=== PATIENT | male | born 1960 | race Caucasian/White ===

== ENCOUNTER → 2016-06-15 | Outpatient (CLI) | payer OTHER ==
[~2016-06-15] MED LIST: ASPI81TA28 PO; BROM1SOL8; GLC5 PO; LISI-461 PO; METF-384 PO; MULT-506 PO; OFLO0.3S4; OMEG10007 PO; PRDFOPS; SIMV-151 PO; TAMS0.4C38 PO; TPRSR/50 PO
[2016-06-15 09:50] LABS: ESTIMATED AVERAGE GLUCOSE 137 mg/dl; HA1C FLAG Normal (Normal)
[2016-06-15 09:59] LABS: ALT/SGPT 62 U/L (12-78); BLOOD UREA NITROGEN 21 mg/dl (7-18); BUN/CREATININE RATIO 30.6 (10-20); CALCIUM 8.9 mg/dl (8.5-10.1); CARBON DIOXIDE 27 mmol/L (21-32); CHLORIDE 105 mmol/L (98-107); CHOLESTEROL 142 mg/dl (0-200); CREATININE 0.69 mg/dl (0.60-1.40); GLUCOSE 205 mg/dl (70-99); POTASSIUM 4.3 mmol/L (3.5-5.1); SODIUM 139 mmol/L (136-145)
[2016-06-15 10:05] LABS: CHOLESTEROL/HDL RATIO 3.1; HDL CHOLESTEROL 46 mg/dl; LDL CHOLESTEROL CALCULATED 46 mg/dl; TRIGLYCERIDES 249 mg/dl (0-150); VERY LOW DENSITY LIPOPROT CALC 50 mg/dl
== END | disposition home or self-care (01) ==
LOC: C.LAB 08:00
PROVIDERS: ATTEND Family Medicine
DX: E11.65 Type 2 diabetes mellitus with hyperglycemia (principal)

== ENCOUNTER → 2016-09-26 | Outpatient (CLI) | payer OTHER ==
[2016-09-26 09:09] LABS: ALT/SGPT 59 U/L (12-78); BLOOD UREA NITROGEN 18 mg/dl (7-18); BUN/CREATININE RATIO 24.9 (10-20); CALCIUM 9.1 mg/dl (8.5-10.1); CARBON DIOXIDE 27 mmol/L (21-32); CHLORIDE 108 mmol/L (98-107); CREATININE 0.72 mg/dl (0.60-1.40); GLUCOSE 139 mg/dl (70-99); POTASSIUM 4.3 mmol/L (3.5-5.1); SODIUM 140 mmol/L (136-145)
[2016-09-26 09:12] LABS: CHOLESTEROL 147 mg/dl (0-200); CHOLESTEROL/HDL RATIO 2.6; HDL CHOLESTEROL 57 mg/dl; LDL CHOLESTEROL CALCULATED 73 mg/dl; TRIGLYCERIDES 85 mg/dl (0-150); VERY LOW DENSITY LIPOPROT CALC 17 mg/dl
[2016-09-26 09:17] LABS: ESTIMATED AVERAGE GLUCOSE 137 mg/dl; HA1C FLAG Normal (Normal)
== END | disposition home or self-care (01) ==
LOC: C.LAB 08:15
PROVIDERS: ATTEND Family Medicine
DX: E78.00 Pure hypercholesterolemia, unspecified (principal); I10 Essential (primary) hypertension; E11.65 Type 2 diabetes mellitus with hyperglycemia

== ENCOUNTER → 2016-10-05 | Day surgery (SDC) | payer OTHER ==
[2016-09-18 12:38] VITALS: Ht 165.1 cm; Wt 113.6 kg
[~2016-10-05] VITALS: Ht 165.1 cm; Wt 113.6 kg
[~2016-10-05] MED LIST changes: +LIDOCAINE HCL 2% 2 ML VIAL (20MG/ML) ONE; +PROPOFOL IV EMULSION 10 MG/ML 20 ML VIAL IV ONE; +SODIUM CHLORIDE 0.9% 500ML 500 ML IV ONE
--- NOTE | 2016-10-05 10:07 | Endo History and Physical ---
History & Physical Date of Service: Oct 05, 2016. Chief Complaint: tubulovillous adenoma Referring Physician: ALYCE Cain III History of Present Illness 56 yo CM who presents for Colonoscopy secondary to history of colon polyp. Past Medical History Diabetes, Male Genitourinary Prob., Gastrointestinal Disorder, High Cholesterol , Hypertension Past Surgical History Hx Cardiac Surgery: No Hx Internal Defibrillator: No Hx Pacemaker: No Hx Abdominal Surgery: Yes (PARTIAL COLECTOMY WITH COLOSTOMY AND REVERSAL, HERNIA REPAIR, APPY) Hx of Implantable Prosthesis: No Hx Post-Op Nausea and Vomiting: No Hx Cancer Surgery: No Hx Thoracic Surgery: No Hx Orthopedic: No Hx Urinary Tract Surgery: No Family History None Social History Smoking Status: Current Some Day Smoker Hx Substance Use: No Hx Alcohol Use: Yes (1 WHISKEY DRINK/DAY) Allergies Coded Allergies: Cat Dander (Verified Allergy, Unknown, UNKNOWN, 09/18/16) NO KNOWN DRUG ALLERGIES (Verified Allergy, Unknown, ., 09/18/16) Current Medications Reported Home Medications Medications Dose Route/Sig Max Daily Dose Days Date Category Zestril (Lisinopril) 10 Mg Tab 10 Mg PO QPM 09/18/16 Reported Glipizide 5 Mg Tab 0.5 Tab PO QPM 09/18/16 Reported Glipizide 5 Mg Tab 1 Tab PO QAM 09/18/16 Reported [place]-3 (Fish Oil) 1 Ea Cap 1 Cap PO BID 04/01/15 Reported Flomax (Tamsulosin Hcl) 0.4 Mg Cap 0.4 Mg PO QPM 04/01/15 Reported Glucophage (Metformin Hcl) 1,000 Mg Tab 1,000 Mg PO BID 01/01/14 Reported Multivitamin (Multivitamins) Tab 1 Tab PO QAM 01/01/14 Reported Aspirin Ec (Aspirin) 81 Mg Tab 81 Mg PO QAM 01/01/14 Reported Metoprolol Succinate ER (Metoprolol Succinate) 50 Mg Tabcr 50 Mg PO QAM 01/01/14 Reported Simvastatin 20 Mg Tab 20 Mg PO QPM 01/01/14 Reported Vital Signs Weight (Kilograms): 113.64 Height (Feet): 5 Height (Inches): 5 Date Time Temp Pulse Resp B/P (MAP) Pulse Ox O2 Delivery O2 Flow Rate FiO2 10/05/16 09:41 36.6 78 20 157/89 (111) 97 Room Air Physical Exam General Appearance: WD/WN, no apparent distress Respiratory/Chest: Auscultation: breath sounds normal Cardiovascular: Heart Auscultation: RRR Abdomen: Bowel Sounds: normal Inspection & Palpation: soft, non-distended, no tenderness, guarding & rebound Assessment and Plan Assessment: 56 yo CM who presents for Colonoscopy secondary to history of colon polyp. Plan: Proceed with colonoscopy.
--- NOTE | 2016-10-05 10:56 | GI REPORT ---
Procedure Date: 10/05/2016 10:11 AM Procedure: Colonoscopy Indications: High risk colon cancer surveillance: Personal history of colonic polyps, Last colonoscopy: April 2015 Medicines: Monitored Anesthesia Care Complications: No immediate complications. Estimated Blood Loss: Estimated blood loss: none. Procedure: Pre-Anesthesia Assessment: - Prior to the procedure, a History and Physical was performed, and patient medications and allergies were reviewed. The patient's tolerance of previous anesthesia was also reviewed. The risks and benefits of the procedure and the sedation options and risks were discussed with the patient. All questions were answered, and informed consent was obtained. Prior Anticoagulants: The patient has taken aspirin, last dose was 1 day prior to procedure. ASA Grade Assessment: III - A patient with severe systemic disease. After reviewing the risks and benefits, the patient was deemed in satisfactory condition to undergo the procedure. After I obtained informed consent, the scope was passed under direct vision. Throughout the procedure, the patient's blood pressure, pulse, and oxygen saturations were monitored continuously. The scope was introduced through the anus and advanced to the terminal ileum. The colonoscopy was performed without difficulty. The patient tolerated the procedure well. The quality of the bowel preparation was good. The terminal ileum, ileocecal valve, appendiceal orifice, and rectum were photographed. Findings: There was evidence of a prior end-to-side colo-colonic anastomosis in the sigmoid colon. This was patent and was characterized by healthy appearing mucosa. The anastomosis was traversed. Non-bleeding internal hemorrhoids were found during retroflexion. The hemorrhoids were small. Impression: - Patent end-to-side colo-colonic anastomosis, characterized by healthy appearing mucosa. - Non-bleeding internal hemorrhoids. - No specimens collected. Recommendation: - Resume previous diet. - Continue present medications. - Repeat colonoscopy in 3 years for screening purposes. - Return to primary care physician as previously scheduled. Nicko Gardner DO 10/05/2016 10:55:36 AM This report has been signed electronically. Note Initiated On: 10/05/2016 10:11 AM I attest to the content of the Intraoperative Record and orders documented therein, exceptions below
--- NOTE | 2016-10-05 10:57 | Discharge Instructions ---
Endoscopy Patient Instructions Date / Procedure(s) Performed Oct 05, 2016. Colonoscopy Allergy Information Coded Allergies: Cat Dander (Verified Allergy, Unknown, UNKNOWN, 09/18/16) NO KNOWN DRUG ALLERGIES (Verified Allergy, Unknown, ., 09/18/16) Discharge Date / Findings Oct 05, 2016. Sigmoid colon anastomosis Internal hemorrhoids Medication Instructions Stopped Medication(s): stopped Metformin on Wednesday,took ASA yesterday OK to resume all medications today as prescribed Reported Home Medications Medications Dose Route/Sig Max Daily Dose Days Date Category Zestril (Lisinopril) 10 Mg Tab 10 Mg PO QPM 09/18/16 Reported Glipizide 5 Mg Tab 0.5 Tab PO QPM 09/18/16 Reported Glipizide 5 Mg Tab 1 Tab PO QAM 09/18/16 Reported [place]-3 (Fish Oil) 1 Ea Cap 1 Cap PO BID 04/01/15 Reported Flomax (Tamsulosin Hcl) 0.4 Mg Cap 0.4 Mg PO QPM 04/01/15 Reported Glucophage (Metformin Hcl) 1,000 Mg Tab 1,000 Mg PO BID 01/01/14 Reported Multivitamin (Multivitamins) Tab 1 Tab PO QAM 01/01/14 Reported Aspirin Ec (Aspirin) 81 Mg Tab 81 Mg PO QAM 01/01/14 Reported Metoprolol Succinate ER (Metoprolol Succinate) 50 Mg Tabcr 50 Mg PO QAM 01/01/14 Reported Simvastatin 20 Mg Tab 20 Mg PO QPM 01/01/14 Reported Provider Instructions Activity Restrictions - No exercising or heavy lifting for 24 hours. - Do not drink alcohol the day of the procedure. - Do not drive a car or operate machinery until the day after the procedure. - Do not make any important decisions or sign important papers in 24 hours after the procedure. Following Day: - Return to full activity which may include returning to work/school. Diet Start your diet with liquids and light foods (jello, soup, juice, toast). Then eat your usual diet if not nauseated. Treatment For Common After Affects For mild abdominal pain, bloating, or excessive gas: - Rest - Eat lightly - Lie on right side Follow-Up Information Follow-up with ALYCE Cain III as scheduled Anesthesia Information What You Should Know You have had a procedure that required some medicine to reduce anxiety and discomfort. This treatment is called moderate sedation. After receiving the treatment, you may be sleepy, but you will be able to breathe on your own. The effects of the treatment may last for several hours. Follow these instructions along with Activity/Diet recommendations noted above: * Do NOT do anything where dizziness or clumsiness would be dangerous. * Rest quietly at home today, then you can be up and about tomorrow. * Have a responsible person stay with you the rest of today. * You may have had an I.V. today. If so, you may take the dressing off later today. Recommendations Call your doctor if: * Trouble breathing * Continuous vomiting for more than 24 hours * Temperature above 101 degrees * Severe abdominal pain or bloating * Pain not relieved by pain medicine ordered * There is increased drainage or redness from any incision * A large amount of rectal bleeding greater than 2-3 tablespoons. (If you had a polyp/s removed or have hemorrhoids, a small amount of blood - from the rectum is to be expected.) * You have any unanswered questions or concerns. IN THE EVENT OF A SERIOUS EMERGENCY, GO TO THE NEAREST EMERGENCY ROOM Your discharge instructions were prepared by provider Nicko Gardner. Patient Instructions Signature Page [place] Patient (or Guardian) Signature/Date: I have read and understand the instructions given to me by my caregivers. Caregiver/RN/Doctor Signature/Date: The above-named patient and/or guardian has received patient instructions on this date. + Original Patient Signature Page (only) stays with chart. Please make copy for patient.
[2016-10-05 11:18] VITALS: BP 122/79; PULSE 70; O2SAT 98
--- NOTE | 2016-10-05 11:40 | Anesthesiology Progress Note ---
Anesthesia Post Op Note Date & Time Oct 05, 2016 at 11:40 Vital Signs Pain Intensity: 1 Vital Signs Past 12 Hours Date Time Temp Pulse Resp B/P (MAP) Pulse Ox O2 Delivery O2 Flow Rate FiO2 10/05/16 11:18 70 20 122/79 (93) 98 Room Air 10/05/16 11:02 68 20 123/76 (92) 97 Room Air 10/05/16 10:45 71 20 111/71 (84) 98 Room Air 10/05/16 09:41 36.6 78 20 157/89 (111) 97 Room Air Notes Mental Status: alert / awake / arousable Pt Amnestic to Procedure: Yes Nausea / Vomiting: adequately controlled Pain: adequately controlled Airway Patency, RR, SpO2: stable & adequate BP & HR: stable & adequate Hydration State: stable & adequate Anesthetic Complications: no major complications apparent
== END | disposition home or self-care (01) ==
LOC: C.GI 09:11
PROVIDERS: ATTEND Internal Medicine
DX: Z86.010 Personal history of colon polyps (principal); K64.8 Other hemorrhoids; E11.9 Type 2 diabetes mellitus without complications; K21.9 Gastro-esophageal reflux disease without esophagitis; E78.00 Pure hypercholesterolemia, unspecified; I10 Essential (primary) hypertension; F17.200 Nicotine dependence, unspecified, uncomplicated; Z90.49 Acquired absence of other specified parts of digestive tract; Z90.89 Acquired absence of other organs; E78.5 Hyperlipidemia, unspecified; Z79.82 Long term (current) use of aspirin

== ENCOUNTER → 2016-11-04 | Day surgery (SDC) | payer OTHER ==
[2016-10-21 08:23] VITALS: Ht 165.1 cm; Wt 113.6 kg
[~2016-11-04] VITALS: Ht 165.1 cm; Wt 113.6 kg
[~2016-11-04] MED LIST changes: +500ML BSS 0.3ML EPI 1:1000PF IRRIG ONE; +ACETAMINOPHEN 325 MG TAB PO PRN; +AMVISC PLUS 0.8ML SYRINGE INT OCU ONE; +ATROPINE SULFATE 0.1 MG/ML 5ML SYR IV PRN; +BSS FLUSH ONE; +ENDOCOAT 0.85ML SYRINGE INT OCU ONE; +EpHEDrine SULFATE INJ 50 MG/ML AMP IV PRN; +EpINEphrine INJ 1MG/ML AMP 1 MG/ML AMP ONE; +FENTANYL CITRATE INJ 50 MCG/1 ML 2 ML VIAL ONE; +LACTATED RINGER'S 1000ML 500 ML IV SCH; +LIDOCAINE 4% OP SOLN DROP CHARGE ONE; +LIDOCAINE 4% OP SOLN DROP CHARGE OPL SCH; +LIDOCAINE HCL 1% MPF 2 ML VIAL ONE; -LIDOCAINE HCL 2% 2 ML VIAL (20MG/ML) ONE; +MIDAZOLAM HCL 1 MG/ML 2ML VIAL ONE; +MIX: 4ML BSS 1ML EPI 1:1000 PF TOP ONE; +MOXIFLOXACIN OPH SOLN PER DROP CHARGE ONE; +POVIDONE-IODINE OP SOLN 30 ML BTL ONE; +PROPARACAINE 0.5% OP SOLN PER DROP CHARGE OPL SCH; -PROPOFOL IV EMULSION 10 MG/ML 20 ML VIAL IV ONE; -SODIUM CHLORIDE 0.9% 500ML 500 ML IV ONE; +TOBRAMYCIN/DEXAMETHASONE OPH OINT PER APPLN CHARGE ONE
[2016-11-04] MEDS: PHENYLEPHRINE HCL 2.5% OP SOLN PER DROP CHARGE OPL SCH ×3 (07:26→07:39)
[2016-11-04] MEDS: TROPICAMIDE 1% OP SOLN PER DROP CHARGE OPL SCH ×3 (07:28→07:40)
[2016-11-04] MEDS: CYCLOPENTOLATE HCL 1% OP SOLN PER DROP CHARGE OPL SCH ×3 (07:29→07:42)
[2016-11-04] MEDS: MOXIFLOXACIN OPH SOLN PER DROP CHARGE OPL SCH ×3 (07:30→07:43)
--- NOTE | 2016-11-04 07:30 | History & Physical Bridge - [place] ---
H&P Re-Evaluation Bridge Note: I have examined the patient, reviewed the History & Physical and in the interval since the performance of the History & Physical I have noted the following changes of clinical significance: No changes noted
--- NOTE | 2016-11-04 08:38 | [facility] Post Operative Brief Note ---
Immediate Operative Summary Operative Date Nov 04, 2016. Pre-Operative Diagnosis Left Eye Cataract Post-Operative Diagnosis Same Procedure(s) Performed Left Eye Cataract Phacoemulsification With Intraocular Lens Implant Surgeon Dr. Hebert Field Support Engineer Surgeon(s) None Estimated Blood Loss 0 Findings left cataract Specimens None Complication(s) None Disposition
[2016-11-04 08:39] VITALS: TEMP 36.3
--- NOTE | 2016-11-04 08:39 | [facility] Operative Report ---
Operative Report Date of Service Nov 04, 2016. Operative Report DATE OF OPERATION: 11/04/16 PREOPERATIVE DIAGNOSIS: Senile nuclear cataract and astigmatism, left eye POSTOPERATIVE DIAGNOSIS: Senile nuclear cataract and astigmatism, left eye PROCEDURE PERFORMED: Phacoemulsification with toric intraocular lens implantation, left eye SURGEON: Dr. Lino Hebert ANESTHESIA: Topical with 1% intracameral lidocaine and monitored anesthesia care COMPLICATIONS: None DESCRIPTION OF PROCEDURE: After positively identifying the patient both verbally and by wristband in the preoperative area, the left eye was marked as the operative eye. Using a Robomarker, the 75 degree axis was marked after placing a drop of proparacaine. The patient was then brought back to the operating room by the anesthesia and nursing staff where they were given a drop of tetracaine and betadine into the operative eye. They were then sterilely prepped and draped in the standard fashion typical for ophthalmic surgery. Steri-strips were placed along the upper eyelids to keep the lashes back, and a lid speculum was placed into the operative eye. At this point, a documented time out was performed with members of the ophthalmology, nursing, and anesthesia staffs all agreeing upon the correct patient, correct location for surgery, correct procedure, and correct type and power of intraocular lens to be implanted. The microscope was then swung into position. Then, a paracentesis wound was made using a sideport blade. Then, in sequence, 1% preservative-free lidocaine followed by Endocoat viscoelastic was injected into the anterior chamber. Next , the main incision was made with a keratome blade in triplanar fashion. A sharp cystotome was introduced into the eye and used to create a tear in the anterior capsule, which was directed into a continuous curvilinear capsulorrhexis using Utrata forceps. Hydrodissection was then performed with BSS on a flat-tip cannula. Next, the phacoemulsification handpiece was introduced into the eye and used to remove the nucleus in a [id number] fashion. This was done without complication and then the irrigation-aspiration handpiece was introduced into the eye and used to remove all remaining cortical and epinuclear material. Amvisc was then injected into the anterior chamber as well as into the capsular bag and using the lens injector system, a [id number] 19.5 D lens, serial number [id number], and expiration date 07/2020 was injected into the capsular bag and rotated into the correct position to correctly line up with the toric marking. Next, the irrigation-aspiration handpiece was used to remove all remaining Amvisc. BSS was used to hydrate the main wound, and then BSS was injected into the paracentesis site to reach physiologic pressure and then the main wound was checked and found to be watertight. The patient was given drops of Vigamox and tobradex ointment into the operative eye, and then the surrounding area was cleaned and dried. A clear plastic shield was placed over the eye and the patient was then sat up and taken from the operating room by the anesthesia staff having tolerated the procedure well and suffering no complications. DISPOSITION: The patient was returned to the recovery room in stable condition. I attest to the content of the Intraoperative Record and any orders documented therein. Any exceptions are noted below.
--- NOTE | 2016-11-04 08:40 | Discharge Instructions-SurgCtr ---
Discharge Instructions Date of Service Nov 04, 2016. Visit Reason for Visit: Cataract Left Eye Discharge Discharge Diagnosis / Problem: left cataract Discharge Goals Goal(s): Decrease discomfort, Improve function Medications Stopped Medications Name(s): Metformin stopped 2 days ago Activity Recommendations Activity Limitations: as noted below Anesthesia . Post Anesthesia Instructions: If you have had General Anesthesia or IV Sedation: * Do not drive today. * Resume driving when surgeon permits. * Do not make important decisions or sign legal documents today. * Call surgeon for: 1. Temperature elevations greater than 101 degrees F. 2. Uncontrollable pain. 3. Excessive bleeding. 4. Persistent nausea and vomiting. 5. Medication intolerance (nausea, vomiting or rash). * For nausea and vomiting use only clear liquids such as: tea, soda, bouillon until nausea subsides, then gradually increase diet as tolerated. * If you have any concerns or questions, call your surgeon's office. If physician is unavailable and it is an emergency, call 911 or go to the nearest emergency room. . Instructions / Follow-Up Instructions / Follow-Up ACTIVITY RECOMMENDATIONS: * Light activities. * You may walk outside, read, watch television. * You may notice redness on the white part of the eye and some blurry vision - this is normal. MEDICATIONS: Resume previous medications unless instructed otherwise by your surgeon. Start all eye drops at 10:30 am today: * Eye drops (today): Prednisone - one drop in operative eye every 2 hours while awake Ofloxacin - one drop in operative eye every 2 hours while awake Bromfenac - one drop in operative eye daily SPECIAL CARE INSTRUCTIONS: * Tape plastic shield over eye to sleep at night. Call your doctor at with any concerns or problems. FOLLOW UP VISIT: Follow-up with Dr Hebert at [place] office as scheduled. Diet Recommendations Home Diet: no limitations Procedures Procedures Performed: Left Eye Cataract Phacoemulsification With Intraocular Lens Implant Pending Studies Studies pending at discharge: no Medical Emergencies . Who to Call and When: Medical Emergencies: If at any time you feel your situation is an emergency, please call 911 immediately. . Non-Emergent Contact Non-Emergency issues call your: Surgeon . . "Provider Documentation" section prepared by Lino Hebert. .
--- NOTE | 2016-11-04 08:48 | Anesthesia Progress Nt - [facility] ---
Anesthesia Post Op Note Date & Time Nov 04, 2016 at 08:47 Vital Signs Pain Intensity: 0 Vital Signs Past 12 Hours Date Time Temp Pulse Resp B/P (MAP) Pulse Ox O2 Delivery O2 Flow Rate FiO2 11/04/16 08:39 36.3 67 16 153/73 (99) 98 Room Air 11/04/16 07:13 36.4 70 16 122/82 (95) 97 Room Air Notes Mental Status: alert / awake / arousable, participated in evaluation Pt Amnestic to Procedure: Yes Nausea / Vomiting: adequately controlled Pain: adequately controlled Airway Patency, RR, SpO2: stable & adequate BP & HR: stable & adequate Hydration State: stable & adequate Anesthetic Complications: no major complications apparent
[2016-11-04 09:05] VITALS: BP 128/82; PULSE 60; O2SAT 96
== END | disposition home or self-care (01) ==
LOC: X.SURG 06:54
PROVIDERS: ATTEND Ophthalmology
DX: H25.12 Age-related nuclear cataract, left eye (principal); E11.9 Type 2 diabetes mellitus without complications; F17.200 Nicotine dependence, unspecified, uncomplicated

== ENCOUNTER → 2016-11-18 | Day surgery (SDC) | payer OTHER ==
[2016-11-13 12:49] VITALS: Ht 165.1 cm; Wt 113.6 kg
[~2016-11-18] VITALS: Ht 165.1 cm; Wt 113.6 kg
[~2016-11-18] MED LIST changes: -BROM1SOL8; -LIDOCAINE 4% OP SOLN DROP CHARGE OPL SCH; -OFLO0.3S4; +ONDANSETRON INJ 2 MG/ML 2 ML VIAL IV PRN; -PRDFOPS; -PROPARACAINE 0.5% OP SOLN PER DROP CHARGE OPL SCH; +PROPARACAINE 0.5% OP SOLN PER DROP CHARGE OPR SCH
[2016-11-18] MEDS: PHENYLEPHRINE HCL 2.5% OP SOLN PER DROP CHARGE OPR SCH ×3 (08:07→08:18)
[2016-11-18] MEDS: TROPICAMIDE 1% OP SOLN PER DROP CHARGE OPR SCH ×3 (08:08→08:19)
[2016-11-18] MEDS: CYCLOPENTOLATE HCL 1% OP SOLN PER DROP CHARGE OPR SCH ×3 (08:09→08:20)
[2016-11-18] MEDS: MOXIFLOXACIN OPH SOLN PER DROP CHARGE OPR SCH ×3 (08:10→08:21)
[2016-11-18] MEDS: LIDOCAINE 4% OP SOLN DROP CHARGE OPR SCH (08:22)
--- NOTE | 2016-11-18 09:11 | [facility] Post Operative Brief Note ---
Immediate Operative Summary Operative Date Nov 18, 2016. Pre-Operative Diagnosis Right eye cataract Post-Operative Diagnosis Same as preop Procedure(s) Performed Right Cataract Phacoemulsification With Intraocular Lens Implant; Toric Lens Surgeon Dr. Hebert Machine Accountant Surgeon(s) None Estimated Blood Loss 0 mL Findings right cataract Specimens None Complication(s) None Disposition
[2016-11-18 09:13] VITALS: TEMP 36.5
--- NOTE | 2016-11-18 09:13 | [facility] Operative Report ---
Operative Report Date of Service Nov 18, 2016. Operative Report DATE OF OPERATION: 11/18/16 PREOPERATIVE DIAGNOSIS: Senile nuclear cataract and astigmatism, right eye POSTOPERATIVE DIAGNOSIS: Senile nuclear cataract and astigmatism, right eye PROCEDURE PERFORMED: Phacoemulsification with toric intraocular lens implantation, right eye SURGEON: Dr. Lino Hebert ANESTHESIA: Topical with 1% intracameral lidocaine and monitored anesthesia care COMPLICATIONS: None DESCRIPTION OF PROCEDURE: After positively identifying the patient both verbally and by wristband in the preoperative area, the right eye was marked as the operative eye. Using a Robomarker, the 86 degree axis was marked after placing a drop of proparacaine. The patient was then brought back to the operating room by the anesthesia and nursing staff where they were given a drop of tetracaine and betadine into the operative eye. They were then sterilely prepped and draped in the standard fashion typical for ophthalmic surgery. Steri-strips were placed along the upper eyelids to keep the lashes back, and a lid speculum was placed into the operative eye. At this point, a documented time out was performed with members of the ophthalmology, nursing, and anesthesia staffs all agreeing upon the correct patient, correct location for surgery, correct procedure, and correct type and power of intraocular lens to be implanted. The microscope was then swung into position. Then, a paracentesis wound was made using a sideport blade. Then, in sequence, 1% preservative-free lidocaine followed by Endocoat viscoelastic was injected into the anterior chamber. Next , the main incision was made with a keratome blade in triplanar fashion. A sharp cystotome was introduced into the eye and used to create a tear in the anterior capsule, which was directed into a continuous curvilinear capsulorrhexis using Utrata forceps. Hydrodissection was then performed with BSS on a flat-tip cannula. Next, the phacoemulsification handpiece was introduced into the eye and used to remove the nucleus in a [id number]-payddyd fashion. This was done without complication and then the irrigation-aspiration handpiece was introduced into the eye and used to remove all remaining cortical and epinuclear material. Amvisc was then injected into the anterior chamber as well as into the capsular bag and using the lens injector system, a [id number] 18.5 D lens, serial number [id number], and expiration date 07/2019 was injected into the capsular bag and rotated into the correct position to correctly line up with the toric marking. Next, the irrigation-aspiration handpiece was used to remove all remaining Amvisc. BSS was used to hydrate the main wound, and then BSS was injected into the paracentesis site to reach physiologic pressure and then the main wound was checked and found to be watertight. The patient was given drops of Vigamox and tobradex ointment into the operative eye, and then the surrounding area was cleaned and dried. A clear plastic shield was placed over the eye and the patient was then sat up and taken from the operating room by the anesthesia staff having tolerated the procedure well and suffering no complications. DISPOSITION: The patient was returned to the recovery room in stable condition. I attest to the content of the Intraoperative Record and any orders documented therein. Any exceptions are noted below.
--- NOTE | 2016-11-18 09:14 | Discharge Instructions-SurgCtr ---
Discharge Instructions Date of Service Nov 18, 2016. Visit Reason for Visit: Right Cataract Discharge Discharge Diagnosis / Problem: right cataract Discharge Goals Goal(s): Decrease discomfort, Improve function Medications Stopped Medications Name(s): METFORMIN LAST DOSE WEDNESDAY Activity Recommendations Activity Limitations: as noted below Anesthesia . Post Anesthesia Instructions: If you have had General Anesthesia or IV Sedation: * Do not drive today. * Resume driving when surgeon permits. * Do not make important decisions or sign legal documents today. * Call surgeon for: 1. Temperature elevations greater than 101 degrees F. 2. Uncontrollable pain. 3. Excessive bleeding. 4. Persistent nausea and vomiting. 5. Medication intolerance (nausea, vomiting or rash). * For nausea and vomiting use only clear liquids such as: tea, soda, bouillon until nausea subsides, then gradually increase diet as tolerated. * If you have any concerns or questions, call your surgeon's office. If physician is unavailable and it is an emergency, call 911 or go to the nearest emergency room. . Instructions / Follow-Up Instructions / Follow-Up ACTIVITY RECOMMENDATIONS: * Light activities. * You may walk outside, read, watch television. * You may notice redness on the white part of the eye and some blurry vision - this is normal. MEDICATIONS: Resume previous medications unless instructed otherwise by your surgeon. Start all eye drops at 11:30 am today: * Eye drops (today): Prednisone - one drop in operative eye every 2 hours while awake Ofloxacin - one drop in operative eye every 2 hours while awake Bromfenac - one drop in operative eye daily SPECIAL CARE INSTRUCTIONS: * Tape plastic shield over eye to sleep at night. Call your doctor at with any concerns or problems. FOLLOW UP VISIT: Follow-up with Dr Hebert at [place] office as scheduled. Diet Recommendations Home Diet: no limitations Procedures Procedures Performed: Right Cataract Phacoemulsification With Intraocular Lens Implant; Toric Lens Pending Studies Studies pending at discharge: no Medical Emergencies . Who to Call and When: Medical Emergencies: If at any time you feel your situation is an emergency, please call 911 immediately. . Non-Emergent Contact Non-Emergency issues call your: Surgeon . . "Provider Documentation" section prepared by Lino Hebert. .
[2016-11-18 09:36] VITALS: BP 128/77; PULSE 65; O2SAT 97
--- NOTE | 2016-11-18 09:42 | Anesthesia Progress Nt - [facility] ---
Anesthesia Post Op Note Date & Time Nov 18, 2016 at 09:42 Vital Signs Pain Intensity: 0 Vital Signs Past 12 Hours Date Time Temp Pulse Resp B/P (MAP) Pulse Ox O2 Delivery O2 Flow Rate FiO2 11/18/16 09:36 65 16 128/77 (94) 97 Room Air 11/18/16 09:13 36.5 64 16 145/74 (97) 96 Room Air 11/18/16 07:59 36.5 70 22 127/79 (95) 98 Room Air Notes Mental Status: alert / awake / arousable, participated in evaluation Pt Amnestic to Procedure: Yes Nausea / Vomiting: adequately controlled Pain: adequately controlled Airway Patency, RR, SpO2: stable & adequate BP & HR: stable & adequate Hydration State: stable & adequate Anesthetic Complications: no major complications apparent
== END | disposition home or self-care (01) ==
LOC: X.SURG 07:17
PROVIDERS: ATTEND Ophthalmology
DX: H25.11 Age-related nuclear cataract, right eye (principal); H52.201 Unspecified astigmatism, right eye; E11.9 Type 2 diabetes mellitus without complications; F17.210 Nicotine dependence, cigarettes, uncomplicated; Z86.010 Personal history of colon polyps

== ENCOUNTER → 2017-01-21 | Outpatient (CLI) | payer OTHER ==
[~2017-01-21] MED LIST changes: -500ML BSS 0.3ML EPI 1:1000PF IRRIG ONE; -ACETAMINOPHEN 325 MG TAB PO PRN; -AMVISC PLUS 0.8ML SYRINGE INT OCU ONE; -ATROPINE SULFATE 0.1 MG/ML 5ML SYR IV PRN; -BSS FLUSH ONE; -ENDOCOAT 0.85ML SYRINGE INT OCU ONE; -EpHEDrine SULFATE INJ 50 MG/ML AMP IV PRN; -EpINEphrine INJ 1MG/ML AMP 1 MG/ML AMP ONE; -FENTANYL CITRATE INJ 50 MCG/1 ML 2 ML VIAL ONE; -LACTATED RINGER'S 1000ML 500 ML IV SCH; -LIDOCAINE 4% OP SOLN DROP CHARGE ONE; -LIDOCAINE HCL 1% MPF 2 ML VIAL ONE; -MIDAZOLAM HCL 1 MG/ML 2ML VIAL ONE; -MIX: 4ML BSS 1ML EPI 1:1000 PF TOP ONE; -MOXIFLOXACIN OPH SOLN PER DROP CHARGE ONE; -ONDANSETRON INJ 2 MG/ML 2 ML VIAL IV PRN; -POVIDONE-IODINE OP SOLN 30 ML BTL ONE; -PROPARACAINE 0.5% OP SOLN PER DROP CHARGE OPR SCH; -TOBRAMYCIN/DEXAMETHASONE OPH OINT PER APPLN CHARGE ONE
--- NOTE | 2017-01-21 09:08 | DIAGNOSTIC IMAGING REPORT ---
ULTRASOUND OF THE BLADDER CLINICAL HISTORY: Weak urine stream. COMPARISON STUDY: Pelvic CT dated 01/01/2014. FINDINGS: Real-time, grayscale, and color flow sonography of the bladder is performed. The bladder wall appears mildly thickened and trabeculated. No mucosal lesion is suggested. Both ureteral jets were identified. The prevoid volume measures 310 cc. The post void residual measured 70 cc. IMPRESSION: 1. The bladder wall appears mildly thickened and trabeculated suggesting chronic outlet obstruction. 2. The post void residual volume measures 70 cc. Electronically signed by: Wilfrid Sierra M.D. 01/21/2017 9:06 AM Dictated Date/Time: 01/21/2017 9:04 AM
--- NOTE | 2017-01-21 09:10 | DIAGNOSTIC IMAGING REPORT ---
ULTRASOUND TESTES AND SCROTUM CLINICAL HISTORY: Weak urine stream. COMPARISON STUDY: No priors. TECHNIQUE: Real-time, grayscale, and color Doppler sonography of the testes and scrotum is performed. Images are reviewed in the transverse and longitudinal planes. FINDINGS: The testes appear mildly atrophic and are heterogeneous in echotexture. The right testis measures 3.2 x 1.4 x 2.2 cm and the left testis measures 2.7 x 1.4 x 1.7 cm. No intratesticular mass is seen. Testicular blood flow is normal and symmetric. Normal Doppler waveforms are identified in both testes. The epididymal heads are normal in appearance. The right epididymal head measures 1.1 cm in length and the left epididymal head measures 0.7 cm in length. A 4 mm epididymal head cyst is noted on the right. A 6 mm epididymal cyst is noted on the left. No varicocele or hydrocele is seen. IMPRESSION: 1. The testes appear atrophic and are heterogeneous in echotexture. 2. No mass lesion or acute abnormality is identified. Electronically signed by: Wilfrid Sierra M.D. 01/21/2017 9:08 AM Dictated Date/Time: 01/21/2017 9:06 AM
== END | disposition home or self-care (01) ==
LOC: C.ULTR 08:29
PROVIDERS: ATTEND Family Medicine
DX: R39.12 Poor urinary stream (principal); N50.9 Disorder of male genital organs, unspecified

== ENCOUNTER 2017-10-28 23:26 | Emergency (ER) | payer OTHER ==
[~2017-10-28] VITALS: Ht 165.1 cm; Wt 103.0 kg
[2017-10-28 23:29] VITALS: BP 150/90; PULSE 110; TEMP 36.6; O2SAT 97; Ht 165.1 cm; Wt 103.0 kg
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
== END 2017-10-29 00:12 | disposition home or self-care (01) ==
LOC: C.EDB 23:28
DX: Z77.21 Contact with and (suspected) exposure to potentially hazardous body fluids (principal); Z79.82 Long term (current) use of aspirin; Z79.84 Long term (current) use of oral hypoglycemic drugs; Z79.899 Other long term (current) drug therapy

== ENCOUNTER 2020-02-14 19:26 | Inpatient (IN) ==
[2020-02-14] MEDS ORDERED: cefTRIAXone SODIUM 1,000 MG/50 ML BAG IV STA (19:40)
[2020-02-14] MEDS ORDERED: DEXAMETHASONE SOD INJ 10 MG/ML VIAL IV ONE (19:40)
[2020-02-14] MEDS ORDERED: AZITHROMYCIN 250 MG TAB PO ONE (19:40)
--- NOTE | 2020-02-14 19:43 | Emergency Department Note ---
Impression & Plan Pneumonia due to 2019-nCoV, Hypoxia ED Provider Note NAME: TONY THORPE AGE: 60 SEX: M : 1960 ARRIVES VIA: Ambulance INFORMANT: Patient ED PROVIDER(S): Karthikeyan Don DO CHIEF COMPLAINT: Shortness of breath HPI: Patient is a 54-year-old male who presents the ER for shortness of breath. His symptoms started 2 Wednesdays ago. This initially started with a cough. He has now lost the sense of taste. His fever started this past Wednesday. Shortness of breath has been gradually getting worse. Denies any belly pain. He did have some chest pain but none today. Denies any vomiting dysuria urgency or frequency. No other exacerbating or remitting factors. ROS: See above HPI for pertinent positives & negatives. A total of 10 systems reviewed and were otherwise negative. PAST MEDICAL HISTORY:See Below PAST SURGICAL HISTORY:See Below FAMILY HISTORY:See Below SOCIAL HISTORY:See Below HOME MEDICATIONS:See Below ALLERGIES:See Below VITALS:See Below PHYSICAL EXAMINATION: GENERAL: Sitting up in bed, alert, ill-appearing on nonrebreather EYE EXAM: normal conjunctiva. LUNGS: Bilaterally. Normal chest wall mechanics HEART: no murmurs, S1 normal and S2 normal ABDOMEN: abdomen soft, non-tender, normo-active bowel sounds, no masses, no rebound or guarding. BACK: Back is symmetrical on inspection and there is no deformity, no midline tenderness, no CVA tenderness. SKIN: no rashes and no bruising UPPER EXTREMITIES: upper extremities are grossly normal. LOWER EXTREMITIES: No pitting edema. Calves are equal bilateral NEURO EXAM: Normal sensorium, cranial nerves II-XII grossly intact, normal speech, no gross weakness of arms, no gross weakness of legs. MEDICAL DECISION MAKING: Patient is a 60-year-old male obese who is Covid positive the presents the ER via EMS for shortness of breath. He was placed on nonrebreather. He was 70% on room air per EMS. IV was established blood work was obtained. Labs show a leukocytosis of 12,000. No significant anemia. D-dimer was elevated at 1200. BMP along with LFTs bilirubin were slightly elevated as T bili was 1.5 and AST and ALT were 70 and 90. Troponin was negative. Lipase unremarkable. Chest x- ray showed a multifocal pneumonia. Patient was given IV Rocephin and IV azithromycin. Remained on nonrebreather while in the ER. Updated bedside. Discussed with hospitalist for further evaluation. Triage Nursing notes reviewed. Prior medical records reviewed Vital Signs: reviewed and remarkable for toxic, tachycardic Differential diagnosis: Differential diagnoses includes but is not limited to pneumonia, bronchitis, COPD/Asthma exacerbation, pneumothorax, pulmonary embolism, congestive heart nadege lure, acute coronary syndrome ER treatment provided: See below Diagnostics interpreted by me: ECG: Sinus rhythm rate 93 Left axis No PVCs T wave inversion in lead III Normal QTC at 445 Cardiac Monitoring: An order was placed for continuous cardiac monitoring. The monitor shows a rate of 98 with sinus rhythm. Laboratory studies: As stated above and show below. Imaging studies: Portable AP upright 1 view of the chest shows multifocal pneumonia Consultation(s): none ED COURSE: Procedures: none Critical Care: I have personally spent 35 minutes of critical care time in the direct management of this patient. This includes bedside care, interpretation of diagnostic studies, and testing, discussion with consultants, patient, and family members, and other required patient management activities. This 35 minutes is in excess of all separately billable procedures. Past Med/Surg History Medical History (Updated 02/15/20 @ 00:21 by Karthikeyan Don DO) Allergic rhinitis Diverticular disease DM2 (diabetes mellitus, type 2) Hypercholesterolemia Hypertension Myotonic dystrophy, type 2 Surgical History History of appendectomy History of bilateral cataract extraction History of colonoscopy with polypectomy History of colostomy d/t diverticulitis History of colostomy reversal History of esophagogastroduodenoscopy (EGD) History of incisional hernia repair History of partial colectomy 1990s--had colostomy--d/t diverticulitis Family History Mother Cancer Family history of diabetes mellitus Brother Prostate cancer Colorectal cancer Other No family history of adverse response to anesthesia Denies family history of Ovarian cancer Myocardial infarction Breast cancer Social History Smoking Status: Current some day smoker Tobacco Type: Cigars Age Started Using Tobacco: 37; Age Quit Using Tobacco: 57; Second Hand Exposure: Yes (mom smoked); Hx Alcohol Use: Yes Alcohol type: hard liquor Hx Substance Use: No Preferred Language: Hebrew Communication Ability: Effective Fisher Mussel Required: No Beliefs That Will Affect Care: None marital status: Current Living Situation: Spouse and Family Current Living Situation Comment: Lives with and son current occupational status: employed Feels Safe at Home: Yes Dental Care, Regularly: No Physical Activity Frequency: Does not Exercise Seatbelt Use: sometimes Do you think of yourself as: straight/heterosexual Assistive Devices: None Allergies Allergies Allergy/AdvReac Type Severity Reaction Status Date / Time cat dander Allergy Mild COUGH Verified 02/14/20 20:23 Home Meds Home Medications Medication Instructions Recorded Confirmed 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 meter #1 ea 09/12/18 02/12/20 multivitamin 1 tab PO QAM 09/12/18 02/14/20 blood sugar diagnostic #10 ea 11/07/18 02/12/20 diclofenac sodium 75 mg 75 mg PO BIDM PRN #180 tab 11/07/18 02/14/20 tablet,delayed release lancets 33 gauge #100 ea 11/07/18 02/12/20 methocarbamol 500 mg tablet 500 mg PO QID PRN #28 tab 11/07/18 02/14/20 fluticasone propionate [Flonase 2 sprays INTNAS DAILY PRN 12/20/19 02/14/20 Allergy Relief] glipizide 2.5 mg PO QPM 12/20/19 02/14/20 glipizide 5 mg PO QAM 12/20/19 02/14/20 losartan 50 mg PO QAM 12/20/19 02/14/20 metoprolol succinate 50 mg PO QAM 12/20/19 02/14/20 albuterol sulfate [ProAir HFA] 2 puff INHALATION .Q4-6H PRN 02/14/20 02/14/20 aspirin 81 mg PO QAM 02/14/20 02/14/20 benzonatate [Tessalon Perles] 100 - 200 mg PO TID PRN 02/14/20 02/14/20 ezetimibe 10 mg PO DAILY 02/14/20 02/14/20 omega 0-yxh-mey-fish oil [Fish Oil] 1 cap PO BID 02/14/20 02/14/20 tkjxsrnva-SK-qshfzgqc-guaifen 2 tab PO Q6H PRN 02/14/20 02/14/20 [Tylenol Cold and Flu Severe] Previous Rx's Medication Instructions Recorded tamsulosin 0.4 mg capsule 0.4 mg PO HS #90 cap 08/16/19 montelukast 10 mg tablet 10 mg PO QPM #30 tab 09/26/19 metformin 1,000 mg tablet 1,000 mg PO BID #180 tab 12/06/19 prednisone 10 mg tablet See Rx Instructions PO DAILY #30 02/14/20 tab Results & Data (ED) Vital Signs Vital Signs - 24 hr 02/14/20 19:52 02/14/20 21:16 02/14/20 21:30 Temperature 37.3 C Temperature Source Oral Pulse Rate 93 H 87 85 Pulse Rate from SpO2 Sensor 87 85 Respiratory Rate 18 35 H 42 H Blood Pressure 125/75 125/71 133/74 Blood Pressure Mean 91 80 86 Pulse Oximetry 95 97 96 Oxygen Delivery Method Non-rebreather Non-rebreather Oxygen Flow Rate 15 15 15 Sepsis Recent Fever Within 48 Hours Yes Sepsis New/Unexplained Change in Mental Status N/A Sepsis Action Taken by Nursing No Action Required Pulse Oximetry Post Tiitration 95 02/14/20 22:00 Temperature Temperature Source Pulse Rate 84 Pulse Rate from SpO2 Sensor 85 Respiratory Rate 45 H Blood Pressure 144/78 H Blood Pressure Mean 86 Pulse Oximetry 96 Oxygen Delivery Method Oxygen Flow Rate 15 Sepsis Recent Fever Within 48 Hours Sepsis New/Unexplained Change in Mental Status Sepsis Action Taken by Nursing Pulse Oximetry Post Tiitration Laboratory Data Result diagrams: 02/14/20 20:35 02/14/20 20:35 Lab Results 02/14/20 02/14/20 02/14/20 Range/Units 20:35 20:35 20:35 WBC 12.44 H (4.8-10.8) K/uL RBC 3.97 L (4.7-6.1) M/uL Hgb 12.5 L (14.0-18.0) g/dL Hct 35.9 L (42-52) % MCV 90.4 (80-100) fL MCH 31.5 (25-34) pg MCHC 34.8 (32-36) g/dL Plt Count 357 (130-400) K/uL Immature Gran % (Auto) 0.6 % Neut % (Auto) 90.2 % Lymph % (Auto) 3.9 % [place] % (Auto) 5.1 % Eos % (Auto) 0.0 % Baso % (Auto) 0.2 % Neut # (Auto) 11.23 H (1.4-6.5) K/uL Lymph # (Auto) 0.48 L (1.2-3.4) K/uL [place] # (Auto) 0.63 H (0.11-0.59) K/uL Eos # (Auto) 0.00 (0-0.5) K/uL Baso # (Auto) 0.02 (0-0.2) K/uL Immature Gran # (Auto) 0.08 H (0.00-0.02) K/uL PT 12.0 (9.0-12.0) Seconds INR 1.1 (0.9-1.1) APTT 26.0 (21.0-31.0) Seconds PTT Ratio 0.9 D-Dimer 1280 H* (0-500) ug/L FEU Sodium (136-145) mmol/L Potassium (3.5-5.1) mmol/L Chloride (98-107) mmol/L Carbon Dioxide (21-32) mmol/L Anion Gap (3-11) BUN (7-18) mg/dl Creatinine (0.6-1.4) mg/dl Est Cr Clr Drug Dosing ml/min Est GFR ( Amer) Est GFR (Non-Af Amer) BUN/Creatinine Ratio (10-20) Glucose (70-99) mg/dl Calcium (8.5-10.1) mg/dl Total Bilirubin (0.2-1) mg/dl AST (15-37) U/L ALT (12-78) U/L Alkaline Phosphatase (45-117) U/L Troponin I (0-0.045) ng/ml Total Protein (6.4-8.2) gm/dl Albumin (3.4-5.0) gm/dl Globulin (2.5-4.0) gm/dl Albumin/Globulin Ratio (0.9-2) Lipase (73-393) U/L Blood Type AB Positive Antibody Screen NEGATIVE 02/14/20 Range/Units 20:35 WBC (4.8-10.8) K/uL RBC (4.7-6.1) M/uL Hgb (14.0-18.0) g/dL Hct (42-52) % MCV (80-100) fL MCH (25-34) pg MCHC (32-36) g/dL Plt Count (130-400) K/uL Immature Gran % (Auto) % Neut % (Auto) % Lymph % (Auto) % [place] % (Auto) % Eos % (Auto) % Baso % (Auto) % Neut # (Auto) (1.4-6.5) K/uL Lymph # (Auto) (1.2-3.4) K/uL [place] # (Auto) (0.11-0.59) K/uL Eos # (Auto) (0-0.5) K/uL Baso # (Auto) (0-0.2) K/uL Immature Gran # (Auto) (0.00-0.02) K/uL PT (9.0-12.0) Seconds INR (0.9-1.1) APTT (21.0-31.0) Seconds PTT Ratio D-Dimer (0-500) ug/L FEU Sodium 134 L (136-145) mmol/L Potassium 3.9 (3.5-5.1) mmol/L Chloride 102 (98-107) mmol/L Carbon Dioxide 24 (21-32) mmol/L Anion Gap 9.0 (3-11) BUN 16 (7-18) mg/dl Creatinine 0.73 (0.6-1.4) mg/dl Est Cr Clr Drug Dosing 124.8 ml/min Est GFR ( Amer) 118.5 Est GFR (Non-Af Amer) 102.2 BUN/Creatinine Ratio 22.3 H (10-20) Glucose 215 H (70-99) mg/dl Calcium 9.8 (8.5-10.1) mg/dl Total Bilirubin 1.5 H (0.2-1) mg/dl AST 73 H (15-37) U/L ALT 91 H (12-78) U/L Alkaline Phosphatase 161 H (45-117) U/L Troponin I < 0.015 (0-0.045) ng/ml Total Protein 7.0 (6.4-8.2) gm/dl Albumin 2.2 L (3.4-5.0) gm/dl Globulin 4.8 H (2.5-4.0) gm/dl Albumin/Globulin Ratio 0.5 L (0.9-2) Lipase 95 (73-393) U/L Blood Type Antibody Screen Administered Medications Discontinued Medications Azithromycin (Azithromycin 250 Mg Tab) 500 mg PO NOW ONE Stop: 02/14/20 19:41 Last Admin: 02/14/20 20:48 Dose: 500 mg Documented by: [id number] Dexamethasone (Dexamethasone Sod Inj 10 Mg/Ml Vial) 6 mg IV NOW ONE Stop: 02/14/20 19:41 Last Admin: 02/14/20 20:48 Dose: 6 mg Documented by: [id number] Ceftriaxone Sodium (Rocephin) 1,000 mg in 50 mls @ 100 mls/hr IV NOW STA Stop: 02/14/20 20:09 Last Infusion: 02/14/20 22:19 Dose: 0 mls/hr Documented by: [id number] Admin: 02/14/20 20:48 Dose: 100 mls/hr Documented by: [id number] Discharge Plan Visit Data Chief Complaint: Illness Stated Complaint: FEVER, SOB, COVID + ED Provider: Karthikeyan Don Discharge Problem: Pneumonia due to 2019-nCoV, Hypoxia
--- NOTE | 2020-02-14 20:20 | XRay Report ---
XR chest 1V portable CLINICAL HISTORY: Atypical chest pain. COMPARISON STUDY: Chest radiograph July 11, 2010. FINDINGS: There is no pneumothorax or pleural effusion. Moderate multifocal focal airspace opacities are noted within the lungs. There is no evidence for pulmonary edema. Cardiac size is at the upper li mits of normal. IMPRESSION: Moderate multifocal bilateral airspace opacities consistent with an infectious process. R adiographic follow-up is recommended. ACT 112: Negative or not required by law. Electronically signed by: Tashi Pedroza M.D. 02/14/2020 8:18 PM
[2020-02-14 20:57] LABS: INR 1.1 (0.9-1.1); Partial Thromboplastin Ratio 0.9
[2020-02-14 21:03] LABS: Basophils # (auto) 0.02 K/uL (0-0.2); Basophils % (auto) 0.2 %; Hematocrit (blood only) 35.9 % (42-52); Hemoglobin 12.5 g/dL (14.0-18.0); Immature Granulocytes # (auto) 0.08 K/uL (0.00-0.02); Immature Granulocytes % (auto) 0.6 %; Lymphocytes # (auto) 0.48 K/uL (1.2-3.4); Lymphocytes % (auto) 3.9 %; Mean Corpuscular Hemoglobin 31.5 pg (25-34); Mean Corpuscular Hgb Conc 34.8 g/dL (32-36); Mean Corpuscular Volume 90.4 fL (80-100); Monocytes # (auto) 0.63 K/uL (0.11-0.59); Monocytes % (auto) 5.1 %; Neutrophils # (auto) 11.23 K/uL (1.4-6.5); Neutrophils % (auto) 90.2 %; Platelet Count 357 K/uL (130-400); Red Blood Count 3.97 M/uL (4.7-6.1); White Blood Count 12.44 K/uL (4.8-10.8)
[2020-02-14 21:04] LABS: Alanine Aminotransferase 91 U/L (12-78); Albumin Level 2.2 gm/dl (3.4-5.0); Aspartate Aminotransferase 73 U/L (15-37); BUN Creatinine Ratio 22.3 (10-20); Blood Urea Nitrogen 16 mg/dl (7-18); Calcium 9.8 mg/dl (8.5-10.1); Carbon Dioxide 24 mmol/L (21-32); Chloride 102 mmol/L (98-107); Creatinine Clr Calc Pharmacy 124.8 ml/min; Est GFR (African American) 118.5; Est GFR (Non-African American) 102.2; Glucose 215 mg/dl (70-99); Lipase 95 U/L (73-393); Potassium 3.9 mmol/L (3.5-5.1); Sodium 134 mmol/L (136-145)
[2020-02-14 21:08] LABS: Albumin Globulin Ratio 0.5 (0.9-2); Alkaline Phosphatase 161 U/L (45-117); Bilirubin,Total 1.5 mg/dl (0.2-1); Globulin 4.8 gm/dl (2.5-4.0); Troponin I < 0.015 ng/ml (0-0.045)
[2020-02-14 21:24] LABS: D Dimer 1280 ug/L FEU (0-500)
--- NOTE | 2020-02-14 23:20 | History & Physical Report ---
Date of Service February 14, 2020 Assessment & Plan (1) Pneumonia due to 2019-nCoV: Pneumonia due to COVID-19 virus with hypoxia- Decadron 6 mg IV every morning Convalescent plasma, consent obtained Remdesivir IV per protocol Ceftriaxone 2 g IV daily azithromycin 500 mg IV daily Ventolin HFA 2 puffs 4 times daily, and every 2 hours as needed Presently on nonrebreather mask 15 L, gradually reduce as symptoms improve Present on Admission?: Yes (2) Hypoxia: See above Present on Admission?: Yes (3) DM2 (diabetes mellitus, type 2): Hold glipizide and Metformin. Placed on Accu-Cheks before meals and at bedtime with NovoLog coverage per scale. Monitor for bump in sugars while on Decadron Present on Admission?: Yes (4) Hypercholesterolemia: Continue Zetia and fish oil Present on Admission?: Yes (5) HTN, goal below 140/90: Continue aspirin and metoprolol succinate. Hold losartan Present on Admission?: Yes (6) BPH w urinary obs/LUTS: Continue tamsulosin Present on Admission?: Yes Admission and Anticipated Discharge Date Admission Date: February 14, 2020 History of Present Illness Chief Complaint: The patient presents to the emergency department with progressively worsening shortness of breath, with recent development of a cough and loss of sense of taste. Primary Care Provider: Calli Dior MD The patient is a 60-year-old male with a past medical history including peripheral neuropathy, obesity, internal hemorrhoids, hypertension, disc metabolic syndrome X, current tobacco user, myotonic dystrophy type II, allergic rhinitis, diabetes mellitus and hypercholesterolemia. The patient has chronic shortness of breath and dyspnea on exertion due to deconditioning, however, he notes over the past 6 to 7 days symptoms of significantly worsening shortness of breath and cough, and now over the past 2 days breathing is become much worse, and he has now lost sense of taste as well. Work-up in the emergency department includes the following abnormal laboratories: WBC 12.44, hemoglobin 12.5, glucose 215, D-dimer 1280, sodium 134, albumin 2.2, total bilirubin 1.5, AST 73, ALT 91. The patient did have drive-through testing on 02/11 for COVID-19 that was positive. Chest x-ray shows bilateral multifocal pneumonia. CT angiography PE protocol: No pulmonary embolism. Extensive bilateral groundglass and consolidative airspace opacities consistent with COVID-19. Left thyroid nodule measuring 2 cm. Mildly prominent mediastinal lymph nodes, nonspecific and favored as reactive Allergies Allergy/AdvReac Type Severity Reaction Status Date / Time cat dander Allergy Mild COUGH Verified 02/14/20 20:23 Home Medications Medication Instructions Recorded Confirmed Type 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 meter #1 ea 09/12/18 02/12/20 History multivitamin 1 tab PO QAM 09/12/18 02/14/20 History blood sugar diagnostic #10 ea 11/07/18 02/12/20 History diclofenac sodium 75 mg 75 mg PO BIDM PRN #180 tab 11/07/18 02/14/20 History tablet,delayed release lancets 33 gauge #100 ea 11/07/18 02/12/20 History methocarbamol 500 mg tablet 500 mg PO QID PRN #28 tab 11/07/18 02/14/20 History tamsulosin 0.4 mg capsule 0.4 mg PO HS #90 cap 08/16/19 02/14/20 Rx montelukast 10 mg tablet 10 mg PO QPM #30 tab 09/26/19 02/14/20 Rx metformin 1,000 mg tablet 1,000 mg PO BID #180 tab 12/06/19 02/14/20 Rx fluticasone propionate [Flonase 2 sprays INTNAS DAILY PRN 12/20/19 02/14/20 History Allergy Relief] glipizide 2.5 mg PO QPM 12/20/19 02/14/20 History glipizide 5 mg PO QAM 12/20/19 02/14/20 History losartan 50 mg PO QAM 12/20/19 02/14/20 History metoprolol succinate 50 mg PO QAM 12/20/19 02/14/20 History albuterol sulfate [ProAir HFA] 2 puff INHALATION .Q4-6H PRN 02/14/20 02/14/20 History aspirin 81 mg PO QAM 02/14/20 02/14/20 History benzonatate [Tessalon Perles] 100 - 200 mg PO TID PRN 02/14/20 02/14/20 History ezetimibe 10 mg PO DAILY 02/14/20 02/14/20 History omega 4-pcr-iqv-fish oil [Fish Oil] 1 cap PO BID 02/14/20 02/14/20 History ndtizpwss-YD-awcqhjmu-guaifen 2 tab PO Q6H PRN 02/14/20 02/14/20 History [Tylenol Cold and Flu Severe] prednisone 10 mg tablet See Rx Instructions PO DAILY #30 02/14/20 02/14/20 Rx tab Past Med/Surg History Medical History (Updated 02/15/20 @ 02:25 by Gianni Almaraz MD) Allergic rhinitis BPH w urinary obs/LUTS Diverticular disease DM2 (diabetes mellitus, type 2) Hypercholesterolemia Hypertension Myotonic dystrophy, type 2 Surgical History History of appendectomy History of bilateral cataract extraction History of colonoscopy with polypectomy History of colostomy d/t diverticulitis History of colostomy reversal History of esophagogastroduodenoscopy (EGD) History of incisional hernia repair History of partial colectomy 1990s--had colostomy--d/t diverticulitis Family History Mother Cancer Family history of diabetes mellitus Brother Prostate cancer Colorectal cancer Other No family history of adverse response to anesthesia Denies family history of Ovarian cancer Myocardial infarction Breast cancer Social History Smoking Status: Current some day smoker Tobacco Type: Cigars Age Started Using Tobacco: 37; Age Quit Using Tobacco: 57; Second Hand Exposure: Yes (mom smoked); Hx Alcohol Use: Yes Alcohol type: hard liquor Hx Substance Use: No Preferred Language: Burkinan 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 Beliefs That Will Affect Care: None marital status: Current Living Situation: Spouse Current Living Situation Comment: Lives with and son current occupational status: employed Feels Safe at Home: Yes Dental Care, Regularly: No Physical Activity Frequency: Does not Exercise Seatbelt Use: sometimes Do you think of yourself as: straight/heterosexual Assistive Devices: None Review of Systems Review of Systems: The patient denies chest pain, palpitations, lower extremity swelling, sore throat, fevers, chills, sweats, nausea, vomiting, diarrhea , constipation, abdominal pain, pelvic pain, blood in urine or stool, dysuria, urinary frequency or urgency, lightheadedness, dizziness, headache, memory loss, loss of consciousness, rash, abnormal bruising or bleeding, imbalance, focal weakness, numbness or tingling in arms or legs, back or neck pain, or night sweats. The review of systems is otherwise negative other than for that already noted above, and at least 10 systems have been reviewed. Physical Exam Physical Exam: The patient is awake, alert and oriented 3, well developed and well nourished, normocephalic and atraumatic, sitting upright in bed with nonrebreather mask in place. HEENT--PERRL, EOMI, mucous membranes and oropharynx dry. Neck--supple. No JVD. No bruits. Thyroid normal, trachea midline, no adenopathy. Heart--normal S1 and S2. No murmurs, rubs or gallops. Lungs--coarse breath sounds bilaterally. Mild to moderate respiratory distress improved on NRB. No accessory muscle use. Abdomen--normal bowel sounds and soft. Nontender. Nondistended. Obese. Extremities--no cyanosis or clubbing. No edema. Dermatologic--normal skin turgor, normal color, no abnormal lymph nodes, no rash. Neurologic--cranial nerves II through XII grossly intact. Rheumatologic--normal range of motion. Psychiatric--normal affect. Results & Data Results & Data ([facility]) Vital Signs (Past 12 Hours) Vital Signs Temp Pulse Resp BP Pulse Ox 02/14/20 22:00 84 45 H 144/78 H 96 02/14/20 21:30 85 42 H 133/74 96 02/14/20 21:16 87 35 H 125/71 97 02/14/20 19:52 99.1 F 93 H 18 125/75 95 Laboratory Results Laboratory Results WBC 12.44 K/uL (4.8-10.8) H 02/14/20 20:35 RBC 3.97 M/uL (4.7-6.1) L 02/14/20 20:35 Hgb 12.5 g/dL (14.0-18.0) L 02/14/20 20:35 Hct 35.9 % (42-52) L 02/14/20 20:35 MCV 90.4 fL (80-100) 02/14/20 20:35 MCH 31.5 pg (25-34) 02/14/20 20:35 MCHC 34.8 g/dL (32-36) 02/14/20 20:35 Plt Count 357 K/uL (130-400) 02/14/20 20:35 Immature Gran % (Auto) 0.6 % 02/14/20 20:35 Neut % (Auto) 90.2 % 02/14/20 20:35 Lymph % (Auto) 3.9 % 02/14/20 20:35 [place] % (Auto) 5.1 % 02/14/20 20:35 Eos % (Auto) 0.0 % 02/14/20 20:35 Baso % (Auto) 0.2 % 02/14/20 20:35 Neut # (Auto) 11.23 K/uL (1.4-6.5) H 02/14/20 20:35 Lymph # (Auto) 0.48 K/uL (1.2-3.4) L 02/14/20 20:35 [place] # (Auto) 0.63 K/uL (0.11-0.59) H 02/14/20 20:35 Eos # (Auto) 0.00 K/uL (0-0.5) 02/14/20 20:35 Baso # (Auto) 0.02 K/uL (0-0.2) 02/14/20 20:35 Immature Gran # (Auto) 0.08 K/uL (0.00-0.02) H 02/14/20 20:35 PT 12.0 Seconds (9.0-12.0) 02/14/20 20:35 INR 1.1 (0.9-1.1) 02/14/20 20:35 APTT 26.0 Seconds (21.0-31.0) 02/14/20 20:35 PTT Ratio 0.9 02/14/20 20:35 D-Dimer 1280 ug/L FEU (0-500) H* 02/14/20 20:35 Sodium 134 mmol/L (136-145) L 02/14/20 20:35 Potassium 3.9 mmol/L (3.5-5.1) 02/14/20 20:35 Chloride 102 mmol/L (98-107) 02/14/20 20:35 Carbon Dioxide 24 mmol/L (21-32) 02/14/20 20:35 Anion Gap 9.0 (3-11) 02/14/20 20:35 BUN 16 mg/dl (7-18) 02/14/20 20:35 Creatinine 0.73 mg/dl (0.6-1.4) 02/14/20 20:35 Est Cr Clr Drug Dosing 124.8 ml/min 02/14/20 20:35 Est GFR ( Amer) 118.5 02/14/20 20:35 Est GFR (Non-Af Amer) 102.2 02/14/20 20:35 BUN/Creatinine Ratio 22.3 (10-20) H 02/14/20 20:35 Glucose 215 mg/dl (70-99) H 02/14/20 20:35 Calcium 9.8 mg/dl (8.5-10.1) 02/14/20 20:35 Total Bilirubin 1.5 mg/dl (0.2-1) H 02/14/20 20:35 AST 73 U/L (15-37) H 02/14/20 20:35 ALT 91 U/L (12-78) H 02/14/20 20:35 Alkaline Phosphatase 161 U/L (45-117) H 02/14/20 20:35 Troponin I < 0.015 ng/ml (0-0.045) 02/14/20 20:35 Total Protein 7.0 gm/dl (6.4-8.2) 02/14/20 20:35 Albumin 2.2 gm/dl (3.4-5.0) L 02/14/20 20:35 Globulin 4.8 gm/dl (2.5-4.0) H 02/14/20 20:35 Albumin/Globulin Ratio 0.5 (0.9-2) L 02/14/20 20:35 Lipase 95 U/L (73-393) 02/14/20 20:35 Blood Type AB Positive 02/14/20 20:35 Antibody Screen NEGATIVE 02/14/20 20:35 Diagnostic Findings [facility], [id number] XRay Report Patient: TONY THORPE Date: 02/14/20#: [id number]: [address] [facility][id number][facility] Zip[facility] [place] [id number]: 60Location: EDSex: MRoom/Bed:Att Phy:Diagnosis: FEVER, SOB, COVID +Mary Phy: Calli Dior MDService Date: 02/14/20Fa Phy:Interpreting Phy: Tashi Pedroza MDAdmit Phy: Ordering Phy: Karthikeyan Don DO cc: ~ XR chest 1V portable CLINICAL HISTORY: Atypical chest pain. COMPARISON STUDY: Chest radiograph July 11, 2010. FINDINGS: There is no pneumothorax or pleural effusion. Moderate multifocal focal airspace opacities are noted within the lungs. There is no evidence for pulmonary edema. Cardiac size is at the upper limits of normal. IMPRESSION: Moderate multifocal bilateral airspace opacities consistent with an infectious process. Radiographic follow-up is recommended. ACT 112: Negative or not required by law. Electronically signed by: Tashi Pedrzoa M.D. 02/14/2020 8:18 PM Dictated: 02/14/202016Transcribed: 02/14/202016 [facility] Patient: TONY THORPE (Male) : 64 Status: ER Date: 02/15/20 00:38 Room #: History: +COVID, SOB, HARD TO BREATH Slices: [phone] Priors: Tech: Farzad Sethi @ [phone] Exams: CTA CHEST Contrast: IV Amt: 116 ML OPTIRAY 320 Accession Numbers: [id number] Preliminary Findings Only See Final Report For Complete Findings CTA CHEST: No pulmonary embolism. Extensive bilateral groundglass and consolidative airspace opacities consistent with Covid. Left thyroid nodule measuring 2 cm. Mildly prominent mediastinal lymph nodes, nonspecific. Favored reactive. Radiologist: Fredis King MD Study ready at 00:45 and initial results transmitted at 00:53 *This report constitutes a preliminary interpretation only. Non-acute findings felt to be unrelated to the clinical presentation may not be discussed in this report. The study will be interpreted and a final report will be generated by the local Radiologist the following shift. To reach the hospital radiology department call [phone]. If a discrepancy is found between the preliminary and final interpretations of this study, please notify us via our Client Portal at [email or web address] under QA Exams.You can also fax this report with a description of the discrepancy, or include the final report, to our daytime fax number [phone].If faxing, please indicate the severity of discrepancy using one of the following categories: [ ] 1 - Agree/Informational [ ] 2 - Unlikely to Affect Management [ ] 3 - Possible Eventual Change of Management [ ] 4 - Probable Immediate Change of Management For all other patient related information, please fax us at [phone]. [id number] Code Status & VTE Plan Code Status Full code VTE Prophylaxis Plan VTE Prophylaxis will be ordered: Yes PG Care Time/CCT Total # of Minutes Spent Total Time Spent with Patient: Total time spent is greater than 50% in coordination of care (as documented) at patient's floor/unit and/or counseling patient: Coding Level of Care Code 34358 Initial Inpt Care Lvl 3 Diagnoses Pneumonia due to 2019-nCoV U07.1; J12.89 Hypoxia R09.02 DM2 (diabetes mellitus, type 2) E11.9 Hypercholesterolemia E78.00 HTN, goal below 140/90 I10 BPH w urinary obs/LUTS N40.1; N13.8
[2020-02-15] MEDS ORDERED: ONDANSETRON INJ 2 MG/ML 2 ML VIAL IV PRN (00:24)
[2020-02-15] MEDS ORDERED: ALUMINUM/MAGNESIUM SUSP 30 ML UDC PO PRN (00:24)
[2020-02-15] MEDS ORDERED: CARBOHYDRATES FOR HYPOGLYCEMIA PO PRN (00:24)
[2020-02-15] MEDS ORDERED: DICLOFENAC SODIUM 75 MG TABCR PO PRN (00:24)
[2020-02-15] MEDS ORDERED: GLUCAGON FOR INJ 1 MG VIAL SQ PRN (00:24)
[2020-02-15] MEDS ORDERED: FLUTICASONE PROPIONATE NA SPR 16 GM BTL NAE PRN (00:24)
[2020-02-15] MEDS ORDERED: DEXTROSE 50% 50 ML SYRINGE IV PRN (00:24)
[2020-02-15] MEDS ORDERED: GLUCOSE 40% GEL 15 GM TUBE PO PRN (00:24)
[2020-02-15] MEDS ORDERED: GLUCOSE 10 TABS/TUBE PO PRN (00:24)
[2020-02-15] MEDS ORDERED: ACETAMINOPHEN 325 MG TAB PO PRN (01:00)
[2020-02-15] MEDS ORDERED: REMDESIVIR 200 MG in SODIUM CHLORIDE 0.9% 210 ML IV ONE (01:00)
[2020-02-15] MEDS: ALBUTEROL HFA 8 GM INHALER INH SCH ×5 (01:11→19:36)
[2020-02-15] MEDS ORDERED: OPTIRAY 320 125ml IV ONE (01:13)
[2020-02-15] MEDS ORDERED: PNEUMOCOCCAL POLYSACCHARIDES 25 MCG/0.5 ML VIAL/SYR IM ONE (01:59)
[2020-02-15] MEDS ORDERED: PNEUMOCOCCAL ADMINISTRATION CHARGE ONE (01:59)
[2020-02-15] MEDS: SODIUM CHLORIDE 0.9% 10ML FLUSH IV SCH (05:00)
[2020-02-15 07:18] LABS: Estimated Average Glucose 240 mg/dl
--- NOTE | 2020-02-15 07:18 | CT Scan Report ---
CT ANGIOGRAM OF THE CHEST CLINICAL HISTORY: Shortness of breath. Covid positive patient. Hypoxia. COMPARISON STUDY: Chest x-ray dated 02/14/2020 TECHNIQUE: Following the IV administration of 116 mL of Optiray-320, CT angiogram of the thorax was p erformed from the thoracic inlet to the lung bases utilizing the pulmonary embolus protocol. Images a re reviewed in the axial, sagittal, and coronal planes. IV contrast was administered without complica tion. MIP imaging was performed. A dose lowering technique was utilized adhering to the principles o f ALARA. CT DOSE: 522.00 mGycm FINDINGS: There are mildly enlarged mediastinal and hilar lymph nodes, likely reactive. There was no evidence of thoracic aortic dilatation. There were no pulmonary artery filling defects to indicate acute pulmonary embolism. There are trace bilateral pleural effusions There are extensive multifocal airspace opacities consistent with a multifocal pneumonia. The finding s are consistent with although not diagnostic of, Covid 19 pneumonia There is a 2 cm left lobe thyroid nodule IMPRESSION: 1. No evidence of acute pulmonary embolism 2. Extensive bilateral multifocal pneumonia 3. Trace pleural effusions 4. Mild adenopathy likely reactive 5. 2 cm left lobe thyroid nodule ACT 112: Negative or not required by law. Electronically signed by: Robert Vance M.D. 02/15/2020 7:17 AM
[2020-02-15] MEDS: AZITHROMYCIN 500 MG in DEXTROSE 5% 250 ML IV SCH (08:03)
[2020-02-15] MEDS: ASPIRIN 81 MG ECTAB PO SCH (08:04)
[2020-02-15] MEDS: EZETIMIBE 10 MG TABLET PO SCH (08:04)
[2020-02-15] MEDS: MULTIVITAMIN TAB PO SCH (08:04)
[2020-02-15] MEDS: METOPROLOL SUCC 50MG EXT REL TAB PO SCH (08:04)
[2020-02-15] MEDS: dexAMETHasone 6 MG in SYRINGE 0 ML IV SCH (08:04)
[2020-02-15] MEDS: INSULIN HUMAN NPH SC SCH (08:30)
[2020-02-15] MEDS: INSULIN ASPART 100 UNITS/ML 3 ML PEN SC SCH ×4 (08:30→23:40)
[2020-02-15] MEDS: INSULIN GLARGINE SOLOSTAR 100 UNITS/ML 3 ML PEN SC SCH (09:30)
--- NOTE | 2020-02-15 10:32 | Hospitalist Progress Note ---
Date of Service February 15, 2020 Assessment & Plan (1) Pneumonia due to 2019-nCoV: Pneumonia due to COVID-19 virus with hypoxia tested positive earlier this week, symptoms for < 7 days Decadron 6 mg IV every morning x 10 days Convalescent plasma, consent obtained, awaiting transfusion Remdesivir IV per protocol, complete 5 days Ceftriaxone 2 g IV daily x 5 days azithromycin 500 mg IV daily x 5 days Ventolin HFA 2 puffs 4 times daily, and every 2 hours as needed requiring 85% and 30L, try to wean as tolerated encouraged him to eat, stay strong discussed that he will be here a week to recover (2) Hypoxia: acute hypoxic respiratory failure with hypoxia due to COVID 19 currently requiring HFNC 85% and 30L discussed laying prone, he says he cannot do this (3) DM2 (diabetes mellitus, type 2): Hold glipizide and Metformin. hyperglycemia this morning will give 40 units of NPH with dexamethasone qAM tighten correction factor to 15 and carb ratio to 5 add Lantus 15 units BID monitor closely (4) Hypercholesterolemia: Continue Zetia and fish oil (5) HTN, goal below 140/90: Continue aspirin and metoprolol succinate. 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 brother at age 57, had a nephew who young his sister has it, she is in her 60's certainly could make work of breathing more difficult for him Admission and Anticipated Discharge Date Admission Date: February 14, 2020 Subjective patient says he feels better this morning being on the HFNC, breathing better/easier still working to breathe more than normal discussed trying to lay prone, he says he cannot do that, had abdominal surgery years ago with big incision and he cannot lay on his stomach reviewed chart and labs sugars really high this morning at 381 adjusted Novolog, added Lantus nd will give NPH with dexamethasone patient is eating well, no nausea/diarrhea, no fever/chills Review of Systems Review of Systems: All systems reviewed & are unremarkable except as noted in Subjective Physical Exam Constitutional: well developed, well nourished, + ill appearing and + obese; no acute distress Neck: trachea midline, no thyromegaly Respiratory: + labored breathing and + tachypneic; no respiratory distress and no cough Auscultation: lungs clear to auscultation bilaterally Cardiovascular: RRR, no murmur, no edema Gastrointestinal (Abdomen): normal bowel sounds, soft, nontender, no hepatosplenomegaly Musculoskeletal: no cyanosis or clubbing, extremities motor strength 5/5 Skin: no rashes, warm and dry Neurologic: patellar DTR's 2+ bilat, sensation intact and PERRL, EOMI, accommodation nl, no face palsy, no dysarthria Psychiatric: A+Ox3, euthymic affect Lymphatic: no cervical or axillary lymphadenopathy Results & Data Results & Data ([facility]) Vital Signs (Past 12 Hours) Vital Signs Temp Pulse Pulse Pulse Resp BP BP 02/15/20 09:24 67 02/15/20 08:28 36.5 C 80 18 02/15/20 07:20 83 30 H 02/15/20 05:11 67 36 H 02/15/20 03:12 36.7 C 75 20 126/66 02/15/20 02:56 78 29 H 02/15/20 01:11 78 20 02/15/20 00:49 36 C L 80 44 H 122/74 02/14/20 23:30 77 38 H 126/69 02/14/20 23:00 82 38 H 135/72 02/14/20 22:30 84 40 H 125/65 Pulse Ox 02/15/20 09:24 02/15/20 08:28 92 02/15/20 07:20 93 02/15/20 05:11 65 L 02/15/20 03:12 96 02/15/20 02:56 95 02/15/20 01:11 95 02/15/20 00:49 93 02/14/20 23:30 93 02/14/20 23:00 95 02/14/20 22:30 94 Laboratory Results Laboratory Results - last 24 hr 02/14/20 02/14/20 02/14/20 20:35 20:35 20:35 WBC 12.44 H RBC 3.97 L Hgb 12.5 L Hct 35.9 L MCV 90.4 MCH 31.5 MCHC 34.8 Plt Count 357 Immature Gran % (Auto) 0.6 Neut % (Auto) 90.2 Lymph % (Auto) 3.9 [place] % (Auto) 5.1 Eos % (Auto) 0.0 Baso % (Auto) 0.2 Neut # (Auto) 11.23 H Lymph # (Auto) 0.48 L [place] # (Auto) 0.63 H Eos # (Auto) 0.00 Baso # (Auto) 0.02 Immature Gran # (Auto) 0.08 H PT 12.0 INR 1.1 APTT 26.0 PTT Ratio 0.9 D-Dimer 1280 H* Sodium Potassium Chloride Carbon Dioxide Anion Gap BUN Creatinine Est Cr Clr Drug Dosing Est GFR ( Amer) Est GFR (Non-Af Amer) BUN/Creatinine Ratio Glucose POC Glucose Estimat Average Glucose Hemoglobin A1c Calcium Total Bilirubin AST ALT Alkaline Phosphatase Troponin I Total Protein Albumin Globulin Albumin/Globulin Ratio Lipase Hepatitis C Ab Screen Blood Type AB Positive Antibody Screen NEGATIVE 02/14/20 02/15/20 02/15/20 20:35 06:00 06:00 WBC RBC Hgb Hct MCV MCH MCHC Plt Count Immature Gran % (Auto) Neut % (Auto) Lymph % (Auto) [place] % (Auto) Eos % (Auto) Baso % (Auto) Neut # (Auto) Lymph # (Auto) [place] # (Auto) Eos # (Auto) Baso # (Auto) Immature Gran # (Auto) PT INR APTT PTT Ratio D-Dimer Sodium 134 L Potassium 3.9 Chloride 102 Carbon Dioxide 24 Anion Gap 9.0 BUN 16 Creatinine 0.73 Est Cr Clr Drug Dosing 124.8 Est GFR ( Amer) 118.5 Est GFR (Non-Af Amer) 102.2 BUN/Creatinine Ratio 22.3 H Glucose 215 H POC Glucose Estimat Average Glucose 240 Hemoglobin A1c 10.0 H Calcium 9.8 Total Bilirubin 1.5 H AST 73 H ALT 91 H Alkaline Phosphatase 161 H Troponin I < 0.015 Total Protein 7.0 Albumin 2.2 L Globulin 4.8 H Albumin/Globulin Ratio 0.5 L Lipase 95 Hepatitis C Ab Screen Neg Blood Type Antibody Screen 02/15/20 02/15/20 07:29 07:31 WBC RBC Hgb Hct MCV MCH MCHC Plt Count Immature Gran % (Auto) Neut % (Auto) Lymph % (Auto) [place] % (Auto) Eos % (Auto) Baso % (Auto) Neut # (Auto) Lymph # (Auto) [place] # (Auto) Eos # (Auto) Baso # (Auto) Immature Gran # (Auto) PT INR APTT PTT Ratio D-Dimer Sodium Potassium Chloride Carbon Dioxide Anion Gap BUN Creatinine Est Cr Clr Drug Dosing Est GFR ( Amer) Est GFR (Non-Af Amer) BUN/Creatinine Ratio Glucose POC Glucose 349 H* 383 H* Estimat Average Glucose Hemoglobin A1c Calcium Total Bilirubin AST ALT Alkaline Phosphatase Troponin I Total Protein Albumin Globulin Albumin/Globulin Ratio Lipase Hepatitis C Ab Screen Blood Type Antibody Screen Medications Administered Current Inpatient Medications Acetaminophen (Acetaminophen 325 Mg Tab) 650 mg PO Q4H PRN PRN Reason: Pain or Fever Stop: 03/16/20 00:59 Al Hydrox/Mg Hydrox/Simethicone (Aluminum/Magnesium Susp 30 Ml Udc) 15 ml PO Q4H PRN PRN Reason: Dyspepsia Stop: 03/16/20 00:23 Albuterol (Albuterol Hfa 8 Gm Inhaler) 2 puffs INH QIDR [facility] Stop: 03/16/20 00:29 Last Admin: 02/15/20 07:12 Dose: 2 puffs Documented by: Aspirin (Aspirin 81 Mg Ectab) 81 mg PO QAM [facility] Stop: 03/16/20 08:59 Last Admin: 02/15/20 08:04 Dose: 81 mg Documented by: Benzonatate (Benzonatate 100 Mg Capsule) 200 mg PO TID PRN PRN Reason: cough Stop: 03/16/20 00:23 Dextrose (Dextrose 50% 50 Ml Syringe) 25 - 50 ml IV UD PRN; Protocol PRN Reason: Hypoglycemia Protocol Stop: 03/16/20 00:23 Diclofenac Sodium (Diclofenac Sodium 75 Mg Tabcr) 75 mg PO BIDM PRN PRN Reason: Pain Stop: 03/16/20 00:23 Ezetimibe (Ezetimibe 10 Mg Tablet) 10 mg PO DAILY [facility] Stop: 03/16/20 08:59 Last Admin: 02/15/20 08:04 Dose: 10 mg Documented by: Fluticasone Propionate (Fluticasone Propionate Na Spr 16 Gm Btl) 2 sprays CECE DAILY PRN PRN Reason: Nasal Congestion Stop: 03/16/20 00:23 Glucagon (Glucagon For Inj 1 Mg Vial) 1 mg SQ UD PRN; Protocol PRN Reason: Hypoglycemia Protocol Stop: 03/16/20 00:23 Glucose (Glucose 10 Tabs/Tube) 4 - 8 tabs PO UD PRN; Protocol PRN Reason: Hypoglycemia Protocol Stop: 03/16/20 00:23 Glucose (Glucose 40% Gel 15 Gm Tube) 15 - 30 gm PO UD PRN; Protocol PRN Reason: Hypoglycemia Protocol Stop: 03/16/20 00:23 Dexamethasone 6 mg/ Syringe 1.5 mls @ 1 mls/min IV QAM [facility] Stop: 03/16/20 08:59 Last Admin: 02/15/20 08:04 Dose: 1 mls/min Documented by: Remdesivir 100 mg/ Sodium (Chloride) 250 mls @ 250 mls/hr IV Q24H [facility]; Protocol Stop: 02/18/20 20:59 Ceftriaxone Sodium 2,000 mg/ (Dextrose) 70 mls @ 100 mls/hr IV Q24H [facility]; Protocol Stop: 02/20/20 20:41 Azithromycin 500 mg/ Dextrose 255 mls @ 125 mls/hr IV DAILY [facility] Stop: 02/20/20 11:03 Last Admin: 02/15/20 08:03 Dose: 125 mls/hr Documented by: Insulin Aspart (Insulin Aspart 100 Units/Ml 3 Ml Pen) 0 units SC ACHS [facility] Stop: 03/16/20 07:29 Last Admin: 02/15/20 08:30 Dose: 20 units Documented by: Insulin Glargine (Insulin Glargine Solostar 100 Units/Ml 3 Ml Pen) 15 units SC BID [facility] Stop: 03/16/20 08:59 Last Admin: 02/15/20 09:30 Dose: 15 units Documented by: Insulin Human NPH (Insulin Human Nph) 40 units SC [facility] Stop: 03/16/20 08:59 Last Admin: 02/15/20 08:30 Dose: 40 units Documented by: Methocarbamol (Methocarbamol 500 Mg Tablet) 500 mg PO QID PRN PRN Reason: muscle spasm Stop: 03/16/20 00:23 Metoprolol Succinate (Metoprolol Succ 50mg Ext Rel Tab) 50 mg PO [facility] Stop: 03/16/20 08:59 Last Admin: 02/15/20 08:04 Dose: 50 mg Documented by: Miscellaneous (Carbohydrates For Hypoglycemia ) 15 - 30 gm PO UD PRN PRN Reason: Hypoglycemia Protocol Stop: 03/16/20 00:23 Montelukast Sodium (Montelukast Sodium 10 Mg Tablet) 10 mg PO QPM [facility] Stop: 03/16/20 20:59 Multivitamins (Multivitamin Tab) 1 tab PO QAM [facility] Stop: 03/16/20 08:59 Last Admin: 02/15/20 08:04 Dose: 1 tab Documented by: Ondansetron HCl (Ondansetron Inj 2 Mg/Ml 2 Ml Vial) 4 mg IV Q6H PRN PRN Reason: Nausea Stop: 03/16/20 00:23 Sodium Chloride (Sodium Chloride 0.9% 10ml Flush) 30 ml IV Q24H [facility] Stop: 02/19/20 01:01 Last Admin: 02/15/20 05:00 Dose: 30 ml Documented by: Tamsulosin HCl (Tamsulosin Hcl 0.4 Mg Cap) 0.4 mg PO HS [facility] Stop: 03/16/20 20:59 PG Care Time/CCT Total # of Minutes Spent Total Time Spent with Patient: Total time spent is greater than 50% in coordination of care (as documented) at patient's floor/unit and/or counseling patient: Coding Level of Care Code 90238 Subseq Hosp Care Lvl 3 Diagnoses Pneumonia due to 2019-nCoV U07.1; J12.89 Hypoxia R09.02 DM2 (diabetes mellitus, type 2) E11.9 Hypercholesterolemia E78.00 HTN, goal below 140/90 I10 BPH w urinary obs/LUTS N40.1; N13.8 Myotonic dystrophy, type 2 G71.11
[2020-02-15] MEDS: REMDESIVIR 100 MG in SODIUM CHLORIDE 0.9% 230 ML IV SCH (23:16)
[2020-02-15] MEDS: TAMSULOSIN HCL 0.4 MG CAP PO SCH (23:17)
[2020-02-15] MEDS: MONTELUKAST SODIUM 10 MG TABLET PO SCH (23:17)
[2020-02-16] MEDS: INSULIN GLARGINE SOLOSTAR 100 UNITS/ML 3 ML PEN SC SCH ×3 (00:42→20:58)
[2020-02-16] MEDS: SODIUM CHLORIDE 0.9% 10ML FLUSH IV SCH (01:00)
[2020-02-16] MEDS: cefTRIAXone SODIUM 2,000 MG in DEXTROSE 5% 50 ML IV SCH ×2 (01:05→21:03)
--- NOTE | 2020-02-16 06:27 | Electrocardiogram Report ---
Test Reason : Blood Pressure : / mmHG Vent. Rate : 093 BPM Atrial Rate : 093 BPM P-R Int : 160 ms QRS Dur : 098 ms QT Int : 358 ms P-R-T Axes : 036 -14 007 degrees QTc Int : 445 ms Normal sinus rhythm Moderate voltage criteria for LVH, may be normal variant Borderline ECG No previous ECGs available Confirmed by Yovany Ryan ([id number]) on 02/16/2020 6:26:58 AM Referred By: REFERRED SELF Confirmed By:Yovany Ryan
[2020-02-16] MEDS: ALBUTEROL HFA 8 GM INHALER INH SCH (07:22)
[2020-02-16] MEDS: ASPIRIN 81 MG ECTAB PO SCH (08:22)
[2020-02-16] MEDS: MULTIVITAMIN TAB PO SCH (08:23)
[2020-02-16] MEDS: METOPROLOL SUCC 50MG EXT REL TAB PO SCH (08:23)
[2020-02-16] MEDS: EZETIMIBE 10 MG TABLET PO SCH (08:23)
[2020-02-16] MEDS: INSULIN ASPART 100 UNITS/ML 3 ML PEN SC SCH ×4 (08:24→20:59)
[2020-02-16] MEDS: AZITHROMYCIN 500 MG in DEXTROSE 5% 250 ML IV SCH (08:24)
[2020-02-16] MEDS: INSULIN HUMAN NPH SC SCH (08:25)
[2020-02-16] MEDS ORDERED: ALBUTEROL HFA 8 GM INHALER INH PRN (08:43)
[2020-02-16 08:44] LABS: Hematocrit (blood only) 37.8 % (42-52); Hemoglobin 12.8 g/dL (14.0-18.0); Mean Corpuscular Hemoglobin 30.6 pg (25-34); Mean Corpuscular Hgb Conc 33.9 g/dL (32-36); Mean Corpuscular Volume 90.4 fL (80-100); Mean Platelet Volume 9.4 fL (7.4-10.4); Platelet Count 482 K/uL (130-400); RDW Coefficient of Variation 14.2 % (11.5-14.5); RDW Standard Deviation 47.1 fL (36.4-46.3); Red Blood Count 4.18 M/uL (4.7-6.1); White Blood Count 12.25 K/uL (4.8-10.8)
[2020-02-16] MEDS: dexAMETHasone 6 MG in SYRINGE 0 ML IV SCH (08:45)
[2020-02-16 09:09] LABS: Albumin Globulin Ratio 0.4 (0.9-2); Albumin Level 2.1 gm/dl (3.4-5.0); BUN Creatinine Ratio 40.3 (10-20); Bilirubin,Total 0.6 mg/dl (0.2-1); Calcium 9.5 mg/dl (8.5-10.1); Creatinine Clr Calc Pharmacy 105.1 ml/min; Est GFR (African American) 111.3; Globulin 4.9 gm/dl (2.5-4.0); Potassium 4.1 mmol/L (3.5-5.1)
[2020-02-16 09:11] LABS: Basophils # (auto) 0.01 K/uL (0-0.2); Basophils % (auto) 0.1 %; Echinocytes 1+; Eosinophils # (auto) 0.01 K/uL (0-0.5); Eosinophils % (auto) 0.1 %; Immature Granulocytes # (auto) 0.14 K/uL (0.00-0.02); Immature Granulocytes % (auto) 1.1 %; Lymphocytes # (auto) 0.82 K/uL (1.2-3.4); Lymphocytes % (auto) 6.7 %; Monocytes # (auto) 0.79 K/uL (0.11-0.59); Monocytes % (auto) 6.4 %; Neutrophils # (auto) 10.48 K/uL (1.4-6.5); Neutrophils % (auto) 85.6 %; Toxic Granulation 1+
--- NOTE | 2020-02-16 16:15 | Hospitalist Progress Note ---
Date of Service February 16, 2020 Assessment & Plan (1) Pneumonia due to 2019-nCoV: Pneumonia due to COVID-19 virus with hypoxia tested positive earlier this week, symptoms for < 7 days Decadron 6 mg IV every morning x 10 days, day 3 Convalescent plasma, consent obtained, awaiting transfusion he is AB type, unlikely to find any within reasonable time frame, explained this to him Remdesivir IV per protocol, complete 5 days, day 3 Ceftriaxone 2 g IV daily x 5 days azithromycin 500 mg IV daily x 5 days Ventolin HFA 2 puffs 4 times daily, and every 2 hours as needed requiring 100% and 50L, getting worse in terms of oxygen requirements but no distress encouraged him to eat, stay strong, he is eating well discussed that he will be here a week to recover asked him about laying prone, he said he will try (2) Hypoxia: acute hypoxic respiratory failure with hypoxia due to COVID 19 currently requiring HFNC 100% and 50L discussed laying prone, he says he will try (3) DM2 (diabetes mellitus, type 2): Hold glipizide and Metformin. hyperglycemia this morning will give 40 units of NPH with dexamethasone qAM tighten correction factor to 15 and carb ratio to 5 add Lantus 15 units BID monitor closely, sugars a lot better today (4) Hypercholesterolemia: Continue Zetia and fish oil (5) HTN, goal below 140/90: Continue aspirin and metoprolol succinate. 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 brother at age 57, had a nephew who young his sister has it, she is in her 60's certainly could make work of breathing more difficult for him at high risk of deteriorating and requiring intubation Admission and Anticipated Discharge Date Admission Date: February 14, 2020 Subjective patient requiring slightly higher flow on HFNC, up to 50L and 100% eating well, moving around in the room well revisited in the evening, saturations 97%, no distress at all denies fever, chest pain, nausea, constipation I updated his daughter on the phone today Review of Systems Review of Systems: All systems reviewed & are unremarkable except as noted in Subjective Physical Exam Constitutional: well developed, well nourished, + ill appearing and + obese; no acute distress Neck: trachea midline, no thyromegaly Respiratory: + labored breathing and + tachypneic; no respiratory distress and no cough Auscultation: lungs clear to auscultation bilaterally Cardiovascular: RRR, no murmur, no edema Gastrointestinal (Abdomen): normal bowel sounds, soft, nontender, no hepatosplenomegaly Musculoskeletal: no cyanosis or clubbing, extremities motor strength 5/5 Skin: no rashes, warm and dry Neurologic: patellar DTR's 2+ bilat, sensation intact and PERRL, EOMI, accommodation nl, no face palsy, no dysarthria Psychiatric: A+Ox3, euthymic affect Lymphatic: no cervical or axillary lymphadenopathy Results & Data Results & Data ([facility]) Vital Signs (Past 12 Hours) Vital Signs Temp Pulse Pulse Resp BP Pulse Ox 02/16/20 15:27 36.6 C 79 24 143/86 H 93 02/16/20 14:26 74 27 H 93 02/16/20 11:00 36.7 C 72 24 133/81 91 02/16/20 10:55 74 24 90 02/16/20 07:40 37 C 73 18 109/66 96 02/16/20 07:30 83 02/16/20 07:24 78 22 91 Laboratory Results Laboratory Results - last 24 hr 02/15/20 02/15/20 02/15/20 16:59 20:23 23:39 WBC RBC Hgb Hct MCV MCH MCHC RDW Std Deviation RDW Coeff of Ginny Plt Count MPV Immature Gran % (Auto) Neut % (Auto) Lymph % (Auto) [place] % (Auto) Eos % (Auto) Baso % (Auto) Neut # (Auto) Lymph # (Auto) [place] # (Auto) Eos # (Auto) Baso # (Auto) Immature Gran # (Auto) Toxic Granulation Echinocytes Sodium Potassium Chloride Carbon Dioxide Anion Gap BUN Creatinine Est Cr Clr Drug Dosing Est GFR ( Amer) Est GFR (Non-Af Amer) BUN/Creatinine Ratio Glucose POC Glucose 261 H 270 H 237 H Calcium Total Bilirubin AST ALT Alkaline Phosphatase Total Protein Albumin Globulin Albumin/Globulin Ratio 02/16/20 02/16/20 02/16/20 07:38 08:26 08:26 WBC 12.25 H RBC 4.18 L Hgb 12.8 L Hct 37.8 L MCV 90.4 MCH 30.6 MCHC 33.9 RDW Std Deviation 47.1 H RDW Coeff of Ginny 14.2 Plt Count 482 H MPV 9.4 Immature Gran % (Auto) 1.1 Neut % (Auto) 85.6 Lymph % (Auto) 6.7 [place] % (Auto) 6.4 Eos % (Auto) 0.1 Baso % (Auto) 0.1 Neut # (Auto) 10.48 H Lymph # (Auto) 0.82 L [place] # (Auto) 0.79 H Eos # (Auto) 0.01 Baso # (Auto) 0.01 Immature Gran # (Auto) 0.14 H Toxic Granulation 1+ Echinocytes 1+ Sodium 136 Potassium 4.1 Chloride 102 Carbon Dioxide 27 Anion Gap 6.0 BUN 34 H D Creatinine 0.85 Est Cr Clr Drug Dosing 105.1 Est GFR ( Amer) 111.3 Est GFR (Non-Af Amer) 96.0 BUN/Creatinine Ratio 40.3 H Glucose 193 H POC Glucose 212 H Calcium 9.5 Total Bilirubin 0.6 D AST 124 H ALT 148 H Alkaline Phosphatase 172 H Total Protein 7.0 Albumin 2.1 L Globulin 4.9 H Albumin/Globulin Ratio 0.4 L 02/16/20 11:57 WBC RBC Hgb Hct MCV MCH MCHC RDW Std Deviation RDW Coeff of Ginny Plt Count MPV Immature Gran % (Auto) Neut % (Auto) Lymph % (Auto) [place] % (Auto) Eos % (Auto) Baso % (Auto) Neut # (Auto) Lymph # (Auto) [place] # (Auto) Eos # (Auto) Baso # (Auto) Immature Gran # (Auto) Toxic Granulation Echinocytes Sodium Potassium Chloride Carbon Dioxide Anion Gap BUN Creatinine Est Cr Clr Drug Dosing Est GFR ( Amer) Est GFR (Non-Af Amer) BUN/Creatinine Ratio Glucose POC Glucose 251 H Calcium Total Bilirubin AST ALT Alkaline Phosphatase Total Protein Albumin Globulin Albumin/Globulin Ratio Medications Administered Current Inpatient Medications Acetaminophen (Acetaminophen 325 Mg Tab) 650 mg PO Q4H PRN PRN Reason: Pain or Fever Stop: 03/16/20 00:59 Al Hydrox/Mg Hydrox/Simethicone (Aluminum/Magnesium Susp 30 Ml Udc) 15 ml PO Q4H PRN PRN Reason: Dyspepsia Stop: 03/16/20 00:23 Albuterol (Albuterol Hfa 8 Gm Inhaler) 2 puffs INH Q4 PRN PRN Reason: Shortness Of Breath Or Wheezing Stop: 03/17/20 08:41 Aspirin (Aspirin 81 Mg Ectab) 81 mg PO QAM [facility] Stop: 03/16/20 08:59 Last Admin: 02/16/20 08:22 Dose: 81 mg Documented by: Benzonatate (Benzonatate 100 Mg Capsule) 200 mg PO TID PRN PRN Reason: cough Stop: 03/16/20 00:23 Dextrose (Dextrose 50% 50 Ml Syringe) 25 - 50 ml IV UD PRN; Protocol PRN Reason: Hypoglycemia Protocol Stop: 03/16/20 00:23 Diclofenac Sodium (Diclofenac Sodium 75 Mg Tabcr) 75 mg PO BIDM PRN PRN Reason: Pain Stop: 03/16/20 00:23 Ezetimibe (Ezetimibe 10 Mg Tablet) 10 mg PO DAILY [facility] Stop: 03/16/20 08:59 Last Admin: 02/16/20 08:23 Dose: 10 mg Documented by: Fluticasone Propionate (Fluticasone Propionate Na Spr 16 Gm Btl) 2 sprays CECE DAILY PRN PRN Reason: Nasal Congestion Stop: 03/16/20 00:23 Glucagon (Glucagon For Inj 1 Mg Vial) 1 mg SQ UD PRN; Protocol PRN Reason: Hypoglycemia Protocol Stop: 03/16/20 00:23 Glucose (Glucose 10 Tabs/Tube) 4 - 8 tabs PO UD PRN; Protocol PRN Reason: Hypoglycemia Protocol Stop: 03/16/20 00:23 Glucose (Glucose 40% Gel 15 Gm Tube) 15 - 30 gm PO UD PRN; Protocol PRN Reason: Hypoglycemia Protocol Stop: 03/16/20 00:23 Dexamethasone 6 mg/ Syringe 1.5 mls @ 1 mls/min IV QAM [facility] Stop: 03/16/20 08:59 Last Admin: 02/16/20 08:45 Dose: 1 mls/min Documented by: Remdesivir 100 mg/ Sodium (Chloride) 250 mls @ 250 mls/hr IV Q24H [facility]; Protocol Stop: 02/18/20 20:59 Last Infusion: 02/16/20 00:16 Dose: Infused Documented by: Ceftriaxone Sodium 2,000 mg/ (Dextrose) 70 mls @ 100 mls/hr IV Q24H [facility]; Protocol Stop: 02/20/20 20:41 Last Infusion: 02/16/20 02:02 Dose: Infused Documented by: Azithromycin 500 mg/ Dextrose 255 mls @ 125 mls/hr IV DAILY [facility] Stop: 02/20/20 11:03 Last Infusion: 02/16/20 10:45 Dose: Infused Documented by: Insulin Aspart (Insulin Aspart 100 Units/Ml 3 Ml Pen) 0 units SC ACHS [facility] Stop: 03/16/20 07:29 Last Admin: 02/16/20 12:36 Dose: 15 units Documented by: Insulin Glargine (Insulin Glargine Solostar 100 Units/Ml 3 Ml Pen) 15 units SC BID [facility] Stop: 03/16/20 08:59 Last Admin: 02/16/20 08:25 Dose: 15 units Documented by: Insulin Human NPH (Insulin Human Nph) [facility] Stop: 03/16/20 08:59 Last Admin: 02/16/20 08:25 Dose: 40 units Documented by: Methocarbamol (Methocarbamol 500 Mg Tablet) 500 mg PO QID PRN PRN Reason: muscle spasm Stop: 03/16/20 00:23 Metoprolol Succinate (Metoprolol Succ 50mg Ext Rel Tab) 50 mg PO [facility] Stop: 03/16/20 08:59 Last Admin: 02/16/20 08:23 Dose: 50 mg Documented by: Miscellaneous (Carbohydrates For Hypoglycemia ) 15 - 30 gm PO UD PRN PRN Reason: Hypoglycemia Protocol Stop: 03/16/20 00:23 Montelukast Sodium (Montelukast Sodium 10 Mg Tablet) 10 mg PO QPM [facility] Stop: 03/16/20 20:59 Last Admin: 02/15/20 23:17 Dose: 10 mg Documented by: Multivitamins (Multivitamin Tab) 1 tab PO [facility] Stop: 03/16/20 08:59 Last Admin: 02/16/20 08:23 Dose: 1 tab Documented by: Ondansetron HCl (Ondansetron Inj 2 Mg/Ml 2 Ml Vial) 4 mg IV Q6H PRN PRN Reason: Nausea Stop: 03/16/20 00:23 Sodium Chloride (Sodium Chloride 0.9% 10ml Flush) 30 ml IV Q24H [facility] Stop: 02/19/20 01:01 Last Admin: 02/16/20 01:00 Dose: 30 ml Documented by: Tamsulosin HCl (Tamsulosin Hcl 0.4 Mg Cap) 0.4 mg PO HS [facility] Stop: 03/16/20 20:59 Last Admin: 02/15/20 23:17 Dose: 0.4 mg Documented by: PG Care Time/CCT Total # of Minutes Spent Total Time Spent with Patient: Total time spent is greater than 50% in coordination of care (as documented) at patient's floor/unit and/or counseling patient: Coding Level of Care Code 03455 Subseq Hosp Care Lvl 3 Diagnoses Pneumonia due to 2019-nCoV U07.1; J12.89 Hypoxia R09.02 DM2 (diabetes mellitus, type 2) E11.9 Hypercholesterolemia E78.00 HTN, goal below 140/90 I10 BPH w urinary obs/LUTS N40.1; N13.8 Myotonic dystrophy, type 2 G71.11
[2020-02-16] MEDS: REMDESIVIR 100 MG in SODIUM CHLORIDE 0.9% 230 ML IV SCH (19:32)
[2020-02-16] MEDS: MONTELUKAST SODIUM 10 MG TABLET PO SCH (21:03)
[2020-02-16] MEDS: TAMSULOSIN HCL 0.4 MG CAP PO SCH (21:03)
[2020-02-17] MEDS: SODIUM CHLORIDE 0.9% 10ML FLUSH IV SCH (00:28)
[2020-02-17] MEDS: INSULIN GLARGINE SOLOSTAR 100 UNITS/ML 3 ML PEN SC SCH (08:00)
[2020-02-17] MEDS: INSULIN HUMAN NPH SC SCH (08:00)
[2020-02-17] MEDS: INSULIN ASPART 100 UNITS/ML 3 ML PEN SC SCH ×4 (08:00→21:50)
[2020-02-17] MEDS: dexAMETHasone 6 MG in SYRINGE 0 ML IV SCH (08:03)
[2020-02-17] MEDS: AZITHROMYCIN 500 MG in DEXTROSE 5% 250 ML IV SCH (08:05)
[2020-02-17] MEDS: METOPROLOL SUCC 50MG EXT REL TAB PO SCH (08:06)
[2020-02-17] MEDS: MULTIVITAMIN TAB PO SCH (08:07)
[2020-02-17] MEDS: ASPIRIN 81 MG ECTAB PO SCH (08:07)
[2020-02-17] MEDS: EZETIMIBE 10 MG TABLET PO SCH (08:07)
--- NOTE | 2020-02-17 17:03 | Hospitalist Progress Note ---
Date of Service February 17, 2020 Assessment & Plan (1) Pneumonia due to 2019-nCoV: Pneumonia due to COVID-19 virus with hypoxia tested positive earlier this week, symptoms for < 7 days Decadron 6 mg IV every morning x 10 days, day 4 Convalescent plasma transfused last night after AB type was located Remdesivir IV per protocol, complete 5 days, day 4 Ceftriaxone 2 g IV daily x 5 days, day 4 azithromycin 500 mg IV daily x 5 days, day 4 Ventolin HFA 2 puffs 4 times daily, and every 2 hours as needed requiring a little less oxygen today at 90% and 40L, no distress encouraged him to eat, stay strong, he is eating well discussed that he will be here at least a week to recover asked him about laying prone, he said he will try prognosis is guarded, at elevated risk of needing intubation with his myotonic dystrophy (2) Hypoxia: acute hypoxic respiratory failure with hypoxia due to COVID 19 currently requiring HFNC 90% and 40L discussed laying prone, he says he will try but not very easy for him (3) DM2 (diabetes mellitus, type 2): Hold glipizide and Metformin. will give 40 units of NPH with dexamethasone qAM correction factor 15, tighten carb ratio to 4 some hypoglycemia in the AM, will adjust Lantus to 20 units qAM and none in evening monitor closely, sugars stable in afternoon (4) Hypercholesterolemia: Continue Zetia and fish oil (5) HTN, goal below 140/90: Continue aspirin and metoprolol succinate. 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 brother at age 57, had a nephew who young his sister has it, she is in her 60's certainly could make work of breathing more difficult for him at high risk of deteriorating and requiring intubation Admission and Anticipated Discharge Date Admission Date: February 14, 2020 Subjective patient says he feels about the same as yesterday still requiring HFNC eating really well, had some hypoglycemia this morning adjusted Lantus to 20 units AM and none in PM, tighten carb ratio to 4 no fever, no chills, minimal cough, no chest pain, no GI symptoms Review of Systems Review of Systems: All systems reviewed & are unremarkable except as noted in Subjective Physical Exam Constitutional: well developed, well nourished and + obese; no acute distress Neck: trachea midline, no thyromegaly Respiratory: + labored breathing and + tachypneic; no respiratory distress and no cough Auscultation: lungs clear to auscultation bilaterally Cardiovascular: RRR, no murmur, no edema Gastrointestinal (Abdomen): normal bowel sounds, soft, nontender, no hepatosplenomegaly Musculoskeletal: no cyanosis or clubbing, extremities motor strength 5/5 Skin: no rashes, warm and dry Neurologic: patellar DTR's 2+ bilat, sensation intact and PERRL, EOMI, accommodation nl, no face palsy, no dysarthria Psychiatric: A+Ox3, euthymic affect Lymphatic: no cervical or axillary lymphadenopathy Results & Data Results & Data ([facility]) Vital Signs (Past 12 Hours) Vital Signs Temp Pulse Pulse Resp BP BP Pulse Ox 02/17/20 15:20 36.9 C 73 27 H 155/86 H 92 02/17/20 15:14 68 38 H 89 L 02/17/20 11:53 26 H 95 02/17/20 11:30 36.8 C 74 18 155/90 H 94 02/17/20 07:43 85 28 H 90 02/17/20 07:28 85 02/17/20 07:15 36.8 C 80 22 125/72 90 02/17/20 07:00 36.9 C 85 16 132/73 90 02/17/20 06:30 36.8 C 83 18 136/75 90 02/17/20 06:15 37.8 C H 85 18 131/72 91 02/17/20 05:56 37.7 C H 88 22 121/71 91 Laboratory Results Laboratory Results - last 24 hr 02/14/20 02/16/20 02/17/20 20:35 20:38 07:16 POC Glucose 200 H 69 L* Blood Type AB Positive Antibody Screen NEGATIVE 02/17/20 02/17/20 02/17/20 07:16 07:53 11:14 POC Glucose 68 L* 156 H 181 H Blood Type Antibody Screen Medications Administered Current Inpatient Medications Acetaminophen (Acetaminophen 325 Mg Tab) 650 mg PO Q4H PRN PRN Reason: Pain or Fever Stop: 03/16/20 00:59 Al Hydrox/Mg Hydrox/Simethicone (Aluminum/Magnesium Susp 30 Ml Udc) 15 ml PO Q4H PRN PRN Reason: Dyspepsia Stop: 03/16/20 00:23 Albuterol (Albuterol Hfa 8 Gm Inhaler) 2 puffs INH Q4 PRN PRN Reason: Shortness Of Breath Or Wheezing Stop: 03/17/20 08:41 Aspirin (Aspirin 81 Mg Ectab) 81 mg PO QAM [facility] Stop: 03/16/20 08:59 Last Admin: 02/17/20 08:07 Dose: 81 mg Documented by: Benzonatate (Benzonatate 100 Mg Capsule) 200 mg PO TID PRN PRN Reason: cough Stop: 03/16/20 00:23 Dextrose (Dextrose 50% 50 Ml Syringe) 25 - 50 ml IV UD PRN; Protocol PRN Reason: Hypoglycemia Protocol Stop: 03/16/20 00:23 Diclofenac Sodium (Diclofenac Sodium 75 Mg Tabcr) 75 mg PO BIDM PRN PRN Reason: Pain Stop: 03/16/20 00:23 Ezetimibe (Ezetimibe 10 Mg Tablet) 10 mg PO DAILY [facility] Stop: 03/16/20 08:59 Last Admin: 02/17/20 08:07 Dose: 10 mg Documented by: Fluticasone Propionate (Fluticasone Propionate Na Spr 16 Gm Btl) 2 sprays CECE DAILY PRN PRN Reason: Nasal Congestion Stop: 03/16/20 00:23 Glucagon (Glucagon For Inj 1 Mg Vial) 1 mg SQ UD PRN; Protocol PRN Reason: Hypoglycemia Protocol Stop: 03/16/20 00:23 Glucose (Glucose 10 Tabs/Tube) 4 - 8 tabs PO UD PRN; Protocol PRN Reason: Hypoglycemia Protocol Stop: 03/16/20 00:23 Glucose (Glucose 40% Gel 15 Gm Tube) 15 - 30 gm PO UD PRN; Protocol PRN Reason: Hypoglycemia Protocol Stop: 03/16/20 00:23 Dexamethasone 6 mg/ Syringe 1.5 mls @ [facility] Stop: 03/16/20 08:59 Last Admin: 02/17/20 08:03 Dose: 1 mls/min Documented by: Remdesivir 100 mg/ Sodium (Chloride) 250 mls @ 250 mls/hr IV Q24H [facility]; Protocol Stop: 02/18/20 20:59 Last Infusion: 02/16/20 20:55 Dose: Infused Documented by: Ceftriaxone Sodium 2,000 mg/ (Dextrose) 70 mls @ 100 mls/hr IV Q24H [facility]; [facility] Stop: 02/20/20 20:41 Last Infusion: 02/17/20 00:28 Dose: Infused Documented by: Azithromycin 500 mg/ Dextrose 255 mls @ 125 mls/hr IV DAILY [facility] Stop: 02/20/20 11:03 Last Infusion: 02/17/20 10:30 Dose: Infused Documented by: Insulin Aspart (Insulin Aspart 100 Units/Ml 3 Ml Pen) 0 units SC [facility] Stop: 03/16/20 07:29 Last Admin: 02/17/20 13:03 Dose: 13 units Documented by: Insulin Glargine (Insulin Glargine Solostar 100 Units/Ml 3 Ml Pen) 20 units SC [facility] Stop: 03/18/20 08:59 Last Admin: 02/17/20 08:00 Dose: 20 units Documented by: Insulin Human NPH (Insulin Human Nph) 40 units SC [facility] Stop: 03/16/20 08:59 Last Admin: 02/17/20 08:00 Dose: 40 units Documented by: Methocarbamol (Methocarbamol 500 Mg Tablet) 500 mg PO QID PRN PRN Reason: muscle spasm Stop: 03/16/20 00:23 Metoprolol Succinate (Metoprolol Succ 50mg Ext Rel Tab) 50 mg PO [facility] Stop: 03/16/20 08:59 Last Admin: 02/17/20 08:06 Dose: 50 mg Documented by: Miscellaneous (Carbohydrates For Hypoglycemia ) 15 - 30 gm PO UD PRN PRN Reason: Hypoglycemia Protocol Stop: 03/16/20 00:23 Last Admin: 02/17/20 07:21 Dose: 15 gm Documented by: Montelukast Sodium (Montelukast Sodium 10 Mg Tablet) 10 mg PO QPM [facility] Stop: 03/16/20 20:59 Last Admin: 02/16/20 21:03 Dose: 10 mg Documented by: Multivitamins (Multivitamin Tab) 1 tab PO [facility] Stop: 03/16/20 08:59 Last Admin: 02/17/20 08:07 Dose: 1 tab Documented by: Ondansetron HCl (Ondansetron Inj 2 Mg/Ml 2 Ml Vial) 4 mg IV Q6H PRN PRN Reason: Nausea Stop: 03/16/20 00:23 Sodium Chloride (Sodium Chloride 0.9% 10ml Flush) 30 ml IV Q24H [facility] Stop: 02/19/20 01:01 Last Admin: 02/17/20 00:28 Dose: 30 ml Documented by: Tamsulosin HCl (Tamsulosin Hcl 0.4 Mg Cap) 0.4 mg PO HS [facility] Stop: 03/16/20 20:59 Last Admin: 02/16/20 21:03 Dose: 0.4 mg Documented by: PG Care Time/CCT Total # of Minutes Spent Total Time Spent with Patient: Total time spent is greater than 50% in coordination of care (as documented) at patient's floor/unit and/or counseling patient: Coding Level of Care Code 60818 Subseq Hosp Care Lvl 3 Diagnoses Pneumonia due to 2019-nCoV U07.1; J12.89 Hypoxia R09.02 DM2 (diabetes mellitus, type 2) E11.9 Hypercholesterolemia E78.00 HTN, goal below 140/90 I10 BPH w urinary obs/LUTS N40.1; N13.8 Myotonic dystrophy, type 2 G71.11
[2020-02-17] MEDS: REMDESIVIR 100 MG in SODIUM CHLORIDE 0.9% 230 ML IV SCH (21:03)
[2020-02-17] MEDS: MONTELUKAST SODIUM 10 MG TABLET PO SCH (21:07)
[2020-02-17] MEDS: TAMSULOSIN HCL 0.4 MG CAP PO SCH (21:07)
[2020-02-18] MEDS: cefTRIAXone SODIUM 2,000 MG in DEXTROSE 5% 50 ML IV SCH ×2 (00:04→20:03)
[2020-02-18] MEDS: SODIUM CHLORIDE 0.9% 10ML FLUSH IV SCH ×2 (00:04→21:40)
[2020-02-18] MEDS ORDERED: OXYMETAZOLINE 0.05% 30 ML BTL STA (03:01)
[2020-02-18] MEDS: BENZONATATE 100 MG CAPSULE PO PRN (07:58)
[2020-02-18] MEDS: AZITHROMYCIN 500 MG in DEXTROSE 5% 250 ML IV SCH (08:44)
[2020-02-18] MEDS: dexAMETHasone 6 MG in SYRINGE 0 ML IV SCH (08:44)
[2020-02-18] MEDS: LOSARTAN POTASSIUM 50 MG TAB PO SCH (08:45)
[2020-02-18] MEDS: METOPROLOL SUCC 50MG EXT REL TAB PO SCH (08:45)
[2020-02-18] MEDS: MULTIVITAMIN TAB PO SCH (08:45)
[2020-02-18] MEDS: EZETIMIBE 10 MG TABLET PO SCH (08:45)
[2020-02-18] MEDS: METHOCARBAMOL 500 MG TABLET PO PRN (08:45)
[2020-02-18] MEDS: ASPIRIN 81 MG ECTAB PO SCH (08:45)
[2020-02-18] MEDS: INSULIN ASPART 100 UNITS/ML 3 ML PEN SC SCH ×4 (08:48→20:11)
[2020-02-18] MEDS: INSULIN HUMAN NPH SC SCH (08:48)
[2020-02-18] MEDS: INSULIN GLARGINE SOLOSTAR 100 UNITS/ML 3 ML PEN SC SCH (08:49)
--- NOTE | 2020-02-18 14:47 | Hospitalist Progress Note ---
Date of Service February 18, 2020 Assessment & Plan (1) Pneumonia due to 2019-nCoV: Pneumonia due to COVID-19 virus with hypoxia tested positive earlier this week, symptoms for < 7 days Decadron 6 mg IV every morning x 10 days, day 5 Convalescent plasma transfused 02/15 after AB type was located Remdesivir IV per protocol, complete 5 days, day 5 Ceftriaxone 2 g IV daily x 7 days, day 5 azithromycin 500 mg IV daily x 7 days, day 5 Ventolin HFA 2 puffs 4 times daily, and every 2 hours as needed requiring more oxygen today at 100% and 50L more work of breathing today encouraged him to eat, stay strong, he is eating well asked him about laying prone, he said he will try prognosis is guarded, at elevated risk of needing intubation with his myotonic dystrophy he understands this, agrees to intubation if needed (2) Hypoxia: acute respiratory failure with hypoxia due to COVID 19 currently requiring HFNC 100% and 50L, working hard to breath discussed laying prone, he says he will try but not very easy for him concerned that he will get worse and will need intubated, he understands this (3) DM2 (diabetes mellitus, type 2): Hold glipizide and Metformin. will give 40 units of NPH with dexamethasone qAM correction factor 15, tighten carb ratio to 4 some hypoglycemia in the AM on 02/16, will adjust Lantus to 20 units qAM and none in evening now with hyperglycemia, sugars 300's today, eating a lot consult pharmacy for management as he is labile (4) Hypercholesterolemia: Continue Zetia and fish oil (5) HTN, goal below 140/90: Continue aspirin and metoprolol succinate. 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 brother at age 57, had a nephew who young his sister has it, she is in her 60's certainly could make work of breathing more difficult for him at high risk of deteriorating and requiring intubation Admission and Anticipated Discharge Date Admission Date: February 14, 2020 Subjective patient continues to work hard to breathe, tachypneic, belly breathing even when he is sleeping he remains on HFNC, 50L and 100%, no improvement from yesterday had a long talk with him at the bedside and then his daughter over the phone discussed real possibility that he will need intubated, he is working really hard, requiring a lot of oxygen unsure how long he can maintain this with his myotonic dystrophy he agrees to intubation if needed, his daughter agrees he is eating really well, all his food Review of Systems Review of Systems: All systems reviewed & are unremarkable except as noted in Subjective Physical Exam Constitutional: well developed, well nourished and + obese; no acute distress Neck: trachea midline, no thyromegaly Respiratory: + labored breathing and + tachypneic; no respiratory distress and no cough Auscultation: lungs clear to auscultation bilaterally Cardiovascular: RRR, no murmur, no edema Gastrointestinal (Abdomen): normal bowel sounds, soft, nontender, no hepatosplenomegaly Musculoskeletal: no cyanosis or clubbing, extremities motor strength 5/5 Skin: no rashes, warm and dry Neurologic: patellar DTR's 2+ bilat, sensation intact and PERRL, EOMI, accommodation nl, no face palsy, no dysarthria Psychiatric: A+Ox3, euthymic affect Lymphatic: no cervical or axillary lymphadenopathy Results & Data Results & Data ([facility]) Vital Signs (Past 12 Hours) Vital Signs Temp Pulse Resp BP Pulse Ox 02/18/20 12:08 89 22 90 02/18/20 11:37 36.9 C 73 24 137/82 92 02/18/20 09:26 36.5 C 02/18/20 08:40 85 22 91 02/18/20 07:00 37.6 C H 89 22 130/77 90 02/18/20 04:53 37.3 C 95 H 22 154/86 H 80 L 02/18/20 03:44 78 22 89 L Laboratory Results Laboratory Results - last 24 hr 02/17/20 02/17/20 02/18/20 16:57 20:50 07:25 POC Glucose 157 H 249 H 107 H 02/18/20 11:31 POC Glucose 277 H Medications Administered Current Inpatient Medications Acetaminophen (Acetaminophen 325 Mg Tab) 650 mg PO Q4H PRN PRN Reason: Pain or Fever Stop: 03/16/20 00:59 Last Admin: 02/18/20 07:58 Dose: 650 mg Documented by: Al Hydrox/Mg Hydrox/Simethicone (Aluminum/Magnesium Susp 30 Ml Udc) 15 ml PO Q4H PRN PRN Reason: Dyspepsia Stop: 03/16/20 00:23 Albuterol (Albuterol Hfa 8 Gm Inhaler) 2 puffs INH Q4 PRN PRN Reason: Shortness Of Breath Or Wheezing Stop: 03/17/20 08:41 Aspirin (Aspirin 81 Mg Ectab) 81 mg PO QAM [facility] Stop: 03/16/20 08:59 Last Admin: 02/18/20 08:45 Dose: 81 mg Documented by: Benzonatate (Benzonatate 100 Mg Capsule) 200 mg PO TID PRN PRN Reason: cough Stop: 03/16/20 00:23 Last Admin: 02/18/20 07:58 Dose: 200 mg Documented by: Dextrose (Dextrose 50% 50 Ml Syringe) 25 - 50 ml IV UD PRN; Protocol PRN Reason: Hypoglycemia Protocol Stop: 03/16/20 00:23 Diclofenac Sodium (Diclofenac Sodium 75 Mg Tabcr) 75 mg PO BIDM PRN PRN Reason: Pain Stop: 03/16/20 00:23 Ezetimibe (Ezetimibe 10 Mg Tablet) 10 mg PO DAILY [facility] Stop: 03/16/20 08:59 Last Admin: 02/18/20 08:45 Dose: 10 mg Documented by: Fluticasone Propionate (Fluticasone Propionate Na Spr 16 Gm Btl) 2 sprays CECE DAILY PRN PRN Reason: Nasal Congestion Stop: 03/16/20 00:23 Glucagon (Glucagon For Inj 1 Mg Vial) 1 mg SQ UD PRN; Protocol PRN Reason: Hypoglycemia Protocol Stop: 03/16/20 00:23 Glucose (Glucose 10 Tabs/Tube) 4 - 8 tabs PO UD PRN; Protocol PRN Reason: Hypoglycemia Protocol Stop: 03/16/20 00:23 Glucose (Glucose 40% Gel 15 Gm Tube) 15 - 30 gm PO UD PRN; Protocol PRN Reason: Hypoglycemia Protocol Stop: 03/16/20 00:23 Dexamethasone 6 mg/ Syringe 1.5 mls @ 1 mls/min IV QAM [facility] Stop: 03/16/20 08:59 Last Admin: 02/18/20 08:44 Dose: 1 mls/min Documented by: Remdesivir 100 mg/ Sodium (Chloride) 250 mls @ 250 mls/hr IV Q24H [facility]; Protocol Stop: 02/18/20 20:59 Last Infusion: 02/18/20 00:04 Dose: Infused Documented by: Ceftriaxone Sodium 2,000 mg/ (Dextrose) 70 mls @ 100 mls/hr IV Q24H [facility]; Protocol Stop: 02/20/20 20:41 Last Infusion: 02/18/20 02:59 Dose: Infused Documented by: Azithromycin 500 mg/ Dextrose 255 mls @ 125 mls/hr IV DAILY [facility] Stop: 02/20/20 11:03 Last Infusion: 02/18/20 12:08 Dose: Infused Documented by: Insulin Aspart (Insulin Aspart 100 Units/Ml 3 Ml Pen) 0 units SC [facility] Stop: 03/16/20 07:29 Last Admin: 02/18/20 12:00 Dose: 23 units Documented by: Insulin Glargine (Insulin Glargine Solostar 100 Units/Ml 3 Ml Pen) 20 units SC [facility] Stop: 03/18/20 08:59 Last Admin: 02/18/20 08:49 Dose: 20 units Documented by: Insulin Human NPH (Insulin Human Nph) 40 units SC [facility] Stop: 03/16/20 08:59 Last Admin: 02/18/20 08:48 Dose: 40 units Documented by: Losartan Potassium (Losartan Potassium 50 Mg Tab) 50 mg PO [facility] Stop: 03/19/20 08:59 Last Admin: 02/18/20 08:45 Dose: 50 mg Documented by: Methocarbamol (Methocarbamol 500 Mg Tablet) 500 mg PO QID PRN PRN Reason: muscle spasm Stop: 03/16/20 00:23 Last Admin: 02/18/20 08:45 Dose: 500 mg Documented by: Metoprolol Succinate (Metoprolol Succ 50mg Ext Rel Tab) 50 mg PO [facility] Stop: 03/16/20 08:59 Last Admin: 02/18/20 08:45 Dose: 50 mg Documented by: Miscellaneous (Carbohydrates For Hypoglycemia ) 15 - 30 gm PO UD PRN PRN Reason: Hypoglycemia Protocol Stop: 03/16/20 00:23 Last Admin: 02/17/20 07:21 Dose: 15 gm Documented by: Montelukast Sodium (Montelukast Sodium 10 Mg Tablet) 10 mg PO QPM [facility] Stop: 03/16/20 20:59 Last Admin: 02/17/20 21:07 Dose: 10 mg Documented by: Multivitamins (Multivitamin Tab) 1 tab PO QAM [facility] Stop: 03/16/20 08:59 Last Admin: 02/18/20 08:45 Dose: 1 tab Documented by: Ondansetron HCl (Ondansetron Inj 2 Mg/Ml 2 Ml Vial) 4 mg IV Q6H PRN PRN Reason: Nausea Stop: 03/16/20 00:23 Sodium Chloride (Sodium Chloride 0.9% 10ml Flush) 30 ml IV Q24H [facility] Stop: 02/19/20 01:01 Last Admin: 02/18/20 00:04 Dose: 30 ml Documented by: Tamsulosin HCl (Tamsulosin Hcl 0.4 Mg Cap) 0.4 mg PO HS [facility] Stop: 03/16/20 20:59 Last Admin: 02/17/20 21:07 Dose: 0.4 mg Documented by: PG Care Time/CCT Total # of Minutes Spent Total Time Spent: 36 Total Time Spent with Patient: Total time spent is greater than 50% in coordination of care (as documented) at patient's floor/unit and/or counseling patient: 20 minutes total at the bedside with patient 5 minutes on phone with his daughter 11 minutes reviewing chart, documentation Coding Level of Care Code 02785 Subseq Hosp Care Lvl 3 Diagnoses Pneumonia due to 2019-nCoV U07.1; J12.89 Hypoxia R09.02 DM2 (diabetes mellitus, type 2) E11.9 Hypercholesterolemia E78.00 HTN, goal below 140/90 I10 BPH w urinary obs/LUTS N40.1; N13.8 Myotonic dystrophy, type 2 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
[2020-02-18] MEDS: MONTELUKAST SODIUM 10 MG TABLET PO SCH (20:04)
[2020-02-18] MEDS: TAMSULOSIN HCL 0.4 MG CAP PO SCH (20:04)
[2020-02-18] MEDS: REMDESIVIR 100 MG in SODIUM CHLORIDE 0.9% 230 ML IV SCH (20:16)
[2020-02-18] MEDS ORDERED: PHARMACY GLYCEMIC MGMT CONSULT PRN (21:51)
[2020-02-18] MEDS ORDERED: INSULIN HUMAN REGULAR PER UNIT 8 UNITS in SYRINGE 7.92 ML IV ONE (22:00)
[2020-02-19] MEDS: INSULIN ASPART 100 UNITS/ML 3 ML PEN SC SCH ×7 (00:47→21:04)
[2020-02-19] MEDS: SODIUM CHLORIDE 0.9% 10ML FLUSH IV SCH (01:48)
[2020-02-19 08:40] LABS: Hematocrit (blood only) 38.8 % (42-52); Mean Corpuscular Hemoglobin 30.6 pg (25-34); Mean Corpuscular Hgb Conc 33.5 g/dL (32-36); Mean Corpuscular Volume 91.3 fL (80-100); Mean Platelet Volume 9.1 fL (7.4-10.4); Platelet Count 433 K/uL (130-400); RDW Coefficient of Variation 14.2 % (11.5-14.5); RDW Standard Deviation 47.7 fL (36.4-46.3); Red Blood Count 4.25 M/uL (4.7-6.1); White Blood Count 14.28 K/uL (4.8-10.8)
[2020-02-19] MEDS ORDERED: INSULIN HUMAN NPH SC SCH (09:00)
[2020-02-19 09:14] LABS: BUN Creatinine Ratio 32.4 (10-20); Calcium 9.1 mg/dl (8.5-10.1); Creatinine Clr Calc Pharmacy 138.3 ml/min; Est GFR (African American) 125.9; Est GFR (Non-African American) 108.6
[2020-02-19] MEDS: EZETIMIBE 10 MG TABLET PO SCH (09:40)
[2020-02-19] MEDS: ASPIRIN 81 MG ECTAB PO SCH (09:40)
[2020-02-19] MEDS: dexAMETHasone 6 MG in SYRINGE 0 ML IV SCH (09:40)
[2020-02-19] MEDS: LOSARTAN POTASSIUM 50 MG TAB PO SCH (09:40)
[2020-02-19] MEDS: METOPROLOL SUCC 50MG EXT REL TAB PO SCH (09:41)
[2020-02-19] MEDS: MULTIVITAMIN TAB PO SCH (09:41)
[2020-02-19] MEDS: AZITHROMYCIN 500 MG in DEXTROSE 5% 250 ML IV SCH (09:48)
[2020-02-19] MEDS: INSULIN GLARGINE SOLOSTAR 100 UNITS/ML 3 ML PEN SC SCH (10:44)
--- NOTE | 2020-02-19 11:54 | Pharmacy Report ---
Pharmacy Glycemic Short Note 2 - Date of Service February 19, 2020 - Glycemic Short BSG Results (Last 24 hours): 02/18/20 02/18/20 02/18/20 16:28 16:29 20:08 Glucose POC Glucose 373 H* 389 H* 342 H* 02/19/20 02/19/20 02/19/20 00:43 04:09 07:22 Glucose POC Glucose 93 70 84 02/19/20 02/19/20 08:22 11:22 Glucose 74 POC Glucose 359 H* OUTPATIENT ANTIDIABETIC REGIMEN: * glipizide 5mg Q AM * glipizide 2.5mg Q PM * metformin 1gm PO BID * A1c = 10% 02/15/20 ASSESSMENT: * Type 2 diabetic admitted for COVID19 viral pneumonia * Pharmacy consulted to assist w/ glycemic management due to IV dexamethasone administration * Fasting BSG 70-84 this AM w/ 20 units Lantus on board as well as after 40 units NPH yesterday. I believe the BSG dropped quickly overnight due to large dose of Novolog administered at bedtime however, not so much the basal doses used. Will continue the same Lantus dose, but decrease the Novolog doses administered at HS. * Post-prandial BSGs dom precipitously thoughout the day yesterday peaking in upper 300s. Will increase NPH dose to address the post-prandial rise associated w/ dexamethasone. Novolog mealtime doses will be increased as well. PLAN FOR INPATIENT GLYCEMIC CONTROL: * Hold outpatient oral diabetes medications * Basal insulin * Lantus 20 units SQ Q AM * NPH 50 units SQ Q AM w/ dexamethasone 6mg IV * Bolus insulin * NovoLog per scale ACHS and at 0000 + 0400 tonight (to screen for hypoglycemia) * Goal Range: Low 110 mg/dL - High 140 mg/dL * Correction Factor: 15 mg/dL/unit AC, 25mg/dL/unit HS and overnight * Nutritional / Prandial insulin per carb ratio of 1 unit per 3.5 grams CHO consumed AC, 1 unit per 8gm CHO consumed HS and overnight PLAN FOR DISCHARGE: * to be determined
--- NOTE | 2020-02-19 19:53 | Hospitalist Progress Note ---
Date of Service February 19, 2020 Assessment & Plan (1) Pneumonia due to 2019-nCoV: Pneumonia due to COVID-19 virus with hypoxia tested positive earlier this week, symptoms for < 7 days Decadron 6 mg IV every morning x 10 days, day 5 Convalescent plasma transfused 02/15 after AB type was located Remdesivir IV per protocol, complete 5 days Ceftriaxone 2 g IV daily x 7 days, day 5 azithromycin 500 mg IV daily x 7 days, day 5 Ventolin HFA 2 puffs 4 times daily, and every 2 hours as needed asked him about laying prone, he said he will try prognosis is guarded, at elevated risk of needing intubation with his myotonic dystrophy he understands this, agrees to intubation if needed (2) Hypoxia: acute respiratory failure with hypoxia due to COVID 19 currently requiring HFNC 100% and 50L, working hard to breath discussed laying prone, he says he will try but not very easy for him concerned that he will get worse and will need intubated, he understands this (3) DM2 (diabetes mellitus, type 2): Hold glipizide and Metformin. will give 40 units of NPH with dexamethasone qAM correction factor 15, tighten carb ratio to 4 some hypoglycemia in the AM on 02/16, will adjust Lantus to 20 units qAM and no ne in evening now with hyperglycemia, sugars 300's today, eating a lot consult pharmacy for management as he is labile (4) Hypercholesterolemia: Continue Zetia and fish oil (5) HTN, goal below 140/90: Continue aspirin and metoprolol succinate. 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 brother at age 57, had a nephew who young his sister has it, she is in her 60's certainly could make work of breathing more difficult for him at high risk of deteriorating and requiring intubation Admission and Anticipated Discharge Date Admission Date: February 14, 2020 Subjective pt remains short of breath and has a cough Review of Systems Review of Systems: Moderate distress and fatigue no headache, blurry or double vision no speech or swallowing issues no chest pain, pressure or palpitations shortness of breath, non productive cough no abdominal pain, nausea or vomiting, mild diarrhea no dysuria, hematuria or frequency no focal joint pain or swelling no back pain, CVA tenderness or radicular pain no bruising, bleeding or rashes no focal signs of weakness or numbness or altered sensation no complaints of anxiety or depression.. Physical Exam Physical Exam: The patient appeared well nourished and normally developed. Vital signs as documented. Head exam is normocephalic atraumatic no scleral icterus Neck is without JVD, thyromegaly, or carotid bruits. Lungs are rales at the bases, apex is clear Cardiac exam, Rhythm is regular.. No murmurs, rubs or gallops. Abdominal exam reveals normal bowel sounds, soft non tender, no masses Extremities are nonedematous and both pedal pulses are present Neurologic exam is alert and oriented, no focal loss of strength or sensation Skin is without bruises or rashes Psychologically is without concerns for anxiety or depression. Results & Data Results & Data ([facility]) Vital Signs (Past 12 Hours) Vital Signs Temp Pulse Pulse Pulse Resp BP BP 02/19/20 19:28 78 20 02/19/20 16:57 98.4 F 75 25 H 105/69 02/19/20 16:50 75 02/19/20 16:01 77 22 02/19/20 11:20 97.9 F 92 H 22 119/73 02/19/20 10:39 92 H 20 02/19/20 08:19 80 20 02/19/20 08:00 79 02/19/20 07:52 86 22 Pulse Ox 02/19/20 19:28 92 02/19/20 16:57 92 02/19/20 16:50 02/19/20 16:01 91 02/19/20 11:20 87 L 02/19/20 10:39 92 02/19/20 08:19 89 L 02/19/20 08:00 02/19/20 07:52 89 L PG Care Time/CCT Total # of Minutes Spent Total Time Spent with Patient: Total time spent is greater than 50% in coordination of care (as documented) at patient's floor/unit and/or counseling patient: Coding Level of Care Code 16526 Subseq Hosp Care Lvl 3 Diagnoses Pneumonia due to 2019-nCoV U07.1; J12.89 Hypoxia R09.02 DM2 (diabetes mellitus, type 2) E11.9 Hypercholesterolemia E78.00 HTN, goal below 140/90 I10 BPH w urinary obs/LUTS N40.1; N13.8 Myotonic dystrophy, type 2 G71.11
[2020-02-19] MEDS: cefTRIAXone SODIUM 2,000 MG in DEXTROSE 5% 50 ML IV SCH (20:39)
[2020-02-19] MEDS: TAMSULOSIN HCL 0.4 MG CAP PO SCH (21:37)
[2020-02-19] MEDS: MONTELUKAST SODIUM 10 MG TABLET PO SCH (21:37)
[2020-02-20] MEDS: INSULIN ASPART 100 UNITS/ML 3 ML PEN SC SCH ×6 (00:06→21:21)
[2020-02-20] MEDS: AZITHROMYCIN 500 MG in DEXTROSE 5% 250 ML IV SCH (08:50)
[2020-02-20] MEDS: dexAMETHasone 6 MG in SYRINGE 0 ML IV SCH (08:50)
[2020-02-20] MEDS: INSULIN GLARGINE SOLOSTAR 100 UNITS/ML 3 ML PEN SC SCH (08:53)
[2020-02-20] MEDS ORDERED: INSULIN HUMAN NPH SC SCH (09:00)
[2020-02-20] MEDS: EZETIMIBE 10 MG TABLET PO SCH (09:03)
[2020-02-20] MEDS: LOSARTAN POTASSIUM 50 MG TAB PO SCH (09:03)
[2020-02-20] MEDS: ASPIRIN 81 MG ECTAB PO SCH (09:03)
[2020-02-20] MEDS: METOPROLOL SUCC 50MG EXT REL TAB PO SCH (09:03)
[2020-02-20] MEDS: MULTIVITAMIN TAB PO SCH (09:04)
--- NOTE | 2020-02-20 13:30 | Pharmacy Report ---
Pharmacy Glycemic Short Note 2 - Date of Service February 20, 2020 - Glycemic Short BSG Results (Last 24 hours): 02/19/20 02/19/20 02/20/20 16:41 20:48 00:02 POC Glucose 237 H 246 H 136 H 02/20/20 02/20/20 02/20/20 04:01 07:23 12:34 POC Glucose 86 84 192 H OUTPATIENT ANTIDIABETIC REGIMEN: * glipizide 5mg Q AM * glipizide 2.5mg Q PM * metformin 1gm PO BID * A1c = 10% 02/15/20 ASSESSMENT: 02/20/20: * Mr Meadows received 128 units of insulin yesterday, BSGs ranging from 70- 359mg/dL. * 20 units of basal insulin * 50 units of NPH for steroid coverage * 58 units of prandial/correctional insulin * BSGs have been better-controlled thus far today. * Fasting BSG was slightly below goal range this morning, so Lantus/NPH doses reduced slightly. 02/19/20 * Type 2 diabetic admitted for COVID19 viral pneumonia * Pharmacy consulted to assist w/ glycemic management due to IV dexamethasone administration * Fasting BSG 70-84 this AM w/ 20 units Lantus on board as well as after 40 units NPH yesterday. I believe the BSG dropped quickly overnight due to large dose of Novolog administered at bedtime however, not so much the basal doses used. Will continue the same Lantus dose, but decrease the Novolog doses administered at HS. * Post-prandial BSGs dom precipitously thoughout the day yesterday peaking in upper 300s. Will increase NPH dose to address the post-prandial rise associated w/ dexamethasone. Novolog mealtime doses will be increased as well. PLAN FOR INPATIENT GLYCEMIC CONTROL: * Hold outpatient oral diabetes medications * Basal insulin * Lantus 18 units SQ Q AM * NPH 45 units SQ Q AM w/ dexamethasone 6mg IV * Bolus insulin * NovoLog per scale ACHS and at 0000 + 0400 tonight (to screen for hypoglycemia) * Goal Range: Low 110 mg/dL - High 140 mg/dL * Correction Factor: 15 mg/dL/unit AC, 25mg/dL/unit HS and overnight * Nutritional / Prandial insulin per carb ratio of 1 unit per 4 grams CHO consumed AC, 1 unit per 8gm CHO consumed HS and overnight PLAN FOR DISCHARGE: * to be determined
--- NOTE | 2020-02-20 18:47 | Hospitalist Progress Note ---
Date of Service February 20, 2020 Assessment & Plan (1) Pneumonia due to 2019-nCoV: Pneumonia due to COVID-19 virus with hypoxia tested positive earlier this week, symptoms for < 7 days Decadron 6 mg IV every morning x 10 days, day 5 Convalescent plasma transfused 02/15 after AB type was located Remdesivir IV per protocol, complete 5 days last dose 02/17 Ceftriaxone 2 g IV daily x 7 days, azithromycin 500 mg IV daily x 7 days, Ventolin HFA 2 puffs 4 times daily, and every 2 hours as needed encouraged laying prone, he said he will try prognosis is guarded, at elevated risk of needing intubation with his myotonic dystrophy he understands this, agrees to intubation if needed (2) Hypoxia: acute respiratory failure with hypoxia due to COVID 19 currently requiring HFNC 100% and 50L, working hard to breath discussed laying prone, he says he will try but not very easy for him concerned that he will get worse and will need intubated, he understands this (3) DM2 (diabetes mellitus, type 2): Hold glipizide and Metformin. will give 40 units of NPH with dexamethasone qAM correction factor 15, tighten carb ratio to 4 some hypoglycemia in the AM on 02/16, will adjust Lantus to 20 units qAM and n one in evening now with hyperglycemia, sugars 300's today, eating a lot consult pharmacy for management as he is labile (4) Hypercholesterolemia: Continue Zetia and fish oil (5) HTN, goal below 140/90: Continue aspirin and metoprolol succinate. 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 brother at age 57, had a nephew who young his sister has it, she is in her 60's certainly could make work of breathing more difficult for him at high risk of deteriorating and requiring intubation Admission and Anticipated Discharge Date Admission Date: February 14, 2020 Subjective pt remains short of breath and has a cough a little change in his plan of care or treatment at this point time remains on high flow oxygen Review of Systems Review of Systems: Moderate distress and fatigue no headache, blurry or double vision no speech or swallowing issues no chest pain, pressure or palpitations shortness of breath, non productive cough no abdominal pain, nausea or vomiting, mild diarrhea no dysuria, hematuria or frequency no focal joint pain or swelling no back pain, CVA tenderness or radicular pain no bruising, bleeding or rashes no focal signs of weakness or numbness or altered sensation no complaints of anxiety or depression.. Physical Exam Physical Exam: The patient appeared well nourished and normally developed. Vital signs as documented. Head exam is normocephalic atraumatic no scleral icterus Neck is without JVD, thyromegaly, or carotid bruits. Lungs are rales at the bases, apex is clear Cardiac exam, Rhythm is regular.. No murmurs, rubs or gallops. Abdominal exam reveals normal bowel sounds, soft non tender, no masses Extremities are nonedematous and both pedal pulses are present Neurologic exam is alert and oriented, no focal loss of strength or sensation Skin is without bruises or rashes Psychologically is without concerns for anxiety or depression. Results & Data Results & Data ([facility]) Vital Signs (Past 12 Hours) Vital Signs Temp Pulse Pulse Pulse Resp BP Pulse Ox 02/20/20 18:31 96 02/20/20 15:12 97.9 F 64 113/72 96 02/20/20 14:07 72 80 20 90 02/20/20 12:09 98.2 F 73 20 120/69 02/20/20 11:07 74 18 88 L 02/20/20 08:00 68 02/20/20 07:36 74 18 90 02/20/20 07:24 98.4 F 68 16 128/70 94 PG Care Time/CCT Total # of Minutes Spent Total Time Spent with Patient: Total time spent is greater than 50% in coordination of care (as documented) at patient's floor/unit and/or counseling patient: Coding Level of Care Code 10336 Subseq Hosp Care Lvl 3 Diagnoses Pneumonia due to 2019-nCoV U07.1; J12.89 Hypoxia R09.02 DM2 (diabetes mellitus, type 2) E11.9 Hypercholesterolemia E78.00 HTN, goal below 140/90 I10 BPH w urinary obs/LUTS N40.1; N13.8 Myotonic dystrophy, type 2 G71.11
[2020-02-20] MEDS: cefTRIAXone SODIUM 2,000 MG in DEXTROSE 5% 50 ML IV SCH (21:54)
[2020-02-20] MEDS: TAMSULOSIN HCL 0.4 MG CAP PO SCH (21:56)
[2020-02-20] MEDS: MONTELUKAST SODIUM 10 MG TABLET PO SCH (21:56)
[2020-02-21] MEDS: LOSARTAN POTASSIUM 50 MG TAB PO SCH (07:54)
[2020-02-21] MEDS: dexAMETHasone 6 MG in SYRINGE 0 ML IV SCH (07:54)
[2020-02-21] MEDS: ASPIRIN 81 MG ECTAB PO SCH (07:55)
[2020-02-21] MEDS: EZETIMIBE 10 MG TABLET PO SCH (07:56)
[2020-02-21] MEDS: MULTIVITAMIN TAB PO SCH (07:57)
[2020-02-21] MEDS: METOPROLOL SUCC 50MG EXT REL TAB PO SCH (07:57)
[2020-02-21] MEDS: INSULIN GLARGINE SOLOSTAR 100 UNITS/ML 3 ML PEN SC SCH (08:26)
[2020-02-21] MEDS: INSULIN ASPART 100 UNITS/ML 3 ML PEN SC SCH ×4 (08:27→21:05)
[2020-02-21] MEDS ORDERED: INSULIN HUMAN NPH SC SCH (09:00)
--- NOTE | 2020-02-21 12:44 | Hospitalist Progress Note ---
Date of Service February 21, 2020 Assessment & Plan (1) Pneumonia due to : Patient admitted 02/14/2020 Signs and symptoms started 02/12/2020 with loss of taste and smell Positive COVID-19 testing 02/12/2020 Patient completed 7-day course of azithromycin and ceftriaxone Patient also completed a 5-day course of remdesivir with his last dose 02/18/2020. Continue dexamethasone for total of 10 days (first dose 02/15/2020) Patient also received convalescent plasma on 02/16/2020 Continue supplemental oxygen support. Patient currently is on high flow nasal cannula and is saturating in the low 90% area of 4 SaO2 Continue supportive care and continue to attempt to titrate supplemental oxygen (2) Hypoxia: Secondary to COVID-19 pneumonia, deconditioning, obesity Continue supportive care as well as aggressive treatment for Patient still requiring substantial supplemental oxygen -continue to wean as tolerated (3) DM2 (diabetes mellitus, type 2): Morbidly obese with a BMI of 38.3 Hold oral glipizide to Metformin Insulin started with Lantus and sliding scale insulin Also continue to give 40 units of NPH with dexamethasone dosing Hemoglobin A1c was 10.0 on 02/15/2020 Glycemic consult placed with pharmacy -appreciate their help (4) Hypercholesterolemia: Continue Zetia and fish oil (5) BPH w urinary obs/LUTS: Patient denies any issues with urination Continue tamsulosin Outpatient management (6) HTN, goal below 140/90: Well-controlled at this time with a blood pressure of 120/69 today Continue aspirin and metoprolol succinate as well as losartan (7) Dysmetabolic syndrome X: No evidence of paradoxical chest wall movement No use of accessory muscles Continue to monitor closely If this worsens, patient may require endotracheal intubation and mechanical ventilation (8) Current smoker: Need for complete abstinence and weight loss (9) DVT prophylaxis: Patient now here for 8 days We will start subcutaneous heparin Encourage ambulation and movement about room Admission and Anticipated Discharge Date Admission Date: February 14, 2020 Subjective Attending: Dr. Cha Patient seen and examined at bedside in room 214. He continues supplemental oxygen but is saturating in the low 90s. He has no obvious distress. He reports he did have some sweats this morning. He is unaware of any fever. He denies any nausea or vomiting or diarrhea. He is tolerating his food well. He has no other acute complaints. Review of Systems Review of Systems: All systems reviewed & are unremarkable except as noted in Subjective Physical Exam Physical Exam: GENERAL : No acute distress EYES: No icterus, gaze conjugate NOSE: No evidence of epistaxis. High flow nasal cannula is in place MOUTH: No lesions or candidiasis. Mucosa is moist NECK: Supple LUNGS: Good inspiratory effort but deep inspiration induces cough. Patient does have coarse rales at the bases. No bronchospasm and no rhonchi. There is no paradoxical chest wall movement HEART: Regular, rate controlled ABDOMEN: Soft, NT, ND, BS Present EXTREMITIES: No LE edema, pedal pulses intact NEURO: A&OX3 Results & Data Results & Data ([facility]) Vital Signs (Past 12 Hours) Vital Signs Temp Pulse Pulse Resp BP Pulse Ox 02/21/20 11:04 36.4 C L 79 16 102/57 L 87 L 02/21/20 08:00 63 02/21/20 07:22 36.5 C 73 20 114/69 87 L 02/21/20 04:35 36.7 C 64 19 123/72 93 Laboratory Results 02/19/20 08:22 02/19/20 08:22 Diagnostic Findings No new diagnostic imaging since 02/14/2020 PG Care Time/CCT Total # of Minutes Spent Total Time Spent with Patient: Total time spent is greater than 50% in coordination of care (as documented) at patient's floor/unit and/or counseling patient: 20 minutes Coding Level of Care Code 99586 Subseq Hosp Care Lvl 2 Diagnoses Pneumonia due to 2019-nCoV U07.1; J12.89 Hypoxia R09.02 DM2 (diabetes mellitus, type 2) E11.9 Hypercholesterolemia E78.00 BPH w urinary obs/LUTS N40.1; N13.8 HTN, goal below 140/90 I10 Dysmetabolic syndrome X E88.81 Current smoker F17.200 DVT prophylaxis Z29.9 Time Spent (min) 20
[2020-02-21] MEDS: MONTELUKAST SODIUM 10 MG TABLET PO SCH (21:18)
[2020-02-21] MEDS: TAMSULOSIN HCL 0.4 MG CAP PO SCH (21:18)
[2020-02-21] MEDS: HEPARIN SOD 5,000 UNIT/0.5 ML VIAL SQ SCH (21:19)
[2020-02-21] MEDS ORDERED: HEPARIN SOD 5,000 UNIT/0.5 ML VIAL SQ SCH (22:00)
[2020-02-22] MEDS: dexAMETHasone 6 MG in SYRINGE 0 ML IV SCH (08:20)
[2020-02-22] MEDS: MULTIVITAMIN TAB PO SCH (08:21)
[2020-02-22] MEDS: LOSARTAN POTASSIUM 50 MG TAB PO SCH (08:21)
[2020-02-22] MEDS: METOPROLOL SUCC 50MG EXT REL TAB PO SCH (08:21)
[2020-02-22] MEDS: EZETIMIBE 10 MG TABLET PO SCH (08:21)
[2020-02-22] MEDS: ASPIRIN 81 MG ECTAB PO SCH (08:21)
[2020-02-22] MEDS: HEPARIN SOD 5,000 UNIT/0.5 ML VIAL SQ SCH ×2 (08:23→20:36)
[2020-02-22] MEDS: INSULIN GLARGINE SOLOSTAR 100 UNITS/ML 3 ML PEN SC SCH (08:41)
[2020-02-22] MEDS: INSULIN ASPART 100 UNITS/ML 3 ML PEN SC SCH ×4 (08:41→23:27)
[2020-02-22] MEDS: INSULIN HUMAN NPH SC SCH (08:42)
--- NOTE | 2020-02-22 13:23 | Pharmacy Report ---
Glycemic Control Progress Note - Date of Service February 22, 2020 - Scope Glycemic Pharmacist consulted for glycemic control to write orders per [facility] inpatient glycemic control protocol. - Objective Accuchecks BSG(last 24 hours):: 02/21/20 02/21/20 02/21/20 16:33 20:01 20:01 POC Glucose 240 H 322 H* 333 H* 02/22/20 02/22/20 07:23 11:54 POC Glucose 70 225 H HbA1c:: Hemoglobin A1c 10.0 % (4.5-5.6) H 02/15/20 06:00 - Recent Pertinent Medications The patient is currently receiving: * Basal insulin: Lantus 18 units every 24 hours plus NPH 50 units qAM * Correctional Insulin: Novolog Correction per scale ACHS Goal Range: Low 110 mg/dL - High 140 mg/dL Correction Factor: 15 mg/dL/unit * Prandial insulin: Per carb ratio of 1 unit per 4 grams CHO consumed - Outpatient Anti-Diabetic Meds Glipizide 5 mg in the morning and 2.5 mg in the PM metformin 1 gm PO BID - Assessment & Plan ASSESSMENT: * See progress note from 02/19/20 for more background info, in short: * Pt receiving SQ basal bolus insulin regimen for hyperglycemia secondary to baseline DM (outpatient regimen on hold). Patient also receiving dexamethasone 6 mg IV daily. * Patient is currently receiving an average of 122 units of insulin per day * 68 units of basal insulin * 61 units of prandial/correctional insulin * BSGs ranging 109 - 322 mg/dl over the past 24hrs * Changes needed to insulin regimen: * AM Fasting BSG = 70 mg/dl. This is slightly below goal range for patient based on inpatient targets and co-morbidities. Therefore Lantus will be reduced by 20% to Lantus 15 units daily. Increase NPH by 20% since patient's evening BSG was > 300 mg/dL. * Post-prandial BSGs trended upwards yesterday. Increased NPH. Tighten CR. * Total daily dose = ~130-140 units. PLAN FOR INPATIENT GLYCEMIC CONTROL: * DECREASING Lantus to 15 units SQ daily and INCREASING NPH to 60 units daily * Continuing correction factor of 15 mg/dl/unit * TIGHTENING carb ratio to 1 unit per 3 grams CHO consumed * Continuing goal range of Low 110 mg/dL - High 140 mg/dL * Please note that the plan above was derived based on current level of insulin resistance and hospital stress. These recommendations are appropriate for inpatient admission only. Plan of care upon discharge will need to be reassessed to avoid potential outpatient hypo/hyperglycemia. Thank you.
--- NOTE | 2020-02-22 14:03 | Hospitalist Progress Note ---
Date of Service February 22, 2020 Assessment & Plan (1) Pneumonia due to : Patient admitted 02/14/2020 Signs and symptoms started 02/12/2020 with loss of taste and smell Positive COVID-19 testing 02/12/2020 Patient completed 7-day course of azithromycin and ceftriaxone Patient also completed a 5-day course of remdesivir with his last dose 02/18/2020. Continue dexamethasone for total of 10 days (first dose 02/15/2020) Patient also received convalescent plasma on 02/16/2020 Continue supplemental oxygen support. Patient currently is on high flow nasal cannula and is saturating in the low 90%s Continue supportive care and continue to attempt to titrate supplemental oxygen Continue to encourage ambulation in the room (2) Hypoxia: Secondary to COVID-19 pneumonia, deconditioning, obesity Continue supportive care as well as aggressive treatment for Patient still requiring substantial supplemental oxygen -continue to wean as tolerated (3) DM2 (diabetes mellitus, type 2): Morbidly obese with a BMI of 38.3 Hold oral glipizide to Metformin Insulin started with Lantus and sliding scale insulin Also continue to give 40 units of NPH with dexamethasone dosing Hemoglobin A1c was 10.0 on 02/15/2020 Glycemic consult placed with pharmacy -appreciate their help (4) Hypercholesterolemia: Continue Zetia and fish oil (5) BPH w urinary obs/LUTS: Patient denies any issues with urination Continue tamsulosin Outpatient management (6) HTN, goal below 140/90: Well-controlled at this time with a blood pressure of 120/69 today Continue aspirin and metoprolol succinate as well as losartan (7) Dysmetabolic syndrome X: No evidence of paradoxical chest wall movement No use of accessory muscles Continue to monitor closely If this worsens, patient may require endotracheal intubation and mechanical ventilation (8) Current smoker: Discussed again with patient today. He states that he smokes an occasional cigar. He denies any other tobacco abuse (9) DVT prophylaxis: Continue subcutaneous heparin 5000 units SQ every 12 hours Encourage ambulation and movement about room Admission and Anticipated Discharge Date Admission Date: February 14, 2020 Subjective Attending: Dr. Cha Patient seen and examined at bedside. He is in a bedside chair. He continues to require supplemental oxygen at 10 L/min. He gets breathless easily. He is ambulating in the room and is not as fatigued. He has now been greater than 24 hours without fever in 24 hours without sweats. He has no significant sputum production. He feels like he is slowly improving. He has no acute complaints. Review of Systems Review of Systems: All systems reviewed & are unremarkable except as noted in Subjective Physical Exam Physical Exam: GENERAL : No acute distress. Pleasant. Talkative. EYES: No icterus, gaze conjugate NOSE: No evidence of epistaxis MOUTH: No lesions or candidiasis NECK: Supple LUNGS: Fine crackles at the bases. Induced cough with deep inspiration. No bronchospasm. No rhonchi. HEART: Regular, rate controlled in the 80s. With deep breathing and with minimal movement, patient was tachycardic in the low 100s. ABDOMEN: Soft, NT, ND, BS Present EXTREMITIES: No LE edema, pedal pulses intact NEURO: A&OX3 Results & Data Results & Data ([facility]) Vital Signs (Past 12 Hours) Vital Signs Temp Pulse Resp BP BP Pulse Ox 02/22/20 10:54 36.5 C 78 23 107/62 92 02/22/20 07:56 36.7 C 154 H 24 90/61 L 92 02/22/20 03:04 36.5 C 59 L 20 115/63 94 Laboratory Results No new laboratory values since 02/19/20 Diagnostic Findings No new diagnostic imaging PG Care Time/CCT Total # of Minutes Spent Total Time Spent with Patient: Total time spent is greater than 50% in coordination of care (as documented) at patient's floor/unit and/or counseling patient: 20 minutes Coding Level of Care Code 82291 Subseq Hosp Care Lvl 2 Diagnoses Pneumonia due to 2019-nCoV U07.1; J12.89 Hypoxia R09.02 DM2 (diabetes mellitus, type 2) E11.9 Hypercholesterolemia E78.00 BPH w urinary obs/LUTS N40.1; N13.8 HTN, goal below 140/90 I10 Dysmetabolic syndrome X E88.81 Current smoker F17.200 DVT prophylaxis Z29.9 Time Spent (min) 20
[2020-02-22] MEDS ORDERED: COUGH DROP (SUGAR FREE) LOZ 24 LOZ/1 BOX BUCCAL ONE (19:41)
[2020-02-22] MEDS: TAMSULOSIN HCL 0.4 MG CAP PO SCH (20:36)
[2020-02-22] MEDS: MONTELUKAST SODIUM 10 MG TABLET PO SCH (20:36)
[2020-02-23] MEDS: LOSARTAN POTASSIUM 50 MG TAB PO SCH (07:45)
[2020-02-23] MEDS: MULTIVITAMIN TAB PO SCH (07:46)
[2020-02-23] MEDS: MONTELUKAST SODIUM 10 MG TABLET PO SCH (07:46)
[2020-02-23] MEDS: METHOCARBAMOL 500 MG TABLET PO PRN (07:46)
[2020-02-23] MEDS: METOPROLOL SUCC 50MG EXT REL TAB PO SCH (07:46)
[2020-02-23] MEDS: EZETIMIBE 10 MG TABLET PO SCH (07:46)
[2020-02-23] MEDS: ASPIRIN 81 MG ECTAB PO SCH (07:47)
[2020-02-23] MEDS: HEPARIN SOD 5,000 UNIT/0.5 ML VIAL SQ SCH ×2 (08:57→21:11)
[2020-02-23] MEDS: dexAMETHasone 6 MG in SYRINGE 0 ML IV SCH (08:58)
[2020-02-23] MEDS: INSULIN GLARGINE SOLOSTAR 100 UNITS/ML 3 ML PEN SC SCH (08:59)
[2020-02-23] MEDS: INSULIN HUMAN NPH SC SCH (09:01)
[2020-02-23] MEDS: INSULIN ASPART 100 UNITS/ML 3 ML PEN SC SCH ×4 (09:03→21:27)
--- NOTE | 2020-02-23 17:52 | Hospitalist Progress Note ---
Date of Service February 23, 2020 Assessment & Plan (1) Pneumonia due to 2019-nCoV: Pneumonia due to COVID-19 virus with hypoxia Covid test positive on 02/12/2020 Decadron 6 mg IV every morning x 10 days, day 5 Convalescent plasma transfused 02/15 after AB type was located Remdesivir completed 5 days last dose 02/17 Ceftriaxone 2 g IV daily x 7 days, azithromycin 500 mg IV daily x 7 days, Ventolin HFA 2 puffs 4 times daily, and every 2 hours as needed Very slow improvement risk of needing intubation with his myotonic dystrophy he understands this, agrees to intubation if needed (2) Hypoxia: acute respiratory failure with hypoxia due to COVID 19 currently requiring patient's work of breathing is less he is now on 10 L high flow nasal cannula from the wall unit discussed laying prone, he says he will try but not very easy for him (3) DM2 (diabetes mellitus, type 2): Hold glipizide and Metformin. will give 40 units of NPH with dexamethasone qAM when she managing hyperglycemia of steroid treatments correction factor 15, tighten carb ratio to 4 some hypoglycemia in the AM on 02/16, will adjust Lantus to 20 units qAM and none in evening consult pharmacy for management as he is labile (4) Hypercholesterolemia: Continue Zetia and fish oil (5) HTN, goal below 140/90: Continue aspirin and metoprolol succinate. 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 Review of Systems Review of Systems: Moderate distress and fatigue no headache, blurry or double vision no speech or swallowing issues no chest pain, pressure or palpitations shortness of breath, non productive cough no abdominal pain, nausea or vomiting, mild diarrhea no dysuria, hematuria or frequency no focal joint pain or swelling no back pain, CVA tenderness or radicular pain no bruising, bleeding or rashes no focal signs of weakness or numbness or altered sensation no complaints of anxiety or depression.. Physical Exam Physical Exam: The patient appeared well nourished and normally developed. Vital signs as documented. Head exam is normocephalic atraumatic no scleral icterus Neck is without JVD, thyromegaly, or carotid bruits. Lungs are rales at the bases, apex is clear Cardiac exam, Rhythm is regular.. No murmurs, rubs or gallops. Abdominal exam reveals normal bowel sounds, soft non tender, no masses Extremities are nonedematous and both pedal pulses are present Neurologic exam is alert and oriented, no focal loss of strength or sensation Skin is without bruises or rashes Psychologically is without concerns for anxiety or depression. Results & Data Results & Data ([facility]) Vital Signs (Past 12 Hours) Vital Signs Temp Pulse Pulse Resp BP BP Pulse Ox 02/23/20 16:12 96 02/23/20 15:17 98.2 F 60 21 129/68 95 02/23/20 11:51 98.2 F 76 22 101/56 L 94 02/23/20 08:04 97.9 F 79 23 104/55 L 91 02/23/20 07:40 70 18 94 02/23/20 06:40 66 PG Care Time/CCT Total # of Minutes Spent Total Time Spent with Patient: Total time spent is greater than 50% in coordination of care (as documented) at patient's floor/unit and/or counseling patient: Coding Level of Care Code 49217 Subseq Hosp Care Lvl 3 Diagnoses Pneumonia due to 2019-nCoV U07.1; J12.89 Hypoxia R09.02 DM2 (diabetes mellitus, type 2) E11.9 Hypercholesterolemia E78.00 HTN, goal below 140/90 I10 BPH w urinary obs/LUTS N40.1; N13.8 Myotonic dystrophy, type 2 G71.11 DVT prophylaxis Z29.9
[2020-02-23] MEDS: TAMSULOSIN HCL 0.4 MG CAP PO SCH (21:10)
[2020-02-23] MEDS: CHLORHEXIDINE GLUCONATE 0.12% 480 ML MT PRN (22:14)
[2020-02-24] MEDS: BENZONATATE 100 MG CAPSULE PO PRN (00:42)
[2020-02-24] MEDS ORDERED: hydrOXYzine HCl 25 MG TAB PO STA (01:13)
[2020-02-24] MEDS ORDERED: COUGH DROP (SUGAR FREE) LOZ 24 LOZ/1 BOX BUCCAL ONE (07:51)
[2020-02-24] MEDS: CHLORHEXIDINE GLUCONATE 0.12% 480 ML MT PRN (07:56)
[2020-02-24] MEDS: dexAMETHasone 6 MG in SYRINGE 0 ML IV SCH (07:56)
[2020-02-24] MEDS: MULTIVITAMIN TAB PO SCH (07:57)
[2020-02-24] MEDS: METOPROLOL SUCC 50MG EXT REL TAB PO SCH (07:57)
[2020-02-24] MEDS: LOSARTAN POTASSIUM 50 MG TAB PO SCH (07:57)
[2020-02-24] MEDS: ASPIRIN 81 MG ECTAB PO SCH (07:58)
[2020-02-24] MEDS: HEPARIN SOD 5,000 UNIT/0.5 ML VIAL SQ SCH ×2 (07:58→22:08)
[2020-02-24] MEDS: EZETIMIBE 10 MG TABLET PO SCH (07:58)
[2020-02-24] MEDS: INSULIN ASPART 100 UNITS/ML 3 ML PEN SC SCH ×4 (09:08→23:11)
[2020-02-24] MEDS: INSULIN GLARGINE SOLOSTAR 100 UNITS/ML 3 ML PEN SC SCH (09:13)
[2020-02-24] MEDS: INSULIN HUMAN NPH SC SCH (09:14)
--- NOTE | 2020-02-24 11:46 | Hospitalist Progress Note ---
Date of Service February 24, 2020 Assessment & Plan (1) Pneumonia due to 2019-nCoV: Pneumonia due to COVID-19 virus with hypoxia Covid test positive on 02/12/2020 Decadron 6 mg IV every morning x 10 days, day 10, keep on decadron a few more days then stop Convalescent plasma transfused 02/15 after AB type was located Remdesivir completed 5 days last dose 02/17 Ceftriaxone 2 g IV daily x 7 days completed azithromycin 500 mg IV daily x 7 days completed Ventolin HFA 2 puffs 4 times daily, and every 2 hours as needed doing a lot better compared to one week ago down to 5L NC today, no distress, downgrade to medical floor (2) Hypoxia: acute respiratory failure with hypoxia due to COVID 19 marked improvement past few days, went from 10L to 5L today, will downgrade off tele (3) DM2 (diabetes mellitus, type 2): Hold glipizide and Metformin. will give 40 units of NPH with dexamethasone qAM when she managing hyperglycemia of steroid treatments correction factor 15, tighten carb ratio to 4 consulted pharmacy for management as he is labile monitor closely for hyperglycemia and hypoglycemia (4) Hypercholesterolemia: Continue Zetia and fish oil (5) HTN, goal below 140/90: Continue aspirin and metoprolol succinate. 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 at age 57, had a nephew who young his sister has it, she is in her 60's (8) DVT prophylaxis: Heparin 5000 subcu every 12 Admission and Anticipated Discharge Date Admission Date: February 14, 2020 Subjective patient doing great, down to 5L, no distress, no cough eating great, says he would eat more if we would let him reviewed chart from past 5 days, able to titrated down off high flow glucose is 119 this morning Review of Systems Review of Systems: All systems reviewed & are unremarkable except as noted in Subjective Physical Exam Constitutional: well developed, well nourished and + obese; no acute distress Neck: trachea midline, no thyromegaly Respiratory: normal respiratory effort and + tachypneic; no cough Auscultation: lungs clear to auscultation bilaterally Cardiovascular: RRR, no murmur, no edema Gastrointestinal (Abdomen): normal bowel sounds, soft, nontender, no hepatosplenomegaly Musculoskeletal: no cyanosis or clubbing, extremities motor strength 5/5 Skin: no rashes, warm and dry Neurologic: patellar DTR's 2+ bilat, sensation intact and PERRL, EOMI, accommodation nl, no face palsy, no dysarthria Psychiatric: A+Ox3, euthymic affect Lymphatic: no cervical or axillary lymphadenopathy Results & Data Results & Data ([facility]) Vital Signs (Past 12 Hours) Vital Signs Temp Pulse Pulse Resp BP BP Pulse Ox 02/24/20 08:00 72 02/24/20 07:22 36.9 C 69 19 117/72 96 02/24/20 04:03 36.6 C 54 L 24 120/66 96 02/24/20 00:00 55 L Pulse Ox 02/24/20 08:00 02/24/20 07:22 02/24/20 04:03 02/24/20 00:00 92 Laboratory Results Laboratory Results - last 24 hr 02/23/20 02/23/20 02/23/20 11:50 16:19 20:01 POC Glucose 166 H 219 H 231 H 02/24/20 02/24/20 07:35 10:35 POC Glucose 94 119 H Medications Administered Current Inpatient Medications Acetaminophen (Acetaminophen 325 Mg Tab) 650 mg PO Q4H PRN PRN Reason: Pain or Fever Stop: 03/16/20 00:59 Last Admin: 02/18/20 07:58 Dose: 650 mg Documented by: Al Hydrox/Mg Hydrox/Simethicone (Aluminum/Magnesium Susp 30 Ml Udc) 15 ml PO Q4H PRN PRN Reason: Dyspepsia Stop: 03/16/20 00:23 Albuterol (Albuterol Hfa 8 Gm Inhaler) 2 puffs INH Q4 PRN PRN Reason: Shortness Of Breath Or Wheezing Stop: 03/17/20 08:41 Aspirin (Aspirin 81 Mg Ectab) 81 mg PO QAM [facility] Stop: 03/16/20 08:59 Last Admin: 02/24/20 07:58 Dose: 81 mg Documented by: Benzonatate (Benzonatate 100 Mg Capsule) 200 mg PO TID PRN PRN Reason: cough Stop: 03/16/20 00:23 Last Admin: 02/24/20 00:42 Dose: 200 mg Documented by: Chlorhexidine Gluconate (Chlorhexidine Gluconate 0.12% 480 Ml) 15 ml MT Q6H PRN PRN Reason: mouth fissures/halitosis Stop: 03/24/20 21:27 Last Admin: 02/24/20 07:56 Dose: 15 ml Documented by: Dextrose (Dextrose 50% 50 Ml Syringe) 25 - 50 ml IV UD PRN; Protocol PRN Reason: Hypoglycemia Protocol Stop: 03/16/20 00:23 Diclofenac Sodium (Diclofenac Sodium 75 Mg Tabcr) 75 mg PO BIDM PRN PRN Reason: Pain Stop: 03/16/20 00:23 Ezetimibe (Ezetimibe 10 Mg Tablet) 10 mg PO DAILY [facility] Stop: 03/16/20 08:59 Last Admin: 02/24/20 07:58 Dose: 10 mg Documented by: Fluticasone Propionate (Fluticasone Propionate Na Spr 16 Gm Btl) 2 sprays CECE DAILY PRN PRN Reason: Nasal Congestion Stop: 03/16/20 00:23 Glucagon (Glucagon For Inj 1 Mg Vial) 1 mg SQ UD PRN; Protocol PRN Reason: Hypoglycemia Protocol Stop: 03/16/20 00:23 Glucose (Glucose 10 Tabs/Tube) 4 - 8 tabs PO UD PRN; Protocol PRN Reason: Hypoglycemia Protocol Stop: 03/16/20 00:23 Glucose (Glucose 40% Gel 15 Gm Tube) 15 - 30 gm PO UD PRN; Protocol PRN Reason: Hypoglycemia Protocol Stop: 03/16/20 00:23 Heparin Sodium (Porcine) (Heparin Sod 5,000 Unit/0.5 Ml Vial) 5,000 units SQ Q12 [facility] Stop: 03/22/20 20:59 Last Admin: 02/24/20 07:58 Dose: 5,000 units Documented by: Dexamethasone 6 mg/ Syringe 1.5 mls @ 1 mls/min IV QAM [facility] Stop: 03/16/20 08:59 Last Admin: 02/24/20 07:56 Dose: 1 mls/min Documented by: Insulin Aspart (Insulin Aspart 100 Units/Ml 3 Ml Pen) 0 units SC AC [facility] Stop: 03/20/20 07:29 Last Admin: 02/24/20 09:08 Dose: 6 units Documented by: Insulin Aspart (Insulin Aspart 100 Units/Ml 3 Ml Pen) 0 units SC [facility] Stop: 03/20/20 20:59 Last Admin: 02/23/20 21:27 Dose: 4 units Documented by: Insulin Glargine (Insulin Glargine Solostar 100 Units/Ml 3 Ml Pen) 15 units SC [facility] Stop: 03/23/20 08:59 Last Admin: 02/24/20 09:13 Dose: 15 units Documented by: Insulin Human NPH (Insulin Human Nph) 60 units SC [facility] Stop: 03/23/20 08:59 Last Admin: 02/24/20 09:14 Dose: 60 units Documented by: Losartan Potassium (Losartan Potassium 50 Mg Tab) 50 mg PO [facility] Stop: 03/19/20 08:59 Last Admin: 02/24/20 07:57 Dose: 50 mg Documented by: Methocarbamol (Methocarbamol 500 Mg Tablet) 500 mg PO QID PRN PRN Reason: muscle spasm Stop: 03/16/20 00:23 Last Admin: 02/23/20 07:46 Dose: 500 mg Documented by: Metoprolol Succinate (Metoprolol Succ 50mg Ext Rel Tab) 50 mg PO [facility] Stop: 03/16/20 08:59 Last Admin: 02/24/20 07:57 Dose: 50 mg Documented by: Miscellaneous (Carbohydrates For Hypoglycemia ) 15 - 30 gm PO UD PRN PRN Reason: Hypoglycemia Protocol Stop: 03/16/20 00:23 Last Admin: 02/17/20 07:21 Dose: 15 gm Documented by: Miscellaneous Information (Pharmacy Glycemic Mgmt Consult) 1 ea N/A UD PRN PRN Reason: Consult Stop: 03/19/20 21:50 Montelukast Sodium (Montelukast Sodium 10 Mg Tablet) 10 mg PO QPM [facility] Stop: 03/16/20 20:59 Last Admin: 02/23/20 07:46 Dose: 10 mg Documented by: Multivitamins (Multivitamin Tab) 1 tab PO [facility] Stop: 03/16/20 08:59 Last Admin: 02/24/20 07:57 Dose: 1 tab Documented by: Ondansetron HCl (Ondansetron Inj 2 Mg/Ml 2 Ml Vial) 4 mg IV Q6H PRN PRN Reason: Nausea Stop: 03/16/20 00:23 Tamsulosin HCl (Tamsulosin Hcl 0.4 Mg Cap) 0.4 mg PO HS [facility] Stop: 03/16/20 20:59 Last Admin: 02/23/20 21:10 Dose: 0.4 mg Documented by: PG Care Time/CCT Total # of Minutes Spent Total Time Spent with Patient: Total time spent is greater than 50% in coordination of care (as documented) at patient's floor/unit and/or counseling patient: Coding Level of Care Code 24518 Subseq Hosp Care Lvl 2 Diagnoses Pneumonia due to 2019-nCoV U07.1; J12.89 Hypoxia R09.02 DM2 (diabetes mellitus, type 2) E11.9 Hypercholesterolemia E78.00 HTN, goal below 140/90 I10 BPH w urinary obs/LUTS N40.1; N13.8 Myotonic dystrophy, type 2 G71.11 DVT prophylaxis Z29.9
[2020-02-24] MEDS: MONTELUKAST SODIUM 10 MG TABLET PO SCH (22:08)
[2020-02-24] MEDS: TAMSULOSIN HCL 0.4 MG CAP PO SCH (22:08)
[2020-02-25] MEDS: ASPIRIN 81 MG ECTAB PO SCH (08:36)
[2020-02-25] MEDS: EZETIMIBE 10 MG TABLET PO SCH (08:36)
[2020-02-25] MEDS: METOPROLOL SUCC 50MG EXT REL TAB PO SCH (08:37)
[2020-02-25] MEDS: HEPARIN SOD 5,000 UNIT/0.5 ML VIAL SQ SCH ×2 (08:37→20:27)
[2020-02-25] MEDS: LOSARTAN POTASSIUM 50 MG TAB PO SCH (08:37)
[2020-02-25] MEDS: dexAMETHasone 6 MG in SYRINGE 0 ML IV SCH (08:37)
[2020-02-25] MEDS: MULTIVITAMIN TAB PO SCH (08:37)
[2020-02-25] MEDS: INSULIN GLARGINE SOLOSTAR 100 UNITS/ML 3 ML PEN SC SCH ×2 (08:38→09:08)
[2020-02-25] MEDS: INSULIN HUMAN NPH SC SCH (08:38)
[2020-02-25] MEDS: INSULIN ASPART 100 UNITS/ML 3 ML PEN SC SCH ×4 (08:43→20:46)
[2020-02-25] MEDS ORDERED: INSULIN HUMAN NPH SC SCH (09:00)
[2020-02-25] MEDS: CHLORHEXIDINE GLUCONATE 0.12% 480 ML MT PRN ×2 (09:12→18:08)
--- NOTE | 2020-02-25 10:31 | Pharmacy Report ---
Pharmacy Glycemic Short Note 2 - Date of Service February 25, 2020 - Glycemic Short BSG Results (Last 24 hours): 02/24/20 02/24/20 02/24/20 10:35 16:37 20:51 POC Glucose 119 H 146 H 96 02/25/20 08:38 POC Glucose 73 OUTPATIENT ANTIDIABETIC REGIMEN: * glipizide 5mg Q AM * glipizide 2.5mg Q PM * metformin 1gm PO BID * A1c = 10% 02/15/20 ASSESSMENT: 02/24 * Patient received total of 118 units of insulin yesterday of which 75 were basal * Fasting BSG on lower end of range at 73 mg/dL - plan to scale back NPH and Lantus * Continue same CF/CR for now PLAN FOR INPATIENT GLYCEMIC CONTROL: * Hold outpatient oral diabetes medications * Basal insulin * Lantus 10 * NPH 50 units SQ Q AM w/ dexamethasone 6mg IV * Bolus insulin * NovoLog per scale ACHS * Goal Range: Low 110 mg/dL - High 140 mg/dL * Correction Factor: 15 mg/dL/unit AC, 35 mg/dL/unit HS and overnight * Nutritional / Prandial insulin per carb ratio of 1 unit per 3 grams CHO consumed AC, 1 unit per 8gm CHO consumed HS and overnight
--- NOTE | 2020-02-25 13:55 | Hospitalist Progress Note ---
Date of Service February 25, 2020 Assessment & Plan (1) Pneumonia due to 2019-nCoV: Pneumonia due to COVID-19 virus with hypoxia Covid test positive on 02/12/2020 Decadron 6 mg IV every morning, completed 10 days, will give until 02/26 then stop Convalescent plasma transfused 02/15 after AB type was located Remdesivir completed 5 days last dose 02/17 Ceftriaxone 2 g IV daily x 7 days completed azithromycin 500 mg IV daily x 7 days completed Ventolin HFA 2 puffs 4 times daily, and every 2 hours as needed doing a lot better compared to one week ago down to 3-4L NC today, no distress, downgrade to medical floor he is walking in the hallway (2) Hypoxia: acute respiratory failure with hypoxia due to COVID 19 marked improvement past few days, down to 3-4L today, he is walking the halls without distress (3) DM2 (diabetes mellitus, type 2): Hold glipizide and Metformin. will give 40 units of NPH with dexamethasone qAM when she managing hyperglycemia of steroid treatments correction factor 15, tighten carb ratio to 4 consulted pharmacy for management as he is labile monitor closely for hyperglycemia and hypoglycemia, no episodes (4) Hypercholesterolemia: Continue Zetia and fish oil (5) HTN, goal below 140/90: Continue aspirin and metoprolol succinate. 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 at age 57, had a nephew who young his sister has it, she is in her 60's (8) DVT prophylaxis: Heparin 5000 subcu every 12 Admission and Anticipated Discharge Date Admission Date: February 14, 2020 Subjective patient doing great, he took several laps in the hallway he is stable on 3-4L NC, no distress at all he is drinking and eating well again discussed that he could likely go home in a few days Review of Systems Review of Systems: All systems reviewed & are unremarkable except as noted in Subjective Physical Exam Constitutional: well developed, well nourished and + obese; no acute distress Neck: trachea midline, no thyromegaly Respiratory: normal respiratory effort; no respiratory distress, no labored breathing and no cough Auscultation: lungs clear to auscultation bilaterally Cardiovascular: RRR, no murmur, no edema Gastrointestinal (Abdomen): normal bowel sounds, soft, nontender, no hepatosplenomegaly Musculoskeletal: no cyanosis or clubbing, extremities motor strength 5/5 Skin: no rashes, warm and dry Neurologic: patellar DTR's 2+ bilat, sensation intact and PERRL, EOMI, accommodation nl, no face palsy, no dysarthria Psychiatric: A+Ox3, euthymic affect Lymphatic: no cervical or axillary lymphadenopathy Results & Data Results & Data ([facility]) Vital Signs (Past 12 Hours) Vital Signs Temp Pulse Resp BP Pulse Ox 02/25/20 07:51 36.4 C L 61 18 104/64 96 Laboratory Results Laboratory Results - last 24 hr 02/24/20 02/24/20 02/25/20 16:37 20:51 08:38 POC Glucose 146 H 96 73 02/25/20 11:52 POC Glucose 108 H Medications Administered Current Inpatient Medications Acetaminophen (Acetaminophen 325 Mg Tab) 650 mg PO Q4H PRN PRN Reason: Pain or Fever Stop: 03/16/20 00:59 Last Admin: 02/18/20 07:58 Dose: 650 mg Documented by: Al Hydrox/Mg Hydrox/Simethicone (Aluminum/Magnesium Susp 30 Ml Udc) 15 ml PO Q4H PRN PRN Reason: Dyspepsia Stop: 03/16/20 00:23 Albuterol (Albuterol Hfa 8 Gm Inhaler) 2 puffs INH Q4 PRN PRN Reason: Shortness Of Breath Or Wheezing Stop: 03/17/20 08:41 Aspirin (Aspirin 81 Mg Ectab) 81 mg PO QAM [facility] Stop: 03/16/20 08:59 Last Admin: 02/25/20 08:36 Dose: 81 mg Documented by: Benzonatate (Benzonatate 100 Mg Capsule) 200 mg PO TID PRN PRN Reason: cough Stop: 03/16/20 00:23 Last Admin: 02/24/20 00:42 Dose: 200 mg Documented by: Chlorhexidine Gluconate (Chlorhexidine Gluconate 0.12% 480 Ml) 15 ml MT Q6H PRN PRN Reason: mouth fissures/halitosis Stop: 03/24/20 21:27 Last Admin: 02/25/20 09:12 Dose: 15 ml Documented by: Dextrose (Dextrose 50% 50 Ml Syringe) 25 - 50 ml IV UD PRN; Protocol PRN Reason: Hypoglycemia Protocol Stop: 03/16/20 00:23 Diclofenac Sodium (Diclofenac Sodium 75 Mg Tabcr) 75 mg PO BIDM PRN PRN Reason: Pain Stop: 03/16/20 00:23 Ezetimibe (Ezetimibe 10 Mg Tablet) 10 mg PO DAILY [facility] Stop: 03/16/20 08:59 Last Admin: 02/25/20 08:36 Dose: 10 mg Documented by: Fluticasone Propionate (Fluticasone Propionate Na Spr 16 Gm Btl) 2 sprays CECE DAILY PRN PRN Reason: Nasal Congestion Stop: 03/16/20 00:23 Glucagon (Glucagon For Inj 1 Mg Vial) 1 mg SQ UD PRN; Protocol PRN Reason: Hypoglycemia Protocol Stop: 03/16/20 00:23 Glucose (Glucose 10 Tabs/Tube) 4 - 8 tabs PO UD PRN; Protocol PRN Reason: Hypoglycemia Protocol Stop: 03/16/20 00:23 Glucose (Glucose 40% Gel 15 Gm Tube) 15 - 30 gm PO UD PRN; Protocol PRN Reason: Hypoglycemia Protocol Stop: 03/16/20 00:23 Heparin Sodium (Porcine) (Heparin Sod 5,000 Unit/0.5 Ml Vial) 5,000 units SQ Q12 [facility] Stop: 03/22/20 20:59 Last Admin: 02/25/20 08:37 Dose: 5,000 units Documented by: Dexamethasone 6 mg/ Syringe 1.5 mls @ 1 mls/min IV QAM [facility] Stop: 03/16/20 08:59 Last Admin: 02/25/20 08:37 Dose: 1 mls/min Documented by: Insulin Aspart (Insulin Aspart 100 Units/Ml 3 Ml Pen) 0 units SC AC [facility] Stop: 03/20/20 07:29 Last Admin: 02/25/20 12:50 Dose: 17 units Documented by: Insulin Aspart (Insulin Aspart 100 Units/Ml 3 Ml Pen) 0 units SC HS [facility] Stop: 03/20/20 20:59 Last Admin: 02/24/20 23:11 Dose: Not Given Documented by: Insulin Glargine (Insulin Glargine Solostar 100 Units/Ml 3 Ml Pen) 10 units SC QAM [facility] Stop: 03/26/20 08:59 Last Admin: 02/25/20 09:08 Dose: 10 units Documented by: Insulin Human NPH (Insulin Human Nph) 50 units SC [facility] Stop: 03/26/20 08:59 Last Admin: 02/25/20 09:08 Dose: 50 units Documented by: Losartan Potassium (Losartan Potassium 50 Mg Tab) 50 mg PO [facility] Stop: 03/19/20 08:59 Last Admin: 02/25/20 08:37 Dose: 50 mg Documented by: Methocarbamol (Methocarbamol 500 Mg Tablet) 500 mg PO QID PRN PRN Reason: muscle spasm Stop: 03/16/20 00:23 Last Admin: 02/23/20 07:46 Dose: 500 mg Documented by: Metoprolol Succinate (Metoprolol Succ 50mg Ext Rel Tab) 50 mg PO [facility] Stop: 03/16/20 08:59 Last Admin: 02/25/20 08:37 Dose: 50 mg Documented by: Miscellaneous (Carbohydrates For Hypoglycemia ) 15 - 30 gm PO UD PRN PRN Reason: Hypoglycemia Protocol Stop: 03/16/20 00:23 Last Admin: 02/17/20 07:21 Dose: 15 gm Documented by: Miscellaneous Information (Pharmacy Glycemic Mgmt Consult) 1 ea N/A UD PRN PRN Reason: Consult Stop: 03/19/20 21:50 Montelukast Sodium (Montelukast Sodium 10 Mg Tablet) 10 mg PO QPM [facility] Stop: 03/16/20 20:59 Last Admin: 02/24/20 22:08 Dose: 10 mg Documented by: Multivitamins (Multivitamin Tab) 1 tab PO [facility] Stop: 03/16/20 08:59 Last Admin: 02/25/20 08:37 Dose: 1 tab Documented by: Ondansetron HCl (Ondansetron Inj 2 Mg/Ml 2 Ml Vial) 4 mg IV Q6H PRN PRN Reason: Nausea Stop: 03/16/20 00:23 Tamsulosin HCl (Tamsulosin Hcl 0.4 Mg Cap) 0.4 mg PO [facility] Stop: 03/16/20 20:59 Last Admin: 02/24/20 22:08 Dose: 0.4 mg Documented by: PG Care Time/CCT Total # of Minutes Spent Total Time Spent with Patient: Total time spent is greater than 50% in coordination of care (as documented) at patient's floor/unit and/or counseling patient: Coding Level of Care Code 86548 Subseq Hosp Care Lvl 2 Diagnoses Pneumonia due to 2019-nCoV U07.1; J12.89 Hypoxia R09.02 DM2 (diabetes mellitus, type 2) E11.9 Hypercholesterolemia E78.00 HTN, goal below 140/90 I10 BPH w urinary obs/LUTS N40.1; N13.8 Myotonic dystrophy, type 2 G71.11 DVT prophylaxis Z29.9
[2020-02-25] MEDS ORDERED: NURSING DECISION MEDICATION ONE (20:05)
[2020-02-25] MEDS ORDERED: COUGH DROP (SUGAR FREE) LOZ 24 LOZ/1 BOX BUCCAL PRN (20:10)
[2020-02-25] MEDS: TAMSULOSIN HCL 0.4 MG CAP PO SCH (20:27)
[2020-02-25] MEDS: MONTELUKAST SODIUM 10 MG TABLET PO SCH (20:27)
[2020-02-26 07:52] VITALS: TEMP 97.5
[2020-02-26] MEDS: HEPARIN SOD 5,000 UNIT/0.5 ML VIAL SQ SCH (08:38)
[2020-02-26] MEDS: MULTIVITAMIN TAB PO SCH (08:38)
[2020-02-26] MEDS: ASPIRIN 81 MG ECTAB PO SCH (08:38)
[2020-02-26] MEDS: METOPROLOL SUCC 50MG EXT REL TAB PO SCH (08:38)
[2020-02-26] MEDS: LOSARTAN POTASSIUM 50 MG TAB PO SCH (08:38)
[2020-02-26] MEDS: EZETIMIBE 10 MG TABLET PO SCH (08:38)
[2020-02-26] MEDS: dexAMETHasone 6 MG in SYRINGE 0 ML IV SCH (08:39)
[2020-02-26] MEDS: INSULIN GLARGINE SOLOSTAR 100 UNITS/ML 3 ML PEN SC SCH (08:44)
[2020-02-26] MEDS: INSULIN ASPART 100 UNITS/ML 3 ML PEN SC SCH ×2 (08:44→12:35)
[2020-02-26] MEDS: CHLORHEXIDINE GLUCONATE 0.12% 480 ML MT PRN (09:00)
[2020-02-26] MEDS ORDERED: INSULIN HUMAN NPH SC SCH (09:00)
--- NOTE | 2020-02-26 10:37 | Pharmacy Report ---
Pharmacy Glycemic Short Note 2 - Date of Service February 26, 2020 - Glycemic Short BSG Results (Last 24 hours): 02/25/20 02/25/20 02/25/20 11:52 17:04 20:33 POC Glucose 108 H 112 H 141 H 02/26/20 02/26/20 05:55 07:54 POC Glucose 71 122 H OUTPATIENT ANTIDIABETIC REGIMEN: * glipizide 5mg Q AM * glipizide 2.5mg Q PM * metformin 1gm PO BID * A1c = 10% 02/15/20 ASSESSMENT: 02/25 * Over the last 24 hrs 100 units SQ insulin administered while tolerating a diet * BSGs have been at goal over the last 24 hrs. BSGs are trending lower and insulin needs appear to be decreasing despite ongoing dexamethasone administration and continued diet tolerance. * Fasting BSG 71 this AM with 10 units Lantus and after receiving 50 units NPH in the AM yesterday. Will crease NPH dose further today. * Post-prandial BSGs have been well controlled, however given current trends will titrate back both the NPH dose and prandial Novolog doses today * Of note, tomorrow may be the final day of dexamethasone IV. If so, NPH will likely need to be reduced or discontinued 02/24 * Patient received total of 118 units of insulin yesterday of which 75 were basal * Fasting BSG on lower end of range at 73 mg/dL - plan to scale back NPH and Lantus * Continue same CF/CR for now PLAN FOR INPATIENT GLYCEMIC CONTROL: * Hold outpatient oral diabetes medications * Basal insulin * Lantus 10 units Q AM * NPH 40 units SQ Q AM w/ dexamethasone 6mg IV * Bolus insulin * NovoLog per scale ACHS * Goal Range: Low 110 mg/dL - High 140 mg/dL * Correction Factor: 15 mg/dL/unit AC, 35 mg/dL/unit HS and overnight * Nutritional / Prandial insulin per carb ratio of 1 unit per 5 grams CHO consumed AC only, no carb coverage at HS
[2020-02-26 14:05] VITALS: BP 116/74; PULSE 80; O2SAT 98
--- NOTE | 2020-02-27 07:11 | Discharge Summary ---
Date of Service February 26, 2020 Admission HPI Per Admitting Provider The patient is a 60-year-old male with a past medical history including peripheral neuropathy, obesity, internal hemorrhoids, hypertension, disc metabolic syndrome X, current tobacco user, myotonic dystrophy type II, allergic rhinitis, diabetes mellitus and hypercholesterolemia. The patient has chronic shortness of breath and dyspnea on exertion due to deconditioning, however, he notes over the past 6 to 7 days symptoms of significantly worsening shortness of breath and cough, and now over the past 2 days breathing is become much worse, and he has now lost sense of taste as well. Work-up in the emergency department includes the following abnormal laboratories: WBC 12.44, hemoglobin 12.5, glucose 215, D-dimer 1280, sodium 134, albumin 2.2, total bilirubin 1.5, AST 73, ALT 91. The patient did have drive-through testing on 02/11 for COVID-19 that was positive. Chest x-ray shows bilateral multifocal pneumonia. CT angiography PE protocol: No pulmonary embolism. Extensive bilateral groundglass and consolidative airspace opacities consistent with COVID-19. Left thyroid nodule measuring 2 cm. Mildly prominent mediastinal lymph nodes, nonspecific and favored as reactive Principal Diagnosis COVID 19 pneumonia with acute hypoxic respiratory failure Discharge Exam Constitutional well developed, well nourished and + obese; no acute distress Neck trachea midline, no thyromegaly Respiratory normal respiratory effort; no respiratory distress, no labored breathing and no cough Auscultation: lungs clear to auscultation bilaterally Cardiovascular RRR, no murmur, no edema Gastrointestinal (Abdomen) normal bowel sounds, soft, nontender, no hepatosplenomegaly Musculoskeletal no cyanosis or clubbing, extremities motor strength 5/5 Skin no rashes, warm and dry Neurologic patellar DTR's 2+ bilat, sensation intact and PERRL, EOMI, accommodation nl, no face palsy, no dysarthria Psychiatric A+Ox3, euthymic affect Lymphatic no cervical or axillary lymphadenopathy Discharge Data Allergies Allergy/AdvReac Type Severity Reaction Status Date / Time cat dander Allergy Mild COUGH Verified 02/28/20 11:42 Consultations 02/14/20 21:15 ED Decision to Admit Stat Ordered Studies 02/14/20 21:35 CT angio chest PE protocol Urgent Diabetes Follow up Diabetes Follow-up Needed for HgbA1c >9% Hospital Course (1) Pneumonia due to 2019-nCoV: Pneumonia due to COVID-19 virus with hypoxia Covid test positive on 02/12/2020 Decadron 6 mg IV every morning, completed 10 days, plan to taper quickly, 4mg x 2 days then 2mg x 2 days then stop Convalescent plasma transfused 02/15 after AB type was located Remdesivir completed 5 days last dose 02/17 Ceftriaxone 2 g IV daily x 7 days completed azithromycin 500 mg IV daily x 7 days completed Ventolin HFA 2 puffs 4 times daily, and every 2 hours as needed doing a lot better compared to one week ago he is walking in the hallway with oxygen completed two step on the day of discharge, no oxygen needed at rest, 2L needed on exertion arranged for home oxygen and discharged to home (2) Hypoxia: acute respiratory failure with hypoxia due to COVID 19 marked improvement past few days, down room air at rest and 2L on exertion, home oxygen arranged (3) DM2 (diabetes mellitus, type 2): Hold glipizide and Metformin while inpatient will give 40 units of NPH with dexamethasone qAM when she managing hyperglycemia of steroid treatments correction factor 15, tighten carb ratio to 4 consulted pharmacy for management as he is labile monitor closely for hyperglycemia and hypoglycemia, no episodes resume glipizide and metformin on discharge, no need for insulin as he will quickly taper off the dexamethasone (4) Hypercholesterolemia: Continue Zetia and fish oil (5) HTN, goal below 140/90: Continue aspirin and metoprolol succinate. 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 at age 57, had a nephew who young his sister has it, she is in her 60's fortunately it did not give him serious issues while here (8) DVT prophylaxis: Heparin 5000 subcu every 12 Total Time Total Time Spent Total Time Spent (In Minutes): 34 minutes Total Time Includes: Examination of the Patient, Discharge Planning and Medication Reconciliation Discharge Plan Discharge Items Patient Disposition: Home - Self-Care Reason For Visit: COVID-19 PNEUMONIA WITH HYPOXIA Discharge Diagnosis: COVID 19 pneumonia Acute hypoxic respiratory failure Condition on Discharge: Good Goals: maintain strength and nutrition wean off oxygen titrate down steroids Activity: Resume your previous activity Non-emergency contact: Primary Care Provider Call non-emergency contact if: you have any medication questions, your symptoms worsen and you have a fever Follow-up/Referrals: Calli Dior MD [Primary Care Provider] - (one week) Diet: Carb Consistent or DM2 Addtl Attending Provider Instructions: Medications: - DEXAMETHASONE: will taper over next four days, starting tomorrow, take 4mg daily for two days then 2mg daily for 2 days then stop COVID 19 pneumonia, acute hypoxic respiratory failure responded well to treatment with dexamethasone, Remdesivir, convalescent plasma titrated down to room air today, you need 2L on exertion but that will likely resolve in another week will tape the dexamethasone over four days continue to eat and drink well Diabetes: no need for insulin at home as you will be back on Metformin and Glipizide follow a low carbohydrate diet you are no longer contagious from COVID as you are more than 14 days out from infection Pending Studies at Discharge: No Stand-Alone Forms: [facility], Smoking Cessation Medications and DC Order Prescriptions: Continued metformin 1,000 mg tablet 1,000 mg PO BID Qty: 180 RF: 3 montelukast [Singulair] 10 mg tablet 10 mg PO QPM Qty: 30 RF: 2 multivitamin [Daily Multi-Vitamin] tablet 1 tab PO QAM RF: 0 (DME) 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 meter [Trueresult Blood Glucose Systm] kit See Dose Instructions .ROUTE .MEDSUPPLY Qty: 1 RF: 0 diclofenac sodium 75 mg tablet,delayed release (DR/EC) 75 mg PO BIDM PRN (Reason: Pain) Qty: 180 RF: 0 methocarbamol 500 mg tablet 500 mg PO QID PRN (Reason: muscle spasm) Qty: 28 RF: 0 (DME) lancets [OneTouch Delica Lancets] 33 gauge misc See Dose Instructions .ROUTE .MEDSUPPLY Qty: 100 RF: 0 (DME) Truetest Test Strips strip See Dose Instructions .ROUTE .MEDSUPPLY Qty: 10 RF: 0 glipizide 5 mg Tablet 2.5 mg PO QPM RF: 0 losartan 50 mg tablet 50 mg PO QAM RF: 0 fluticasone propionate [Flonase Allergy Relief] 50 mcg/actuation spray,suspension 2 sprays INTNAS DAILY PRN (Reason: Nasal Congestion) RF: 0 aspirin 81 mg Tablet,Delayed Release (Dr/Ec) 81 mg PO QAM RF: 0 benzonatate [Tessalon Perles] 100 mg capsule 100 - 200 mg PO TID PRN (Reason: cough) RF: 0 ezetimibe 10 mg tablet 10 mg PO DAILY RF: 0 omega [id number]-fish oil [Fish Oil] 1,000 mg (120 mg-180 mg) Capsule 1 cap PO BID RF: 0 Discontinued prednisone 10 mg tablet See Rx Instructions PO DAILY Qty: 30 RF: 0 No Action glipizide 5 mg tablet 5 mg PO QAM Qty: 45 RF: 2 tamsulosin 0.4 mg capsule 0.4 mg PO HS Qty: 90 RF: 1 metoprolol succinate 50 mg tablet extended release 24 hr 50 mg PO QAM Qty: 90 RF: 1 (DME) compress.stocking,knee,reg,med Misc See Rx Instructions .ROUTE .MEDSUPPLY Qty: 2 RF: 0 albuterol sulfate [ProAir HFA] 90 mcg/actuation HFA aerosol inhaler 2 puff inhalation Q4H PRN (Reason: shortness of breath or wheezing) RF: 0 Discharge Orders: Discharge Order (Routine); Ordered 02/26/20 Ordered By: Reza Jade/Other Patient Handouts: 5 Steps for Eating Healthier, Diabetes: Meal Planning Admission Data Admit Date/Time: 02/14/20 22:10 Attending Provider: Reza Myers Admit Provider: Gianni Almaraz Primary Care Provider: Calli Dior Other Providers: Gianni Almaraz Other Interventions: Discharge Summary Assessment (RN) Last Done: 02/26/20 14:04 Coding Level of Care Code D/C Day Management >30 mins Diagnoses Pneumonia due to 2019-nCoV U07.1; J12.89 Hypoxia R09.02 DM2 (diabetes mellitus, type 2) E11.9 Hypercholesterolemia E78.00 HTN, goal below 140/90 I10 BPH w urinary obs/LUTS N40.1; N13.8 Myotonic dystrophy, type 2 G71.11 DVT prophylaxis Z29.9
== END 2020-02-26 15:43 | disposition home or self-care (01) | DRG 177 ==
LOC: ED 19:26 → SUATTDRO 22:10 → EDINP 22:10 → 2S 02-15 00:27 → 3E 02-24 11:40
DX: U07.1 COVID-19; N40.1 Benign prostatic hyperplasia with lower urinary tract symptoms; E78.00 Pure hypercholesterolemia, unspecified; I10 Essential (primary) hypertension; Z83.3 Family history of diabetes mellitus; Z68.36 Body mass index [BMI] 36.0-36.9, adult; E11.40 Type 2 diabetes mellitus with diabetic neuropathy, unspecified; F17.290 Nicotine dependence, other tobacco product, uncomplicated; G71.11 Myotonic muscular dystrophy; E66.9 Obesity, unspecified; J12.89 Other viral pneumonia; Z79.4 Long term (current) use of insulin; J96.01 Acute respiratory failure with hypoxia

== ENCOUNTER 2020-08-09 04:45 | Inpatient (IN) ==
[2020-08-09] MEDS ORDERED: ONDANSETRON INJ 2 MG/ML 2 ML VIAL IV STA (05:04)
[2020-08-09] MEDS ORDERED: KETOROLAC 30 MG/ML VIAL IV STA (05:04)
[2020-08-09] MEDS ORDERED: SODIUM CHLORIDE 0.9% 1000ML 1,000 ML IV SCH (05:15)
--- NOTE | 2020-08-09 05:15 | Emergency Department Note ---
History of Present Illness General Chief complaint: Kidney Stone Stated complaint: RIGHT SIDED KIDNEY PAIN, STONES Time Seen by Provider: 08/09/20 04:53 History of Present Illness Maximum Pain Intensity: 5 This is a 60-year-old male presenting to the emergency department for evaluation of right flank pain worsening over the past 3 days. The patient does have a previous episode of left-sided kidney stones, and a known right-sided intrarenal stone. The patient states that he did require stenting of the left side stones, and the stent was removed about 10 days ago. The patient started with some mild right flank pain 3 days ago, however this has escalated tonight and is much more severe. He took 2 Tylenol about 1 hour prior to arrival without any improvement of his pain which she rates a 9/10. This does feel similar to his past kidney stones. He did vomit while in the car on the way to the emergency department. He has not had fevers or chills. He has had mild hematuria ever since stent placement and removal. Home Medications Medication Instructions Recorded Confirmed Type multivitamin 1 tab PO QAM 09/12/18 07/29/20 History lancets 33 gauge #100 ea 11/07/18 07/29/20 History montelukast 10 mg tablet 10 mg PO QPM #30 tab 09/26/19 07/29/20 Rx metformin 1,000 mg tablet 1,000 mg PO BID #180 tab 12/06/19 07/29/20 Rx fluticasone propionate [Flonase 2 sprays INTNAS DAILY PRN 12/20/19 07/29/20 History Allergy Relief] aspirin 81 mg PO QAM 02/14/20 07/29/20 History omega 2-nnw-jgm-fish oil [Fish Oil] 1 cap PO BID 02/14/20 07/29/20 History albuterol sulfate 90 mcg/actuation 2 puff INHALATION Q4H PRN g 02/28/20 07/29/20 History aerosol inhaler compress.stocking,knee,reg,med #2 ea 02/28/20 07/29/20 Rx metoprolol succinate 50 mg 50 mg PO QAM #90 tab 02/28/20 07/29/20 Rx tablet,extended release 24 hr tamsulosin 0.4 mg capsule 0.4 mg PO HS #90 cap 02/28/20 07/29/20 Rx glipizide 5 mg tablet 5 mg PO BID #60 tab 03/26/20 07/29/20 Rx blood sugar diagnostic #50 ea 04/06/20 07/29/20 Rx furosemide 20 mg tablet 20 mg PO QAM PRN #20 tab 05/15/20 07/29/20 Rx atorvastatin 40 mg tablet 40 mg PO .COMPLEX 90 Days #36 tab 05/31/20 07/29/20 Rx CPAP Machine See Rx Instructions .ROUTE 06/04/20 07/29/20 Rx .COMPLEX #1 ea miscellaneous medical supply #1 ea 06/04/20 07/29/20 Rx losartan 50 mg tablet 50 mg PO QAM #90 tab 06/26/20 07/29/20 Rx hydrocodone-acetaminophen 1 tab PO Q6H PRN #20 tab 07/16/20 07/29/20 Rx Allergies Allergy/AdvReac Type Severity Reaction Status Date / Time cat dander Allergy Mild COUGH Verified 08/09/20 07:57 Past Med/Surg History Medical History Allergic rhinitis Arthritis Coronary artery calcification Noted on [address] Faxed to qualitative executive researcher for continuity of care. DM2 (diabetes mellitus, type 2) a1c 10% 02/15/20, down to 6% 05/2020 Hiatal hernia History of COVID-19 POSITIVE 02/12/20. HOSPITALIZED, [place] WITH ABX AND REMDESIVIR. MILD RESIDUAL REYNOLDS/SOB. SCARRING NOTED ON CHEST CT 05/2020 History of diverticulitis Hypercholesterolemia Hypertension Kidney stones Lower extremity edema LASIX PRN Myotonic dystrophy, type 2 FOLLOWS WITH [facility]. KARMEN (obstructive sleep apnea) wears 2L O2 WITH CPAP Scarring of lung R/T COVID VIRUS (FOLLOWING WITH PULMONOLOGY) Surgical History History of appendectomy History of bilateral cataract extraction History of colonoscopy with polypectomy History of colostomy d/t diverticulitis History of colostomy reversal History of esophagogastroduodenoscopy (EGD) History of incisional hernia repair History of partial colectomy 1990s--had colostomy--d/t diverticulitis [place] teeth removed Family History Mother Cancer Family history of diabetes mellitus Brother Prostate cancer Colorectal cancer Other No family history of adverse response to anesthesia Denies family history of Ovarian cancer Myocardial infarction Breast cancer Social History Smoking Status: Former smoker Tobacco Type: Cigars Age Started Using Tobacco: 37; Age Quit Using Tobacco: 57; Cigarettes Per Day: "ONCE IN A BLUE MCGRATH"; Second Hand Exposure: Yes (mom smoked); Hx Alcohol Use: Yes Alcohol type: hard liquor Hx Substance Use: No Preferred Language: Montenegrin Communication Ability: Effective Spa Attendant Required: No Beliefs That Will Affect Care: None marital status: Current Living Situation: Spouse Current Living Situation Comment: Lives with and son current occupational status: employed Feels Safe at Home: Yes Dental Care, Regularly: No Physical Activity Frequency: Does not Exercise Seatbelt Use: sometimes Do you think of yourself as: straight/heterosexual Assistive Devices: Glasses Review of Systems A total of 10 systems reviewed and were otherwise negative Physical Exam Vital Signs Vital Signs - 24 hr 08/09/20 04:49 08/09/20 05:08 08/09/20 05:31 Temperature 36.0 C L Temperature Source Temporal Artery Scan Pulse Rate 83 79 78 Pulse Rate from SpO2 Sensor Respiratory Rate 18 18 14 Blood Pressure 157/95 H Blood Pressure Mean 115 Blood Pressure Position Sitting Pulse Oximetry 98 Sepsis Recent Fever Within 48 Hours No Sepsis New/Unexplained Change in Mental Status N/A Sepsis Action Taken by Nursing No Action Required 08/09/20 06:00 08/09/20 06:18 08/09/20 06:30 Temperature Temperature Source Pulse Rate 72 70 71 Pulse Rate from SpO2 Sensor 70 69 Respiratory Rate 19 19 18 Blood Pressure 138/80 130/78 Blood Pressure Mean 99 95 Blood Pressure Position Pulse Oximetry 94 96 Sepsis Recent Fever Within 48 Hours Sepsis New/Unexplained Change in Mental Status Sepsis Action Taken by Nursing 08/09/20 06:52 08/09/20 07:00 Temperature Temperature Source Pulse Rate 70 66 Pulse Rate from SpO2 Sensor 68 66 Respiratory Rate 15 15 Blood Pressure 149/87 H 137/81 Blood Pressure Mean 107 99 Blood Pressure Position Pulse Oximetry 96 97 Sepsis Recent Fever Within 48 Hours Sepsis New/Unexplained Change in Mental Status Sepsis Action Taken by Nursing VITALS: Vitals are noted on the nurse's note and reviewed by myself. Vital signs stable. GENERAL: Well-developed, well-nourished, white male, who is in no acute distress and resting comfortably. Patient is cooperative with the examination. HEAD: Normocephalic atraumatic. NECK: Supple without nuchal rigidity. No lymphadenopathy. No thyromegaly. Cervical spine is nontender. HEART: Regular rate and rhythm without murmurs gallops or rubs. LUNGS: Clear to auscultation bilaterally without wheezes, rales or rhonchi. No retractions or accessory muscle use. ABDOMEN: Positive normal bowel sounds x 4. Soft, nontender, without masses or organomegaly. No guarding or rebound tenderness. No CVA tenderness. MUSCULOSKELETAL: No muscle atrophy, erythema, or edema noted. Full range of motion in all extremities. NEURO: Patient was alert and oriented to person place and time. CN II through XII grossly intact. Course Administered Medications Discontinued Medications Sodium Chloride (Nss 1000ml) 1,000 mls @ 999 mls/hr IV .Q1H1M TROY Stop: 08/09/20 06:15 Last Infusion: 08/09/20 06:58 Dose: 0 mls/hr Documented by: [id number] Admin: 08/09/20 05:19 Dose: 999 mls/hr Documented by: [id number] Ketorolac Tromethamine (Ketorolac 30 Mg/Ml Vial) 30 mg IV NOW STA Stop: 08/09/20 05:05 Last Admin: 08/09/20 05:18 Dose: 30 mg Documented by: [id number] Ondansetron HCl (Ondansetron Inj 2 Mg/Ml 2 Ml Vial) 4 mg IV NOW STA Stop: 08/09/20 05:05 Last Admin: 08/09/20 05:18 Dose: 4 mg Documented by: [id number] Medical Decision Making Differential Diagnosis Differential diagnosis: Etiologies such as shingles, pyelonephritis/UTI, renal colic, appendicitis, diverticulitis, mesenteric ischemia, torsion, aortic pathology, infections, inflammatory bowel disease, bowel obstruction, PUD, biliary pathology, as well as others were entertained. Laboratory Data Result diagrams: 08/09/20 05:06 08/09/20 05:06 Lab Results 06/04/21 06/04/21 06/04/21 Range/Units 05:06 05:06 06:50 WBC 6.45 (4.8-10.8) K/uL RBC 4.47 L (4.7-6.1) M/uL Hgb 14.3 (14.0-18.0) g/dL Hct 41.6 L (42-52) % MCV 93.1 (80-100) fL MCH 32.0 (25-34) pg MCHC 34.4 (32-36) g/dL RDW Std Deviation 47.6 H (36.4-46.3) fL RDW Coeff of Ginny 14.0 (11.5-14.5) % Plt Count 255 (130-400) K/uL MPV 9.8 (7.4-10.4) fL Immature Gran % (Auto) 0.5 % Neut % (Auto) 60.6 % Lymph % (Auto) 19.5 % Donley % (Auto) 9.8 % Eos % (Auto) 9.1 % Baso % (Auto) 0.5 % Neut # (Auto) 3.91 (1.4-6.5) K/uL Lymph # (Auto) 1.26 (1.2-3.4) K/uL Donley # (Auto) 0.63 H (0.11-0.59) K/uL Eos # (Auto) 0.59 H (0-0.5) K/uL Baso # (Auto) 0.03 (0-0.2) K/uL Immature Gran # (Auto) 0.03 H (0.00-0.02) K/uL Sodium 143 (136-145) mmol/L Potassium 4.5 (3.5-5.1) mmol/L Chloride 113 H (98-107) mmol/L Carbon Dioxide 24 (21-32) mmol/L Anion Gap 6.0 (3-11) BUN 22 H (7-18) mg/dl Creatinine 0.71 (0.6-1.4) mg/dl Est Cr Clr Drug Dosing 122.7 ml/min Est GFR ( Amer) 119.9 ml/min Est GFR (Non-Af Amer) 103.4 ml/min BUN/Creatinine Ratio 30.6 H (10-20) Glucose 187 H (70-99) mg/dl Calcium 8.9 (8.5-10.1) mg/dl Total Bilirubin 0.5 (0.2-1) mg/dl AST 42 H (15-37) U/L ALT 56 (12-78) U/L Alkaline Phosphatase 68 (45-117) U/L Total Protein 6.9 (6.4-8.2) gm/dl Albumin 3.3 L (3.4-5.0) gm/dl Globulin 3.6 (2.5-4.0) gm/dl Albumin/Globulin Ratio 0.9 (0.9-2) Lipase 619 H (73-393) U/L Specimen Hemolysis Urine Color Yellow Urine Appearance Cloudy A (Clear) Urine pH 5.0 (4.5-7.5) Ur Specific Hernandez 1.023 (1.000-1.030) Urine Protein Trace H (Negative) Urine Glucose (UA) Negative (Negative) Urine Ketones Trace H (Negative) Urine Blood 3+ H (Negative) Urine Nitrite Negative (Negative) Urine Bilirubin Negative (Negative) Urine Urobilinogen Negative (Negative) Ur Leukocyte Esterase Trace H (Negative) Urine WBC (Auto) 1-5 (0-5) /hpf Urine RBC (Auto) >30 H (0-4) /hpf U Hyaline Cast (Auto) 0 (0-5) /lpf U Epithel Cells (Auto) 0-5 (0-5) /lpf Urine Bacteria (Auto) Negative (Negative) Urine Crystals Not Reportable Calcium Oxalate Crystal Present A (None Prsent) Imaging Data Radiologist's Impression: Abdomen/Pelvis CT 08/09/20 05:04 CT OF THE ABDOMEN AND PELVIS WITHOUT CONTRAST CLINICAL HISTORY: Right flank pain. History of stones. COMPARISON STUDY: CT of the abdomen and pelvis June 11, 2020. TECHNIQUE: Axial images of the abdomen and pelvis were obtained without IV contrast. Images were reviewed in the axial, sagittal, and coronal planes. Automated exposure control was utilized for the study. A dose lowering technique was utilized adhering to the principles of ALARA. FINDINGS: Lung bases are unremarkable. A 6 mm proximal right ureteral calculus results in mild right hydronephrosis. There is an adjacent 3 mm right ureteral calculus. Multiple bilateral renal calculi are noted. These measure up to 5 mm. Mild to moderate left hydronephrosis has slightly decreased since prior CT. A few punctate nonobstructing calculi within the dependent aspect of the left ureteropelvic junction are noted. Evaluation of the remainder of the abdomen and pelvis is suboptimal on this unenhanced examination. The liver, spleen, adrenal glands and pancreas are unremarkable. A moderate amount stool is noted within the colon. Anastomosis at the junction of the descending colon and sigmoid colon is noted. Colon distal to the anastomosis is relatively decompressed. There is no ascites. There is no lymphadenopathy. No suspicious osseous lesions are present. IMPRESSION: 1. 6 mm proximal right ureteral calculus which results in mild right hydronephrosis. Adjacent 3 mm proximal right ureteral calculus. 2. Bilateral nephrolithiasis. 3. Mild to moderate left hydronephrosis, decreased since CT of June 11, 2020. A few nonobstructing punctate calculi within the dependent aspect of the left ureteropelvic junction, significantly decreased since prior CT. 4. Moderate amount stool within the colon. Apparent relative caliber change at the level of the colonic anastomosis. A colonic obstruction is considered unlikely however correlation with clinical evidence for a bowel obstruction is recommended. ACT 112: Negative or not required by law. Electronically signed by: Tashi Pedroza M.D. 08/09/2020 6:38 AM MDM Narrative Physical exam and history were performed. Nursing notes, EMR, and Medication List were personally reviewed. Patient appears to have right flank pain bringing him to the emergency department. He does appear somewhat uncomfortable on presentation. IV access was established and labs were obtained. Urine was collected. He was hydrated with normal saline and given IV morphine, IV Toradol, and IV Zofran. The patient was sent to CT scan for further evaluation of his symptoms. The patient's blood work is as above and was reviewed. He does not have a significantly elevated white blood cell count, gross anemia, bandemia, or significant electrolyte imbalance. Lipase is slightly elevated over 600, but he does not have epigastric pain. Urine is with blood without gross evidence of infection. CT scan was reviewed by myself and radiology and appears to show both a 6 mm and 3 mm proximal obstructing kidney stone with hydronephrosis. On reevaluation the patient was improved after analgesics. I discussed options of care with the patient and he does not feel comfortable going home. The case was discussed with the urology team who recommended hospital admission and they will be happy to consult. The case was discussed with the hospitalist who agreed to evaluate the patient here in the ER. Please see their dictation for further patient course, plan, and disposition. The chart was completed utilizing [employer] Speech Voice Recognition Software. Grammatical errors, random word insertions, pronoun errors, and incomplete sentences are an occasional consequence of this system due to software limitations, ambient noise, and hardware issues. Any formal questions or concerns about the content, text, or information contained within the body of this dictation should be directly addressed to the provider for clarification. . Impression & Plan Calculus of proximal right ureter, Hydronephrosis with renal and ureteral calculous obstruction, Right flank pain Discharge Plan Visit Data Chief Complaint: Kidney Stone Stated Complaint: RIGHT SIDED KIDNEY PAIN, STONES ED Provider: [facility] ED Midlevel Provider: Fercho Pride Discharge Problem: Calculus of proximal right ureter, Hydronephrosis with renal and ureteral calculous obstruction, Right flank pain Forms Stand Alone Forms: [facility] [employer] Prescriptions Prescriptions: No Action metformin 1,000 mg tablet 1,000 mg PO BID Qty: 180 RF: 3 tamsulosin 0.4 mg capsule 0.4 mg PO HS Qty: 90 RF: 1 metoprolol succinate 50 mg tablet extended release 24 hr 50 mg PO QAM Qty: 90 RF: 1 glipizide 5 mg tablet 5 mg PO BID Qty: 60 RF: 5 (DME) OneTouch Verio test strips Strip See Rx Instructions .ROUTE .MEDSUPPLY Qty: 50 RF: 0 furosemide 20 mg tablet 20 mg PO QAM PRN (Reason: edema) Qty: 20 RF: 0 Auto Titrating CPAP Misc See Rx Instructions .ROUTE .COMPLEX Qty: 1 RF: 0 (DME) CPAP Supplies Misc See Rx Instructions .ROUTE .MEDSUPPLY Qty: 1 RF: 0 losartan 50 mg tablet 50 mg PO QAM Qty: 90 RF: 1 montelukast [Singulair] 10 mg tablet 10 mg PO QPM Qty: 30 RF: 2 atorvastatin 40 mg tablet 40 mg PO .COMPLEX 90 Days Qty: 36 RF: 1 multivitamin [Daily Multi-Vitamin] tablet 1 tab PO QAM RF: 0 (DME) lancets [OneTouch Delica Lancets] 33 gauge misc See Dose Instructions .ROUTE .MEDSUPPLY Qty: 100 RF: 0 (DME) compress.stocking,knee,reg,med Misc See Rx Instructions .ROUTE .MEDSUPPLY Qty: 2 RF: 0 fluticasone propionate [Flonase Allergy Relief] 50 mcg/actuation spray,chata pension 2 sprays INTNAS DAILY PRN (Reason: Nasal Congestion) RF: 0 aspirin 81 mg Tablet,Delayed Release (Dr/Ec) 81 mg PO QAM RF: 0 omega 9-kdm-mhl-fish oil [Fish Oil] 1,000 mg (120 mg-180 mg) Capsule 1 cap PO BID RF: 0 albuterol sulfate [ProAir HFA] 90 mcg/actuation HFA aerosol inhaler 2 puff inhalation Q4H PRN (Reason: shortness of breath or wheezing) RF: 0 hydrocodone-acetaminophen 5-325 mg tablet 1 tab PO Q6H PRN (Reason: pain) Qty: 20 RF: 0 Referrals Referrals: Calli Dior MD [Primary Care Provider] -
[2020-08-09 05:16] LABS: Basophils # (auto) 0.03 K/uL (0-0.2); Basophils % (auto) 0.5 %; Eosinophils # (auto) 0.59 K/uL (0-0.5); Eosinophils % (auto) 9.1 %; Hematocrit (blood only) 41.6 % (42-52); Hemoglobin 14.3 g/dL (14.0-18.0); Immature Granulocytes # (auto) 0.03 K/uL (0.00-0.02); Immature Granulocytes % (auto) 0.5 %; Lymphocytes # (auto) 1.26 K/uL (1.2-3.4); Lymphocytes % (auto) 19.5 %; Mean Corpuscular Hgb Conc 34.4 g/dL (32-36); Mean Corpuscular Volume 93.1 fL (80-100); Mean Platelet Volume 9.8 fL (7.4-10.4); Monocytes # (auto) 0.63 K/uL (0.11-0.59); Monocytes % (auto) 9.8 %; Neutrophils # (auto) 3.91 K/uL (1.4-6.5); Neutrophils % (auto) 60.6 %; Platelet Count 255 K/uL (130-400); RDW Standard Deviation 47.6 fL (36.4-46.3); Red Blood Count 4.47 M/uL (4.7-6.1); White Blood Count 6.45 K/uL (4.8-10.8)
[2020-08-09 05:56] LABS: Albumin Globulin Ratio 0.9 (0.9-2); Albumin Level 3.3 gm/dl (3.4-5.0); BUN Creatinine Ratio 30.6 (10-20); Bilirubin,Total 0.5 mg/dl (0.2-1); Calcium 8.9 mg/dl (8.5-10.1); Creatinine Clr Calc Pharmacy 122.7 ml/min; Est GFR (African American) 119.9 ml/min; Est GFR (Non-African American) 103.4 ml/min; Globulin 3.6 gm/dl (2.5-4.0); Potassium 4.5 mmol/L (3.5-5.1); Total Protein 6.9 gm/dl (6.4-8.2)
--- NOTE | 2020-08-09 06:40 | CT Scan Report ---
CT OF THE ABDOMEN AND PELVIS WITHOUT CONTRAST CLINICAL HISTORY: Right flank pain. History of stones. COMPARISON STUDY: CT of the abdomen and pelvis June 11, 2020. TECHNIQUE: Axial images of the abdomen and pelvis were obtained without IV contrast. Images were revi ewed in the axial, sagittal, and coronal planes. Automated exposure control was utilized for the lianne dy. A dose lowering technique was utilized adhering to the principles of ALARA. FINDINGS: Lung bases are unremarkable. A 6 mm proximal right ureteral calculus results in mild right hydronephrosis. There is an adjacent 3 mm right ureteral calculus. Multiple bilateral renal calculi a re noted. These measure up to 5 mm. Mild to moderate left hydronephrosis has slightly decreased since prior CT. A few punctate nonobstructing calculi within the dependent aspect of the left ureteropelvi c junction are noted. Evaluation of the remainder of the abdomen and pelvis is suboptimal on this une nhanced examination. The liver, spleen, adrenal glands and pancreas are unremarkable. A moderate amou nt stool is noted within the colon. Anastomosis at the junction of the descending colon and sigmoid c olon is noted. Colon distal to the anastomosis is relatively decompressed. There is no ascites. There is no lymphadenopathy. No suspicious osseous lesions are present. IMPRESSION: 1. 6 mm proximal right ureteral calculus which results in mild right hydronephrosis. Adjacent 3 mm pr oximal right ureteral calculus. 2. Bilateral nephrolithiasis. 3. Mild to moderate left hydronephrosis, decreased since CT of June 11, 2020. A few nonobstructing pu nctate calculi within the dependent aspect of the left ureteropelvic junction, significantly decrease d since prior CT. 4. Moderate amount stool within the colon. Apparent relative caliber change at the level of the colon ic anastomosis. A colonic obstruction is considered unlikely however correlation with clinical eviden ce for a bowel obstruction is recommended. ACT 112: Negative or not required by law. Electronically signed by: Tashi Pedroza M.D. 08/09/2020 6:38 AM
[2020-08-09 07:04] LABS: Appearance Urine Cloudy (Clear); Bacteria Urine Automated Negative (Negative); Bilirubin Urine Negative (Negative); Blood Urine 3+ (Negative); Cast Urine Automated 0 /lpf (0-5); Color Urine Yellow; Epithelial Cell Urine Auto 0-5 /lpf (0-5); Glucose Urine UA Negative (Negative); Ketones Urine Trace (Negative); Leukocyte Esterase Urine Trace (Negative); Nitrite Urine Negative (Negative); Protein Urine Trace (Negative); Specific Gravity Urine 1.023 (1.000-1.030); Urobilinogen Urine Negative (Negative)
[2020-08-09] MEDS ORDERED: MoRPHine SULFATE 4 MG/ML 1 ML CARP\\VIAL IV PRN (07:34)
[2020-08-09 07:41] LABS: Calcium Oxalate Crystals Urine Present (None Prsent); RBC Urine Automated >30 /hpf (0-4)
--- NOTE | 2020-08-09 08:02 | History & Physical Report ---
Date of Service August 09, 2020 Assessment & Plan (1) Calculus of proximal right ureter: With proximal right sided 6 and 3 mm ureteral stones with mild hydronephrosis, intractable nausea/vomiting and pain -Admit to medical/surgical -Consult urology-plan for OR today for stent placement -Pain control with IV morphine, antiemetics with IV Zofran as needed -Continue LR at 100 mL/h for hydration -No evidence of sepsis or UTI-Cipro being given for prophylaxis prior to stent placement as per urology -Check EKG but recent one was normal -Keep n.p.o. (2) Hydronephrosis with renal and ureteral calculous obstruction: As above (3) Right flank pain: As above, secondary to right ureteral lithiasis and hydronephrosis (4) KARMEN (obstructive sleep apnea): Daughter will bring in his home CPAP (5) Peripheral neuropathy: No acute issues No medications for this (6) Obesity: BMI 36.3 Needs weight loss (7) HTN, goal below 140/90: Blood pressures are controlled Continue home losartan, metoprolol-we will give morning dose of metoprolol now preoperatively but can hold losartan till tomorrow Holding home furosemide Continue home aspirin (8) Lower extremity edema: Trace amount EVELIA hose ordered Hold home as needed Lasix (9) Myotonic dystrophy, type 2: Follows with neurology Dr. Ward of [facility] as well as a neuromuscular specialist in [place] Is followed by cardiology at [facility]-he has no known arrhythmias or coronary artery disease however he does have coronary artery calcifications on CT and is planning on having a stress test in the near future He had some chronic dyspnea since having Covid but has scarring in the lungs and CT on 05/2020 Follows with pulmonology as well (10) DM2 (diabetes mellitus, type 2): Most recent hemoglobin A1c well controlled Hold home glimepiride and Metformin Give NovoLog sliding scale while here (11) Hypercholesterolemia: Continue statin No acute issues (12) Allergic rhinitis: Continue home Singulair no acute issues (13) BPH w urinary obs/LUTS: Continue Flomax Watch for urinary retention (14) Coronary artery calcification: As above Follows with cardiology (15) DVT prophylaxis: SCDs, EVELIA hose, hold off on chemical anticoagulation prophylaxis given ongoing gross hematuria and need for procedure today Disposition-admit to medical/surgical floor Full code History of Present Illness Chief Complaint: Right-sided flank pain, nausea/vomiting Primary Care Provider: Calli Dior MD This patient is a 60-year-old male with a recent history of left-sided ureterolithiasis requiring stent placement, myotonic dystrophy, COVID-19 infection in 02/2020 with residual dyspnea, DM 2, HTN, BPH, hyperlipidemia, and history of colectomy for diverticulitis with recurrent ventral hernia, who prese nts to the ER with 3 days of worsening right-sided flank pain radiating down into the groin and intractable nausea and vomiting. He has had blood in his urine since his last kidney stone several weeks ago requiring stent placement and removal. He denies any fevers or chills. He is making plenty of urine. He denies any abdominal pain otherwise and denies constipation. In the ER, on CT abdomen/pelvis he was found to have 2 right proximal ureteral stones measuring 6 and 3 mm with mild hydronephrosis on the right. He was also noted to have resolving mild to moderate left-sided hydronephrosis from previous stone but no obstructing stones on the left, as well as moderate amount of stool in the colon and a relative caliber change at the level of the colonic anastomosis with a question of colonic obstruction. Patient reports he has been moving his bowels regularly. He had no evidence of infection on UA and was afebrile, vital signs otherwise stable. There was no evidence of renal failure. He was seen by urology in the ER and will be taken to the OR today for stent placement. Allergies Allergy/AdvReac Type Severity Reaction Status Date / Time cat dander Allergy Mild COUGH Verified 08/09/20 07:57 Home Medications Medication Instructions Recorded Confirmed Type multivitamin 1 tab PO QAM 09/12/18 08/09/20 History lancets 33 gauge #100 ea 11/07/18 07/29/20 History montelukast 10 mg tablet 10 mg PO QPM #30 tab 09/26/19 08/09/20 Rx metformin 1,000 mg tablet 1,000 mg PO BID #180 tab 12/06/19 08/09/20 Rx fluticasone propionate [Flonase 2 sprays INTNAS DAILY PRN 12/20/19 08/09/20 History Allergy Relief] aspirin 81 mg PO QAM 02/14/20 08/09/20 History omega 2-uaj-jfh-fish oil [Fish Oil] 1 cap PO BID 02/14/20 08/09/20 History albuterol sulfate 90 mcg/actuation 2 puff INHALATION Q4H PRN g 02/28/20 08/09/20 History aerosol inhaler compress.stocking,knee,reg,med #2 ea 02/28/20 07/29/20 Rx metoprolol succinate 50 mg 50 mg PO QAM #90 tab 02/28/20 08/09/20 Rx tablet,extended release 24 hr tamsulosin 0.4 mg capsule 0.4 mg PO HS #90 cap 02/28/20 08/09/20 Rx glipizide 5 mg tablet 5 mg PO BID #60 tab 03/26/20 08/09/20 Rx blood sugar diagnostic #50 ea 04/06/20 07/29/20 Rx furosemide 20 mg tablet 20 mg PO QAM PRN #20 tab 05/15/20 08/09/20 Rx atorvastatin 40 mg tablet 40 mg PO .COMPLEX 90 Days #36 tab 05/31/20 08/09/20 Rx CPAP Machine See Rx Instructions .ROUTE 06/04/20 07/29/20 Rx .COMPLEX #1 ea miscellaneous medical supply #1 ea 06/04/20 07/29/20 Rx losartan 50 mg tablet 50 mg PO QAM #90 tab 06/26/20 08/09/20 Rx hydrocodone-acetaminophen 1 tab PO Q6H PRN #20 tab 07/16/20 08/09/20 Rx Past Med/Surg History Medical History Allergic rhinitis Arthritis BPH w urinary obs/LUTS Coronary artery calcification Noted on [address] Faxed to director of security for continuity of care. DM2 (diabetes mellitus, type 2) a1c 10% 02/15/20, down to 6% 05/2020 Hiatal hernia History of COVID-19 POSITIVE 02/12/20. HOSPITALIZED, [place] WITH ABX AND REMDESIVIR. MILD RESIDUAL REYNOLDS/SOB. SCARRING NOTED ON CHEST CT 05/2020 History of diverticulitis Hypercholesterolemia Hypertension Kidney stones Lower extremity edema LASIX PRN Myotonic dystrophy, type 2 FOLLOWS WITH [facility]. KARMEN (obstructive sleep apnea) wears 2L O2 WITH CPAP Scarring of lung R/T COVID VIRUS (FOLLOWING WITH PULMONOLOGY) Surgical History History of appendectomy History of bilateral cataract extraction History of colonoscopy with polypectomy History of colostomy d/t diverticulitis History of colostomy reversal History of esophagogastroduodenoscopy (EGD) History of incisional hernia repair History of partial colectomy 1990s--had colostomy--d/t diverticulitis [place] teeth removed Family History (Updated 08/09/20 @ 10:40 by Migdalia Lal MD) Mother Cancer Family history of diabetes mellitus Brother Prostate cancer Colorectal cancer Myotonic dystrophy Sister Myotonic dystrophy Other No family history of adverse response to anesthesia Denies family history of Ovarian cancer Myocardial infarction Breast cancer Social History (Updated 08/09/20 @ 10:40 by Migdalia Lal MD) Smoking Status: Former smoker Tobacco Type: Cigars Age Started Using Tobacco: 37; Age Quit Using Tobacco: 59; Second Hand Exposure: Yes (mom smoked); Hx Alcohol Use: Yes Alcohol type: hard liquor Alcohol Intake Frequency: Monthly or Less Hx Substance Use: No Preferred Language: Faroese Communication Ability: Effective Diplomatic Officer Required: No Beliefs That Will Affect Care: None marital status: Current Living Situation: Spouse Current Living Situation Comment: Lives with and son current occupational status: employed Feels Safe at Home: Yes Dental Care, Regularly: No Physical Activity Frequency: Does not Exercise Seatbelt Use: sometimes Do you think of yourself as: straight/heterosexual Assistive Devices: Glasses Review of Systems Review of Systems: All systems reviewed & are unremarkable except as noted in HPI & below No headache, no lightheadedness, no fevers or chills, has chronic dyspnea since having Covid, denies chest pains, is having positive nausea and vomiting, no constipation or diarrhea, no abdominal pains, positive hematuria, positive chronic lower extremity edema since having Covid Physical Exam Constitutional: WD/WN, vitals as above + obese Eyes: PERRL, conjunctivae normal, anicteric sclerae ENMT: external ear and nose normal, oropharynx normal Neck: trachea midline, no thyromegaly Respiratory: normal respiratory effort, lungs clear to auscultation Cardiovascular: Rate/Rhythm: regular rate and regular rhythm Heart Sounds: + murmur (2/6 systolic at the apex) Extremities: + edema (Trace pitting edema of the legs bilaterally) Chest (Breasts): Chest: normal inspection of chest Gastrointestinal (Abdomen): Inspection/Auscultation: normal bowel sounds and + visible herniation (Reducible); + abdomen abnormal to inspection (Surgical incisional scar) and abdomen not distended Percussion/Palpation: abdomen soft; abdomen nontender and no guarding Musculoskeletal: Extremities: extremities normal to inspection; no cyanosis and no clubbing Skin: no rashes, warm and dry Neurologic: moves all extremities and awake; no focal motor deficits Psychiatric: A+Ox3, euthymic affect Lymphatic: no lymphedema Results & Data Results & Data ([facility]) Vital Signs (Past 12 Hours) Vital Signs Temp Pulse Resp BP Pulse Ox 08/09/20 07:00 66 15 137/81 97 08/09/20 06:52 70 15 149/87 H 96 08/09/20 06:30 71 18 130/78 96 08/09/20 06:18 70 19 138/80 94 08/09/20 06:00 72 19 08/09/20 05:31 78 14 08/09/20 05:08 79 18 08/09/20 04:49 36.0 C L 83 18 157/95 H 98 Laboratory Results 08/09/20 08/09/20 08/09/20 Range/Units 09:58 07:55 07:55 WBC (4.8-10.8) K/uL RBC (4.7-6.1) M/uL Hgb (14.0-18.0) g/dL Hct (42-52) % MCV (80-100) fL MCH (25-34) pg MCHC (32-36) g/dL RDW Std Deviation (36.4-46.3) fL RDW Coeff of Ginny (11.5-14.5) % Plt Count (130-400) K/uL MPV (7.4-10.4) fL Immature Gran % (Auto) % Neut % (Auto) % Lymph % (Auto) % Frio % (Auto) % Eos % (Auto) % Baso % (Auto) % Neut # (Auto) (1.4-6.5) K/uL Lymph # (Auto) (1.2-3.4) K/uL Frio # (Auto) (0.11-0.59) K/uL Eos # (Auto) (0-0.5) K/uL Baso # (Auto) (0-0.2) K/uL Immature Gran # (Auto) (0.00-0.02) K/uL Sodium (136-145) mmol/L Potassium (3.5-5.1) mmol/L Chloride (98-107) mmol/L Carbon Dioxide (21-32) mmol/L Anion Gap (3-11) BUN (7-18) mg/dl Creatinine (0.6-1.4) mg/dl Est Cr Clr Drug Dosing ml/min Est GFR ( Amer) ml/min Est GFR (Non-Af Amer) ml/min BUN/Creatinine Ratio (10-20) Glucose (70-99) mg/dl POC Glucose 177 H (70-99) mg/dl Calcium (8.5-10.1) mg/dl Total Bilirubin (0.2-1) mg/dl AST (15-37) U/L ALT (12-78) U/L Alkaline Phosphatase (45-117) U/L Total Protein (6.4-8.2) gm/dl Albumin (3.4-5.0) gm/dl Globulin (2.5-4.0) gm/dl Albumin/Globulin Ratio (0.9-2) Lipase (73-393) U/L Specimen Hemolysis Urine Color Urine Appearance (Clear) Urine pH (4.5-7.5) Ur Specific Moodus (1.000-1.030) Urine Protein (Negative) Urine Glucose (UA) (Negative) Urine Ketones (Negative) Urine Blood (Negative) Urine Nitrite (Negative) Urine Bilirubin (Negative) Urine Urobilinogen (Negative) Ur Leukocyte Esterase (Negative) Urine WBC (Auto) (0-5) /hpf Urine RBC (Auto) (0-4) /hpf U Hyaline Cast (Auto) (0-5) /lpf U Epithel Cells (Auto) (0-5) /lpf Urine Bacteria (Auto) (Negative) Urine Crystals Calcium Oxalate Crystal (None Prsent) COVID-19 Eval Order Covid19 at [facility] SARS-CoV-2 (PCR) NEGATIVE (Negative) 08/09/20 08/09/20 08/09/20 Range/Units 06:50 05:06 05:06 WBC 6.45 (4.8-10.8) K/uL RBC 4.47 L (4.7-6.1) M/uL Hgb 14.3 (14.0-18.0) g/dL Hct 41.6 L (42-52) % MCV 93.1 (80-100) fL MCH 32.0 (25-34) pg MCHC 34.4 (32-36) g/dL RDW Std Deviation 47.6 H (36.4-46.3) fL RDW Coeff of Ginny 14.0 (11.5-14.5) % Plt Count 255 (130-400) K/uL MPV 9.8 (7.4-10.4) fL Immature Gran % (Auto) 0.5 % Neut % (Auto) 60.6 % Lymph % (Auto) 19.5 % Frio % (Auto) 9.8 % Eos % (Auto) 9.1 % Baso % (Auto) 0.5 % Neut # (Auto) 3.91 (1.4-6.5) K/uL Lymph # (Auto) 1.26 (1.2-3.4) K/uL Frio # (Auto) 0.63 H (0.11-0.59) K/uL Eos # (Auto) 0.59 H (0-0.5) K/uL Baso # (Auto) 0.03 (0-0.2) K/uL Immature Gran # (Auto) 0.03 H (0.00-0.02) K/uL Sodium 143 (136-145) mmol/L Potassium 4.5 (3.5-5.1) mmol/L Chloride 113 H (98-107) mmol/L Carbon Dioxide 24 (21-32) mmol/L Anion Gap 6.0 (3-11) BUN 22 H (7-18) mg/dl Creatinine 0.71 (0.6-1.4) mg/dl Est Cr Clr Drug Dosing 122.7 ml/min Est GFR ( Amer) 119.9 ml/min Est GFR (Non-Af Amer) 103.4 ml/min BUN/Creatinine Ratio 30.6 H (10-20) Glucose 187 H (70-99) mg/dl POC Glucose (70-99) mg/dl Calcium 8.9 (8.5-10.1) mg/dl Total Bilirubin 0.5 (0.2-1) mg/dl AST 42 H (15-37) U/L ALT 56 (12-78) U/L Alkaline Phosphatase 68 (45-117) U/L Total Protein 6.9 (6.4-8.2) gm/dl Albumin 3.3 L (3.4-5.0) gm/dl Globulin 3.6 (2.5-4.0) gm/dl Albumin/Globulin Ratio 0.9 (0.9-2) Lipase 619 H (73-393) U/L Specimen Hemolysis Urine Color Yellow Urine Appearance Cloudy A (Clear) Urine pH 5.0 (4.5-7.5) Ur Specific Moodus 1.023 (1.000-1.030) Urine Protein Trace H (Negative) Urine Glucose (UA) Negative (Negative) Urine Ketones Trace H (Negative) Urine Blood 3+ H (Negative) Urine Nitrite Negative (Negative) Urine Bilirubin Negative (Negative) Urine Urobilinogen Negative (Negative) Ur Leukocyte Esterase Trace H (Negative) Urine WBC (Auto) 1-5 (0-5) /hpf Urine RBC (Auto) >30 H (0-4) /hpf U Hyaline Cast (Auto) 0 (0-5) /lpf U Epithel Cells (Auto) 0-5 (0-5) /lpf Urine Bacteria (Auto) Negative (Negative) Urine Crystals Not Reportable Calcium Oxalate Crystal Present A (None Prsent) COVID-19 Eval Order SARS-CoV-2 (PCR) (Negative) Diagnostic Findings Abdomen/Pelvis CT 08/09/20 05:04 CT OF THE ABDOMEN AND PELVIS WITHOUT CONTRAST CLINICAL HISTORY: Right flank pain. History of stones. COMPARISON STUDY: CT of the abdomen and pelvis June 11, 2020. TECHNIQUE: Axial images of the abdomen and pelvis were obtained without IV contrast. Images were reviewed in the axial, sagittal, and coronal planes. Automated exposure control was utilized for the study. A dose lowering technique was utilized adhering to the principles of ALARA. FINDINGS: Lung bases are unremarkable. A 6 mm proximal right ureteral calculus results in mild right hydronephrosis. There is an adjacent 3 mm right ureteral calculus. Multiple bilateral renal calculi are noted. These measure up to 5 mm. Mild to moderate left hydronephrosis has slightly decreased since prior CT. A few punctate nonobstructing calculi within the dependent aspect of the left ureteropelvic junction are noted. Evaluation of the remainder of the abdomen and pelvis is suboptimal on this unenhanced examination. The liver, spleen, adrenal glands and pancreas are unremarkable. A moderate amount stool is noted within the colon. Anastomosis at the junction of the descending colon and sigmoid colon is noted. Colon distal to the anastomosis is relatively decompressed. There is no ascites. There is no lymphadenopathy. No suspicious osseous lesions are present. IMPRESSION: 1. 6 mm proximal right ureteral calculus which results in mild right hydronephrosis. Adjacent 3 mm proximal right ureteral calculus. 2. Bilateral nephrolithiasis. 3. Mild to moderate left hydronephrosis, decreased since CT of June 11, 2020. A few nonobstructing punctate calculi within the dependent aspect of the left ureteropelvic junction, significantly decreased since prior CT. 4. Moderate amount stool within the colon. Apparent relative caliber change at the level of the colonic anastomosis. A colonic obstruction is considered unlikely however correlation with clinical evidence for a bowel obstruction is recommended. ACT 112: Negative or not required by law. Electronically signed by: Tashi Pedroza M.D. 08/09/2020 6:38 AM ECG Additional Comments: ECG not performed at the time of admission Code Status & VTE Plan Code Status Full code VTE Prophylaxis Plan VTE Prophylaxis will be ordered: Yes PG Care Time/CCT Total # of Minutes Spent Total Time Spent with Patient: Total time spent is greater than 50% in coordination of care (as documented) at patient's floor/unit and/or counseling patient: Coding Level of Care Code 62992 Initial Inpt Care Lvl 3 Diagnoses Calculus of proximal right ureter N20.1 Hydronephrosis with renal and ureteral calculous obstruction N13.2 Right flank pain R10.9 KARMEN (obstructive sleep apnea) G47.33 Peripheral neuropathy G62.9 Obesity E66.9 Obesity classification: adult class 1 (BMI 30 - 34.9) HTN, goal below 140/90 I10 Lower extremity edema R60.0 Myotonic dystrophy, type 2 G71.11 DM2 (diabetes mellitus, type 2) E11.9 Hypercholesterolemia E78.00 Allergic rhinitis J30.9 BPH w urinary obs/LUTS N40.1; N13.8 Coronary artery calcification I25.10; I25.84 DVT prophylaxis Z29.9 (1) Obesity Obesity classification: adult class 1 (BMI 30 - 34.9)
--- NOTE | 2020-08-09 09:19 | Urology Consultation ---
Date of Consultation August 09, 2020 Assessment & Plan (1) Calculus of proximal right ureter: (2) Hydronephrosis with renal and ureteral calculous obstruction: 60 year old male admitted for right flank pain secondary to 6 mm and 3 mm right proximal ureteral stone with mild hydronephrosis. - Hospital course, CT imaging, lab work and past medical and surgical history reviewed - Afebrile, nontoxic, creatinine and WBC within normal limits, UA not suggestive of infection - Continues to have right flank pain, tolerable at present - Keep NPO - Continue prn analgesics and supportive care - Strain all urine - Discussed treatment options including right stent placement and possible stone treatment today, he is agreeable - Expected clinical course reviewed, all questions answered Findings reviewed with Dr. Gipson, email operations manager urologist. Given his right flank pain and hydronephrosis in the context of an obstructing 6 mm and 3 mm proximal ureteral stones, will proceed with OR for cystoscopy, Right ureteroscopy, possible stone treatment and stent placement depending on findings. Risks and b enefits to be reviewed with patient by Dr. Gipson. OR notified. EKG and CXR up to date in chart. COVID testing negative. Will cover with IV Ciprofloxacin preoperatively. ATTENDING NOTE: Independently evaluated and assessed and discussed. Risks and benefits discussed at length for procedure. These include bleeding, infection, injury to surrounding tissues or organs, and risks associated with anesthesia. Patient states understanding and agrees to proceed. Will sign consent and proceed. Plan for Cystoscopy and Right Ureteroscopy and stone treatment and stent. History of Present Illness Reason for Consultation: Right ureteral stone Requesting Physician: Dr. Mar Attending Physician: Dr. Lal History of Present Illness This is a 60 year old male with PMHx of type 2 diabetes, hyperlipidemia, BPH, type 2 myotonic dystrophy, hypertension, obesity, dysmetabolic syndrome X, KARMEN, CAD, history of COVID 19 infection and related scarring of lung, and bilateral nephrolithiasis admitted for intractable right flank pain secondary to 6 mm and 3 mm right proximal ureteral stones with mild hydronephrosis. Patient is known to our service for history of nephrolithiasis and BPH, follows with Dr. Guthrie. Recently s/p left URS-LL and stent placement on 07/[address] Guthrie. His left stent was removed in clinic on 07/29/20. He presented to [facility] ED on 08/09/20 with symptoms of worsening right flank pain x 3 days. It became more severe early this morning prompting ER evaluation. Afebrile on arrival. Lab work: creatinine 0.71. WBC 6.45, Hgb 14.3. UA >30 RBCs, 1-5 WBCs, trace leukocytes, calcium oxalate crystals; negative for nitrates and bacteria. No urine culture collected/pending. CTAP without contrast showed 6 mm proximal right ureteral calculus, adjacent 3 mm proximal right ureteral calculus, resulting in mild hydronephrosis. Bilateral nephrolithiasis. Mild to moderate left hydronephrosis, decreased since prior CT. ER treatment included IV fluids, Ketorolac, and Ondansetron. He was admitted to hospital medicine service. Our service is consulted for right ureteral stones, hydronephrosis. Patient seen and examined in ER litter. Daughter at bedside. He was sleeping on arrival, but arouses easily to speech. He has mild right flank pain at present, rated at 2/10. No recent nausea or vomiting. He reports that he vomited prior to arrival in ER. He is voiding without difficulty. No dysuria, some hematuria, mild. No fever or chills. He is NPO since 10 pm yesterday. No chest pain. Breathing stable. No additional concerns today. Allergies Allergy/AdvReac Type Severity Reaction Status Date / Time cat dander Allergy Mild COUGH Verified 08/09/20 07:57 Home Medications Medication Instructions Recorded Confirmed Type multivitamin 1 tab PO QAM 09/12/18 08/09/20 History lancets 33 gauge #100 ea 11/07/18 07/29/20 History montelukast 10 mg tablet 10 mg PO QPM #30 tab 09/26/19 08/09/20 Rx metformin 1,000 mg tablet 1,000 mg PO BID #180 tab 12/06/19 08/09/20 Rx fluticasone propionate [Flonase 2 sprays INTNAS DAILY PRN 12/20/19 08/09/20 History Allergy Relief] aspirin 81 mg PO QAM 02/14/20 08/09/20 History omega 3-xux-rnq-fish oil [Fish Oil] 1 cap PO BID 02/14/20 08/09/20 History albuterol sulfate 90 mcg/actuation 2 puff INHALATION Q4H PRN g 02/28/20 08/09/20 History aerosol inhaler compress.stocking,knee,reg,med #2 ea 02/28/20 07/29/20 Rx metoprolol succinate 50 mg 50 mg PO QAM #90 tab 02/28/20 08/09/20 Rx tablet,extended release 24 hr tamsulosin 0.4 mg capsule 0.4 mg PO HS #90 cap 02/28/20 08/09/20 Rx glipizide 5 mg tablet 5 mg PO BID #60 tab 03/26/20 08/09/20 Rx blood sugar diagnostic #50 ea 04/06/20 07/29/20 Rx furosemide 20 mg tablet 20 mg PO QAM PRN #20 tab 05/15/20 08/09/20 Rx atorvastatin 40 mg tablet 40 mg PO .COMPLEX 90 Days #36 tab 05/31/20 08/09/20 Rx CPAP Machine See Rx Instructions .ROUTE 06/04/20 07/29/20 Rx .COMPLEX #1 ea miscellaneous medical supply #1 ea 06/04/20 07/29/20 Rx losartan 50 mg tablet 50 mg PO QAM #90 tab 06/26/20 08/09/20 Rx hydrocodone-acetaminophen 1 tab PO Q6H PRN #20 tab 07/16/20 08/09/20 Rx Patient History Medical History Allergic rhinitis Arthritis BPH w urinary obs/LUTS Coronary artery calcification Noted on [address] Faxed to manganese breaker for continuity of care. DM2 (diabetes mellitus, type 2) a1c 10% 02/15/20, down to 6% 05/2020 Hiatal hernia History of COVID-19 POSITIVE 02/12/20. HOSPITALIZED, [place] WITH ABX AND REMDESIVIR. MILD RESIDUAL REYNOLDS/SOB. SCARRING NOTED ON CHEST CT 05/2020 History of diverticulitis Hypercholesterolemia Hypertension Kidney stones Lower extremity edema LASIX PRN Myotonic dystrophy, type 2 FOLLOWS WITH [facility]. KARMEN (obstructive sleep apnea) wears 2L O2 WITH CPAP Scarring of lung R/T COVID VIRUS (FOLLOWING WITH PULMONOLOGY) Surgical History History of appendectomy History of bilateral cataract extraction History of colonoscopy with polypectomy History of colostomy d/t diverticulitis History of colostomy reversal History of esophagogastroduodenoscopy (EGD) History of incisional hernia repair History of partial colectomy 1990s--had colostomy--d/t diverticulitis [place] teeth removed Family History (Updated 08/09/20 @ 10:40 by Migdalia Lal MD) Mother Cancer Family history of diabetes mellitus Brother Prostate cancer Colorectal cancer Myotonic dystrophy Sister Myotonic dystrophy Other No family history of adverse response to anesthesia Denies family history of Ovarian cancer Myocardial infarction Breast cancer Social History (Updated 08/09/20 @ 10:40 by Migdalia Lal MD) Smoking Status: Former smoker Tobacco Type: Cigars Age Started Using Tobacco: 37; Age Quit Using Tobacco: 59; Second Hand Exposure: Yes (mom smoked); Hx Alcohol Use: Yes Alcohol type: hard liquor Alcohol Intake Frequency: Monthly or Less Hx Substance Use: No Preferred Language: Greenlandic Communication Ability: Effective Emergency Room Nurse Required: No Beliefs That Will Affect Care: None marital status: Current Living Situation: Spouse Current Living Situation Comment: Lives with and son current occupational status: employed Feels Safe at Home: Yes Dental Care, Regularly: No Physical Activity Frequency: Does not Exercise Seatbelt Use: sometimes Do you think of yourself as: straight/heterosexual Assistive Devices: Glasses Review of Systems Constitutional: as per Subjective / HPI Eyes: no problem reported Ear, Nose, Mouth, Throat: no problem reported Respiratory: as per Subjective / HPI Cardiovascular: as per Subjective / HPI Gastrointestinal: as per Subjective / HPI Genitourinary: + as per Subjective / HPI Musculoskeletal: no problem reported Integumentary: no problem reported Neurologic: no problem reported Psychiatric: no problem reported Physical Exam Constitutional: well developed and well nourished; no acute distress and not ill appearing Eyes: no scleral abnormality Neck: normal visual inspection Respiratory: normal respiratory effort and able to speak in complete sentences; no respiratory distress and no labored breathing Cardiovascular: Extremities: no pedal edema Gastrointestinal (Abdomen): Inspection/Auscultation: abdomen normal to inspection; abdomen not distended Percussion/Palpation: abdomen soft; abdomen nontender and no guarding Musculoskeletal: Head/Neck/Chest: normocephalic and head atraumatic Extremities: extremities normal to inspection Skin: no rashes, warm and dry Neurologic: moves all extremities and awake Psychiatric: A+Ox3, euthymic affect Genitourinary: no CVA tenderness Results & Data ([facility]) Vital Signs (Past 12 Hours) Vital Signs Temp Pulse Resp BP Pulse Ox 08/09/20 07:00 66 15 137/81 97 08/09/20 06:52 70 15 149/87 H 96 08/09/20 06:30 71 18 130/78 96 08/09/20 06:18 70 19 138/80 94 08/09/20 06:00 72 19 08/09/20 05:31 78 14 08/09/20 05:08 79 18 08/09/20 04:49 36.0 C L 83 18 157/95 H 98 PG Care Time/CCT Total # of Minutes Spent Total Time Spent with Patient: Total time spent is greater than 50% in coordination of care (as documented) at patient's floor/unit and/or counseling patient: Coding Level of Care Code 74848 Inpt Consult Level 4 Diagnoses Calculus of proximal right ureter N20.1 Hydronephrosis with renal and ureteral calculous obstruction N13.2
--- NOTE | 2020-08-09 11:39 | Electrocardiogram Report ---
Test Reason : Blood Pressure : / mmHG Vent. Rate : 063 BPM Atrial Rate : 063 BPM P-R Int : 164 ms QRS Dur : 098 ms QT Int : 420 ms P-R-T Axes : 037 -09 014 degrees QTc Int : 429 ms Normal sinus rhythm Voltage criteria for left ventricular hypertrophy Borderline ECG When compared with ECG of 14-FEB-2020 19:41, No significant change was found Confirmed by Rylan Beasley ([id number]) on 08/09/2020 11:39:34 AM Referred By: REFERRED SELF Confirmed By:Rylan Beasley
[2020-08-09] MEDS ORDERED: POLYETHYLENE (MIRALAX) 17 GM PACK PO PRN (11:41)
[2020-08-09] MEDS ORDERED: FLUTICASONE PROPIONATE NA SPR 16 GM BTL NAE PRN (11:41)
[2020-08-09] MEDS ORDERED: DEXTROSE 50% 50 ML SYRINGE IV PRN (11:41)
[2020-08-09] MEDS ORDERED: CARBOHYDRATES FOR HYPOGLYCEMIA PO PRN (11:41)
[2020-08-09] MEDS ORDERED: GLUCOSE 10 TABS/TUBE PO PRN (11:41)
[2020-08-09] MEDS ORDERED: GLUCAGON FOR INJ 1 MG VIAL SQ PRN (11:41)
[2020-08-09] MEDS ORDERED: GLUCOSE 40% GEL 15 GM TUBE PO PRN (11:41)
[2020-08-09] MEDS ORDERED: ALBUTEROL HFA 8 GM INHALER INH PRN (11:46)
[2020-08-09] MEDS ORDERED: ATORVASTATIN 40 MG TAB PO SCH (12:15)
[2020-08-09] MEDS: LACTATED RINGER'S 1,000 ML IV SCH ×2 (12:52→20:02)
[2020-08-09] MEDS: INSULIN ASPART 100 UNITS/ML 3 ML PEN SC SCH ×3 (13:18→20:59)
[2020-08-09] MEDS: METOPROLOL SUCC 50MG EXT REL TAB PO SCH (13:21)
[2020-08-09] MEDS ORDERED: PROPOFOL IV EMULSION 10 MG/ML 20 ML VIAL IV ONE (13:53)
[2020-08-09] MEDS ORDERED: LIDOCAINE 2% 2 ML VIAL/AMP(20MG/ML) INFIL ONE (13:53)
[2020-08-09] MEDS ORDERED: MIDAZOLAM HCL 1 MG/ML 2ML VIAL ONE (13:53)
[2020-08-09] MEDS ORDERED: fentaNYL citrate 100 MCG/2 ML VIAL ONE (13:54)
[2020-08-09] MEDS: CIPROFLOXACIN / D5W 400 MG/200 ML BAG IV SCH (14:08)
--- NOTE | 2020-08-09 14:11 | Anesthesiology Consultation ---
Date of Service August 09, 2020 Assessment & Plan (1) Encounter for pre-operative examination: Chart Review Chart Review: Acceptable Risk for Surgery and Patient NOT seen in Pre Admission Testing Consults Requested none History Surgery Operation Date: 08/09/20 08:20 Proposed Procedures p Cystoscopy, Right Ureteroscopy, Stone Treatment, Stent Placement - Eliud Gipson, DO Height/Weight Height: 5 ft 5 in Weight: 99 kg Allergies Allergy/AdvReac Type Severity Reaction Status Date / Time cat dander Allergy Mild COUGH Verified 08/09/20 07:57 Medications Home Medications Medication Instructions Recorded Confirmed Last Taken multivitamin 1 tab PO QAM 09/12/18 08/09/20 08/08/20 lancets 33 gauge #100 ea 11/07/18 07/29/20 Unknown montelukast 10 mg tablet 10 mg PO QPM #30 tab 09/26/19 08/09/20 08/08/20 metformin 1,000 mg tablet 1,000 mg PO BID #180 tab 12/06/19 08/09/20 08/08/20 fluticasone propionate [Flonase 2 sprays INTNAS DAILY PRN 12/20/19 08/09/20 08/07/20 Allergy Relief] aspirin 81 mg PO QAM 02/14/20 08/09/20 08/08/20 omega 0-iso-khh-fish oil [Fish Oil] 1 cap PO BID 02/14/20 08/09/20 08/08/20 albuterol sulfate 90 mcg/actuation 2 puff INHALATION Q4H PRN g 02/28/20 08/09/20 07/15/20 09:00 aerosol inhaler compress.stocking,knee,reg,med #2 ea 02/28/20 07/29/20 Unknown metoprolol succinate 50 mg 50 mg PO QAM #90 tab 02/28/20 08/09/20 08/08/20 tablet,extended release 24 hr tamsulosin 0.4 mg capsule 0.4 mg PO HS #90 cap 02/28/20 08/09/20 08/08/20 glipizide 5 mg tablet 5 mg PO BID #60 tab 03/26/20 08/09/20 08/08/20 blood sugar diagnostic #50 ea 04/06/20 07/29/20 Unknown furosemide 20 mg tablet 20 mg PO QAM PRN #20 tab 05/15/20 08/09/20 06/25/20 atorvastatin 40 mg tablet 40 mg PO .COMPLEX 90 Days #36 tab 05/31/20 08/09/20 08/07/20 CPAP Machine See Rx Instructions .ROUTE 06/04/20 07/29/20 Unknown .COMPLEX #1 ea miscellaneous medical supply #1 ea 06/04/20 07/29/20 Unknown losartan 50 mg tablet 50 mg PO QAM #90 tab 06/26/20 08/09/20 08/08/20 hydrocodone-acetaminophen 1 tab PO Q6H PRN #20 tab 07/16/20 08/09/20 Unknown Active Medications Generic Name Dose Route Start Last Admin Trade Name Freq PRN Reason Stop Dose Admin Atorvastatin Calcium 40 mg 08/09/20 12:15 08/09/20 13:21 Atorvastatin 40 Mg Tab PO 09/08/20 12:14 40 mg [id number] TROY Administration Lactated Ringer's 1,000 mls @ 100 mls/hr 08/09/20 11:41 08/09/20 12:52 Lr IV 09/08/20 11:40 100 mls/hr .Q10H TROY Administration Insulin Aspart 0 units 08/09/20 12:15 08/09/20 13:18 Insulin Aspart 100 Units/Ml 3 Ml Pen SC 09/08/20 12:14 Not Given ACHS TROY Metoprolol Succinate 50 mg 08/09/20 12:15 08/09/20 13:21 Metoprolol Succ 50mg Ext Rel Tab PO 09/08/20 12:14 50 mg QAM TROY Administration NPO Date Last Intake of Fluids: 08/09/20 Time Last Intake of Fluids: 13:30 Last Intake of Fluids Comment: sip with meds Date Last Intake of Solids: 08/09/20 Time Last Intake of Solids: 22:00 Past Medical History Medical History Allergic rhinitis Arthritis BPH w urinary obs/LUTS Coronary artery calcification Noted on [address] Faxed to mobile mechanic for continuity of care. DM2 (diabetes mellitus, type 2) a1c 10% 02/15/20, down to 6% 05/2020 Hiatal hernia History of COVID-19 POSITIVE 02/12/20. HOSPITALIZED, [place] WITH ABX AND REMDESIVIR. MILD RESIDUAL REYNOLDS/SOB. SCARRING NOTED ON CHEST CT 05/2020 History of diverticulitis Hypercholesterolemia Hypertension Kidney stones Lower extremity edema LASIX PRN Myotonic dystrophy, type [address] [facility]. KARMEN (obstructive sleep apnea) wears 2L O2 WITH CPAP Scarring of lung R/T COVID VIRUS (FOLLOWING WITH PULMONOLOGY) Exercise / Class Metabolic Activity II 4-5 Yardwork/Stairs/Walk up hill Past Family History Family History Mother Cancer Family history of diabetes mellitus Brother Prostate cancer Colorectal cancer Myotonic dystrophy Sister Myotonic dystrophy Other No family history of adverse response to anesthesia Denies family history of Ovarian cancer Myocardial infarction Breast cancer Past Surgical History Surgical History History of appendectomy History of bilateral cataract extraction History of colonoscopy with polypectomy History of colostomy d/t diverticulitis History of colostomy reversal History of esophagogastroduodenoscopy (EGD) History of incisional hernia repair History of partial colectomy 1990s--had colostomy--d/t diverticulitis [place] teeth removed Past Anesthesia History No Hx of Anesthesia Complications and No Family Hx of Anesthesia Complications History of PONV No Hx of PONV and No Hx of Motion Sickness Social History Smoking Status: Former smoker tobacco type: cigars Hx Alcohol Use: Yes Alcohol type: hard liquor alcohol intake frequency: 0-2 drinks per day Hx Substance Use: No substance use type: does not use Physical Exam Vital Signs Last Vital Signs Temp 36.5 C 08/09/20 13:44 Pulse 65 08/09/20 13:44 Resp 20 08/09/20 13:44 BP 161/93 H 08/09/20 13:44 Pulse Ox 98 08/09/20 13:44 Testing Laboratory Results 08/09/20 05:06 08/09/20 05:06 Urine Color Yellow 08/09/20 06:50 Urine Appearance Cloudy (Clear) A 08/09/20 06:50 Urine pH 5.0 (4.5-7.5) 08/09/20 06:50 Ur Specific [place] 1.023 (1.000-1.030) 08/09/20 06:50 Urine Protein Trace (Negative) H 08/09/20 06:50 Urine Glucose (UA) Negative (Negative) 08/09/20 06:50 Urine Ketones Trace (Negative) H 08/09/20 06:50 Urine Nitrite Negative (Negative) 08/09/20 06:50 Ur Leukocyte Esterase Trace (Negative) H 08/09/20 06:50 Urine WBC (Auto) 1-5 /hpf (0-5) 08/09/20 06:50 Urine RBC (Auto) >30 /hpf (0-4) H 08/09/20 06:50 U Hyaline Cast (Auto) 0 /lpf (0-5) 08/09/20 06:50 U Epithel Cells (Auto) 0-5 /lpf (0-5) 08/09/20 06:50 Urine Bacteria (Auto) Negative (Negative) 08/09/20 06:50 08/09/20 08/09/20 08/09/20 13:49 13:01 09:58 POC Glucose 113 H 113 H 177 H
[2020-08-09] MEDS ORDERED: ePHEDrine sulfate 50 MG/ML AMP IV PRN (14:13)
[2020-08-09] MEDS ORDERED: ATROPINE SULFATE 0.1 MG/ML 10ML SYR IV PRN (14:13)
[2020-08-09] MEDS ORDERED: ONDANSETRON INJ 2 MG/ML 2 ML VIAL IV PRN (14:13)
[2020-08-09] MEDS ORDERED: fentaNYL citrate 100 MCG/2 ML VIAL IV PRN (14:13)
[2020-08-09] MEDS ORDERED: ONDANSETRON INJ 2 MG/ML 2 ML VIAL ONE (14:15)
[2020-08-09] MEDS ORDERED: PHENYLEPHRINE 100MCG/ML 5ML SYR ONE (14:29)
[2020-08-09] MEDS ORDERED: DIATRIZOATE MEGLUMINE 30% 100ML VIAL INSTIL ONE (14:44)
--- NOTE | 2020-08-09 14:47 | Operative Report ---
PG Post Operative Report Pre & Post Diagnosis Operation Date: 08/09/20 08:20 Pre-Op Diagnosis: Right Ureterolithiasis Post-Op Diagnosis: Right Ureterolithiasis I identified the patient and participated in the time-out.: Yes Procedure Operation Date: 08/09/20 08:20 Actual Procedures p Cystoscopy with Right Ureteroscopy, Ureteral Dilation, Laser Lithotripsy, Stone Basket Extraction, Right Stent Placement, and retrograde pyelogram (Right) - Eliud Gipson, Surgeon Eliud Gipson, II, DO Thermal Intelligence Analyst None Estimated Blood Loss 1 Findings Consistent with Post-Op Diagnosis Stone destroyed to dust and small fragments and larger fragments removed. Large debris in renal pelvis. Specimens Stone Fragments right ureter Drains 6 Fr Multilength Anesthesia Type General Complications none Disposition Disposition: Recovery Room Indications Patient with bothersome stones. Risks and benefits discussed at length. Description of Procedure Patient was consented and brought back to the operating room. Patient was placed under anesthesia in the supine position and moved to the dorsal lithotomy position. Patient was prepped and draped in the regular sterile fashion. A time out was completed identifying the correct patient and procedure. A 30degree Cystoscope was placed into the bladder and the entire bladder was examined. The UO's were identified. The UO was cannulized with a catheter and a retrograde pyelogram was completed. A wire was then placed. A ureteral access sheath and second safety wire was placed. The flexible ureteroscope was taken into the ureter. The entire ureter and renal pelvis were examined. A stricture in the proximal ureter was discovered and dilated. The stones were identified just proximal to this. A laser fiber was selected and the stones were pulverized to dust and small fragments. Larger fragments were grasped and removed and sent for analysis. The entire area was once again examined. Large debris in the renal pelvis. No residual large fragments or areas of concern were noted. The scope was slowly removed with the wire left in place. Contrast was placed through the scope for a pyelogram to assist in stent placement. The entire ureter was examined as the scope was slowly removed. No obstructions or other areas of concern were noted. With the wire in place, a 6 Fr Double J stent was placed. It was confirmed with fluoroscopy. With the stent in place, the bladder was emptied. The scope was removed. The patient was cleaned, aroused from anesthesia, and transferred to the pacu in stable condition having tolerated the procedure well with no complications. I was present and participated in all aspects of the procedure. The patient will be monitored in the PACU until transferred. Will need imaging in 1-2 weeks and possible stent removal. I attest to the content of the Intraoperative Record and any orders documented therein. Any exceptions are noted below.
[2020-08-09] MEDS: ONDANSETRON INJ 2 MG/ML 2 ML VIAL IV PRN ×2 (15:14→22:11)
--- NOTE | 2020-08-09 15:15 | Anesthesiology Progress Note ---
Date of Service August 09, 2020 Anesthesia Post Procedure Vital Signs Vital Signs: Temp Pulse Pulse Pulse Resp BP BP 08/09/20 15:10 70 14 08/09/20 15:00 78 16 08/09/20 14:53 36.1 C L 94 H 20 08/09/20 13:44 36.5 C 65 20 161/93 H 08/09/20 11:15 36.7 C 65 18 145/84 H 08/09/20 09:00 64 18 130/77 08/09/20 07:00 66 15 137/81 08/09/20 06:52 70 15 149/87 H 08/09/20 06:30 71 18 130/78 08/09/20 06:18 70 19 138/80 08/09/20 06:00 72 19 08/09/20 05:31 78 14 08/09/20 05:08 79 18 08/09/20 04:49 36.0 C L 83 18 157/95 H BP Pulse Ox 08/09/20 15:10 146/94 H 97 08/09/20 15:00 147/95 H 97 08/09/20 14:53 147/90 H 95 08/09/20 13:44 98 08/09/20 11:15 97 08/09/20 09:00 100 08/09/20 07:00 97 08/09/20 06:52 96 08/09/20 06:30 96 08/09/20 06:18 94 08/09/20 06:00 08/09/20 05:31 08/09/20 05:08 08/09/20 04:49 98 Pain Intensity Right Flank: Pain Intensity: 2 Transfer of Care Handoff Completed per policy Notes Mental Status: alert / awake / arousable and participated in evaluation Patient Amnestic to Procedure: Yes Nausea / Vomiting: adequately controlled Pain: adequately controlled Airway Patency, RR, SpO2: stable & adequate BP & HR: stable & adequate Hydration State: stable & adequate Anesthetic Complications: no major complications apparent and Pt Satisfied with anesthetic care
--- NOTE | 2020-08-09 15:38 | Fluoroscopy Report ---
FL retrograde includes kub CLINICAL HISTORY: RETROGRADE AND STENT PLACEMENT COMPARISON STUDY: None. FLUOROSCOPY TIME: 35 seconds. FINDINGS: 4 fluoroscopic spot images of the abdomen and pelvis demonstrate retrograde opacification o f the right renal collecting system followed by a smooth right ureteral stent. The ureteral stent gómez ears in good position. IMPRESSION: Fluoroscopy provided for right ureteral stent placement which appears in good position. ACT 112: Negative or not required by law. Electronically signed by: Jemal Gallegos M.D. 08/09/2020 3:37 PM
[2020-08-09] MEDS: MoRPHine SULFATE 2 MG/ML CARP IV PRN ×3 (16:08→23:19)
[2020-08-09] MEDS: ACETAMINOPHEN 325 MG TAB PO PRN ×2 (17:31→22:11)
[2020-08-09] MEDS: DOCUSATE SODIUM 100 MG CAP PO SCH (20:09)
[2020-08-09] MEDS ORDERED: TAMSULOSIN HCL 0.4 MG CAP PO SCH (21:00)
[2020-08-09] MEDS ORDERED: MONTELUKAST SODIUM 10 MG TABLET PO SCH (21:00)
[2020-08-10] MEDS: LACTATED RINGER'S 1,000 ML IV SCH (05:42)
[2020-08-10 06:54] LABS: Basophils # (auto) 0.01 K/uL (0-0.2); Basophils % (auto) 0.2 %; Eosinophils # (auto) 0.46 K/uL (0-0.5); Hematocrit (blood only) 37.5 % (42-52); Hemoglobin 12.5 g/dL (14.0-18.0); Immature Granulocytes # (auto) 0.01 K/uL (0.00-0.02); Immature Granulocytes % (auto) 0.2 %; Lymphocytes # (auto) 0.91 K/uL (1.2-3.4); Lymphocytes % (auto) 15.7 %; Mean Corpuscular Hgb Conc 33.3 g/dL (32-36); Mean Corpuscular Volume 93.1 fL (80-100); Mean Platelet Volume 9.7 fL (7.4-10.4); Monocytes # (auto) 0.59 K/uL (0.11-0.59); Monocytes % (auto) 10.2 %; Neutrophils % (auto) 65.7 %; Platelet Count 201 K/uL (130-400); RDW Coefficient of Variation 13.9 % (11.5-14.5); Red Blood Count 4.03 M/uL (4.7-6.1); White Blood Count 5.78 K/uL (4.8-10.8)
[2020-08-10 07:32] LABS: BUN Creatinine Ratio 24.9 (10-20); Calcium 8.8 mg/dl (8.5-10.1); Creatinine Clr Calc Pharmacy 126.3 ml/min; Est GFR (African American) 121.3 ml/min; Est GFR (Non-African American) 104.6 ml/min; Potassium 3.9 mmol/L (3.5-5.1)
[2020-08-10] MEDS: CIPROFLOXACIN / D5W 400 MG/200 ML BAG IV SCH (07:59)
[2020-08-10] MEDS: METOPROLOL SUCC 50MG EXT REL TAB PO SCH (08:00)
[2020-08-10] MEDS: DOCUSATE SODIUM 100 MG CAP PO SCH (08:00)
[2020-08-10] MEDS ORDERED: ASPIRIN 81 MG ECTAB PO SCH (09:00)
[2020-08-10] MEDS ORDERED: MULTIVITAMIN TAB PO SCH (09:00)
[2020-08-10] MEDS ORDERED: LOSARTAN POTASSIUM 50 MG TAB PO SCH (09:00)
[2020-08-10] MEDS: INSULIN ASPART 100 UNITS/ML 3 ML PEN SC SCH ×2 (10:49→14:22)
[2020-08-10] MEDS ORDERED: OXYBUTYNIN CHLORIDE 5 MG TAB PO PRN (13:23)
--- NOTE | 2020-08-10 13:59 | Discharge Summary ---
Date of Service August 10, 2020 Admission HPI Per Admitting Provider This patient is a 60-year-old male with a recent history of left-sided ureterolithiasis requiring stent placement, myotonic dystrophy, COVID-19 infection in 02/2020 with residual dyspnea, DM 2, HTN, BPH, hyperlipidemia, and history of colectomy for diverticulitis with recurrent ventral hernia, who presents to the ER with 3 days of worsening right-sided flank pain radiating down into the groin and intractable nausea and vomiting. He has had blood in his urine since his last kidney stone several weeks ago requiring stent placement and removal. He denies any fevers or chills. He is making plenty of urine. He denies any abdominal pain otherwise and denies constipation. In the ER, on CT abdomen/pelvis he was found to have 2 right proximal ureteral stones measuring 6 and 3 mm with mild hydronephrosis on the right. He was also noted to have resolving mild to moderate left-sided hydronephrosis from previous stone but no obstructing stones on the left, as well as moderate amount of stool in the colon and a relative caliber change at the level of the colonic anastomosis with a question of colonic obstruction. Patient reports he has been moving his bowels regularly. He had no evidence of infection on UA and was afebrile, vital signs otherwise stable. There was no evidence of renal failure. He was seen by urology in the ER and will be taken to the OR today for stent placement. Principal Diagnosis Ureterolithiasis Discharge Exam Constitutional WD/WN, vitals as above + obese Eyes + anicteric sclerae Neck trachea midline, no thyromegaly Respiratory normal respiratory effort, lungs clear to auscultation Cardiovascular Rate/Rhythm: regular rate and regular rhythm Heart Sounds: + murmur (2/6 systolic at the apex) Extremities: + edema (Trace pitting edema of the legs bilaterally) Chest (Breasts) Chest: normal inspection of chest Gastrointestinal (Abdomen) normal bowel sounds, soft, nontender, no hepatosplenomegaly Inspection/Auscultation: normal bowel sounds and + visible herniation (Reducible); + abdomen abnormal to inspection (Surgical incisional scar) and abdomen not distended Percussion/Palpation: abdomen soft; abdomen nontender and no guarding Musculoskeletal Extremities: extremities normal to inspection; no cyanosis and no clubbing Skin no rashes, warm and dry Neurologic moves all extremities and awake; no focal motor deficits Psychiatric A+Ox3, euthymic affect Lymphatic no lymphedema Discharge Data Allergies Allergy/AdvReac Type Severity Reaction Status Date / Time cat dander Allergy Mild COUGH Verified 08/09/20 07:57 Consultations 08/09/20 07:58 ED Decision to Admit Stat 08/09/20 11:41 Consult Urology Routine Procedures Performed Operation Date: 08/09/20 08:20 Actual Procedures p Cystoscopy, Right Ureteroscopy, Ureteral Dilation, Laser Lithotripsy, Stone Basket Extraction,(Right) - Eliud Gipson DO s Right Stent Placement(Right) - Eliud Gipson DO Ordered Studies 08/09/20 FL retrograde includes kub Routine 08/09/20 05:04 CT abd pelvis wo con Urgent 08/10/20 08/10/20 08/10/20 Range/Units 12:05 08:29 06:18 WBC (4.8-10.8) K/uL RBC (4.7-6.1) M/uL Hgb (14.0-18.0) g/dL Hct (42-52) % MCV (80-100) fL MCH (25-34) pg MCHC (32-36) g/dL RDW Std Deviation (36.4-46.3) fL RDW Coeff of Ginny (11.5-14.5) % Plt Count (130-400) K/uL MPV (7.4-10.4) fL Immature Gran % (Auto) % Neut % (Auto) % Lymph % (Auto) % Dale % (Auto) % Eos % (Auto) % Baso % (Auto) % Neut # (Auto) (1.4-6.5) K/uL Lymph # (Auto) (1.2-3.4) K/uL Dale # (Auto) (0.11-0.59) K/uL Eos # (Auto) (0-0.5) K/uL Baso # (Auto) (0-0.2) K/uL Immature Gran # (Auto) (0.00-0.02) K/uL Sodium 142 (136-145) mmol/L Potassium 3.9 (3.5-5.1) mmol/L Chloride 110 H (98-107) mmol/L Carbon Dioxide 28 (21-32) mmol/L Anion Gap 4.0 (3-11) BUN 17 (7-18) mg/dl Creatinine 0.69 (0.6-1.4) mg/dl Est Cr Clr Drug Dosing 126.3 ml/min Est GFR ( Amer) 121.3 ml/min Est GFR (Non-Af Amer) 104.6 ml/min BUN/Creatinine Ratio 24.9 H (10-20) Glucose 149 H (70-99) mg/dl POC Glucose 215 H 183 H (70-99) mg/dl Calcium 8.8 (8.5-10.1) mg/dl Lipase 236 (73-393) U/L Stone Source Stone Weight Stone Composition Stone Composition 2 08/10/20 08/09/20 08/09/20 Range/Units 06:18 20:46 17:34 WBC 5.78 (4.8-10.8) K/uL RBC 4.03 L (4.7-6.1) M/uL Hgb 12.5 L (14.0-18.0) g/dL Hct 37.5 L (42-52) % MCV 93.1 (80-100) fL MCH 31.0 (25-34) pg MCHC 33.3 (32-36) g/dL RDW Std Deviation 47.0 H (36.4-46.3) fL RDW Coeff of Ginny 13.9 (11.5-14.5) % Plt Count 201 (130-400) K/uL MPV 9.7 (7.4-10.4) fL Immature Gran % (Auto) 0.2 % Neut % (Auto) 65.7 % Lymph % (Auto) 15.7 % Dale % (Auto) 10.2 % Eos % (Auto) 8.0 % Baso % (Auto) 0.2 % Neut # (Auto) 3.80 (1.4-6.5) K/uL Lymph # (Auto) 0.91 L (1.2-3.4) K/uL Dale # (Auto) 0.59 (0.11-0.59) K/uL Eos # (Auto) 0.46 (0-0.5) K/uL Baso # (Auto) 0.01 (0-0.2) K/uL Immature Gran # (Auto) 0.01 (0.00-0.02) K/uL Sodium (136-145) mmol/L Potassium (3.5-5.1) mmol/L Chloride (98-107) mmol/L Carbon Dioxide (21-32) mmol/L Anion Gap (3-11) BUN (7-18) mg/dl Creatinine (0.6-1.4) mg/dl Est Cr Clr Drug Dosing ml/min Est GFR ( Amer) ml/min Est GFR (Non-Af Amer) ml/min BUN/Creatinine Ratio (10-20) Glucose (70-99) mg/dl POC Glucose 177 H 114 H (70-99) mg/dl Calcium (8.5-10.1) mg/dl Lipase (73-393) U/L Stone Source Stone Weight Stone Composition Stone Composition 2 08/09/20 08/09/20 Range/Units 14:58 14:30 WBC (4.8-10.8) K/uL RBC (4.7-6.1) M/uL Hgb (14.0-18.0) g/dL Hct (42-52) % MCV (80-100) fL MCH (25-34) pg MCHC (32-36) g/dL RDW Std Deviation (36.4-46.3) fL RDW Coeff of Ginny (11.5-14.5) % Plt Count (130-400) K/uL MPV (7.4-10.4) fL Immature Gran % (Auto) % Neut % (Auto) % Lymph % (Auto) % Dale % (Auto) % Eos % (Auto) % Baso % (Auto) % Neut # (Auto) (1.4-6.5) K/uL Lymph # (Auto) (1.2-3.4) K/uL Dale # (Auto) (0.11-0.59) K/uL Eos # (Auto) (0-0.5) K/uL Baso # (Auto) (0-0.2) K/uL Immature Gran # (Auto) (0.00-0.02) K/uL Sodium (136-145) mmol/L Potassium (3.5-5.1) mmol/L Chloride (98-107) mmol/L Carbon Dioxide (21-32) mmol/L Anion Gap (3-11) BUN (7-18) mg/dl Creatinine (0.6-1.4) mg/dl Est Cr Clr Drug Dosing ml/min Est GFR ( Amer) ml/min Est GFR (Non-Af Amer) ml/min BUN/Creatinine Ratio (10-20) Glucose (70-99) mg/dl POC Glucose 119 H (70-99) mg/dl Calcium (8.5-10.1) mg/dl Lipase (73-393) U/L Stone Source Pending Stone Weight Pending Stone Composition Pending Stone Composition 2 Pending Retrograde Pyelogram 08/09/20 00:00 FL retrograde includes kub CLINICAL HISTORY: RETROGRADE AND STENT PLACEMENT COMPARISON STUDY: None. FLUOROSCOPY TIME: 35 seconds. FINDINGS: 4 fluoroscopic spot images of the abdomen and pelvis demonstrate retrograde opacification of the right renal collecting system followed by a smooth right ureteral stent. The ureteral stent appears in good position. IMPRESSION: Fluoroscopy provided for right ureteral stent placement which appears in good position. ACT 112: Negative or not required by law. Electronically signed by: Jemal Gallegos M.D. 08/09/2020 3:37 PM Abdomen/Pelvis CT 08/09/20 05:04 CT OF THE ABDOMEN AND PELVIS WITHOUT CONTRAST CLINICAL HISTORY: Right flank pain. History of stones. COMPARISON STUDY: CT of the abdomen and pelvis June 11, 2020. TECHNIQUE: Axial images of the abdomen and pelvis were obtained without IV contrast. Images were reviewed in the axial, sagittal, and coronal planes. Automated exposure control was utilized for the study. A dose lowering technique was utilized adhering to the principles of ALARA. FINDINGS: Lung bases are unremarkable. A 6 mm proximal right ureteral calculus results in mild right hydronephrosis. There is an adjacent 3 mm right ureteral calculus. Multiple bilateral renal calculi are noted. These measure up to 5 mm. Mild to moderate left hydronephrosis has slightly decreased since prior CT. A few punctate nonobstructing calculi within the dependent aspect of the left ureteropelvic junction are noted. Evaluation of the remainder of the abdomen and pelvis is suboptimal on this unenhanced examination. The liver, spleen, adrenal glands and pancreas are unremarkable. A moderate amount stool is noted within the colon. Anastomosis at the junction of the descending colon and sigmoid colon is noted. Colon distal to the anastomosis is relatively decompressed. There is no ascites. There is no lymphadenopathy. No suspicious osseous lesions are present. IMPRESSION: 1. 6 mm proximal right ureteral calculus which results in mild right hydr onephrosis. Adjacent 3 mm proximal right ureteral calculus. 2. Bilateral nephrolithiasis. 3. Mild to moderate left hydronephrosis, decreased since CT of June 11, 2020. A few nonobstructing punctate calculi within the dependent aspect of the left ureteropelvic junction, significantly decreased since prior CT. 4. Moderate amount stool within the colon. Apparent relative caliber change at the level of the colonic anastomosis. A colonic obstruction is considered unlikely however correlation with clinical evidence for a bowel obstruction is recommended. ACT 112: Negative or not required by law. Electronically signed by: Tashi Pedroza M.D. 08/09/2020 6:38 AM Hospital Course (1) Calculus of proximal right ureter: With proximal right sided 6 and 3 mm ureteral stones with mild hydronephrosis, intractable nausea/vomiting and pain -Admitted to medical/surgical -Consult urology appreciated-now s/p stent placement and laser lithotripsy with basket extraction received IVFs for jhydration, pain control DOing well, haivng some spasms and can use oxybutynin after discharge for this -No evidence of sepsis or UTI-Cipro was given for prophylaxis prior to stent placement as per urology F/u with Urology in 1 week for stent removal (2) Hydronephrosis with renal and ureteral calculous obstruction: As above (3) Right flank pain: As above, secondary to right ureteral lithiasis and hydronephrosis improving (4) KARMEN (obstructive sleep apnea): used home CPAP (5) Peripheral neuropathy: No acute issues No medications for this (6) Obesity: BMI 36.3 Needs weight loss (7) HTN, goal below 140/90: Blood pressures are controlled Continue home losartan, metoprolol restart home furosemide on discharge Continue home aspirin (8) Lower extremity edema: Trace amount EVELIA hose ordered Lasix prn (9) Myotonic dystrophy, type 2: Follows with neurology Dr. Ward of [facility] as well as a neuromuscular specialist in [place] Is followed by cardiology at [facility]-he has no known arrhythmias or coronary artery disease however he does have coronary artery calcifications on CT and is planning on having a stress test in the near future He had some chronic dyspnea since having Covid but has scarring in the lungs and CT on 05/2020 Follows with pulmonology as well (10) DM2 (diabetes mellitus, type 2): Most recent hemoglobin A1c well controlled Hold home glimepiride and Metformin while here and can restart on discharge Give NovoLog sliding scale while here (11) Hypercholesterolemia: Continue statin No acute issues (12) Allergic rhinitis: Continue home Singulair no acute issues (13) BPH w urinary obs/LUTS: Continue Flomax Watch for urinary retention-none (14) Coronary artery calcification: As above Follows with cardiology (15) DVT prophylaxis: SCDs, EVELIA hose, hold off on chemical anticoagulation prophylaxis given ongoing gross hematuria and need for procedure Disposition-stable for dc to home, care discussed with Urology Full code Total Time Total Time Spent Total Time Spent (In Minutes): 35 min Total Time Includes: Examination of the Patient, Discharge Planning, Medication Reconciliation and Communication With Other Providers Discharge Plan Discharge Items Patient Disposition: Home - Self-Care Reason For Visit: URETEROLITHIASIS Discharge Diagnosis: Ureterolithiasis Condition on Discharge: Fair Activity: As commented below Lifting: Gradually increase as tolerated Bathing: No limitations Exercise/Sports: Gradually increase as tolerated Non-emergency contact: Primary Care Provider and Urologist Call non-emergency contact if: you have any medication questions, your symptoms worsen, your pain is not controlled, your pain is worsening, you have a fever and your temperature is above 101 Follow-up/Referrals: Calvin Guthrie MD [Physician] - (Please keep your already scheduled appointment with Dr. Guthrie) Calli Dior MD [Primary Care Provider] - (Follow up within 1-2 weeks.) Diet: Carb Consistent or DM2 and Heart Healthy Addtl Attending Provider Instructions: You can take oxybutynin twice a day as needed for spasms in your back related to the stent. Please continue to drink plenty of fluids and keep your bowels moving regularly, once to twice a day. Follow up with Dr. Guthrie as previously scheduled and you will need to have your stent removed. Pending Studies at Discharge: No Stand-Alone Forms: My [facility] [employer] Medications and DC Order Prescriptions: New docusate sodium 100 mg Capsule 100 mg PO BID Qty: 60 RF: 0 polyethylene glycol 3350 [Miralax] 17 gram Powder In Packet 17 g PO DAILY Qty: 14 RF: 0 oxybutynin chloride 5 mg Tablet 5 mg PO BID PRN (Reason: bladder spasms) Qty: 14 RF: 0 Continued metformin 1,000 mg tablet 1,000 mg PO BID Qty: 180 RF: 3 tamsulosin 0.4 mg capsule 0.4 mg PO HS Qty: 90 RF: 1 metoprolol succinate 50 mg tablet extended release 24 hr 50 mg PO QAM Qty: 90 RF: 1 glipizide 5 mg tablet 5 mg PO BID Qty: 60 RF: 5 (DME) OneTouch Verio test strips Strip See Rx Instructions .ROUTE .MEDSUPPLY Qty: 50 RF: 0 furosemide 20 mg tablet 20 mg PO QAM PRN (Reason: edema) Qty: 20 RF: 0 Auto Titrating CPAP Misc See Rx Instructions .ROUTE .COMPLEX Qty: 1 RF: 0 (DME) CPAP Supplies Misc See Rx Instructions .ROUTE .MEDSUPPLY Qty: 1 RF: 0 losartan 50 mg tablet 50 mg PO QAM Qty: 90 RF: 1 montelukast [Singulair] 10 mg tablet 10 mg PO QPM Qty: 30 RF: 2 atorvastatin 40 mg tablet 40 mg PO .COMPLEX 90 Days Qty: 36 RF: 1 multivitamin [Daily Multi-Vitamin] tablet 1 tab PO QAM RF: 0 (DME) lancets [OneTouch Delica Lancets] 33 gauge misc See Dose Instructions .ROUTE .MEDSUPPLY Qty: 100 RF: 0 (DME) compress.stocking,knee,reg,med Misc See Rx Instructions .ROUTE .MEDSUPPLY Qty: 2 RF: 0 fluticasone propionate [Flonase Allergy Relief] 50 mcg/actuation spray,suspension 2 sprays INTNAS DAILY PRN (Reason: Nasal Congestion) RF: 0 aspirin 81 mg Tablet,Delayed Release (Dr/Ec) 81 mg PO QAM RF: 0 omega 1-vud-siw-fish oil [Fish Oil] 1,000 mg (120 mg-180 mg) Capsule 1 cap PO BID RF: 0 albuterol sulfate [ProAir HFA] 90 mcg/actuation HFA aerosol inhaler 2 puff inhalation Q4H PRN (Reason: shortness of breath or wheezing) RF: 0 hydrocodone-acetaminophen 5-325 mg tablet 1 tab PO Q6H PRN (Reason: pain) Qty: 20 RF: 0 Discharge Orders: Discharge Order (Routine); Ordered 08/10/20 Ordered By: Migdalia Lal Admission Data Admit Date/Time: 08/09/20 10:16 Attending Provider: Migdalia Lal Admit Provider: Migdalia Lal Primary Care Provider: Calli Dior Other Providers: Eliud Gipson ; Migdalia Lal Coding Level of Care Code D/C Day Management >30 mins Diagnoses Calculus of proximal right ureter N20.1 Hydronephrosis with renal and ureteral calculous obstruction N13.2 Right flank pain R10.9 KARMEN (obstructive sleep apnea) G47.33 Peripheral neuropathy G62.9 Obesity E66.9 Obesity classification: adult class 1 (BMI 30 - 34.9) HTN, goal below 140/90 I10 Lower extremity edema R60.0 Myotonic dystrophy, type 2 G71.11 DM2 (diabetes mellitus, type 2) E11.9 Hypercholesterolemia E78.00 Allergic rhinitis J30.9 BPH w urinary obs/LUTS N40.1; N13.8 Coronary artery calcification I25.10; I25.84 DVT prophylaxis Z29.9
[2020-08-14 20:56] LABS: Component 2 DNR; Source R URETER
== END 2020-08-10 15:47 | disposition home or self-care (01) | DRG 661 ==
LOC: ED 04:45 → 3W 10:16

== ENCOUNTER 2023-06-03 11:20 | Observation (INO) ==
--- NOTE | 2023-06-03 11:53 | Emergency Department Note ---
Impression & Plan Speech abnormality, Hypertension, Muscle twitching, History of Lyme disease ED Provider Note NAME: TONY THORPE AGE: 63 SEX: M : 1960 ARRIVES VIA: Walk-In INFORMANT: [Patient][daughter] ED PROVIDER(S): [Wilfrid Perrin MD] CHIEF COMPLAINT: Neuro symptoms HISTORY OF PRESENT ILLNESS: The patient is a 63-year-old male who states that around 930, 2 hours and 15 minutes ago, he began noticing some jerking and shaking of his muscles and extremities and noticed a mild headache with some nausea and dizziness. He did not have any slurred speech but at times, had a hard time finding the right words. Sometimes, his speech would be delayed. He was brought to the hospital for evaluation by his daughter. The patient takes aspirin daily, no other blood thinning agents. As per the family, the patient's blood sugar was around 100 by their testing. As per the patient, he had some similar muscle twitching last year when he was diagnosed with Lyme disease. PMHx/PSHx/Social Hx: See Below PHYSICAL EXAM: GENERAL: Patient is in no acute distress. HEENT: No acute trauma, normocephalic atraumatic, mucous membranes moist, no nasal congestion. NECK: No stridor, no adenopathy, no meningismus, trachea is midline. LUNGS: Clear to auscultation bilaterally, no wheeze, no rhonchi, breath sounds equal. HEART: Without murmurs gallops or rubs, regular rate and rhythm. ABDOMEN: Soft, nontender, no peritonitis. EXTREMITIES: No cyanosis, full range of motion of all the joints without pain or difficulty. NEUROLOGIC: Oriented x 3, no acute motor or sensory deficits, no focal weakness. No facial droop or speech slur. No extremity drift. Occasional delay to finding his words when speaking. SKIN: No jaundice, no diaphoresis. DIFFERENTIAL DIAGNOSIS: Electrolyte imbalance, stroke or TIA, medication reaction, UTI, dehydration, among others. EMERGENCY DEPARTMENT PROCEDURES: MEDICAL DECISION MAKING: There is no leukocytosis or concerning anemia. There is a normal platelet count. There is no coagulopathy. No renal failure or significant electrolyte abnormality. No concerning liver enzyme elevation. Urinalysis does not show findings of infection. Lyme disease screen was positive, IgG and Ig M screens were both positive however, they were positive last year when he had Lyme disease. The Lyme disease findings could suggest hold over positive Lyme results versus a new Lyme infection. Brain CT scan does not show any acute bleed or mass effect. CT angio of the head and neck were performed, there was no significant stenosis or clot. On my exam, the patient did not have a speech slur but did at times have a hard time finding his words. No extremity drift. Official nursing stroke scale value was 0. The patient was aggressively managed given his findings. The patient did not meet criteria for TNK as his stroke scale was 0. The patient presents with some neurologic complaints. He may have a new case of Lyme disease, he may have had a small stroke not seen on CT imaging. The patient was hypertensive. His blood pressure did improve spontaneously while here in the ED. He was given a 500 cc saline bolus for hydration purposes. He was given some IV Zofran for nausea. He did not want anything for pain. The patient does seem to be doing better since he arrived in the ED. The cause for his complaints is not completely clear and further workup is warranted. Hospitalization is indicated. I did speak with the patient and case management, the on-call hospitalist was consulted. Prior/Outside records/notes reviewed: None ECG per my interpretation: Indication was possible stroke. ECG shows a normal sinus rhythm with a rate of 68. There is no ST elevation, no PVCs but the QTc is 440. Continuous Cardiac Monitoring per my interpretation: An order was placed for continuous cardiac monitoring. The monitor shows a rate of 72 with normal sinus rhythm. Imaging/x-ray results per my interpretation: Chronic Medical/Social conditions affecting care: History of myotonic dystrophy. Care/Management discussed with: Case management, the on-call hospitalist. Level of care consideration(s): After review of the information above and other included data: --I believe the patient requires escalation of care to admission Critical Care Note: I have personally spent 48 minutes of critical care time in the direct management of this patient. This includes bedside care, interpretation of diagnostic studies, and testing, discussion with consultants, patient, and family members, and other required patient management activities. This 48 minutes is in excess of all separately billable procedures. DISPOSITION: Admission Past Med/Surg History Medical History Dyspnea Calculus of proximal right ureter KARMEN (obstructive sleep apnea) CPAP Arthritis Kidney stones History of diverticulitis History of COVID-19 POSITIVE 02/12/20. HOSPITALIZED, [place] WITH ABX AND REMDESIVIR. MILD RESIDUAL REYNOLDS/SOB. SCARRING NOTED ON CHEST CT 05/2020 Hiatal hernia Coronary artery calcification Noted on [address] 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 Scarring of lung R/T COVID VIRUS (FOLLOWING WITH PULMONOLOGY) Lower extremity edema LASIX PRN BPH w urinary obs/LUTS Pneumonia due to 2019-nCoV Hypertension Allergic rhinitis DM2 (diabetes mellitus, type 2) Hypercholesterolemia Myotonic dystrophy, type 2 FOLLOWS WITH [facility]. Surgical History S/P cystoscopy with ureteral stent placement [place] teeth removed History of incisional hernia repair History of appendectomy History of partial colectomy History of colostomy History of colostomy reversal History of esophagogastroduodenoscopy (EGD) History of colonoscopy with polypectomy History of bilateral cataract extraction Family History Mother Cancer Family history of diabetes mellitus Brother Myotonic dystrophy Sister Myotonic dystrophy Diabetes Father Stroke Diabetes Brother Prostate cancer Lewy body dementia Brother Colorectal cancer Daughter No problems noted. Son Diabetes Other No family history of adverse response to anesthesia Denies family history of Ovarian cancer Myocardial infarction Breast cancer Social History Smoking Status: Never smoker Tobacco Type: Cigars Age Started Using Tobacco: 37; Age Quit Using Tobacco: 59; Cigarettes Per Day: smoked cigars intermittently; Second Hand Exposure: No; Do You Dip or Chew Tobacco: No; Hx Alcohol Use: Yes Alcohol type: hard liquor Alcohol Intake Frequency: Monthly or Less Hx Substance Use: No Preferred Language: Stateless Communication Ability: Effective Visual Impairment: No Limitations Hearing Ability: Normal Maintenance Department Manager Required: No Beliefs That Will Affect Care: None marital status: Current Living Situation: Spouse and Family Current Living Situation Comment: Lives with and son current occupational status: employed Feels Safe at Home: Yes Childhood Exposure to Second-Hand Smoke: Yes Diet: low carbohydrate and other Diet Comment: low sugar, low carbs Dental Care, Regularly: No Physical Activity Frequency: Daily Seatbelt Use: sometimes Sunscreen Use: No Do you think of yourself as: straight/heterosexual Assistive Devices: CPAP and Glasses Allergies Allergies Allergy/AdvReac Type Severity Reaction Status Date / Time cat dander Allergy Mild COUGH Verified 06/02/23 10:21 No Known Drug Allergies Allergy Verified 06/02/23 10:21 Home Meds Home Medications Medication Instructions Recorded Confirmed multivitamin (Daily Multi-Vitamin 1 tab PO QAM 09/12/18 06/03/23 tablet) lancets 33 gauge (OneTouch Delica #100 ea 11/07/18 06/02/23 Lancets) aspirin 81 mg tablet,delayed 81 mg PO QAM 02/14/20 06/03/23 release omega 7-iqn-cgu-fish oil 1,000 mg 1 cap PO BID 02/14/20 06/03/23 (120 mg-180 mg) capsule (Fish Oil) loratadine 10 mg tablet 10 mg PO DAILY PRN Allergy Symptoms 09/11/20 06/03/23 montelukast 10 mg tablet 10 mg PO QPM PRN Allergy Symptoms 06/16/22 06/03/23 (Singulair) mexiletine 150 mg capsule 150 mg PO Q8H 04/27/23 06/03/23 Auto Titrating CPAP 06/03/23 06/03/23 CPAP Machine 06/03/23 06/03/23 Previous Rx's Medication Instructions Recorded compress.stocking,knee,reg,med #2 ea 02/28/20 albuterol sulfate 90 mcg/actuation 2 puff inhalation Q4H PRN 09/10/20 aerosol inhaler (ProAir HFA) shortness of breath or wheezing #18 grams CPAP Supplies #1 ea 07/09/21 atorvastatin 40 mg tablet 40 mg PO .COMPLEX 90 days #36 tabs 11/04/22 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 meter,continuous #1 ea 03/24/23 (Clavistercom G7 Apprentice Painter Brush) tamsulosin 0.4 mg capsule 0.4 mg PO HS #90 caps 03/24/23 metformin 1,000 mg tablet 1,000 mg PO BID #180 tabs 03/26/23 losartan 25 mg tablet See Rx Instructions .Route 04/20/23 .COMPLEX #90 tabs glipizide 5 mg tablet 2.5 mg (1/2 x 5 mg) PO QAM #30 tabs 04/22/23 blood sugar diagnostic (OneTouch #50 ea 04/27/23 Verio test strips) fluticasone propionate 50 See Rx Instructions .Route 05/20/23 mcg/actuation nasal .COMPLEX #16 mL spray,suspension gentamicin 0.3 % eye drops 2 drp ophthalmic (eye) Q4H #5 mL 05/27/23 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 sensor (Dexcom G7 #3 ea 05/31/23 Sensor device) Results & Data (ED) Vital Signs Vital Signs - 24 hr 06/03/23 11:30 06/03/23 12:11 06/03/23 12:11 Temperature 37.0 C Temperature Source Temporal Artery Scan Pulse Rate 81 Pulse Rate [Apical] Respiratory Rate 19 18 Respiratory Effort / Characteristics Non-Labored Spontaneous Non-Labored Respiratory Depth Normal Normal Respiratory Pattern Blood Pressure 177/103 H Blood Pressure [Right Arm] Blood Pressure Mean 127 Blood Pressure Mean [Right Arm] Pulse Oximetry 98 Oxygen Delivery Method Room Air Room Air Sepsis Recent Fever Within 48 Hours No Sepsis New/Unexplained Change in Mental Status No Sepsis Action Taken by Nursing No Action Required 06/03/23 12:33 06/03/23 14:00 Temperature Temperature Source Pulse Rate 72 Pulse Rate [Apical] 65 Respiratory Rate 18 Respiratory Effort / Characteristics Non-Labored Respiratory Depth Normal Respiratory Pattern Regular Blood Pressure Blood Pressure [Right Arm] 140/82 Blood Pressure Mean Blood Pressure Mean [Right Arm] 101 Pulse Oximetry 96 Oxygen Delivery Method Room Air Sepsis Recent Fever Within 48 Hours Sepsis New/Unexplained Change in Mental Status Sepsis Action Taken by Skilled Nursing Medications Current Medication List: was personally reviewed by me Laboratory Data Attestation: I reviewed the patient's lab results. 06/03/23 12:00 06/03/23 12:00 Lab Results 06/03/23 06/03/23 Range/Units 12:00 Unknown WBC 5.04 (4.8-10.8) K/ul RBC 4.58 L (4.70-6.10) M/uL Hgb 14.5 (14.0-18.0) g/dl Hct 43.1 (42.0-52.0) % MCV 94.1 (80.0-100.0) fL MCH 31.7 (25.0-34.0) pg MCHC 33.6 (32.0-36.0) g/dL RDW Std Deviation 46.1 (36.4-46.3) fL RDW Coeff of Ginny 13.3 (11.5-14.5) % Plt Count 219 (130-400) K/uL MPV 9.7 (9.4-12.4) fL Immature Gran % (Auto) 0.6 % Neut % (Auto) 58.0 % Lymph % (Auto) 21.8 % Cassia % (Auto) 9.5 % Eos % (Auto) 9.3 % Baso % (Auto) 0.8 % Neut # (Auto) 2.92 (1.40-6.50) K/uL Lymph # (Auto) 1.10 L (1.20-3.40) K/uL Cassia # (Auto) 0.48 (0.11-0.59) K/uL Eos # (Auto) 0.47 (0.00-0.50) K/uL Baso # (Auto) 0.04 (0.00-0.20) K/uL Immature Gran # (Auto) 0.03 (0.01-0.20) K/uL PT 10.5 (9.0-12.0) Seconds INR 1.0 (0.9-1.1) APTT 28 (21-31) Seconds PTT Ratio 1.0 Sodium 138 (136-145) mmol/L Potassium 4.1 (3.5-5.1) mmol/L Chloride 105 (98-107) mmol/L Carbon Dioxide 24 (21-32) mmol/L Anion Gap 9 (3-11) BUN 18 (6-23) mg/dl Creatinine 0.54 L (0.6-1.4) mg/dl Est Cr Clr Drug Dosing 161.9 ml/min Est GFR ( Amer) 131.3 ml/min Est GFR (Non-Af Amer) 113.3 ml/min BUN/Creatinine Ratio 33.3 H (10-20) Glucose 108 H (70-99(Fasting)) mg/dl Calcium 9.7 (8.6-10.3) mg/dl Magnesium 1.9 (1.7-2.4) mg/dl Total Bilirubin 0.5 (0.2-1.0) mg/dl AST 34 (13-39) U/L ALT 42 (7-52) U/L Alkaline Phosphatase 65 (34-104) U/L Troponin I High Sens 4.3 (0-20) pg/ml Total Protein 6.5 (6.0-8.3) gm/dl Albumin 4.1 (3.4-5.0) gm/dl Globulin 2.4 L (2.5-4.0) gm/dl Albumin/Globulin Ratio 1.7 (0.9-2) Urine Color Yellow Urine Appearance Clear (Clear) Urine pH 6.5 (4.5-7.5) Ur Specific Lindsay 1.023 (1.000-1.030) Urine Protein Negative (Negative) Urine Glucose (UA) Negative (Negative) Urine Ketones Negative (Negative) Urine Blood Negative (Negative) Urine Nitrite Negative (Negative) Urine Bilirubin Negative (Negative) Urine Urobilinogen Negative (Negative) Ur Leukocyte Esterase Negative (Negative) Lyme Disease Screen Positive H (Negative) Lyme Disease IgG Ab Positive H (Negative) Lyme Disease IgM Ab Positive H (Negative) Administered Medications Discontinued Medications Sodium Chloride (Nss) 500 mls @ 999 mls/hr IV .Q31M ONE Stop: 06/03/23 12:19 Last Infusion: 06/03/23 12:31 Dose: Infused Documented By: Admin: 06/03/23 11:54 Dose: 999 mls/hr Documented By: PHANI Ioversol (Optiray 350 500ml) 115 ml IV ONCE ONE Stop: 06/03/23 13:21 Last Admin: 06/03/23 13:20 Dose: 115 ml Documented By: CLARE Ondansetron HCl (Ondansetron Inj 2 Mg/Ml 2 Ml Vial) 4 mg IV NOW STA Stop: 06/03/23 11:50 Last Admin: 06/03/23 11:57 Dose: 4 mg Documented By: PHANI Imaging Data Radiologist's Impression: Head CT 06/03/23 11:[address] OF THE BRAIN; CT ANGIOGRAM OF THE BRAIN; CT ANGIOGRAM OF THE NECK CLINICAL HISTORY: Neurological deficit. Stroke like symptoms. Headache. Lightheadedness. COMPARISON STUDY: No priors. TECHNIQUE: Unenhanced axial CT scan of the brain is performed. Subsequently, following the IV administration of 115 of Optiray 350, CT angiogram of the head and neck was performed from the aortic arch to the vertex. Images are reviewed in the axial, sagittal, and coronal planes. 3-D MIPS images are created and assessed. IV contrast was administered without complication. All measurements were calculated based on NASCET criteria. A dose lowering technique was utilized adhering to the principles of ALARA. CT DOSE: 1029.53 mGy.cm FINDINGS: Brain parenchyma: There is age-related involutional change noting minimal microangiopathic disease. There is no hemorrhage, mass effect, or evidence of acute territorial ischemia by CT criteria. There is no evidence of enhancing mass lesion on the angiogram phase images. The ventricles, sulci, and cisterns are prominent secondary to involutional change. Kuhn-white matter differentiation is preserved. No extra-axial fluid collection is seen. Thoracic aorta: Visualized portions of the thoracic aorta are normal in caliber. The aortic arch demonstrates bovine variant anatomy. Right carotid arterial system: The right common carotid artery is widely patent, as are the right internal and external carotid arteries. Left carotid arterial system: The left common carotid artery is widely patent, as are the left internal and external carotid arteries. Vertebral arteries: The vertebral arteries are widely patent bilaterally and codominant. Subclavian arteries: Widely patent bilaterally. Intracranial vasculature: The internal carotid arteries are patent at the skull base, as are the anterior and middle cerebral arteries bilaterally. The vertebrobasilar system and posterior cerebral arteries are widely patent. The vertebral arteries are codominant. There is a right posterior communicating artery. There is no aneurysm, high-grade stenosis, or focal vessel cut off seen throughout the intracranial circulation. Jugular veins: Patent bilaterally. Dural sinuses: Patent. Lung apices: Partially visualized upper lobe lung parenchyma appears clear. Soft tissues: The visualized pharyngeal soft tissues are normal in appearance noting angiographic phase technique. The oropharyngeal airway appears widely patent. The salivary and thyroid glands are normal in appearance. No cervical lymphadenopathy is seen. Skeletal structures: The calvarium appears intact. The cervical spine is within normal limits noting mild spondylotic change. Orbits: The bony orbits are intact. Orbital contents are normal as visualized. Sinuses and mastoids: There is trace mucosal thickening within the maxillary antra. The remaining paranasal sinuses are clear. The mastoid air cells are well pneumatized. IMPRESSION: 1. There is no hemorrhage, mass effect, or evidence of acute territorial ischemia by CT criteria. 2. Unremarkable CT angiogram of the brain. 3. Unremarkable CT angiogram of the neck. ACT 112: Negative or not required by law. Electronically signed by: Wilfrid Sierra M.D. 06/03/2023 1:31 PM Head CTA 06/03/23 11:[address] OF THE BRAIN; CT ANGIOGRAM OF THE BRAIN; CT ANGIOGRAM OF THE NECK CLINICAL HISTORY: Neurological deficit. Stroke like symptoms. Headache. Lightheadedness. COMPARISON STUDY: No priors. TECHNIQUE: Unenhanced axial CT scan of the brain is performed. Subsequently, following the IV administration of 115 of Optiray 350, CT angiogram of the head and neck was performed from the aortic arch to the vertex. Images are reviewed in the axial, sagittal, and coronal planes. 3-D MIPS images are created and assessed. IV contrast was administered without complication. All measurements were calculated based on NASCET criteria. A dose lowering technique was utilized adhering to the principles of ALARA. CT DOSE: 1029.53 mGy.cm FINDINGS: Brain parenchyma: There is age-related involutional change noting minimal microangiopathic disease. There is no hemorrhage, mass effect, or evidence of acute territorial ischemia by CT criteria. There is no evidence of enhancing mass lesion on the angiogram phase images. The ventricles, sulci, and cisterns are prominent secondary to involutional change. Kuhn-white matter differentiation is preserved. No extra-axial fluid collection is seen. Thoracic aorta: Visualized portions of the thoracic aorta are normal in caliber. The aortic arch demonstrates bovine variant anatomy. Right carotid arterial system: The right common carotid artery is widely patent, as are the right internal and external carotid arteries. Left carotid arterial system: The left common carotid artery is widely patent, as are the left internal and external carotid arteries. Vertebral arteries: The vertebral arteries are widely patent bilaterally and codominant. Subclavian arteries: Widely patent bilaterally. Intracranial vasculature: The internal carotid arteries are patent at the skull base, as are the anterior and middle cerebral arteries bilaterally. The vertebrobasilar system and posterior cerebral arteries are widely patent. The vertebral arteries are codominant. There is a right posterior communicating artery. There is no aneurysm, high-grade stenosis, or focal vessel cut off seen throughout the intracranial circulation. Jugular veins: Patent bilaterally. Dural sinuses: Patent. Lung apices: Partially visualized upper lobe lung parenchyma appears clear. Soft tissues: The visualized pharyngeal soft tissues are normal in appearance noting angiographic phase technique. The oropharyngeal airway appears widely patent. The salivary and thyroid glands are normal in appearance. No cervical lymphadenopathy is seen. Skeletal structures: The calvarium appears intact. The cervical spine is within normal limits noting mild spondylotic change. Orbits: The bony orbits are intact. Orbital contents are normal as visualized. Sinuses and mastoids: There is trace mucosal thickening within the maxillary antra. The remaining paranasal sinuses are clear. The mastoid air cells are well pneumatized. IMPRESSION: 1. There is no hemorrhage, mass effect, or evidence of acute territorial ischemia by CT criteria. 2. Unremarkable CT angiogram of the brain. 3. Unremarkable CT angiogram of the neck. ACT 112: Negative or not required by law. Electronically signed by: Wilfrid Sierra M.D. 06/03/2023 1:31 PM Neck CTA 06/03/23 11:[address] OF THE BRAIN; CT ANGIOGRAM OF THE BRAIN; CT ANGIOGRAM OF THE NECK CLINICAL HISTORY: Neurological deficit. Stroke like symptoms. Headache. Lightheadedness. COMPARISON STUDY: No priors. TECHNIQUE: Unenhanced axial CT scan of the brain is performed. Subsequently, following the IV administration of 115 of Optiray 350, CT angiogram of the head and neck was performed from the aortic arch to the vertex. Images are reviewed in the axial, sagittal, and coronal planes. 3-D MIPS images are created and assessed. IV contrast was administered without complication. All measurements were calculated based on NASCET criteria. A dose lowering technique was utilized adhering to the principles of ALARA. CT DOSE: 1029.53 mGy.cm FINDINGS: Brain parenchyma: There is age-related involutional change noting minimal microangiopathic disease. There is no hemorrhage, mass effect, or evidence of acute territorial ischemia by CT criteria. There is no evidence of enhancing mass lesion on the angiogram phase images. The ventricles, sulci, and cisterns are prominent secondary to involutional change. Kuhn-white matter differentiation is preserved. No extra-axial fluid collection is seen. Thoracic aorta: Visualized portions of the thoracic aorta are normal in caliber. The aortic arch demonstrates bovine variant anatomy. Right carotid arterial system: The right common carotid artery is widely patent, as are the right internal and external carotid arteries. Left carotid arterial system: The left common carotid artery is widely patent, as are the left internal and external carotid arteries. Vertebral arteries: The vertebral arteries are widely patent bilaterally and codominant. Subclavian arteries: Widely patent bilaterally. Intracranial vasculature: The internal carotid arteries are patent at the skull base, as are the anterior and middle cerebral arteries bilaterally. The vertebrobasilar system and posterior cerebral arteries are widely patent. The vertebral arteries are codominant. There is a right posterior communicating artery. There is no aneurysm, high-grade stenosis, or focal vessel cut off seen throughout the intracranial circulation. Jugular veins: Patent bilaterally. Dural sinuses: Patent. Lung apices: Partially visualized upper lobe lung parenchyma appears clear. Soft tissues: The visualized pharyngeal soft tissues are normal in appearance noting angiographic phase technique. The oropharyngeal airway appears widely patent. The salivary and thyroid glands are normal in appearance. No cervical lymphadenopathy is seen. Skeletal structures: The calvarium appears intact. The cervical spine is within normal limits noting mild spondylotic change. Orbits: The bony orbits are intact. Orbital contents are normal as visualized. Sinuses and mastoids: There is trace mucosal thickening within the maxillary antra. The remaining paranasal sinuses are clear. The mastoid air cells are well pneumatized. IMPRESSION: 1. There is no hemorrhage, mass effect, or evidence of acute territorial ischemia by CT criteria. 2. Unremarkable CT angiogram of the brain. 3. Unremarkable CT angiogram of the neck. ACT 112: Negative or not required by law. Electronically signed by: Wilfrid Sierra M.D. 06/03/2023 1:31 PM Discharge Plan Visit Data Chief Complaint: Neuro Symptoms/Deficit Stated Complaint: DIZZINESS, JERKING OF ARMS AND LEGS, SLURRED SPEEC ED Provider: Wilfrid Perrin Discharge Problem: Speech abnormality, Hypertension, Muscle twitching, History of Lyme disease Patient Disposition: Admitted As Inpatient Condition: Fair Forms Stand Alone Forms: My [facility] [employer] Prescriptions Prescriptions: No Action albuterol sulfate [ProAir HFA] 90 mcg/actuation HFA aerosol inhaler 2 puff inhalation Q4H PRN (Reason: shortness of breath or wheezing) Qty: 18 1RF Rx Instructions: 2 puff inhalation q4-6 hrs PRN; atorvastatin 40 mg tablet 40 mg PO .COMPLEX 90 Days Qty: 36 3RF Rx Instructions: 40 mg PO 3 times a week; Wednesday,Wednesday,Wednesday (DME) Dexcom G7 Apprentice Painter Brush Misc See Rx Instructions .Route Qty: 1 0RF Rx Instructions: As directed tamsulosin 0.4 mg capsule 0.4 mg PO HS Qty: 90 3RF metformin 1,000 mg tablet 1,000 mg PO BID Qty: 180 3RF losartan 25 mg tablet See Rx Instructions .ROUTE .COMPLEX Qty: 90 1RF Dose Instruction: TAKE 1 TABLET BY MOUTH EVERY DAY IN THE MORNING Rx Instructions: TAKE 1 TABLET BY MOUTH EVERY DAY IN THE MORNING glipizide 5 mg tablet 2.5 mg PO QAM Qty: 30 5RF Hold Instructions: hypoglycemic episodes fluticasone propionate 50 mcg/actuation spray,suspension See Rx Instructions .ROUTE .COMPLEX Qty: 16 5RF Dose Instruction: USE 2 SPRAY INTRANASALLY DAILY NEEDED FOR NASAL CONGESTION ADMINISTER INTO EACH NOSTRIL Rx Instructions: USE 2 SPRAY INTRANASALLY DAILY NEEDED FOR NASAL CONGESTION ADMINISTER INTO EACH NOSTRIL (DME) Dexcom G7 Sensor Device See Rx Instructions .Route Qty: 3 5RF Rx Instructions: As directed E11.9, G71.11 loratadine 10 mg tablet 10 mg PO DAILY PRN (Reason: Allergy Symptoms) mexiletine 150 mg capsule 150 mg PO Q8H Rx Instructions: 6 tablets daily (DME) OneTouch Verio test strips Strip See Rx Instructions .ROUTE .MEDSUPPLY Qty: 50 1RF Rx Instructions: monitor glucose 3 times daily and as needed - dx E11.9 multivitamin [Daily Multi-Vitamin] tablet 1 tab PO QAM (DME) lancets [OneTouch Delica Lancets] 33 gauge misc See Dose Instructions .ROUTE .MEDSUPPLY Qty: 100 Rx Instructions: As directed- THREE TIMES DAILY (DME) compress.stocking,knee,reg,med Misc See Rx Instructions .ROUTE .MEDSUPPLY Qty: 2 0RF Rx Instructions: As directed (DME) CPAP Supplies Misc See Rx Instructions .ROUTE .MEDSUPPLY Qty: 1 0RF Rx Instructions: Full facemask, [facility] gentamicin 0.3 % drops 2 drp ophthalmic (eye) Q4H Qty: 5 1RF aspirin 81 mg Tablet,Delayed Release (Dr/Ec) 81 mg PO QAM omega 2-qxg-ifx-fish oil [Fish Oil] 1,000 mg (120 mg-180 mg) Capsule 1 cap PO BID montelukast [Singulair] 10 mg tablet 10 mg PO QPM PRN (Reason: Allergy Symptoms) (DME) Auto Titrating CPAP Rx Instructions: Auto CPAP 5-15cm H20 (DME) CPAP Machine Misc Rx Instructions: Discontinue CPAP: [facility] Referrals Referrals: Calli Dior MD [Primary Care Provider] - Discharge Problem: Speech abnormality Qualifiers: Speech disturbance type: unspecified speech disturbance Qualified Code(s): R 47.9 - Unspecified speech disturbances Hypertension Qualifiers: Hypertension type: unspecified Qualified Code(s): I10 - Essential (primary) hypertension
[2023-06-03] MEDS: SODIUM CHLORIDE 0.9% 500 ML IV ONE (11:54)
[2023-06-03] MEDS: ONDANSETRON INJ 2 MG/ML 2 ML VIAL IV STA (11:57)
[2023-06-03 12:15] LABS: Basophils # (auto) 0.04 K/uL (0.00-0.20); Basophils % (auto) 0.8 %; Eosinophils # (auto) 0.47 K/uL (0.00-0.50); Eosinophils % (auto) 9.3 %; Hematocrit (blood only) 43.1 % (42.0-52.0); Hemoglobin 14.5 g/dl (14.0-18.0); Immature Granulocytes # (auto) 0.03 K/uL (0.01-0.20); Immature Granulocytes % (auto) 0.6 %; Lymphocytes % (auto) 21.8 %; Mean Corpuscular Hemoglobin 31.7 pg (25.0-34.0); Mean Corpuscular Hgb Conc 33.6 g/dL (32.0-36.0); Mean Corpuscular Volume 94.1 fL (80.0-100.0); Mean Platelet Volume 9.7 fL (9.4-12.4); Monocytes # (auto) 0.48 K/uL (0.11-0.59); Monocytes % (auto) 9.5 %; Neutrophils # (auto) 2.92 K/uL (1.40-6.50); Platelet Count 219 K/uL (130-400); RDW Coefficient of Variation 13.3 % (11.5-14.5); RDW Standard Deviation 46.1 fL (36.4-46.3); Red Blood Count 4.58 M/uL (4.70-6.10); White Blood Count 5.04 K/ul (4.8-10.8)
[2023-06-03 12:21] LABS: Appearance Urine Clear (Clear); Bilirubin Urine Negative (Negative); Blood Urine Negative (Negative); Color Urine Yellow; Glucose Urine UA Negative (Negative); Ketones Urine Negative (Negative); Leukocyte Esterase Urine Negative (Negative); Nitrite Urine Negative (Negative); Protein Urine Negative (Negative); Specific Gravity Urine 1.023 (1.000-1.030); Urobilinogen Urine Negative (Negative); pH Urine 6.5 (4.5-7.5)
[2023-06-03 12:34] LABS: Partial Thromboplastin Time 28 Seconds (21-31); Prothrombin Time 10.5 Seconds (9.0-12.0)
[2023-06-03 12:52] LABS: Troponin I High Sensitivity 4.3 pg/ml (0-20)
[2023-06-03 12:57] LABS: Albumin Level 4.1 gm/dl (3.4-5.0); Bilirubin,Total 0.5 mg/dl (0.2-1.0); Calcium 9.7 mg/dl (8.6-10.3); Magnesium 1.9 mg/dl (1.7-2.4); Potassium 4.1 mmol/L (3.5-5.1)
[2023-06-03 13:03] LABS: Albumin Globulin Ratio 1.7 (0.9-2); BUN Creatinine Ratio 33.3 (10-20); Creatinine Clr Calc Pharmacy 161.9 ml/min; Est GFR (African American) 131.3 ml/min; Est GFR (Non-African American) 113.3 ml/min; Globulin 2.4 gm/dl (2.5-4.0); Total Protein 6.5 gm/dl (6.0-8.3)
[2023-06-03 13:07] LABS: Lyme Screen Rflx Confirmation Positive (Negative)
[2023-06-03] MEDS: OPTIRAY 350 500ml IV ONE (13:20)
--- NOTE | 2023-06-03 13:33 | CT Scan Report ---
UNENHANCED CT OF THE BRAIN; CT ANGIOGRAM OF THE BRAIN; CT ANGIOGRAM OF THE NECK CLINICAL HISTORY: Neurological deficit. Stroke like symptoms. Headache. Lightheadedness. COMPARISON STUDY: No priors. TECHNIQUE: Unenhanced axial CT scan of the brain is performed. Subsequently, following the IV adminis tration of 115 of Optiray 350, CT angiogram of the head and neck was performed from the aortic arch t o the vertex. Images are reviewed in the axial, sagittal, and coronal planes. 3-D MIPS images are cre ated and assessed. IV contrast was administered without complication. All measurements were calculate d based on NASCET criteria. A dose lowering technique was utilized adhering to the principles of ALA RA. CT DOSE: 1029.53 mGy.cm FINDINGS: Brain parenchyma: There is age-related involutional change noting minimal microangiopathic disease. T here is no hemorrhage, mass effect, or evidence of acute territorial ischemia by CT criteria. There i s no evidence of enhancing mass lesion on the angiogram phase images. The ventricles, sulci, and cist erns are prominent secondary to involutional change. Kuhn-white matter differentiation is preserved. No extra-axial fluid collection is seen. Thoracic aorta: Visualized portions of the thoracic aorta are normal in caliber. The aortic arch demo nstrates bovine variant anatomy. Right carotid arterial system: The right common carotid artery is widely patent, as are the right int ernal and external carotid arteries. Left carotid arterial system: The left common carotid artery is widely patent, as are the left internet sales representative al and external carotid arteries. Vertebral arteries: The vertebral arteries are widely patent bilaterally and codominant. Subclavian arteries: Widely patent bilaterally. Intracranial vasculature: The internal carotid arteries are patent at the skull base, as are the ante rior and middle cerebral arteries bilaterally. The vertebrobasilar system and posterior cerebral sherif herminia are widely patent. The vertebral arteries are codominant. There is a right posterior communicati ng artery. There is no aneurysm, high-grade stenosis, or focal vessel cut off seen throughout the int racranial circulation. Jugular veins: Patent bilaterally. Dural sinuses: Patent. Lung apices: Partially visualized upper lobe lung parenchyma appears clear. Soft tissues: The visualized pharyngeal soft tissues are normal in appearance noting angiographic pha se technique. The oropharyngeal airway appears widely patent. The salivary and thyroid glands are nor mal in appearance. No cervical lymphadenopathy is seen. Skeletal structures: The calvarium appears intact. The cervical spine is within normal limits noting mild spondylotic change. Orbits: The bony orbits are intact. Orbital contents are normal as visualized. Sinuses and mastoids: There is trace mucosal thickening within the maxillary antra. The remaining par anasal sinuses are clear. The mastoid air cells are well pneumatized. IMPRESSION: 1. There is no hemorrhage, mass effect, or evidence of acute territorial ischemia by CT criteria. 2. Unremarkable CT angiogram of the brain. 3. Unremarkable CT angiogram of the neck. ACT 112: Negative or not required by law. Electronically signed by: Wilfrid Sierra M.D. 06/03/2023 1:31 PM
--- NOTE | 2023-06-03 14:02 | Electrocardiogram Report ---
Test Reason : Blood Pressure : / mmHG Vent. Rate : 068 BPM Atrial Rate : 068 BPM P-R Int : 158 ms QRS Dur : 098 ms QT Int : 414 ms P-R-T Axes : 035 -18 041 degrees QTc Int : 440 ms Normal sinus rhythm Normal ECG When compared with ECG of 09-AUG-2020 10:33, No significant change was found Confirmed by Tye Urbina ([id number]) on 06/03/2023 2:02:27 PM Referred By: REFERRED SELF Confirmed By:Tye Urbina
--- NOTE | 2023-06-03 14:13 | History & Physical Report ---
Date of Service June 03, 2023 Assessment & Plan (1) Dysarthria: Plan: Abrupt onset of dysarthria with some word finding difficulty/expressive aphasia 9:30 AM. No receptive aphasia. This was associated with whole body jerking/twitching which is very different from the normal small muscle twitches or fasciculations he has with his myotonic dystrophy No incontinence, no loss of consciousness, no postictal state to suggest seizure No photosensitivity, photosensitivity, nuchal rigidity, or fever. Abrupt onset of symptoms suggestive of CVA, however continued intermittent symptoms with whole body tremors, ?tick bite 6 weeks prior to symptoms, and continued positive Lyme IgM concerning for potential Lyme. No fever or transaminitis, lower suspicion for Babesia/anaplasmosis; smear with reflex is pending Reviewed with neurology. Agree with completing stroke workup with MRI at this time. Do not feel that the LP is necessary at this time in absence of fever or overt meningitic symptoms, doxycycline reasonable. Appreciate recommendations. (2) DM2 (diabetes mellitus, type 2): Plan: Converted to basal bolus insulin while inpatient, goal BSG [id number] Lantus 8 units twice daily, CF 50, carb ratio 20. Glipizide held (3) Myotonic dystrophy, type 2: Plan: Follows with multidisciplinary team, and transitioning care to [place] Receives cardiology preventative care no history of WI/CAD. Last echo with good wall motion, type II diastolic dysfunction. Continue mexiletine 300 mg every 8 hours Discussed with neurology. No need/benefit to switching to Rocephin for treatment at this time,, Doxycycline continued as noted Aspirin for cardiac primary prevention continued Plan Chronic stable issues Hypertension: Normotensive on admission, continue home meds Mild KARMEN: Continue CPAP nightly Allergic rhinitis: May use loratadine as needed History of BPH with LUTS: Voiding greatly improved in the preceding months, no recent retention symptoms or SHARITA. Bladder scan as needed, Flomax continued Last LDL 36, no transaminitis. on MWF dosing DVT prophylaxis: Lovenox Disposition: Medical telemetry CODE STATUS: Full code Diet: Heart healthy History of Present Illness Primary Care Provider: Calli Dior MD Tye is a 63-year-old male with a past medical history of dysmetabolic syndrome, tobacco use, sleep disordered breathing with outpatient CPAP use, BPH with LUTS, myotonic dystrophy t2, DM 2, hyperlipidemia who presents to the ER after he experienced jerking and shaking of his muscles and extremities with mild headache, nausea and dizziness with expressive aphasia which came on abruptly at approximately 9:30 AM. Patient is on aspirin daily and had a blood sugar of 100 on home monitor at the time of this episode. On ER evaluation CThead, CTA head/neck are normal. He has a positive Lyme IgM, IgG on admission, also positive 08/2022.. He is recommended for evaluation of strokelike symptoms, treatment of Lyme disease? Neurologic involvement. NIHSS 0. Of note patient does have a history of Lyme disease, last was positive for IgM/IgG 08/25/2022 and did receive a course of treatment with doxycycline at that time. Pt reports 930am felt lightheaded and started jerking very similar to when he had lyme disease last year, but much worse and involved his whole body, head, and all 4 extremities. Jerking and twitching seemed to be intermitent, each episode lasting a few seconds with 30 sec - 1 minute of shaking between. No loss of conciousness at any point. No bowel or bladder incontience. No confusion after the twitching, but has had some intermittent confusion recently and with some word finding diffiuclty. 'Stumbling over words intermittently and pauses' although no persistent dysarthria. Stopped pausing between sentences randomly and has a hard time thinking and maintaning concerntration. Denies photo/phonosensitivity. No nuchal rigidity. +Frontal bilateral mild headache 2/10, persistent since this morning. Has slight localized muscle twitches/fasiculations with his history of myotonic dystrophy but nothing like he experienced today, and MD aguilar have never been globalized. No fevers, chills, sweats the last few days or on admit, but has felt 'a little cold lately.' Not sure last time he had a headache. Denies weakness, numbness, and tingling in the extremities, thinks his legs might feel a little heavy but not weak. Does have ae hx of myotonic dystrophy so legs can feel a little off, but this heaviness seems a little different/worse. No joint swelling. MEd changes: Mexiletine for MD --> takes 2 tablets (300) TID, NOT 150mg. Sees Dr. Colón and Dr. Negron in [place]. Dr. Colón with [facility] [place] [place] [facility], only has one more appointment then will followup with [place]. Lyme disease in August treated with doxycycline 2 weeks. He felt like he got better from this at the time, but symptoms currently feel similar but much worse and with more speech issues. Patient reports he did have a bite to his left lower back around 6 weeks ago which she was not sure if this was a tick or pimple, seem to go away at the time but did not have any follow-up evaluation for this when it occurred. Takes aspirin for primary prevention. Sees Dr. Willis for preventative care due to dystrophy. Medical History: Reviewed Medications: Reviewed Surgical History: Reviewed Family history: Reviewed Allergies: Reviewed Social History: No tobacco use. 1 drink of whiskey in the evening 1-2 shots in it. Went all winter without any EtoH, no withdrawal/seizure. Code Status: Full Allergies Allergy/AdvReac Type Severity Reaction Status Date / Time cat dander Allergy Mild COUGH Verified 06/02/23 10:21 No Known Drug Allergies Allergy Verified 06/02/23 10:21 Home Medications Medication Instructions Recorded Confirmed Type multivitamin (Daily Multi-Vitamin 1 tab PO QAM 09/12/18 06/03/23 History tablet) lancets 33 gauge (OneTouch Delica #100 ea 11/07/18 06/02/23 History Lancets) aspirin 81 mg tablet,delayed 81 mg PO QAM 02/14/20 06/03/23 History release omega 1-iwq-uxe-fish oil 1,000 mg 1 cap PO BID 02/14/20 06/03/23 History (120 mg-180 mg) capsule (Fish Oil) compress.stocking,knee,reg,med #2 ea 02/28/20 06/02/23 Rx albuterol sulfate 90 mcg/actuation 2 puff inhalation Q4H PRN 09/10/20 06/03/23 Rx aerosol inhaler (ProAir HFA) shortness of breath or wheezing #18 grams loratadine 10 mg tablet 10 mg PO DAILY PRN Allergy Symptoms 09/11/20 06/03/23 History CPAP Supplies #1 ea 07/09/21 06/02/23 Rx montelukast 10 mg tablet 10 mg PO QPM PRN Allergy Symptoms 06/16/22 06/03/23 History (Singulair) atorvastatin 40 mg tablet 40 mg PO .COMPLEX 90 days #36 tabs 11/04/22 06/03/23 Rx 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 meter,continuous #1 ea 03/24/23 06/02/23 Rx (Dexcom G7 Pricing Analyst) tamsulosin 0.4 mg capsule 0.4 mg PO HS #90 caps 03/24/23 06/03/23 Rx metformin 1,000 mg tablet 1,000 mg PO BID #180 tabs 03/26/23 06/03/23 Rx losartan 25 mg tablet See Rx Instructions .Route 04/20/23 06/03/23 Rx .COMPLEX #90 tabs glipizide 5 mg tablet 2.5 mg (1/2 x 5 mg) PO QAM #30 tabs 04/22/23 06/03/23 Rx blood sugar diagnostic (OneTouch #50 ea 04/27/23 06/02/23 Rx Verio test strips) mexiletine 150 mg capsule 150 mg PO Q8H 04/27/23 06/03/23 History fluticasone propionate 50 See Rx Instructions .Route 05/20/23 06/03/23 Rx mcg/actuation nasal .COMPLEX #16 mL spray,suspension gentamicin 0.3 % eye drops 2 drp ophthalmic (eye) Q4H #5 mL 05/27/23 06/03/23 Rx 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 sensor (Dexcom G7 #3 ea 05/31/23 06/02/23 Rx Sensor device) Auto Titrating CPAP 06/03/23 06/03/23 History CPAP Machine 06/03/23 06/03/23 History Past Med/Surg History Medical History Dyspnea Calculus of proximal right ureter KARMEN (obstructive sleep apnea) CPAP Arthritis Kidney stones History of diverticulitis History of COVID-19 POSITIVE 02/12/20. HOSPITALIZED, [place] WITH ABX AND REMDESIVIR. MILD RESIDUAL REYNOLDS/SOB. SCARRING NOTED ON CHEST CT 05/2020 Hiatal hernia Coronary artery calcification Noted on [address] Faxed to graphic arts instructor for continuity of care. Scarring of lung R/T COVID VIRUS (FOLLOWING WITH PULMONOLOGY) Lower extremity edema LASIX PRN BPH w urinary obs/LUTS Pneumonia due to 2019-nCoV Hypertension Allergic rhinitis DM2 (diabetes mellitus, type 2) Hypercholesterolemia Myotonic dystrophy, type 2 FOLLOWS WITH [facility]. Surgical History S/P cystoscopy with ureteral stent placement x2--last 08/2020 @ [facility] Brandt teeth removed History of incisional hernia repair History of appendectomy History of partial colectomy 1990s--had colostomy--d/t diverticulitis History of colostomy d/t diverticulitis History of colostomy reversal History of esophagogastroduodenoscopy (EGD) History of colonoscopy with polypectomy History of bilateral cataract extraction Family History Mother Cancer lung cancer Family history of diabetes mellitus Brother Myotonic dystrophy Sister Myotonic dystrophy Diabetes Father Stroke Diabetes Brother Prostate cancer Lewy body dementia Brother Colorectal cancer Daughter No problems noted. Son Diabetes Other No family history of adverse response to anesthesia Denies family history of Ovarian cancer Myocardial infarction Breast cancer Social History Smoking Status: Former smoker Tobacco Type: Cigars Age Started Using Tobacco: 37; Age Quit Using Tobacco: 59; Cigarettes Per Day: smoked cigars intermittently; Smoking End Date: 2019; Second Hand Exposure: No; Do You Dip or Chew Tobacco: No; Hx Alcohol Use: Yes Alcohol type: hard liquor Alcohol Intake Frequency: Monthly or Less Hx Substance Use: No Preferred Language: Kazakh Communication Ability: Effective Visual Impairment: No Limitations Hearing Ability: Normal Receptionist Required: No Beliefs That Will Affect Care: None marital status: Current Living Situation: Spouse Current Living Situation Comment: Lives with and son current occupational status: employed Feels Safe at Home: Yes Safety Concerns: Feels Safe At This Time Childhood Exposure to Second-Hand Smoke: Yes Diet: low carbohydrate and other Diet Comment: low sugar, low carbs Dental Care, Regularly: No Physical Activity Frequency: Daily Seatbelt Use: sometimes Sunscreen Use: No Do you think of yourself as: straight/heterosexual Assistive Devices: Cane and Glasses Physical Exam Physical Exam: General: A&Ox3. NAD. Cooperative. HEENT: Atraumatic, normocephalic. Pulm: CTAB A&P. -wheezes, -rales, -rhonchi. Symmetrical chest rise. No increased work of breathing. No respiratory distress. Cardiac: RRR, -mrg. Radial pulses intact and symmetrical. Abdominal: Nontender, nondistended, soft. BS present. CRANIAL NERVES: II: Pupils equal and reactive, no relative afferent pupillary defect, no VF cuts III, IV, : EOM intact, no gaze preference or deviation, no nystagmus. V: normal sensation in V1, V2, and V3 segments bilaterally VII: no asymmetry, no nasolabial fold flattening VIII: normal hearing to speech IX, X: normal palatal elevation, no uvular deviation XI: 5/5 head turn and 5/5 shoulder shrug bilaterally XII: midline tongue protrusion MOTOR: RUE: 5/5 Shoulder flexion 5/5 Elbow flexion/extension, wrist flexi on/extension 5/5 field sales engineer strength, finger flexion/extens ion, interosseus LUE: 5/5 Shoulder flexion 5/5 Elbow flexion/extension, wrist flexi on/extension 5/5 field sales engineer strength, finger flexion/extens ion, interosseus RLE: 5/5 to hip flexion ankle dorsiflexion/pl antarflexion LLE: 5/5 to hip flexion, ankle dorsiflexion/p lantarflexion REFLEXES: no clonus SENSORY: Normal to touch in upper and lower extremities without deficit or asymmetry heel to treadwell intact without dysmetria Results & Data Results & Data Vital Signs (Past 12 Hours) Vital Signs Temp Pulse Resp BP Pulse Ox O2 Del Method 06/03/23 12:33 72 06/03/23 12:11 18 06/03/23 12:11 Room Air 06/03/23 11:30 37.0 C 81 19 177/103 H 98 Room Air PG Care Time/CCT Total # of Minutes Spent Total Time Spent with Patient: Total time spent is greater than 50% in coordination of care (as documented) at patient's floor/unit and/or counseling patient: Coding Level of Care Code 26890 INT INP/OBS CARE 3/75MIN Diagnoses Dysarthria R47.1 DM2 (diabetes mellitus, type 2) E11.9 Myotonic dystrophy, type 2 G71.11
[2023-06-03] MEDS ORDERED: CARBOHYDRATES FOR HYPOGLYCEMIA PO PRN (15:04)
[2023-06-03] MEDS ORDERED: GLUCOSE 40% GEL 15 GM TUBE PO PRN (15:04)
[2023-06-03] MEDS ORDERED: DEXTROSE 50% 50 ML SYRINGE IV PRN (15:04)
[2023-06-03] MEDS ORDERED: GLUCOSE 10 TAB/TUBE PO PRN (15:04)
[2023-06-03] MEDS ORDERED: GLUCAGON FOR INJ 1 MG VIAL SQ PRN (15:04)
[2023-06-03] MEDS: DOXYCYCLINE HYCLATE 100 MG in DEXTROSE 5% MINI-B 100 ML IV SCH (15:47)
[2023-06-03] MEDS: INSULIN ASPART PER UNIT CHARGE SC SCH (15:52)
[2023-06-03 17:26] LABS: Echinocytes 1+; Ovalocytes 1+
--- NOTE | 2023-06-03 17:57 | Magnetic Resonance Report ---
MRI OF THE BRAIN WITHOUT IV CONTRAST CLINICAL HISTORY: Dysarthria. Aphasia. COMPARISON STUDY: CT of the brain dated 06/03/2023. TECHNIQUE: MRI of the brain was performed utilizing various T1 and T2-weighted sequences in the axial , sagittal, and coronal planes. IV contrast was not administered for this examination. FINDINGS: Brain parenchyma: There is age related involutional change noting minimal microangiopathic disease. T here is no hemorrhage or mass effect. There is no restricted diffusion to suggest acute ischemia. Gra y-white matter differentiation is preserved. No extra-axial fluid collection is seen. The cerebellar tonsils are normal in configuration. Ventricles, sulci, and cisterns: Normal in configuration. Pituitary and sella: Unremarkable. Intracranial vasculature: Normal flow voids are maintained at the skull base. Orbits: The bony orbits are grossly intact. Orbital contents are normal in appearance noting bilatera l ocular lens implants. Sinuses and mastoids: There is mild mucosal thickening in the left maxillary antrum. The remaining pa ranasal sinuses and metatarsals are clear. Calvarium: Unremarkable. Cervical cord: Partially visualized cervical spinal cord is normal in morphology and signal intensity . IMPRESSION: No acute intracranial abnormality. ACT 112: Negative or not required by law. Electronically signed by: Wilfrid Sierra M.D. 06/03/2023 5:55 PM
[2023-06-03] MEDS ORDERED: MONTELUKAST SODIUM 10 MG TABLET PO PRN (19:43)
[2023-06-03] MEDS ORDERED: POLYETHYLENE (MIRALAX) 17 GM PACK PO PRN (19:43)
[2023-06-03] MEDS ORDERED: ALBUTEROL HFA 8 GM INHALER INH PRN (19:43)
[2023-06-03] MEDS ORDERED: ACETAMINOPHEN 325 MG TAB PO PRN (19:43)
[2023-06-03] MEDS ORDERED: LORATADINE 10 MG TAB PO PRN (19:43)
[2023-06-03] MEDS ORDERED: PHARMACIST DISCHARGE MED REC CONSULT PRN (19:43)
[2023-06-03] MEDS: TAMSULOSIN HCL 0.4 MG CAP PO SCH (20:59)
[2023-06-03] MEDS: MEXILETINE HCL 150 MG CAPSULE PO SCH (21:00)
[2023-06-03] MEDS: OMEGA-3 (PURIFIED FISH OIL) 1 GM CAP PO SCH (21:00)
[2023-06-03] MEDS: ENOXAPARIN INJ 40 MG/0.4 ML SYR SQ SCH (21:00)
[2023-06-04 07:14] LABS: Estimated Average Glucose 151 mg/dl; Hemoglobin A1C 6.9 % (4.5-5.6)
[2023-06-04 07:18] LABS: Basophils # (auto) 0.03 K/uL (0.00-0.20); Basophils % (auto) 0.7 %; Eosinophils # (auto) 0.38 K/uL (0.00-0.50); Eosinophils % (auto) 9.2 %; Hematocrit (blood only) 38.1 % (42.0-52.0); Hemoglobin 13.4 g/dl (14.0-18.0); Immature Granulocytes # (auto) 0.02 K/uL (0.01-0.20); Immature Granulocytes % (auto) 0.5 %; Lymphocytes % (auto) 26.8 %; Mean Corpuscular Hemoglobin 31.8 pg (25.0-34.0); Mean Corpuscular Hgb Conc 35.2 g/dL (32.0-36.0); Mean Corpuscular Volume 90.5 fL (80.0-100.0); Mean Platelet Volume 9.6 fL (9.4-12.4); Monocytes # (auto) 0.44 K/uL (0.11-0.59); Monocytes % (auto) 10.7 %; Neutrophils # (auto) 2.14 K/uL (1.40-6.50); Neutrophils % (auto) 52.1 %; Platelet Count 193 K/uL (130-400); RDW Coefficient of Variation 13.3 % (11.5-14.5); RDW Standard Deviation 43.9 fL (36.4-46.3); Red Blood Count 4.21 M/uL (4.70-6.10); White Blood Count 4.11 K/ul (4.8-10.8)
[2023-06-04 07:34] LABS: Albumin Globulin Ratio 1.6 (0.9-2); Albumin Level 3.4 gm/dl (3.4-5.0); BUN Creatinine Ratio 24.6 (10-20); Bilirubin,Total 0.5 mg/dl (0.2-1.0); Calcium 8.9 mg/dl (8.6-10.3); Creatinine Clr Calc Pharmacy 122.8 ml/min; Est GFR (African American) 121.7 ml/min; Globulin 2.1 gm/dl (2.5-4.0); Potassium 3.9 mmol/L (3.5-5.1); Total Protein 5.5 gm/dl (6.0-8.3)
[2023-06-04] MEDS: LANTUS PER UNIT CHARGE SQ SCH (08:05)
[2023-06-04] MEDS: MULTIVITAMIN TAB PO SCH (08:05)
[2023-06-04] MEDS: ASPIRIN 81 MG ECTAB PO SCH (08:06)
[2023-06-04] MEDS: LOSARTAN POTASSIUM 25 MG TAB PO SCH (08:06)
[2023-06-04] MEDS: ONDANSETRON INJ 2 MG/ML 2 ML VIAL IV PRN (10:16)
[2023-06-04 16:04] LABS: Adenovirus PCR Not Detected (NotDetected); Bordetella parapertussis PCR Not Detected (NotDetected); Bordetella pertussis PCR Not Detected (NotDetected); Chlamydia pneumoniae PCR Not Detected (NotDetected); Coronavirus 229E PCR Not Detected (NotDetected); Coronavirus CoV-2 (COVID19)PCR Not Detected (NotDetected); Coronavirus HKU1 PCR Not Detected (NotDetected); Coronavirus NL63 PCR Not Detected (NotDetected); Coronavirus OC43PCR Not Detected (NotDetected); Human Metapneumovirus PCR Not Detected (NotDetected); Influenza A PCR Not Detected (NotDetected); Influenza B PCR Not Detected (NotDetected); Mycoplasma pneumoniae PCR Not Detected (NotDetected); Parainfluenza Virus 1 PCR Not Detected (NotDetected); Parainfluenza Virus 2 PCR Not Detected (NotDetected); Parainfluenza Virus 3 PCR Not Detected (NotDetected); Parainfluenza Virus 4 PCR Not Detected (NotDetected); Respiratory Syncytial VirusPCR Not Detected (NotDetected); Rhinovirus/Enterovirus PCR Not Detected (NotDetected)
--- NOTE | 2023-06-04 18:16 | Discharge Summary ---
Date of Service date of admission - June 03, 2023 date of discharge - June 04, 2023 Admission HPI Per Admitting Provider Tye is a 63-year-old male with a past medical history of dysmetabolic syndrome, tobacco use, sleep disordered breathing with outpatient CPAP use, BPH with LUTS, myotonic dystrophy t2, DM 2, hyperlipidemia who presents to the ER after he experienced jerking and shaking of his muscles and extremities with mild headache, nausea and dizziness with expressive aphasia which came on abruptly at approximately 9:30 AM. Patient is on aspirin daily and had a blood sugar of 100 on home monitor at the time of this episode. On ER evaluation CThead, CTA head/neck are normal. He has a positive Lyme IgM, IgG on admission, also positive 08/2022.. He is recommended for evaluation of strokelike symptoms, treatment of Lyme disease? Neurologic involvement. NIHSS 0. Of note patient does have a history of Lyme disease, last was positive for IgM/IgG 08/25/2022 and did receive a course of treatment with doxycycline at that time. Pt reports 930am felt lightheaded and started jerking very similar to when he had lyme disease last year, but much worse and involved his whole body, head, and all 4 extremities. Jerking and twitching seemed to be intermitent, each epi sode lasting a few seconds with 30 sec - 1 minute of shaking between. No loss of conciousness at any point. No bowel or bladder incontience. No confusion after the twitching, but has had some intermittent confusion recently and with some word finding diffiuclty. 'Stumbling over words intermittently and pauses' although no persistent dysarthria. Stopped pausing between sentences randomly and has a hard time thinking and maintaning concerntration. Denies photo/phonosensitivity. No nuchal rigidity. +Frontal bilateral mild headache 2/10, persistent since this morning. Has slight localized muscle twitches/fasiculations with his history of myotonic dystrophy but nothing like he experienced today, and MD aguilar have never been globalized. No fevers, chills, sweats the last few days or on admit, but has felt 'a little cold lately.' Not sure last time he had a headache. Denies weakness, numbness, and tingling in the extremities, thinks his legs might feel a little heavy but not weak. Does have ae hx of myotonic dystrophy so legs can feel a little off, but this heaviness seems a little different/worse. No joint swelling. MEd changes: Mexiletine for MD --> takes 2 tablets (300) TID, NOT 150mg. Sees Dr. Colón and Dr. Negron in [place]. Dr. Colón with [facility], only has one more appointment then will followup with [place]. Lyme disease in August treated with doxycycline 2 weeks. He felt like he got better from this at the time, but symptoms currently feel similar but much worse and with more speech issues. Patient reports he did have a bite to his left lower back around 6 weeks ago which she was not sure if this was a tick or pimple, seem to go away at the time but did not have any follow-up evaluation for this when it occurred. Takes aspirin for primary prevention. Sees Dr. Willis for preventative care due to dystrophy. Medical History: Reviewed Medications: Reviewed Surgical History: Reviewed Family history: Reviewed Allergies: Reviewed Social History: No tobacco use. 1 drink of whiskey in the evening 1-2 shots in it. Went all winter without any EtoH, no withdrawal/seizure. Code Status: Full Principal Diagnosis 1. muscle twitching/jerks - resolved; uncertain cause - possibly due to reinfection with Lyme disease? 2. difficulty with speech - resolved; no stroke found on MRI brain; stroke work-up negative 3. positive lyme disease screening test - confirmatory test is pending 4. myotonic dystrophy Discharge Exam gen - WD, WN, NAD; speech clear/fluent; no myoclonus or twitching noted mouth - MMM neck - no JVD heart - RRR, s1 s2, no murmur lungs - CTA B/l abd - soft NT ND BS+; no HSM ext - no edema, pulses 2+ b/l neuro - no myoclonus noted; minimal proximal muscle weakness otherwise strength 5/5 x 4 exts; no facial droop; speech clear, no aphasia or dysarthria skin - no rash Discharge Data Allergies Allergy/AdvReac Type Severity Reaction Status Date / Time cat dander Allergy Mild COUGH Verified 06/10/23 13:44 No Known Drug Allergies Allergy Verified 06/10/23 13:[address] 06/03/23 11:[address] OF THE BRAIN; CT ANGIOGRAM OF THE BRAIN; CT ANGIOGRAM OF THE NECK CLINICAL HISTORY: Neurological deficit. Stroke like symptoms. Headache. Lightheadedness. COMPARISON STUDY: No priors. TECHNIQUE: Unenhanced axial CT scan of the brain is performed. Subsequently, following the IV administration of 115 of Optiray 350, CT angiogram of the head and neck was performed from the aortic arch to the vertex. Images are reviewed in the axial, sagittal, and coronal planes. 3-D MIPS images are created and assessed. IV contrast was administered without complication. All measurements were calculated based on NASCET criteria. A dose lowering technique was utilized adhering to the principles of ALARA. CT DOSE: 1029.53 mGy.cm FINDINGS: Brain parenchyma: There is age-related involutional change noting minimal microangiopathic disease. There is no hemorrhage, mass effect, or evidence of acute territorial ischemia by CT criteria. There is no evidence of enhancing mass lesion on the angiogram phase images. The ventricles, sulci, and cisterns are prominent secondary to involutional change. Kuhn-white matter differentiation is preserved. No extra-axial fluid collection is seen. Thoracic aorta: Visualized portions of the thoracic aorta are normal in caliber. The aortic arch demonstrates bovine variant anatomy. Right carotid arterial system: The right common carotid artery is widely patent, as are the right internal and external carotid arteries. Left carotid arterial system: The left common carotid artery is widely patent, as are the left internal and external carotid arteries. Vertebral arteries: The vertebral arteries are widely patent bilaterally and codominant. Subclavian arteries: Widely patent bilaterally. Intracranial vasculature: The internal carotid arteries are patent at the skull base, as are the anterior and middle cerebral arteries bilaterally. The vertebrobasilar system and posterior cerebral arteries are widely patent. The vertebral arteries are codominant. There is a right posterior communicating artery. There is no aneurysm, high-grade stenosis, or focal vessel cut off seen throughout the intracranial circulation. Jugular veins: Patent bilaterally. Dural sinuses: Patent. Lung apices: Partially visualized upper lobe lung parenchyma appears clear. Soft tissues: The visualized pharyngeal soft tissues are normal in appearance noting angiographic phase technique. The oropharyngeal airway appears widely patent. The salivary and thyroid glands are normal in appearance. No cervical lymphadenopathy is seen. Skeletal structures: The calvarium appears intact. The cervical spine is within normal limits noting mild spondylotic change. Orbits: The bony orbits are intact. Orbital contents are normal as visualized. Sinuses and mastoids: There is trace mucosal thickening within the maxillary antra. The remaining paranasal sinuses are clear. The mastoid air cells are well pneumatized. IMPRESSION: 1. There is no hemorrhage, mass effect, or evidence of acute territorial ischemia by CT criteria. 2. Unremarkable CT angiogram of the brain. 3. Unremarkable CT angiogram of the neck. ACT 112: Negative or not required by law. Electronically signed by: Wilfrid Sierra M.D. 06/03/2023 1:31 PM Head CTA 06/03/23 11:[address] OF THE BRAIN; CT ANGIOGRAM OF THE BRAIN; CT ANGIOGRAM OF THE NECK CLINICAL HISTORY: Neurological deficit. Stroke like symptoms. Headache. Lightheadedness. COMPARISON STUDY: No priors. TECHNIQUE: Unenhanced axial CT scan of the brain is performed. Subsequently, following the IV administration of 115 of Optiray 350, CT angiogram of the head and neck was performed from the aortic arch to the vertex. Images are reviewed in the axial, sagittal, and coronal planes. 3-D MIPS images are created and assessed. IV contrast was administered without complication. All measurements were calculated based on NASCET criteria. A dose lowering technique was utilized adhering to the principles of ALARA. CT DOSE: 1029.53 mGy.cm FINDINGS: Brain parenchyma: There is age-related involutional change noting minimal microangiopathic disease. There is no hemorrhage, mass effect, or evidence of ac [place] territorial ischemia by CT criteria. There is no evidence of enhancing mass lesion on the angiogram phase images. The ventricles, sulci, and cisterns are prominent secondary to involutional change. Kuhn-white matter differentiation is preserved. No extra-axial fluid collection is seen. Thoracic aorta: Visualized portions of the thoracic aorta are normal in caliber. The aortic arch demonstrates bovine variant anatomy. Right carotid arterial system: The right common carotid artery is widely patent, as are the right internal and external carotid arteries. Left carotid arterial system: The left common carotid artery is widely patent, as are the left internal and external carotid arteries. Vertebral arteries: The vertebral arteries are widely patent bilaterally and codominant. Subclavian arteries: Widely patent bilaterally. Intracranial vasculature: The internal carotid arteries are patent at the skull base, as are the anterior and middle cerebral arteries bilaterally. The v ertebrobasilar system and posterior cerebral arteries are widely patent. The vertebral arteries are codominant. There is a right posterior communicating artery. There is no aneurysm, high-grade stenosis, or focal vessel cut off seen throughout the intracranial circulation. Jugular veins: Patent bilaterally. Dural sinuses: Patent. Lung apices: Partially visualized upper lobe lung parenchyma appears clear. Soft tissues: The visualized pharyngeal soft tissues are normal in appearance noting angiographic phase technique. The oropharyngeal airway appears widely patent. The salivary and thyroid glands are normal in appearance. No cervical lymphadenopathy is seen. Skeletal structures: The calvarium appears intact. The cervical spine is within normal limits noting mild spondylotic change. Orbits: The bony orbits are intact. Orbital contents are normal as visualized. Sinuses and mastoids: There is trace mucosal thickening within the maxillary antra. The remaining paranasal sinuses are clear. The mastoid air cells are well pneumatized. IMPRESSION: 1. There is no hemorrhage, mass effect, or evidence of acute territorial ischemia by CT criteria. 2. Unremarkable CT angiogram of the brain. 3. Unremarkable CT angiogram of the neck. ACT 112: Negative or not required by law. Electronically signed by: Wilfrid Sierra M.D. 06/03/2023 1:31 PM Neck CTA 06/03/23 11:[address] OF THE BRAIN; CT ANGIOGRAM OF THE BRAIN; CT ANGIOGRAM OF THE NECK CLINICAL HISTORY: Neurological deficit. Stroke like symptoms. Headache. Lightheadedness. COMPARISON STUDY: No priors. TECHNIQUE: Unenhanced axial CT scan of the brain is performed. Subsequently, following the IV administration of 115 of Optiray 350, CT angiogram of the head and neck was performed from the aortic arch to the vertex. Images are reviewed in the axial, sagittal, and coronal planes. 3-D MIPS images are created and assessed. IV contrast was administered without complication. All measurements were calculated based on NASCET criteria. A dose lowering technique was utilized adhering to the principles of ALARA. CT DOSE: 1029.53 mGy.cm FINDINGS: Brain parenchyma: There is age-related involutional change noting minimal microangiopathic disease. There is no hemorrhage, mass effect, or evidence of acute territorial ischemia by CT criteria. There is no evidence of enhancing mass lesion on the angiogram phase images. The ventricles, sulci, and cisterns are prominent secondary to involutional change. Kuhn-white matter differentiation is preserved. No extra-axial fluid collection is seen. Thoracic aorta: Visualized portions of the thoracic aorta are normal in caliber. The aortic arch demonstrates bovine variant anatomy. Right carotid arterial system: The right common carotid artery is widely patent, as are the right internal and external carotid arteries. Left carotid arterial system: The left common carotid artery is widely patent, as are the left internal and external carotid arteries. Vertebral arteries: The vertebral arteries are widely patent bilaterally and codominant. Subclavian arteries: Widely patent bilaterally. Intracranial vasculature: The internal carotid arteries are patent at the skull base, as are the anterior and middle cerebral arteries bilaterally. The vertebrobasilar system and posterior cerebral arteries are widely patent. The vertebral arteries are codominant. There is a right posterior communicating artery. There is no aneurysm, high-grade stenosis, or focal vessel cut off seen throughout the intracranial circulation. Jugular veins: Patent bilaterally. Dural sinuses: Patent. Lung apices: Partially visualized upper lobe lung parenchyma appears clear. Soft tissues: The visualized pharyngeal soft tissues are normal in appearance noting angiographic phase technique. The oropharyngeal airway appears widely patent. The salivary and thyroid glands are normal in appearance. No cervical lymphadenopathy is seen. Skeletal structures: The calvarium appears intact. The cervical spine is within normal limits noting mild spondylotic change. Orbits: The bony orbits are intact. Orbital contents are normal as visualized. Sinuses and mastoids: There is trace mucosal thickening within the maxillary antra. The remaining paranasal sinuses are clear. The mastoid air cells are well pneumatized. IMPRESSION: 1. There is no hemorrhage, mass effect, or evidence of acute territorial ischemia by CT criteria. 2. Unremarkable CT angiogram of the brain. 3. Unremarkable CT angiogram of the neck. ACT 112: Negative or not required by law. Electronically signed by: Wilfrid Sierra M.D. 06/03/2023 1:31 PM Brain MRI 06/03/23 14:46 MRI OF THE BRAIN WITHOUT IV CONTRAST CLINICAL HISTORY: Dysarthria. Aphasia. COMPARISON STUDY: CT of the brain dated 06/03/2023. TECHNIQUE: MRI of the brain was performed utilizing various T1 and T2-weighted sequences in the axial, sagittal, and coronal planes. IV contrast was not administered for this examination. FINDINGS: Brain parenchyma: There is age related involutional change noting minimal microangiopathic disease. There is no hemorrhage or mass effect. There is no restricted diffusion to suggest acute ischemia. Kuhn-white matter differentiation is preserved. No extra-axial fluid collection is seen. The cerebellar tonsils are normal in configuration. Ventricles, sulci, and cisterns: Normal in configuration. Pituitary and sella: Unremarkable. Intracranial vasculature: Normal flow voids are maintained at the skull base. Orbits: The bony orbits are grossly intact. Orbital contents are normal in appearance noting bilateral ocular lens implants. Sinuses and mastoids: There is mild mucosal thickening in the left maxillary antrum. The remaining paranasal sinuses and metatarsals are clear. Calvarium: Unremarkable. Cervical cord: Partially visualized cervical spinal cord is normal in morphology and signal intensity. IMPRESSION: No acute intracranial abnormality. ACT 112: Negative or not required by law. Electronically signed by: Wilfrid Sierra M.D. 06/03/2023 5:55 PM Hospital Course (1) Dysarthria: By report had had sudden onset of dysarthria with some word finding difficulty/expressive aphasia at 9:30 AM the day of admission. No receptive aphasia. This was associated with whole body jerking/twitching which he reported was very different from his normal muscle twitches or fasciculations he has with his myotonic dystrophy. There was no associated loss of consciousness or postictal state to suggest a seizure. He had had no fevers. Upon ER presentation he continued with intermittent symptoms including the whole body tremors. These ultimately fully resolved. His speech also returned to normal. Patient reported a suspected tick bite about 6 weeks prior. Lyme screening test was positive for both IgM and IgG at time of admission. He was initiated on doxycycline IV. He never had symptoms/signs of meningitis thus LP was deferred. All presenting neurological symptoms resolved by hospital day #2. MRI brain was NEGATIVE for acute or subacute CVA. CTA head/neck were both normal. Telemetry was normal. There were no other metabolic disturbances seen. A TSH and B12 level will be checked shortly after discharge. It was presumed that his symptoms may have been due to early disseminated Lyme disease. Thus, he was discharged to home with instructions to complete a 14-day course of doxycycline in total. He will need close f/u with his PCP for the above. Lyme western blot should be followed-up carefully post discharge. (2) Muscle twitching: See #1 above (3) Tick bite: See #1 above (4) DM2 (diabetes mellitus, type 2): Hba1c 6.9% Cont glipizide Will need to HOLD metformin at discharge and recheck a creatinine 48 hours post- discharge due to IV contrast used for CT studies (5) Myotonic dystrophy, type 2: Follows with a multidisciplinary team for this diagnosis Will be transitioning his care to [facility] in [place] soon as his current neurologist, Dr Roro Prasad in [place], will be retiring soon Receives cardiology preventative care; Last echo with good wall motion, type II diastolic dysfunction Continue mexiletine 300 mg every 8 hours Advised 1 week f/u with Dr Prasad after discharge for recheck (6) Leukopenia: Possibly 2nd to Lyme disease or other tick-borne illness Babesia and anaplasmosis DNA testing sent and pending Recommend repeat cbc shortly after discharge for stability (7) HTN, goal below 140/90: Not on meds for such at home Flomax is primarily for #6 rather than HTN itself (8) BPH w urinary obs/LUTS: Cont flomax Total Time Total Time Spent Total Time Spent (In Minutes): 40 Discharge Plan Discharge Items Patient Disposition: Home - Self-Care Reason For Visit: Difficulty with speech, muscle twitching/jerks Discharge Diagnosis: 1. muscle twitching/jerks - resolved; uncertain cause - possibly due to reinfection with Lyme disease? 2. difficulty with speech - resolved; no stroke found on MRI brain; stroke work-up negative 3. positive lyme disease screening test - confirmatory test is pending 4. myotonic dystrophy Activity: As commented below Activity Comment: take it easy for 2-3 days, then gradually increase activities as tolerated Driving/Machine Use: May resume driving on Wednesday, June 06 if you are feeling well Non-emergency contact: Primary Care Provider Call non-emergency contact if: you have any medication questions, your symptoms worsen and you have a fever Follow-up/Referrals: Calli Dior MD [Primary Care Provider] - 06/09/23 3:20 pm (1 week) oRro Prasad MD [Physician] - (if possible please see Dr Prasad within 1 week ) Diet: Carb Consistent or DM2 Addtl Attending Provider Instructions: Mr Simcisko, You were hospitalized after having had increased amounts of muscle twitching/jerks of your limbs as well as difficulties with your speech. We performed a work-up for stroke including MRI of the brain, CT scans of the arteries of the head/neck, and other labs/tests. MRI of the brain did NOT show an old or new stroke. The blood vessels of the head and neck were normal. Your telemetry heart monitoring was normal. At this time there is low suspicion for "mini" stroke, "TIA" (transient ischemic attack), or stroke. A TIA is a neurological symptom or set of symptoms that occur - then resolve, typically within 24 hours. The description of your event did not seem to fit with a TIA event given the widespread symptoms (both sides of the body, etc). Your lyme screening test was POSITIVE. It is possible that you have recurrent lyme disease and, if present, could have caused yesterday's events. It is also possible that the positive screening test is simply reflective of your old infection from the past. We will have more information on this once the confirmatory test comes back in about 5-7 days. In the meantime we plan to treat for Lyme and other tick-borne diseases with doxycycline antibiotic. It appears you had an upper respiratory infection in the last week (cough, congestion, pink eye, etc). We did a respiratory panel and it returned negative for COVID, flu, rhinovirus, and a host of other viruses. There are times when the test returns falsely negative. Regardless it appears you have resolved this recent illness. Recommendations - 1. doxycycline 100mg twice daily x 14 days, first dose tomorrow morning. * Common side effect is heartburn/stomach upset * Rare side effect is a rash if you go out in the sun for long periods of time over the next 2 weeks; thus, cover up well and use sunscreen over the next 14 days 2. for any nausea - ondansetron 4mg every 6 hours as needed. 3. please HOLD your metformin at this time. You will need to have a blood draw tomorrow morning at [facility] to recheck your kidney function levels. If your creatinine returns normal you will be able to resume your metformin tomorrow evening. I will call you with the results. Please come to the [facility] main entrance tomorrow morning and tell the net front end developer you are there for blood work. I will place blood work orders for you. 4. please follow-up with Dr Bravo's neurology clinic in about 1 week; she can access all of the tests, MRI, etc that you had during your stay Follow-up - see separate section Return to [facility] if - * you have fever over 100 degrees * you have worsening neurological symptoms - similar to what you had prior to this admission * you develop severe diarrhea * any other concerns It was our pleasure to care for you! Pending Studies at Discharge: Yes Studies:: Confirmatory Lyme testing; other tick-borne infection labs Stand-Alone Forms: My [facility], Smoking Cessation Medications and DC Order Prescriptions: New doxycycline monohydrate 100 mg tablet 100 mg PO BID 14 Days Qty: 28 0RF Rx Instructions: first dose AM of 06/05/23 ondansetron 4 mg tablet,disintegrating 4 mg PO Q6H PRN (Reason: nausea and vomiting) Qty: 10 0RF Continued albuterol sulfate [ProAir HFA] 90 mcg/actuation HFA aerosol inhaler 2 puff inhalation Q4H PRN (Reason: shortness of breath or wheezing) Qty: 18 1RF Rx Instructions: 2 puff inhalation q4-6 hrs PRN; atorvastatin 40 mg tablet 40 mg PO .COMPLEX 90 Days Qty: 36 3RF Rx Instructions: 40 mg PO 3 times a week; Wednesday,Wednesday,Wednesday (DME) 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 G7 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 Misc See Rx Instructions .Route Qty: 1 0RF Rx Instructions: As directed tamsulosin 0.4 mg capsule 0.4 mg PO HS Qty: 90 3RF losartan 25 mg tablet See Rx Instructions .ROUTE .COMPLEX Qty: 90 1RF Dose Instruction: TAKE 1 TABLET BY MOUTH EVERY DAY IN THE MORNING Rx Instructions: TAKE 1 TABLET BY MOUTH EVERY DAY IN THE MORNING glipizide 5 mg tablet 2.5 mg PO QAM Qty: 30 5RF Hold Instructions: hypoglycemic episodes fluticasone propionate 50 mcg/actuation spray,suspension See Rx Instructions .ROUTE .COMPLEX Qty: 16 5RF Dose Instruction: USE 2 SPRAY INTRANASALLY DAILY NEEDED FOR NASAL CONGESTION ADMINISTER INTO EACH NOSTRIL Rx Instructions: USE 2 SPRAY INTRANASALLY DAILY NEEDED FOR NASAL CONGESTION ADMINISTER INTO EACH NOSTRIL (DME) Dexcom G7 Sensor Device See Rx Instructions .Route Qty: 3 5RF Rx Instructions: As directed E11.9, G71.11 loratadine 10 mg tablet 10 mg PO DAILY PRN (Reason: Allergy Symptoms) (DME) OneTouch Verio test strips Strip See Rx Instructions .ROUTE .MEDSUPPLY Qty: 50 1RF Rx Instructions: monitor glucose 3 times daily and as needed - dx E11.9 multivitamin [Daily Multi-Vitamin] tablet 1 tab PO QAM (DME) lancets [OneTouch Delica Lancets] 33 gauge misc See Dose Instructions .ROUTE .MEDSUPPLY Qty: 100 Rx Instructions: As directed- THREE TIMES DAILY (DME) compress.stocking,knee,reg,med Misc See Rx Instructions .ROUTE .MEDSUPPLY Qty: 2 0RF Rx Instructions: As directed (DME) CPAP Supplies Misc See Rx Instructions .ROUTE .MEDSUPPLY Qty: 1 0RF Rx Instructions: Full facemask, [facility] aspirin 81 mg Tablet,Delayed Release (Dr/Ec) 81 mg PO QAM omega [id number]-[id number] oil [Fish Oil] 1,000 mg (120 mg-180 mg) Capsule 1 cap PO BID (DME) Auto Titrating CPAP Rx Instructions: Auto CPAP 5-15cm H20 (DME) CPAP Machine Misc Rx Instructions: Discontinue CPAP: [facility] Changed mexiletine 150 mg capsule 300 mg PO Q8H Qty: 1 0RF Rx Instructions: 6 tablets daily Held metformin 1,000 mg tablet 1,000 mg PO BID Qty: 180 3RF Hold Instructions: hold until your creatinine (kidney function level) is rechecked on 06/05/23 Discontinued gentamicin 0.3 % drops 2 drp ophthalmic (eye) Q4H Qty: 5 1RF Discharge Orders: Discharge Order (Routine); Ordered 06/04/23 Ordered By: Heriberto Jade/Other Patient Handouts: Stroke and Heart Disease, Managing Type 2 Diabetes, What Is Aphasia?, Symptoms of Stroke, What Is Ischemic Stroke? 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
[2023-06-07 18:21] LABS: Babesia microti DNA Not Detected (Not Detected)
== END 2023-06-04 18:36 | disposition home or self-care (01) | DRG 869 ==
LOC: ED 11:20 → INTOOBSV 15:02 → 2S 15:02 → SUATTDRO 15:02 → 2S 19:06

== ENCOUNTER 2024-12-01 05:07 | Inpatient (IN) ==
--- NOTE | 2024-12-01 05:18 | Emergency Department Note ---
Impression & Plan Calculus of proximal right ureter ED Provider Note CHIEF COMPLAINT: Right flank pain HISTORY OF PRESENTING ILLNESS: This 64-year-old male patient presents to the emergency department with his daughter for evaluation of right flank pain. The patient has a known 7 mm kidney stone on the right side that has been present for a while. However, he has had increased pain in the right flank recently. The patient had a renal ultrasound done today and has been following up with urology with periodic KUBs for evaluation as well. The right flank pain woke him from sleep and he was unable to control the symptoms at home. The patient has also had some recent hematuria and was recently treated for UTI as well. He has been on the doxycycline for the past week and is to complete a 10 day course. Having hot flashes, but no fevers. He took Tylenol without improvement of his pain. He denies chest pain or SOB. He states that he is no longer on Flomax because he was having side effects, but they now think it was one of his diabetes medications instead. The patient last saw urology on 11/01/2024. The patient had previous KUBs that showed a nonobstructing 7 mm right renal stone, but no left-sided stones and no ureteral stones. Management including observation versus ESWL versus URS/LL were discussed. A renal ultrasound was ordered to evaluate for hydronephrosis/obstruction. A urine sample was also sent for culture to evaluate for UTI. His urine culture on 11/24/2024 grew Staphylococcus epidermidis that was treated with doxycycline by urology. Renal ultrasound on 11/30/2024 showed bilateral renal calculi with minimal hydronephrosis on the right and no hydronephrosis on the left. The patient also saw his PCP on 11/28/2024. The patient was advised to take MiraLAX as well as milk of magnesia as needed to help treat constipation that may have been contributing to his recent UTIs. REVIEW OF SYSTEMS: See HPI for pertinent positives and pertinent negatives. ALLERGIES: Cat dander MEDICATIONS: See below PAST MEDICAL HISTORY: See below PHYSICAL EXAM: VITALS: Vitals are noted on the nurse's note and reviewed by myself. GENERAL: Non toxic, in no acute distress, non-diaphoretic. SKIN: Capillary refill <2 sec. EYES: PERRLA. EOMI. Conjunctivae without injection, sclerae without icterus. NOSE: Patent without discharge. MOUTH: Mucous membranes moist. Uvula midline. Airway patent. NECK: Supple without nuchal rigidity. HEART: Regular rate and rhythm without murmurs gallops or rubs. LUNGS: Clear to auscultation bilaterally without wheezes, rales or rhonchi. No retractions or accessory muscle use. ABDOMEN: Positive bowel sounds x 4. Normal tympanic percussion. Soft, tender to palpation in the right flank. No masses or hepatosplenomegaly. Guy sign negative. No CVA tenderness. No guarding, rigidity, or rebound tenderness. No focal RLQ or LLQ tenderness. MUSCULOSKELETAL: No gross musculoskeletal defects. NEURO: Patient was alert and oriented. No focal neurological deficits. DIFFERENTIAL DIAGNOSIS: Differential diagnosis includes hepatitis, pancreatitis, cholecystitis, cholelithiasis, appendicitis, kidney stone, pyelonephritis, UTI, gastritis, gastroenteritis, mesenteric adenitis, obstruction, constipation, hernia, abdominal abscess, perforation, diverticulitis, IBD, ischemic colitis, abdominal aortic aneurysm, testicular torsion, prostatitis, or others. ED COURSE AND MEDICAL DECISION MAKING: HISTORY FROM INDEPENDENT HISTORIAN: Additional history obtained from the patient's daughter MEDICATIONS GIVEN: A total of 1 L normal saline solution bolus. Toradol 10 mg IV, Tylenol 1000 mg IV, Zofran 4 mg IV, morphine 4 mg IV, Flomax 0.4 mg p.o. MONITOR: Continuous media monitor: Order was placed for continuous media monitor. Patient was placed on the media monitor and continuous pulse ox. Patient was noted to be in normal sinus rhythm at an initial rate of 80 bpm per my interpretation. INTERPRETATION OF LABS: I interpreted the labs with full lab results as below in the lab section of this note. Laboratory results pertinent to the emergent complaint are discussed in the MDM section below. The patient was advised to follow up with their PCP and/or specialist(s) for further outpatient monitoring and management of any abnormal results. INTERPRETATION OF IMAGING: Imaging studies were interpreted by myself and read by radiology as per the imaging section of this note. The patient was advised to follow up with their PCP and/or specialist(s) for further outpatient management of any non-emergent abnormal findings. CT scan of the abdomen and pelvis with IV contrast shows mild hydronephrosis of the right kidney due to 2 adjacent calculi of 5 mm and 3 mm in the right proximal ureter just distal to the pelviureteric junction. This is a new finding. The left kidney shows nonobstructing calculi of 5 mm and 2 mm in the lower calyx which is reduced in number compared to the right. Right kidney shows nonobstructing calculi of 2 mm and 3 mm in the lower calyx reduced in number compared to prior. Stable enlarged prostate. No other new interval abnormality since the prior study. EXTERNAL RECORDS REVIEWED: I reviewed the patient's most recent urology office visit note, PCP office visit note, outpatient urine culture, and outpatient renal ultrasound as summarized above. CONSULTATIONS: Yudy MEAD of urology. On-call hospitalist. MDM SUMMARY: I examined the patient. The patient has a history of kidney stones and follows with urology. The patient has had multiple KUBs recently that have shown a 7 mm nonobstructing right renal stone, but no ureteral stones. The patient was recently diagnosed with a UTI and prescribed doxycycline by urology based on culture results. The patient also had an outpatient renal ultrasound on 11/30/2024 showed bilateral renal calculi with minimal hydronephrosis on the right and no hydronephrosis on the left. The patient was also started on MiraLAX by his PCP as they felt that constipation was possibly contributing to his UTIs. The patient states that he got significantly worse right flank pain overnight and presented to the ER. An IV lock was placed and labs were drawn. The patient was given IV fluids and medicated as above. White blood cell count normal at 5.98. Hemoglobin slightly low at 13.7. Platelet count normal at 202. BUN 27, glucose 305, and AST 41. CMP otherwise without concerning abnormalities. Lipase is normal. Repeat blood sugar after IV fluids improved to 269. Urinalysis with 1+ glucose, trace blood, 6-10 white blood cells, 6-10 red blood cells, and calcium oxalate crystals. CT scan of the abdomen and pelvis with IV contrast shows mild hydronephrosis of the right kidney due to 2 adjacent calculi of 5 mm and 3 mm in the right proximal ureter just distal to the pelviureteric junction. This is a new finding. The left kidney shows nonobstructing calculi of 5 mm and 2 mm in the lower calyx which is reduced in number compared to the right. Right kidney shows nonobstructing calculi of 2 mm and 3 mm in the lower calyx reduced in number compared to prior. Stable enlarged prostate. No other new interval abnormality since the prior study. The patient was medicated as above with improvement of his symptoms initially, but then the pain would return. The patient does not feel comfortable being discharged home due to the continued pain from the kidney stones. I reached out to Yudy MEAD of urology via [employer] text to let them know the patient would be admitted to the hospitalist service for pain control due to the kidney stones. She stated that the patient would be evaluated from a urologic standpoint to determine additional treatment plan. I spoke with the on-call hospitalist about the admission and pending urology evaluation. At the time of shift change, the patient's care was still pending urology evaluation and hospitalist evaluation/admission. The patient's care was transferred in stable condition. 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 Faxed to [facility] for continuity of care. Hiatal hernia Scarring of lung R/T COVID VIRUS (FOLLOWING WITH PULMONOLOGY) Lower extremity edema LASIX PRN Allergic rhinitis (Chronic) Hypercholesterolemia (Chronic) Medical History Myotonic dystrophy, type 2 FOLLOWS WITH [facility]. KARMEN (obstructive sleep apnea) CPAP Obesity (BMI 30-39.9) Vocal fold atrophy DM2 (diabetes mellitus, type 2) Arthritis Kidney stones History of diverticulitis History of COVID-19 POSITIVE 02/12/20. HOSPITALIZED, [place] WITH ABX AND REMDESIVIR. MILD RESIDUAL REYNOLDS/SOB. SCARRING NOTED ON CHEST CT 05/2020 Pneumonia due to 2019-nCoV Hypertension Surgical History H/O hernia repair S/P cystoscopy with ureteral stent placement x2--last 08/2020 @ [facility] [place] teeth removed History of incisional hernia repair History of appendectomy History of partial colectomy 1990s--had colostomy--d/t diverticulitis History of colostomy d/t diverticulitis History of colostomy reversal History of esophagogastroduodenoscopy (EGD) History of colonoscopy with polypectomy History of bilateral cataract extraction Family History Mother Cancer lung cancer Family history of diabetes mellitus Brother Myotonic dystrophy Sister Myotonic dystrophy Diabetes Father Stroke Diabetes Brother Prostate cancer Lewy body dementia Brother Colorectal cancer Daughter No problems noted. Son Diabetes Other No family history of adverse response to anesthesia Denies family history of Ovarian cancer Myocardial infarction Breast cancer Social History Smoking Status: Never smoker Tobacco Type: Cigars Age Started Using Tobacco: 37; Age Quit Using Tobacco: 59; packs per day: 0.5; Cigarettes Per Day: smoked cigars intermittently; Second Hand Exposure: No; Do You Dip or Chew Tobacco: No; Hx Alcohol Use: Yes Alcohol type: hard liquor Alcohol Intake Frequency: Monthly or Less Hx Substance Use: No Preferred Language: Chadian Communication Ability: Effective Visual Impairment: No Limitations Hearing Ability: Normal Ham Pumper Required: No Beliefs That Will Affect Care: None marital status: Current Living Situation: Spouse Current Living Situation Comment: Lives with and son current occupational status: employed Feels Safe at Home: Yes Childhood Exposure to Second-Hand Smoke: Yes Diet: low carbohydrate and other Diet Comment: low sugar, low carbs Dental Care, Regularly: No Physical Activity Frequency: Daily Seatbelt Use: sometimes Sunscreen Use: No Do you think of yourself as: straight/heterosexual Assistive Devices: Cane Allergies Allergies Allergy/AdvReac Type Severity Reaction Status Date / Time cat dander Allergy Mild COUGH Verified 11/28/24 09:26 No Known Drug Allergies Allergy Verified 11/28/24 09:26 Home Meds Home Medications Medication Instructions Recorded Confirmed multivitamin (Daily Multi-Vitamin 1 tab PO QAM 09/12/18 12/01/24 tablet) lancets 33 gauge [facility] ea 11/07/18 11/01/24 Lancets) aspirin 81 mg tablet,delayed 81 mg PO QAM 02/14/20 12/01/24 release omega 9-fbh-sah-fish oil 1,000 mg 1 cap PO BID 02/14/20 12/01/24 (120 mg-180 mg) capsule (Fish Oil) loratadine 10 mg tablet 10 mg PO DAILY PRN Allergy Symptoms 09/11/20 12/01/24 modafinil 100 mg tablet 100 mg PO DAILY 11/01/24 12/01/24 fluticasone propionate 50 2 spray intranasal DAILY PRN 12/01/24 12/01/24 mcg/actuation nasal Congestion spray,suspension losartan 25 mg tablet 25 mg PO QAM 12/01/24 12/01/24 Previous Rx's Medication Instructions Recorded compress.stocking,knee,reg,med #2 ea 02/28/20 albuterol sulfate 90 mcg/actuation 2 puff inhalation Q4H PRN 09/10/20 aerosol inhaler (ProAir HFA) shortness of breath or wheezing #18 grams 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,disc recordist,cont #1 ea 03/24/23 (Dexcom 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) mexiletine 150 mg capsule 300 mg (2 x 150 mg) PO Q8H #1 cap 06/04/23 ondansetron 4 mg disintegrating 4 mg PO Q6H PRN nausea and 06/04/23 tablet vomiting #10 tabs blood sugar [facility] 09/01/23 Verio test strips) metformin 1,000 mg tablet 1,000 mg PO BID #180 tabs 03/23/24 atorvastatin 40 mg tablet 40 mg PO .COMPLEX 90 days #36 tabs 10/05/24 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 sensor (Dexcom G7 #3 ea 10/25/24 Sensor device) pilocarpine HCl 5 mg tablet 5 mg PO BID #180 tabs 11/08/24 azelastine 137 mcg (0.1 %) nasal See Rx Instructions intranasal BID 11/21/24 spray #90 mL pioglitazone 15 mg tablet (Actos) 15 mg PO DAILY #30 tabs 11/21/24 doxycycline hyclate 100 mg tablet 100 mg PO BID #14 tabs 11/24/24 Results & Data (ED) Vital Signs Vital Signs - 24 hr 12/01/24 05:12 12/01/24 05:40 12/01/24 06:51 Temperature 36.9 C Temperature Source Temporal Artery Scan Pulse Rate 81 Pulse Rate [Apical] 77 Pulse Rate [Left Finger] Pulse Rhythm Regular Pulse Rhythm [Apical] Regular Pulse Rhythm [Left Finger] Pulse Strength Normal Pulse Strength [Apical] Normal Pulse Strength [Left Finger] Respiratory Rate 18 18 Respiratory Effort / Characteristics Non-Labored Spontaneous Non-Labored Spontaneous Respiratory Depth Normal Normal Respiratory Pattern Regular Blood Pressure 163/97 H Blood Pressure [Right Arm] 159/89 H Blood Pressure Mean 119 Blood Pressure Mean [Right Arm] 112 Blood Pressure Position Sitting Blood Pressure Position [Right Arm] Pulse Oximetry 97 100 98 Oxygen Delivery Method Room Air Room Air Room Air Oxygen Flow Rate Sepsis Recent Fever Within 48 Hours No Sepsis New/Unexplained Change in Mental Status N/A Sepsis Action Taken by Nursing No Action Required 12/01/24 08:03 12/01/24 10:00 12/01/24 12:00 Temperature Temperature Source Pulse Rate Pulse Rate [Apical] 73 63 61 Pulse Rate [Left Finger] Pulse Rhythm Pulse Rhythm [Apical] Regular Regular Pulse Rhythm [Left Finger] Pulse Strength Pulse Strength [Apical] Normal Normal Pulse Strength [Left Finger] Respiratory Rate 16 20 20 Respiratory Effort / Characteristics Non-Labored Spontaneous Non-Labored Spontaneous Non-Labored Spontaneous Respiratory Depth Normal Normal Normal Respiratory Pattern Regular Regular Regular Blood Pressure Blood Pressure [Right Arm] 159/90 H 153/84 H 146/85 H Blood Pressure Mean Blood Pressure Mean [Right Arm] 113 107 105 Blood Pressure Position Blood Pressure Position [Right Arm] Lying Lying Lying Pulse Oximetry 94 97 98 Oxygen Delivery Method Room Air Room Air Room Air Oxygen Flow Rate Sepsis Recent Fever Within 48 Hours Sepsis New/Unexplained Change in Mental Status Sepsis Action Taken by Nursing 12/01/24 12:30 12/01/24 14:32 12/01/24 14:40 Temperature 36.4 C L 36 C L Temperature Source Oral Temporal Artery Scan Pulse Rate Pulse Rate [Apical] 65 62 Pulse Rate [Left Finger] 59 L Pulse Rhythm Pulse Rhythm [Apical] Regular Regular Pulse Rhythm [Left Finger] Regular Pulse Strength Pulse Strength [Apical] Normal Normal Pulse Strength [Left Finger] Normal Respiratory Rate 20 16 14 Respiratory Effort / Characteristics Non-Labored Spontaneous Non-Labored Spontaneous Non-Labored Spontaneous Respiratory Depth Normal Normal Normal Respiratory Pattern Regular Regular Regular Blood Pressure Blood Pressure [Right Arm] 142/84 H 156/87 H 147/84 H Blood Pressure Mean Blood Pressure Mean [Right Arm] 103 110 105 Blood Pressure Position Blood Pressure Position [Right Arm] Sitting Sitting Semi-fowlers Pulse Oximetry 97 100 98 Oxygen Delivery Method Room Air Oxymask Room Air Oxygen Flow Rate 6 Sepsis Recent Fever Within 48 Hours Sepsis New/Unexplained Change in Mental Status Sepsis Action Taken by Nursing 12/01/24 14:50 12/01/24 15:00 12/01/24 15:10 Temperature 36.4 C L Temperature Source Oral Pulse Rate Pulse Rate [Apical] 71 60 61 Pulse Rate [Left Finger] Pulse Rhythm Pulse Rhythm [Apical] Regular Regular Regular Pulse Rhythm [Left Finger] Pulse Strength Pulse Strength [Apical] Normal Normal Normal Pulse Strength [Left Finger] Respiratory Rate 12 12 14 Respiratory Effort / Characteristics Non-Labored Spontaneous Non-Labored Spontaneous Non-Labored Spontaneous Respiratory Depth Normal Normal Normal Respiratory Pattern Regular Regular Regular Blood Pressure Blood Pressure [Right Arm] 151/90 H 141/83 H 165/88 H Blood Pressure Mean Blood Pressure Mean [Right Arm] 110 102 113 Blood Pressure Position Blood Pressure Position [Right Arm] Semi-fowlers Semi-fowlers Semi-fowlers Pulse Oximetry 96 96 96 Oxygen Delivery Method Room Air Room Air Room Air Oxygen Flow Rate Sepsis Recent Fever Within 48 Hours Sepsis New/Unexplained Change in Mental Status Sepsis Action Taken by Nursing 12/01/24 15:30 12/01/24 15:45 12/01/24 16:00 Temperature Temperature Source Pulse Rate Pulse Rate [Apical] 67 62 65 Pulse Rate [Left Finger] Pulse Rhythm Pulse Rhythm [Apical] Regular Regular Regular Pulse Rhythm [Left Finger] Pulse Strength Pulse Strength [Apical] Normal Normal Normal Pulse Strength [Left Finger] Respiratory Rate 16 14 16 Respiratory Effort / Characteristics Non-Labored Spontaneous Non-Labored Spontaneous Non-Labored Spontaneous Respiratory Depth Normal Normal Normal Respiratory Pattern Regular Regular Regular Blood Pressure Blood Pressure [Right Arm] 157/96 H 149/81 H 145/87 H Blood Pressure Mean Blood Pressure Mean [Right Arm] 116 103 106 Blood Pressure Position Blood Pressure Position [Right Arm] Semi-fowlers Semi-fowlers Semi-fowlers Pulse Oximetry 96 94 96 Oxygen Delivery Method Room Air Room Air Room Air Oxygen Flow Rate Sepsis Recent Fever Within 48 Hours Sepsis New/Unexplained Change in Mental Status Sepsis Action Taken by Nursing 12/01/24 16:15 12/01/24 16:30 Temperature Temperature Source Pulse Rate Pulse Rate [Apical] 62 68 Pulse Rate [Left Finger] Pulse Rhythm Pulse Rhythm [Apical] Regular Regular Pulse Rhythm [Left Finger] Pulse Strength Pulse Strength [Apical] Normal Normal Pulse Strength [Left Finger] Respiratory Rate 14 14 Respiratory Effort / Characteristics Non-Labored Spontaneous Non-Labored Spontaneous Respiratory Depth Normal Normal Respiratory Pattern Regular Regular Blood Pressure Blood Pressure [Right Arm] 158/86 H 148/85 H Blood Pressure Mean Blood Pressure Mean [Right Arm] 110 106 Blood Pressure Position Blood Pressure Position [Right Arm] Semi-fowlers Semi-fowlers Pulse Oximetry 95 95 Oxygen Delivery Method Room Air Room Air Oxygen Flow Rate Sepsis Recent Fever Within 48 Hours Sepsis New/Unexplained Change in Mental Status Sepsis Action Taken by Nursing Laboratory Data 12/01/24 05:35 12/01/24 05:35 Lab Results 12/01/24 12/01/24 12/01/24 Range/Units 05:35 05:37 06:45 WBC 5.98 (4.8-10.8) K/ul RBC 4.44 L (4.70-6.10) M/uL Hgb 13.7 L (14.0-18.0) g/dl POC Hgb 14.3 (14.0-18.0) g/dl Hct 40.9 L (42.0-52.0) % POC Hct 42 (42-52) % MCV 92.1 (80.0-100.0) fL MCH 30.9 (25.0-34.0) pg MCHC 33.5 (32.0-36.0) g/dL RDW Std Deviation 44.0 (36.4-46.3) fL RDW Coeff of Ginny 13.0 (11.5-14.5) % Plt Count 202 (130-400) K/uL MPV 9.7 (9.4-12.4) fL Immature Gran % (Auto) 0.5 % Neut % (Auto) 58.9 % Lymph % (Auto) 18.2 % Hand % (Auto) 13.7 % Eos % (Auto) 8.0 % Baso % (Auto) 0.7 % Neut # (Auto) 3.52 (1.40-6.50) K/uL Lymph # (Auto) 1.09 L (1.20-3.40) K/uL Hand # (Auto) 0.82 H (0.11-0.59) K/uL Eos # (Auto) 0.48 (0.00-0.50) K/uL Baso # (Auto) 0.04 (0.00-0.20) K/uL Immature Gran # (Auto) 0.03 (0.01-0.20) K/uL POC Sodium 141 (135-144) mmol/L Sodium 138 (136-145) mmol/L POC Potassium 4.0 (3.3-5.0) mmol/L Potassium 4.1 (3.5-5.1) mmol/L POC Chloride 108 (101-112) mmol/L Chloride 107 (98-107) mmol/L Carbon Dioxide 24 (21-32) mmol/L POC Total CO2 22 L (24-31) mmol/L Anion Gap 7 (3-11) POC Anion Gap 16.0 (16-25) mmol/L POC BUN 25 H (7-18) mg/dl BUN 27 H (6-23) mg/dl Creatinine 0.76 D (0.6-1.4) mg/dl POC Creatinine 0.8 (0.6-1.3) mg/dl Est Cr Clr Drug Dosing 104.7 ml/min eGFR 101.62 BUN/Creatinine Ratio 35.5 H (10-20) Glucose 305 H* (70-99(Fasting)) mg/dl POC Glucose (70-99) mg/dl POC Glucose (other) 301 H (70-99) mg/dl Calcium 9.4 (8.6-10.3) mg/dl POC Ioniz Calcium Yefri 1.26 (1.12-1.32) mmol/l Magnesium 1.7 (1.7-2.4) mg/dl Total Bilirubin 0.4 (0.2-1.0) mg/dl AST 41 H (13-39) U/L ALT 50 (7-52) U/L Alkaline Phosphatase 70 (34-104) U/L Total Protein 6.1 (6.0-8.3) gm/dl Albumin 3.7 (3.4-5.0) gm/dl Globulin 2.4 L (2.5-4.0) gm/dl Albumin/Globulin Ratio 1.5 (0.9-2) Lipase 63 (11-82) U/L Urine Color Yellow Urine Appearance Clear (Clear) Urine pH 5.0 (4.5-7.5) Ur Specific [place] > 1.045 H (1.000-1.030) Urine Protein Negative (Negative) Urine Glucose (UA) 1+ H (Negative) Urine Ketones Negative (Negative) Urine Blood Trace H (Negative) Urine Nitrite Negative (Negative) Urine Bilirubin Negative (Negative) Urine Urobilinogen Negative (Negative) Ur Leukocyte Esterase Negative (Negative) Urine WBC (Auto) 6-10 H (0-5) /hpf Urine RBC (Auto) 6-10 H (0-2) /hpf U Hyaline Cast (Auto) 0-2 (0-2) /lpf U Epithel Cells (Auto) 0-2 (0-2) /hpf Urine Bacteria (Auto) None Seen (None Seen) Calcium Oxalate Crystal Present A (None Prsent) Urine Comment 12/01/24 12/01/24 12/01/24 Range/Units 06:49 12:16 15:00 WBC (4.8-10.8) K/ul RBC (4.70-6.10) M/uL Hgb (14.0-18.0) g/dl POC Hgb (14.0-18.0) g/dl Hct (42.0-52.0) % POC Hct (42-52) % MCV (80.0-100.0) fL MCH (25.0-34.0) pg MCHC (32.0-36.0) g/dL RDW Std Deviation (36.4-46.3) fL RDW Coeff of Ginny (11.5-14.5) % Plt Count (130-400) K/uL MPV (9.4-12.4) fL Immature Gran % (Auto) % Neut % (Auto) % Lymph % (Auto) % Hand % (Auto) % Eos % (Auto) % Baso % (Auto) % Neut # (Auto) (1.40-6.50) K/uL Lymph # (Auto) (1.20-3.40) K/uL Hand # (Auto) (0.11-0.59) K/uL Eos # (Auto) (0.00-0.50) K/uL Baso # (Auto) (0.00-0.20) K/uL Immature Gran # (Auto) (0.01-0.20) K/uL POC Sodium (135-144) mmol/L Sodium (136-145) mmol/L POC Potassium (3.3-5.0) mmol/L Potassium (3.5-5.1) mmol/L POC Chloride (101-112) mmol/L Chloride (98-107) mmol/L Carbon Dioxide (21-32) mmol/L POC Total CO2 (24-31) mmol/L Anion Gap (3-11) POC Anion Gap (16-25) mmol/L POC BUN (7-18) mg/dl BUN (6-23) mg/dl Creatinine (0.6-1.4) mg/dl POC Creatinine (0.6-1.3) mg/dl Est Cr Clr Drug Dosing ml/min eGFR BUN/Creatinine Ratio (10-20) Glucose (70-99(Fasting)) mg/dl POC Glucose 269 H 222 H 157 H (70-99) mg/dl POC Glucose (other) (70-99) mg/dl Calcium (8.6-10.3) mg/dl POC Ioniz Calcium Yefri (1.12-1.32) mmol/l Magnesium (1.7-2.4) mg/dl Total Bilirubin (0.2-1.0) mg/dl AST (13-39) U/L ALT (7-52) U/L Alkaline Phosphatase (34-104) U/L Total Protein (6.0-8.3) gm/dl Albumin (3.4-5.0) gm/dl Globulin (2.5-4.0) gm/dl Albumin/Globulin Ratio (0.9-2) Lipase (11-82) U/L Urine Color Urine Appearance (Clear) Urine pH (4.5-7.5) Ur Specific [place] (1.000-1.030) Urine Protein (Negative) Urine Glucose (UA) (Negative) Urine Ketones (Negative) Urine Blood (Negative) Urine Nitrite (Negative) Urine Bilirubin (Negative) Urine Urobilinogen (Negative) Ur Leukocyte Esterase (Negative) Urine WBC (Auto) (0-5) /hpf Urine RBC (Auto) (0-2) /hpf U Hyaline Cast (Auto) (0-2) /lpf U Epithel Cells (Auto) (0-2) /hpf Urine Bacteria (Auto) (None Seen) Calcium Oxalate Crystal (None Prsent) Urine Comment Administered Medications Lactated Ringer's (Lr) 1,000 mls @ 125 mls/hr IV .Q8H TROY Stop: 12/04/24 08:14 Last Admin: 12/01/24 08:22 Dose: 125 mls/hr Documented By: levi Daptomycin 500 mg/ Syringe 10 mls @ 5 mls/min IV Q24H TROY; Protocol Stop: 12/11/24 11:59 Last Admin: 12/01/24 12:12 Dose: 5 mls/min Documented By: levi Ketorolac Tromethamine (Ketorolac Tromethamine 15 Mg/Ml Vial) 10 mg IV Q6H PRN PRN Reason: Pain Stop: 12/06/24 11:59 Last Admin: 12/01/24 11:59 Dose: 10 mg Documented By: levi Tamsulosin HCl (Tamsulosin Hcl 0.4 Mg Cap) 0.4 mg PO QAM TROY Stop: 12/31/24 08:59 Last Admin: 12/01/24 09:34 Dose: Not Given Documented By: levi Discontinued Medications Diatrizoate Meglumine (Diatrizoate Meglumine 30% 100ml Vial) 18 ml INSTIL ONCE ONE Stop: 12/01/24 14:27 Last Admin: 12/01/24 14:26 Dose: 18 ml Documented By: [id number] Sodium Chloride (Nss) 500 mls @ 999 mls/hr IV .Q31M ONE Stop: 12/01/24 05:58 Last Infusion: 12/01/24 06:11 Dose: Infused Documented By: Admin: 12/01/24 05:37 Dose: 999 mls/hr Documented By: INDU Sodium Chloride (Nss) 500 mls @ 999 mls/hr IV .Q31M ONE Stop: 12/01/24 07:06 Last Infusion: 12/01/24 08:01 Dose: Infused Documented By: levi Admin: 12/01/24 06:39 Dose: 999 mls/hr Documented By: INDU Acetaminophen (Ofirmev) 1,000 mg in 100 mls @ 400 mls/hr IV NOW STA Stop: 12/01/24 07:55 Last Infusion: 12/01/24 09:45 Dose: Infused Documented By: levi Admin: 12/01/24 07:53 Dose: 400 mls/hr Documented By: levi Ioversol (Optiray 320 100ml) 93 ml IV ONCE ONE Stop: 12/01/24 05:49 Last Admin: 12/01/24 05:49 Dose: 93 ml Documented By: CLARE Ketorolac Tromethamine (Ketorolac Tromethamine 15 Mg/Ml Vial) 10 mg IV NOW ONE Stop: 12/01/24 05:29 Last Admin: 12/01/24 05:36 Dose: 10 mg Documented By: INDU Morphine Sulfate (Morphine Sulfate 4 Mg/Ml 1 Ml Carp\Vial) 4 mg IV NOW STA Stop: 12/01/24 07:17 Last Admin: 12/01/24 07:20 Dose: 4 mg Documented By: levi Ondansetron HCl (Ondansetron Inj 2 Mg/Ml 2 Ml Vial) 4 mg IV NOW STA Stop: 12/01/24 05:29 Last Admin: 12/01/24 05:37 Dose: 4 mg Documented By: INDU Tamsulosin HCl (Tamsulosin Hcl 0.4 Mg Cap) 0.4 mg PO NOW ONE Stop: 12/01/24 06:47 Last Admin: 12/01/24 06:57 Dose: 0.4 mg Documented By: levi Imaging Data Radiologist's Impression: Retrograde Pyelogram 12/01/24 00:00 [place] retrograde includes kub CLINICAL HISTORY: CYSTO RIGHT STENT COMPARISON STUDY: None FLUOROSCOPY TIME: 27 seconds FLUOROSCOPY IMAGES: 5 EXPOSURE DOSE: 10 mGy FINDINGS: Fluoroscopy was provided for urologic procedure. IMPRESSION: Intraoperative fluoroscopy. ACT 112: Negative or not required by law. Electronically signed by: Julio Gonzalez M.D. 12/01/2024 2:42 PM Abdomen/Pelvis CT 12/01/24 05:28 EXAM: CT abd pelvis IV con only CLINICAL HISTORY: Right flank pain, h/o stones and UTI TECHNIQUE: Contiguous axial images were obtained from the level of the diaphragm to the pubic symphysis with intravenous contrast. Coronal and sagittal reconstructions were likewise performed and indicated to increase the sensitivity for detecting clinically relevant pathology. If IV contrast material had not been administered, the likelihood of detecting abnormalities relevant to the patient's condition would have been substantially decreased. The CT scan was performed according to ALARA (as low as reasonably achievable). 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 FINDINGS: The visualized lung bases are clear. The liver is normal in size and attenuation. No focal liver lesions are seen. There is no intra or extrahepatic biliary ductal dilatation. Hepatic vasculature is patent. The gallbladder is present. The spleen, pancreas, and adrenal glands are unremarkable. The kidneys are normal in size and attenuation. The right kidney shows nonobstructing calculi measuring 2 mm and 3 mm in the lower calyx. The right kidney shows mild hydronephrosis due to 2 adjacent calculi measuring 5 mm and 3 mm involving the right proximal ureter, just distal to the pelviureteric junction. The left kidney shows nonobstructing calculi measuring 5 mm and 2 mm in the lower calyx. The ureters are normal in caliber, and no ureteral calculi are seen. The bladder is normal in contour. Pelvic viscera are unremarkable. The prostate is enlarged with multiple calcifications. No focal or diffuse bowel wall thickening or evidence of bowel obstruction is identified. No imaging evidence of appendicitis. Abdominal and pelvic vasculature is patent. No adenopathy or fluid collections are seen. No aggressive-appearing osseous lesions are identified. IMPRESSION: 1. Right kidney shows mild hydronephrosis due to 2 adjacent calculi of size 5 mm and 3 mm in the right proximal ureter, just distal to the pelviureteric junction. New finding. 2. Left kidney shows nonobstructing calculi of size 5 mm and 2 mm in the lower calyx. Reduced in number as compared to the right. 3. Right kidney shows nonobstructing calculi of size 2 mm and 3 mm in the lower calyx. Reduced in number as compared to prior. 4. Enlarged prostate. Stable. 5. No other new interval abnormality since the prior study. Electronically signed by Guillermo Charles 12-01-2024 06:43 AM Discharge Plan Visit Data Chief Complaint: Kidney Stone Stated Complaint: KIDNEY STONE ED Provider: Cornel Carias ED Midlevel Provider: Carolynn Edwards Discharge Problem: Calculus of proximal right ureter Patient Disposition: Admitted As Inpatient Condition: Fair Discharge Instructions Interventions: ED Discharge Assessment Last Done: 12/01/24 12:30
[2024-12-01] MEDS: KETOROLAC TROMETHAMINE 15 MG/ML VIAL IV ONE (05:36)
[2024-12-01] MEDS: ONDANSETRON INJ 2 MG/ML 2 ML VIAL IV STA (05:37)
[2024-12-01] MEDS: SODIUM CHLORIDE 0.9% 500 ML IV ONE ×2 (05:37→06:39)
[2024-12-01] MEDS: OPTIRAY 320 100ml IV ONE (05:49)
[2024-12-01 05:57] LABS: Hematocrit (blood only) 40.9 % (42.0-52.0); Hemoglobin 13.7 g/dl (14.0-18.0); Immature Granulocytes # (auto) 0.03 K/uL (0.01-0.20); Immature Granulocytes % (auto) 0.5 %; Mean Corpuscular Hemoglobin 30.9 pg (25.0-34.0); Mean Corpuscular Volume 92.1 fL (80.0-100.0); Platelet Count 202 K/uL (130-400); RDW Standard Deviation 44.0 fL (36.4-46.3); Red Blood Count 4.44 M/uL (4.70-6.10); White Blood Count 5.98 K/ul (4.8-10.8)
[2024-12-01 06:19] LABS: Alanine Aminotransferase 50.0 U/L (7-52); Albumin Globulin Ratio 1.5 (0.9-2); Albumin Level 3.7 gm/dl (3.4-5.0); Alkaline Phosphatase 70.0 U/L (34-104); Anion Gap 7.0 (3-11); Bilirubin,Total 0.4 mg/dl (0.2-1.0); Blood Urea Nitrogen 27.0 mg/dl (6-23); Calcium 9.4 mg/dl (8.6-10.3); Carbon Dioxide 24.0 mmol/L (21-32); Chloride 107.0 mmol/L (98-107); Creatinine Clr Calc Pharmacy 104.7 ml/min; Globulin 2.4 gm/dl (2.5-4.0); Glucose 305.0 mg/dl (70-99(Fasting)); Lipase 63.0 U/L (11-82); Magnesium 1.7 mg/dl (1.7-2.4); Potassium 4.1 mmol/L (3.5-5.1); Sodium 138.0 mmol/L (136-145); Total Protein 6.1 gm/dl (6.0-8.3)
--- NOTE | 2024-12-01 06:44 | CT Scan Report ---
EXAM: CT abd pelvis IV con only CLINICAL HISTORY: Right flank pain, h/o stones and UTI TECHNIQUE: Contiguous axial images were obtained from the level of the diaphragm to the pubic symphysis with intravenous contrast. Coronal and sagittal reconstructions were likewise performed and indicated to increase the sensitivity for detecting clinically relevant pathology. If IV contrast material had not been administered, the likelihood of detecting abnormalities relevant to the patient's condition would have been substantially decreased. The CT scan was performed according to ALARA (as low as reasonably achievable). 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 FINDINGS: The visualized lung bases are clear. The liver is normal in size and attenuation. No focal liver lesions are seen. There is no intra or extrahepatic biliary ductal dilatation. Hepatic vasculature is patent. The gallbladder is present. The spleen, pancreas, and adrenal glands are unremarkable. The kidneys are normal in size and attenuation. The right kidney shows nonobstructing calculi measuring 2 mm and 3 mm in the lower calyx. The right kidney shows mild hydronephrosis due to 2 adjacent calculi measuring 5 mm and 3 mm involving the right proximal ureter, just distal to the pelviureteric junction. The left kidney shows nonobstructing calculi measuring 5 mm and 2 mm in the lower calyx. The ureters are normal in caliber, and no ureteral calculi are seen. The bladder is normal in contour. Pelvic viscera are unremarkable. The prostate is enlarged with multiple calcifications. No focal or diffuse bowel wall thickening or evidence of bowel obstruction is identified. No imaging evidence of appendicitis. Abdominal and pelvic vasculature is patent. No adenopathy or fluid collections are seen. No aggressive-appearing osseous lesions are identified. IMPRESSION: 1. Right kidney shows mild hydronephrosis due to 2 adjacent calculi of size 5 mm and 3 mm in the right proximal ureter, just distal to the pelviureteric junction. New finding. 2. Left kidney shows nonobstructing calculi of size 5 mm and 2 mm in the lower calyx. Reduced in number as compared to the right. 3. Right kidney shows nonobstructing calculi of size 2 mm and 3 mm in the lower calyx. Reduced in number as compared to prior. 4. Enlarged prostate. Stable. 5. No other new interval abnormality since the prior study. Electronically signed by Guillermo Charles 12-01-2024 06:43 AM
[2024-12-01] MEDS: TAMSULOSIN HCL 0.4 MG CAP PO ONE (06:57)
--- NOTE | 2024-12-01 06:59 | Emergency Department Note ---
ED Visit Note I was consulted in regards to the patient's presentation and plan of care by the Advanced Practice Provider. I engaged in a detailed/meaningful discussion with the Advanced Practice Provider in regards to this patient's workup and plan of care. I performed a substantiative portion of the medical decision making following discussion with the Advanced Practice Provider. Please see the Advanced Practice Provider's separate documentation for full details of the patient's visit. I agree with the assessment and plan of Carolynn Edwards PA-C. Cornel Carias, DO Emergency Medicine .
[2024-12-01] MEDS: MoRPHine SULFATE 4 MG/ML 1 ML CARP\\VIAL IV STA (07:20)
[2024-12-01 07:44] LABS: Appearance Urine Clear (Clear); Bacteria Urine Automated None Seen (None Seen); Cast Urine Automated 0-2 /lpf (0-2); Epithelial Cell Urine Auto 0-2 /hpf (0-2); Glucose Urine UA 1+ (Negative)
[2024-12-01] MEDS: ACETAMINOPHEN 1,000 MG/100 ML VIAL IV STA (07:53)
[2024-12-01] MEDS: LACTATED RINGER'S 1,000 ML IV SCH (08:22)
--- NOTE | 2024-12-01 09:18 | Urology Consultation ---
<Statement entered by Jono Mccallum MD - 12/01/24 13:11> 64-year-old male with right ureteral stones. Will plan on cystoscopy, right retrograde pyelogram and right ureteral stent placement. Date of Consultation December 01, 2024 Assessment & Plan (1) Calculus of proximal right ureter: 64-year-old male with history of nephrolithiasis presented to the emergency department for worsening right flank pain. CT abdomen pelvis demonstrated 2 proximal ureteral stones measuring 5 mm and 3 mm with mild right hydronephrosis. Urology is consulted regarding ureteral calculi Patient afebrile and hemodynamically stable Labs reviewedcreatinine 0.76, WBC 5.98, hemoglobin 13.7 Urinalysis showed trace blood, 6-10 WBC, 6-10 RBC, negative for bacteria He has been on doxycycline as outpatient for recent UTI with Staphylococcus epidermidis CTAP reviewed and discussed2 right proximal ureteral stones with mild hydronephrosis, additional nonobstructing renal calculi bilaterally Discussed options for stone management including medical expulsive therapy and outpatient follow-up versus cystoscopy and right ureteral stent placement with stone treatment at a later date After discussion, he would like to proceed with right ureteral stent placement today Proceed to OR for cystoscopy and right ureteral stent placement Risk and benefits of procedure reviewed with patient by Dr. Mccallum Keep n.p.o. for procedure Will cover for with IV antibiotics preoperatively Continue supportive care and medical management per hospital medicine service follow History of Present Illness Reason for Consultation: Right ureteral calculi History of Present Illness This is a 64-year-old male who follows with urology for nephrolithiasis and BPH with LUTS. He was recently seen in urology clinic on 11/01/2024 and reported intermittent right flank pain. Renal ultrasound was ordered for further evaluation of symptoms. Recent urine culture 11/24/2024 grew Staphylococcus ep idermidis and he was started on course of doxycycline. He presented to the emergency department on 12/01/2024 for evaluation of worsening right flank pain. On arrival to ED, he was afebrile, hypertensive. Lab work showed WBC 5.98, hemoglobin 13.7, creatinine 0.76. Urinalysis demonstrated 6-10 WBC, 6-10 RBC, negative for bacteria; calcium oxalate crystals present. Workup included CT abdomen pelvis with IV contrast which showed mild right hydronephrosis secondary to 2 adjacent calculi measuring 5 mm and 3 mm in the right proximal ureter. Additional nonobstructing right renal calculi. Left kidney shows nonobstructing renal calculi. ED course: IV fluids, ketorolac, morphine, ondansetron and tamsulosin. He was admitted to the hospital medicine service for intractable right flank pain. Urology is consulted for right ureteral calculi. Patient seen and examined in the emergency department. He is awake and resting in litter. He reports right flank pain has improved since arrival. Has felt hot flashes at home, but denies fever/chills. Voiding spontaneously. He has been on antibiotics for recent UTI. No dysuria or hematuria at present. He has sips of Georgi-aid around 4 am. Allergies Allergy/AdvReac Type Severity Reaction Status Date / Time cat dander Allergy Mild COUGH Verified 11/28/24 09:26 No Known Drug Allergies Allergy Verified 11/28/24 09:26 Home Medications Medication Instructions Recorded Confirmed Type multivitamin (Daily Multi-Vitamin 1 tab PO QAM 09/12/18 12/01/24 History tablet) lancets 33 gauge (OneTouch Delica #100 ea 11/07/18 11/01/24 History Lancets) aspirin 81 mg tablet,delayed 81 mg PO QAM 02/14/20 12/01/24 History release omega 2-col-leg-fish oil 1,000 mg 1 cap PO BID 02/14/20 12/01/24 History (120 mg-180 mg) capsule (Fish Oil) compress.stocking,knee,reg,med #2 ea 02/28/20 11/01/24 Rx albuterol sulfate 90 mcg/actuation 2 puff inhalation Q4H PRN 09/10/20 12/01/24 Rx aerosol inhaler (ProAir HFA) shortness of breath or wheezing #18 grams loratadine 10 mg tablet 10 mg PO DAILY PRN Allergy Symptoms 09/11/20 12/01/24 History 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,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,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 #1 ea 03/24/23 11/01/24 Rx (Dexcom G7 Pick Pulling Machine Operator) mexiletine 150 mg capsule 300 mg (2 x 150 mg) PO Q8H #1 cap 06/04/23 12/01/24 Rx ondansetron 4 mg disintegrating 4 mg PO Q6H PRN nausea and 03/29/24 09/26/25 Rx tablet vomiting #10 tabs blood sugar diagnostic (OneTouch #50 ea 09/01/23 11/01/24 Rx Verio test strips) metformin 1,000 mg tablet 1,000 mg PO BID #180 tabs 03/23/24 12/01/24 Rx atorvastatin 40 mg tablet 40 mg PO .COMPLEX 90 days #36 tabs 10/05/24 12/01/24 Rx 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 sensor (Dexcom G7 #3 ea 10/25/24 11/01/24 Rx Sensor device) modafinil 100 mg tablet 100 mg PO DAILY 11/01/24 12/01/24 History pilocarpine HCl 5 mg tablet 5 mg PO BID #180 tabs 11/08/24 12/01/24 Rx azelastine 137 mcg (0.1 %) nasal See Rx Instructions intranasal BID 11/21/24 12/01/24 Rx spray #90 mL pioglitazone 15 mg tablet (Actos) 15 mg PO DAILY #30 tabs 11/21/24 12/01/24 Rx doxycycline hyclate 100 mg tablet 100 mg PO BID #14 tabs 11/24/24 12/01/24 Rx fluticasone propionate 50 2 spray intranasal DAILY PRN 12/01/24 12/01/24 History mcg/actuation nasal Congestion spray,suspension losartan 25 mg tablet 25 mg PO QAM 12/01/24 12/01/24 History Patient History Medical History Calculus of proximal right ureter Arthritis Kidney stones History of diverticulitis History of COVID-19 POSITIVE 02/12/20. HOSPITALIZED, [place] WITH ABX AND REMDESIVIR. MILD RESIDUAL REYNOLDS/SOB. SCARRING NOTED ON CHEST CT 05/2020 Pneumonia due to 2019-nCoV Hypertension Surgical History H/O hernia repair S/P cystoscopy with ureteral stent placement x2--last 08/2020 @ [facility] [place] teeth removed History of incisional hernia repair History of appendectomy History of partial colectomy 1990s--had colostomy--d/t diverticulitis History of colostomy d/t diverticulitis History of colostomy reversal History of esophagogastroduodenoscopy (EGD) History of colonoscopy with polypectomy History of bilateral cataract extraction Family History Mother Cancer lung cancer Family history of diabetes mellitus Brother Myotonic dystrophy Sister Myotonic dystrophy Diabetes Father Stroke Diabetes Brother Prostate cancer Lewy body dementia Brother Colorectal cancer Daughter No problems noted. Son Diabetes Other No family history of adverse response to anesthesia Denies family history of Ovarian cancer Myocardial infarction Breast cancer Social History Smoking Status: Never smoker Tobacco Type: Cigars Age Started Using Tobacco: 37; Age Quit Using Tobacco: 59; packs per day: 0.5; Cigarettes Per Day: smoked cigars intermittently; Second Hand Exposure: No; Do You Dip or Chew Tobacco: No; Hx Alcohol Use: Yes Alcohol type: hard liquor Alcohol Intake Frequency: Monthly or Less Hx Substance Use: No Preferred Language: Indonesian Communication Ability: Effective Visual Impairment: No Limitations Hearing Ability: Normal Staff Research Scientist Required: No Beliefs That Will Affect Care: None marital status: Current Living Situation: Spouse Current Living Situation Comment: Lives with and son current occupational status: employed Feels Safe at Home: Yes Childhood Exposure to Second-Hand Smoke: Yes Diet: low carbohydrate and other Diet Comment: low sugar, low carbs Dental Care, Regularly: No Physical Activity Frequency: Daily Seatbelt Use: sometimes Sunscreen Use: No Do you think of yourself as: straight/heterosexual Assistive Devices: Cane Review of Systems Constitutional: as per Subjective / HPI Genitourinary: + as per Subjective / HPI Physical Exam Constitutional: well developed and well nourished; no acute distress Respiratory: normal respiratory effort; no respiratory distress and no labored breathing Gastrointestinal (Abdomen): Inspection/Auscultation: abdomen normal to inspec tion Musculoskeletal: Head/Neck/Chest: normocephalic Neurologic: moves all extremities and awake Psychiatric: Orientation: alert and oriented x 3 Results & Data Vital Signs (Past 12 Hours) Vital Signs Temp Pulse Pulse Resp BP BP Pulse Ox 12/01/24 08:03 73 16 159/90 H 94 12/01/24 06:51 77 18 159/89 H 98 12/01/24 05:40 100 12/01/24 05:12 36.9 C 81 18 163/97 H 97 O2 Del Method 12/01/24 08:03 Room Air 12/01/24 06:51 Room Air 12/01/24 05:40 Room Air 12/01/24 05:12 Room Air PG Care Time/CCT Total # of Minutes Spent Total Time Spent with Patient: Total time spent is greater than 50% in coordination of care (as documented) at patient's floor/unit and/or counseling patient: Coding Level of Care Code 54474 IN/OBS CONSULT LVL 4,60M Diagnoses Calculus of proximal right ureter N20.1
[2024-12-01] MEDS: TAMSULOSIN HCL 0.4 MG CAP PO SCH (09:34)
[2024-12-01] MEDS ORDERED: CARBOHYDRATES FOR HYPOGLYCEMIA PO PRN (10:00)
[2024-12-01] MEDS ORDERED: GLUCAGON FOR INJ 1 MG VIAL SQ PRN (10:00)
[2024-12-01] MEDS ORDERED: GLUCOSE 10 TAB/TUBE PO PRN (10:00)
[2024-12-01] MEDS ORDERED: GLUCOSE 40% GEL 15 GM TUBE PO PRN (10:00)
[2024-12-01] MEDS ORDERED: DEXTROSE 50% 50 ML SYRINGE IV PRN (10:00)
[2024-12-01] MEDS ORDERED: ALBUTEROL HFA 8 GM INHALER INH PRN (10:01)
[2024-12-01] MEDS ORDERED: KETOROLAC 30 MG/ML VIAL ONE (10:20)
[2024-12-01] MEDS ORDERED: PROPOFOL IV EMULSION 10 MG/ML 20 ML VIAL IV ONE ×2 (10:20→14:14)
[2024-12-01] MEDS ORDERED: ONDANSETRON INJ 2 MG/ML 2 ML VIAL ONE (10:20)
[2024-12-01] MEDS ORDERED: MIDAZOLAM HCL 1 MG/ML 2ML VIAL ONE (10:20)
[2024-12-01] MEDS ORDERED: LIDOCAINE 2% 2 ML VIAL/AMP(20MG/ML) INFIL ONE (10:20)
--- NOTE | 2024-12-01 10:42 | Anesthesiology Consultation ---
Date of Service December 01, 2024 Assessment & Plan (1) Encounter for pre-operative examination: Chart Review Chart Review: Acceptable Risk for Surgery and Patient NOT seen in Pre Admission Testing Consults Requested none History Surgery Operation Date: 12/01/24 08:20 Proposed Procedures p Cystoscopy Right Stent Placement - Jono Mccallum MD Height/Weight Height: 5 ft 4 in Weight: 94.9 kg Allergies Allergy/AdvReac Type Severity Reaction Status Date / Time cat dander Allergy Mild COUGH Verified 11/28/24 09:26 No Known Drug Allergies Allergy Verified 11/28/24 09:26 Medications Home Medications Medication Instructions Recorded Confirmed Last Taken multivitamin (Daily Multi-Vitamin 1 tab PO QAM 09/12/18 12/01/24 11/30/24 tablet) lancets 33 gauge (Virdante PharmaceuticalsTouch Delica #100 ea 11/07/18 11/01/24 Unknown Lancets) aspirin 81 mg tablet,delayed 81 mg PO QAM 02/14/20 12/01/24 11/30/24 release omega 6-dgg-xmd-fish oil 1,000 mg 1 cap PO BID 02/14/20 12/01/24 11/30/24 (120 mg-180 mg) capsule (Fish Oil) compress.stocking,knee,reg,med #2 ea 02/28/20 11/01/24 Unknown albuterol sulfate 90 mcg/actuation 2 puff inhalation Q4H PRN 09/10/20 12/01/24 06/25/22 14:00 aerosol inhaler (ProAir HFA) shortness of breath or wheezing #18 grams loratadine 10 mg tablet 10 mg PO DAILY PRN Allergy Symptoms 09/11/20 12/01/24 11/30/24 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,rn hemo dialysis,cont #1 ea 03/24/23 11/01/24 Unknown (Dexcom G7 Drywall Application Supervisor) mexiletine 150 mg capsule 300 mg (2 x 150 mg) PO Q8H #1 cap 06/04/23 12/01/24 11/30/24 ondansetron 4 mg disintegrating 4 mg PO Q6H PRN nausea and 06/04/23 12/01/24 Unknown tablet vomiting #10 tabs blood sugar diagnostic (OneTouch #50 ea 09/01/23 11/01/24 Unknown Verio test strips) metformin 1,000 mg tablet 1,000 mg PO BID #180 tabs 03/23/24 12/01/24 11/30/24 atorvastatin 40 mg tablet 40 mg PO .COMPLEX 90 days #36 tabs 10/05/24 12/01/24 11/30/24 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 sensor (Dexcom G7 #3 ea 10/25/24 11/01/24 Unknown Sensor device) modafinil 100 mg tablet 100 mg PO DAILY 11/01/24 12/01/24 11/30/24 pilocarpine HCl 5 mg tablet 5 mg PO BID #180 tabs 11/08/24 12/01/24 11/30/24 azelastine 137 mcg (0.1 %) nasal See Rx Instructions intranasal BID 11/21/24 12/01/24 Unknown spray #90 mL pioglitazone 15 mg tablet (Actos) 15 mg PO DAILY #30 tabs 11/21/24 12/01/24 11/30/24 doxycycline hyclate 100 mg tablet 100 mg PO BID #14 tabs 11/24/24 12/01/24 11/30/24 fluticasone propionate 50 2 spray intranasal DAILY PRN 12/01/24 12/01/24 Unknown mcg/actuation nasal Congestion spray,suspension losartan 25 mg tablet 25 mg PO QAM 12/01/24 12/01/24 11/30/24 Active Medications Generic Name Dose Route Start Last Admin Trade Name Freq PRN Reason Stop Dose Admin Lactated Ringer's 1,000 mls @ 125 mls/hr 12/01/24 08:15 12/01/24 08:22 Lr IV 12/04/24 08:14 125 mls/hr .Q8H TROY Administration Daptomycin 500 mg/ Syringe 10 mls @ 5 mls/min 12/01/24 12:00 12/01/24 12:12 IV 12/11/24 11:59 5 mls/min Q24H TROY Administration Protocol Ketorolac Tromethamine 10 mg 12/01/24 12:00 12/01/24 11:59 Ketorolac Tromethamine 15 Mg/Ml Vial IV 12/06/24 11:59 10 mg Q6H PRN Administration Pain Tamsulosin HCl 0.4 mg 12/01/24 09:00 12/01/24 09:34 Tamsulosin Hcl 0.4 Mg Cap PO 12/31/24 08:59 [facility] Past Medical History Medical History Myotonic dystrophy, type 2 FOLLOWS WITH [facility]. KARMEN (obstructive sleep apnea) CPAP Obesity (BMI 30-39.9) Vocal fold atrophy DM2 (diabetes mellitus, type 2) Arthritis Kidney stones History of diverticulitis History of COVID-19 POSITIVE 02/12/20. H[place]IZ[place], [place] WITH ABX AND REMDESIVIR. MILD RESIDUAL REYNOLDS/SOB. SCARRING NOTED ON CHEST CT 05/2020 Pneumonia due to 2019-V Hypertension Exercise / Class Metabolic Activity II 4-5 Yardwork/Stairs/Walk up hill Past Family History Family History Mother Cancer lung cancer Family history of diabetes mellitus Brother Myotonic dystrophy Sister Myotonic dystrophy Diabetes Father Stroke Diabetes Brother Prostate cancer Lewy body dementia Brother Colorectal cancer Daughter No problems noted. Son Diabetes Other No family history of adverse response to anesthesia Denies family history of Ovarian cancer Myocardial infarction Breast cancer Past Surgical History Surgical History H/O hernia repair S/P cystoscopy with ureteral stent placement x2--last 08/[address] [facility] [place] teeth removed History of incisional hernia repair History of appendectomy History of partial colectomy 1990s--had colostomy--d/t diverticulitis History of colostomy d/t diverticulitis History of colostomy reversal History of esophagogastroduodenoscopy (EGD) History of colonoscopy with polypectomy History of bilateral cataract extraction Social History Smoking Status: Never smoker tobacco type: cigars Smoking cigarettes per day: smoked cigars intermittently Do You Dip or Chew Tobacco: No Hx Alcohol Use: Yes Alcohol type: hard liquor alcohol intake frequency: 0-2 drinks per day Hx Substance Use: No substance use type: does not use Physical Exam Vital Signs Last Vital Signs Temp 36.4 C L 12/01/24 12:30 Pulse 59 L 12/01/24 12:30 Resp 20 12/01/24 12:30 BP 142/84 H 12/01/24 12:30 Pulse Ox 97 12/01/24 12:30 O2 Del Method Room Air 12/01/24 12:30 Testing Laboratory Results 12/01/24 05:35 12/01/24 05:35 Urine Color Yellow 12/01/24 06:45 Urine Appearance Clear (Clear) 12/01/24 06:45 Urine pH 5.0 (4.5-7.5) 12/01/24 06:45 Ur Specific [place] > 1.045 (1.000-1.030) H 12/01/24 06:45 Urine Protein Negative (Negative) 12/01/24 06:45 Urine Glucose (UA) 1+ (Negative) H 12/01/24 06:45 Urine Ketones Negative (Negative) 12/01/24 06:45 Urine Nitrite Negative (Negative) 12/01/24 06:45 Ur Leukocyte Esterase Negative (Negative) 12/01/24 06:45 Urine WBC (Auto) 6-10 /hpf (0-5) H 12/01/24 06:45 Urine RBC (Auto) 6-10 /hpf (0-2) H 12/01/24 06:45 U Hyaline Cast (Auto) 0-2 /lpf (0-2) 12/01/24 06:45 U Epithel Cells (Auto) 0-2 /hpf (0-2) 12/01/24 06:45 Urine Bacteria (Auto) None Seen (None Seen) 12/01/24 06:45 12/01/24 12/01/24 12/01/24 12:16 06:49 05:37 POC Glucose 222 H 269 H POC Glucose (other) 301 H Electrocardiogram Date: 09/29/24 nsr. no changes. per [facility] report.
[2024-12-01] MEDS: KETOROLAC TROMETHAMINE 15 MG/ML VIAL IV PRN (11:59)
[2024-12-01] MEDS: DAPTOmycin 500 MG in SYRINGE 0 ML IV SCH (12:12)
[2024-12-01] MEDS ORDERED: ONDANSETRON INJ 2 MG/ML 2 ML VIAL IV PRN (13:37)
[2024-12-01] MEDS ORDERED: ATROPINE SULFATE 0.1 MG/ML 10ML SYR IV PRN (13:37)
[2024-12-01] MEDS: DIATRIZOATE MEGLUMINE 30% 100ML VIAL INSTIL ONE (14:26)
--- NOTE | 2024-12-01 14:44 | Fluoroscopy Report ---
[place] retrograde includes kub CLINICAL HISTORY: CYSTO RIGHT STENT COMPARISON STUDY: None FLUOROSCOPY TIME: 27 seconds FLUOROSCOPY IMAGES: 5 EXPOSURE DOSE: 10 mGy FINDINGS: Fluoroscopy was provided for urologic procedure. IMPRESSION: Intraoperative fluoroscopy. ACT 112: Negative or not required by law. Electronically signed by: Julio Gonzalez M.D. 12/01/2024 2:42 PM
--- NOTE | 2024-12-01 14:45 | Operative Report ---
PG Post Operative Report Pre & Post Diagnosis Operation Date: 12/01/24 08:20 Pre-Op Diagnosis: Calculus of proximal right ureter Post-Op Diagnosis: Calculus of proximal right ureter I identified the patient and participated in the time-out.: Yes Procedure Operation Date: 12/01/24 08:20 Actual Procedures p Cystoscopy, Retrograde Pyleogram, Ureteroscopy (Right) - Jono Mccallum MD Surgeon Jono Mccallum MD Hammerer Helper None Estimated Blood Loss 0 Findings See Below Stone was heavily impacted and although I could get a wire past it, I was unable to advance the stent past the stone. Ureteroscopy was attempted although the stone could not be visualized due to significant tissue edema and irritation. Stent could not be placed. Specimens None Drains None Anesthesia Type MAC Complications none Disposition Accompanied Patient To Recovery: Yes Disposition: Recovery Room Indications This is a 64-year-old male who presented to the emergency department on 12/01/2024 with right-sided flank pain related to the right ureteral stone. Urine culture from 11/24/2024 had demonstrated infection with Staph epidermidis. Due to ongoing pain and concern for obstructed infection, he is brought to the OR for attempted ureteral stent placement Description of Procedure The patient was identified in the holding area and informed consent was confirmed. He was marked on the right side, then was taken to the operating room where anesthesia was initiated. He was placed in the dorsal lithotomy pos ition with all pressure points appropriately padded. He was prepped and draped in the usual sterile fashion and a preoperative timeout was performed. A well-lubricated cystoscope was inserted per urethra and panendoscopy was performed. The pendulous urethra was normal with no strictures or mucosal abnormalities. The prostate was of normal size. His bladder appeared grossly normal with no tumors or stones appreciated. Ureteral orifices were in orthotopic position bilaterally. A 5 Surinamese open-ended catheter was inserted and used to intubate the right ureteral orifice. A retrograde pyelogram was performed using Cystografin. The distal ureter appeared normal. In the mid ureter there was abrupt cessation of contrast that a shadow suspicious for his obstructing stone. A 0.038 inch zip wire was advanced. The first several attempts of advancing the wire curled back on itself at the level of the stone. I was able to use the 5 Surinamese open-ended catheter to slightly reposition the wire and eventually was able to bypass the stone. There was a short burst of efflux of turbid urine. I advanced a 6 Surinamese by 26 cm double-J ureteral stent over the wire. This met resistance at the level of the stone and despite multiple attempts I was unable to get the stent past the obstruction. I then attempted using a 4.8 Surinamese stent in a similar fashion, however this also met resistance and could not be advanced to the kidney. This was unsuccessful despite several attempts. The semirigid ureteroscope was then introduced with the hopes of finding a more open tract to the kidney that would accommodate the stent or even potentially using the laser to bypass a small area of the stone. Once the ureteroscope reached the level of the stone, the stone could not be visualized due to signi ficant mucosal irritation/inflammation. With concern for underlying infection, at this point I elected to abort the procedure with plan for transfer for nephrostomy tube. The bladder was drained and all instrumentation was removed. The patient was then awakened from anesthesia and was brought to the PACU in stable condition. I attest to the content of the Intraoperative Record and any orders documented therein. Any exceptions are noted below.
--- NOTE | 2024-12-01 14:54 | Anesthesiology Progress Note ---
Date of Service December 01, 2024 Anesthesia Post Procedure Vital Signs Vital Signs: Temp Pulse Pulse Pulse Resp BP BP 12/01/24 14:40 62 14 147/84 H 12/01/24 14:32 36 C L 65 16 156/87 H 12/01/24 12:30 36.4 C L 59 L 20 142/84 H 12/01/24 12:00 61 20 146/85 H 12/01/24 10:00 63 20 153/84 H 12/01/24 08:03 73 16 159/90 H 12/01/24 06:51 77 18 159/89 H 12/01/24 05:40 12/01/24 05:12 36.9 C 81 18 163/97 H Pulse Ox O2 Del Method O2 Flow Rate 12/01/24 14:40 98 Room Air 12/01/24 14:32 100 Oxymask 6 12/01/24 12:30 97 Room Air 12/01/24 12:00 98 Room Air 12/01/24 10:00 97 Room Air 12/01/24 08:03 94 Room Air 12/01/24 06:51 98 Room Air 12/01/24 05:40 100 Room Air 12/01/24 05:12 97 Room Air Pain Intensity Right Flank: Pain Intensity: 1 Transfer of Care Handoff Completed per policy Notes Mental Status: alert / awake / arousable and participated in evaluation Patient Amnestic to Procedure: Yes Nausea / Vomiting: adequately controlled Pain: adequately controlled Airway Patency, RR, SpO2: stable & adequate BP & HR: stable & adequate Hydration State: stable & adequate Anesthetic Complications: no major complications apparent and Pt Satisfied with anesthetic care
--- NOTE | 2024-12-01 15:32 | History & Physical Report ---
Date of Service December 01, 2024 Assessment & Plan (1) Calculus of proximal right ureter: Plan: Infected obstructive right ureterolithiasis CTA/P: 5 mm, 3 mm right proximal ureterolithiasis with mild hydro. Left nonobstructing nephrolithiasis, right nonobstructing nephrolithiasis Past UCx positive for Staph epidermidis. 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 Placed on daptomycin on admission consultation Urology consulted. Unable to place a stent. Concern for turbid/purulent material on passing wire. Will need transfer for nephrostomy tubes Discussed with Davide. Patient is accepted for transfer to [facility] however currently bed will not be available until Wednesday. Anticipate transfer on Wednesday with procedural intervention likely that Wednesday. He has been accepted to medical service there with neurology consultation. If he were to clinically deteriorate or become septic then call back to [facility] transfer center to reevaluate expedited transfer at that time Currently he does not have a leukocytosis, is hemodynamically stable, and does not have an SHARITA. Continue antibiotics with daptomycin, adjunct Rocephin added Continue multimodal pain control, Tylenol, Toradol, breakthrough morphine if additional as needed. If any rising creatinine/renal dysfunction hold Toradol Type II DM Continue basal bolus insulin while admitted Diet advanced no surgical intervention anticipated in the next 24 hours BSG adequate postoperatively Myotonic dystrophy Echo normal, no acute change in management Hypertension Continue losartan DVT prophylaxis: Lovenox Disposition: MSO Diet: Type II DM CODE STATUS: Full code (2) Myotonic dystrophy, type 2: (3) KARMEN (obstructive sleep apnea): (4) Obesity (BMI 30-39.9): (5) DM2 (diabetes mellitus, type 2): (6) Arthritis: History of Present Illness Primary Care Provider: Calli Dior MD Tye is a 64-year-old male with a history of nephrolithiasis, BPH with LUTS, hyperlipidemia, type II DM, type II myotonic dystrophy, 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 In the last 48 hours he had had progressive worsening of his pain and presented to the ER for evaluation. CTA/P showed a right 5 mm calculi 5 mm and 3 mm in right proximal ureter with mild hydro, left kidney showed nonobstructing calculi 5/2 mm in lower calyx and right kidney with 2/3 mm in lower calyx. Did not have an SHARITA. He has an associated UTI with recent urine culture positive for Staph epidermidis for which she has been on doxycycline as an outpatient. He was seen by nephrology and was taken to the OR for attempted stent placement. Unfortunately due to tissue edema, irritation stent was not able to be placed. A wire was able to be placed with production of turbid material. Due to concern for Staph epidermidis with obstructed stone associated UTI, and additional hydro although no SHARITA not amenable to stent placement he was recommended for transfer to tertiary care where nephrostomy was available. Patient was seen initially in the morning at time of shift change as a consultation. On consultation he was recommended for urologic intervention and then reassessment for possible admission versus discharge home if stent was able to be placed without complication. Unfortunately due to above patient requires transfer to tertiary care and as such was initially called as an ER to ER transfer as he had not yet been accepted for admission. He is a is seen again on reevaluation in the PACU. He reports that he feels like he is leaking urine and that his urinary tract is very irritated. Denies fever chills or sweats. Continues to have right flank pain. No chest pain chest pressure or shortness of breath. Agreeable to transfer, prefers [facility] Medical History: Reviewed Medications: Reviewed Surgical History: Reviewed Family history: Reviewed Allergies: Reviewed Social History: Reviewed Code Status: Full Allergies Allergy/AdvReac Type Severity Reaction Status Date / Time cat dander Allergy Mild COUGH Verified 11/28/24 09:26 No Known Drug Allergies Allergy Verified 11/28/24 09:26 Home Medications Medication Instructions Recorded Confirmed Type multivitamin (Daily Multi-Vitamin 1 tab PO QAM 09/12/18 12/01/24 History tablet) lancets 33 gauge (OneTouch Delica #100 ea 11/07/18 11/01/24 History Lancets) aspirin 81 mg tablet,delayed 81 mg PO QAM 02/14/20 12/01/24 History release omega 4-vet-hpa-fish oil 1,000 mg 1 cap PO BID 02/14/20 12/01/24 History (120 mg-180 mg) capsule (Fish Oil) compress.stocking,knee,reg,med #2 ea 02/28/20 11/01/24 Rx albuterol sulfate 90 mcg/actuation 2 puff inhalation Q4H PRN 09/10/20 12/01/24 Rx aerosol inhaler (ProAir HFA) shortness of breath or wheezing #18 grams loratadine 10 mg tablet 10 mg PO DAILY PRN Allergy Symptoms 09/11/20 12/01/24 History 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,manpower development advisor,cont #1 ea 03/24/23 11/01/24 Rx (Dexcom G7 Diamond Sizer And Sorter) mexiletine 150 mg capsule 300 mg (2 x 150 mg) PO Q8H #1 cap 06/04/23 12/01/24 Rx ondansetron 4 mg disintegrating 4 mg PO Q6H PRN nausea and 06/04/23 12/01/24 Rx tablet vomiting #10 tabs blood sugar diagnostic (OneTouch #50 ea 09/01/23 11/01/24 Rx Verio test strips) metformin 1,000 mg tablet 1,000 mg PO BID #180 tabs 03/23/24 12/01/24 Rx atorvastatin 40 mg tablet 40 mg PO .COMPLEX 90 days #36 tabs 10/05/24 12/01/24 Rx 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 sensor (Dexcom G7 #3 ea 10/25/24 11/01/24 Rx Sensor device) modafinil 100 mg tablet 100 mg PO DAILY 11/01/24 12/01/24 History pilocarpine HCl 5 mg tablet 5 mg PO BID #180 tabs 11/08/24 12/01/24 Rx azelastine 137 mcg (0.1 %) nasal See Rx Instructions intranasal BID 11/21/24 12/01/24 Rx spray #90 mL pioglitazone 15 mg tablet (Actos) 15 mg PO DAILY #30 tabs 11/21/24 12/01/24 Rx doxycycline hyclate 100 mg tablet 100 mg PO BID #14 tabs 11/24/24 12/01/24 Rx fluticasone propionate 50 2 spray intranasal DAILY PRN 12/01/24 12/01/24 History mcg/actuation nasal Congestion spray,suspension losartan 25 mg tablet 25 mg PO QAM 12/01/24 12/01/24 History Past Med/Surg History Problem List Calculus of proximal right ureter (Acute) Dizziness Leukopenia Dysarthria History of Lyme disease (Acute) Peripheral neuropathy (Chronic) Internal hemorrhoids (Chronic) HTN, goal below 140/90 (Chronic) Dysmetabolic syndrome X (Chronic) Current smoker (Chronic) History of colon polyps Excessive daytime sleepiness Mild obstructive sleep apnea Nephrolithiasis Hydronephrosis with renal and ureteral calculous obstruction (Acute) 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 Faxed to personal development coach for continuity of care. Hiatal hernia Scarring of lung R/T COVID VIRUS (FOLLOWING WITH PULMONOLOGY) Lower extremity edema LASIX PRN Allergic rhinitis (Chronic) Hypercholesterolemia (Chronic) Medical History Myotonic dystrophy, type 2 FOLLOWS WITH [facility]. KARMEN (obstructive sleep apnea) CPAP Obesity (BMI 30-39.9) Vocal fold atrophy DM2 (diabetes mellitus, type 2) Arthritis Kidney stones History of diverticulitis History of COVID-19 POSITIVE 02/12/20. HOSPITALIZED, [place] WITH ABX AND REMDESIVIR. MILD RESIDUAL REYNOLDS/SOB. SCARRING NOTED ON CHEST CT 05/2020 Pneumonia due to 2019-nCoV Hypertension Surgical History H/O hernia repair S/P cystoscopy with ureteral stent placement x2--last 08/2020 @ [facility] [place] teeth removed History of incisional hernia repair History of appendectomy History of partial colectomy 1990s--had colostomy--d/t diverticulitis History of colostomy d/t diverticulitis History of colostomy reversal History of esophagogastroduodenoscopy (EGD) History of colonoscopy with polypectomy History of bilateral cataract extraction Family History Mother Cancer lung cancer Family history of diabetes mellitus Brother Myotonic dystrophy Sister Myotonic dystrophy Diabetes Father Stroke Diabetes Brother Prostate cancer Lewy body dementia Brother Colorectal cancer Daughter No problems noted. Son Diabetes Other No family history of adverse response to anesthesia Denies family history of Ovarian cancer Myocardial infarction Breast cancer Social History Smoking Status: Never smoker Tobacco Type: Cigars Age Started Using Tobacco: 37; Age Quit Using Tobacco: 59; packs per day: 0.5; Cigarettes Per Day: smoked cigars intermittently; Second Hand Exposure: No; Do You Dip or Chew Tobacco: No; Hx Alcohol Use: Yes Alcohol type: hard liquor Alcohol Intake Frequency: Monthly or Less Hx Substance Use: No Preferred Language: Slovenian Communication Ability: Effective Visual Impairment: No Limitations Hearing Ability: Normal Senior Vice President Required: No Beliefs That Will Affect Care: None marital status: Current Living Situation: Spouse Current Living Situation Comment: Lives with and son current occupational status: employed Feels Safe at Home: Yes Childhood Exposure to Second-Hand Smoke: Yes Diet: low carbohydrate and other Diet Comment: low sugar, low carbs Dental Care, Regularly: No Physical Activity Frequency: Daily Seatbelt Use: sometimes Sunscreen Use: No Do you think of yourself as: straight/heterosexual Assistive Devices: Cane Physical Exam Physical Exam: General: A&Ox3. NAD. Cooperative. HEENT: Atraumatic, normocephalic. Pulm: CTAB A&P. -wheezes, -rales, -rhonchi. Symmetrical chest rise. No increased work of breathing. No respiratory distress. Cardiac: RRR, -mrg. Radial pulses intact and symmetrical. Abdominal: Nontender, nondistended, soft. BS present. +R CVA tenderness Results & Data Results & Data Vital Signs (Past 12 Hours) Vital Signs Temp Pulse Pulse Resp BP BP Pulse Ox 12/01/24 06:51 77 18 159/89 H 98 12/01/24 05:40 100 12/01/24 05:12 36.9 C 81 18 163/97 H 97 O2 Del Method 12/01/24 06:51 Room Air 12/01/24 05:40 Room Air 12/01/24 05:12 Room Air PG Care Time/CCT Total # of Minutes Spent Total Time Spent with Patient: Total time spent is greater than 50% in coordination of care (as documented) at patient's floor/unit and/or counseling patient: Coding Level of Care Code 88115 INT INP/OBS CARE 3/75MIN Diagnoses Calculus of proximal right ureter N20.1 Myotonic dystrophy, type 2 G71.11 KARMEN (obstructive sleep apnea) G47.33 Obesity (BMI 30-39.9) E66.9 DM2 (diabetes mellitus, type 2) E11.9 Arthritis M19.90
[2024-12-01] MEDS: INSULIN ASPART PER UNIT CHARGE SC SCH (18:43)
[2024-12-01] MEDS: MEXILETINE HCL 150 MG CAPSULE PO SCH (18:43)
[2024-12-01] MEDS ORDERED: MoRPHine SULFATE 2 MG/ML CARP IV PRN (19:01)
[2024-12-01] MEDS: NSS + 20MEQ KCL 20 MEQ/1,000 ML BAG IV SCH (19:59)
[2024-12-01] MEDS: cefTRIAXone SODIUM 2,000 MG/50 ML BAG IV SCH (19:59)
[2024-12-01] MEDS: PILOCARPINE HCL 5 MG TABLET PO SCH (20:40)
[2024-12-01] MEDS: LANTUS PER UNIT CHARGE SQ SCH (21:34)
[2024-12-02] MEDS: ACETAMINOPHEN 500 MG TAB PO PRN (03:39)
[2024-12-02 07:04] LABS: Hematocrit (blood only) 35.0 % (42.0-52.0); Hemoglobin 11.8 g/dl (14.0-18.0); Immature Granulocytes # (auto) 0.02 K/uL (0.01-0.20); Immature Granulocytes % (auto) 0.4 %; Mean Corpuscular Hemoglobin 30.8 pg (25.0-34.0); Mean Corpuscular Volume 91.4 fL (80.0-100.0); Platelet Count 159 K/uL (130-400); RDW Standard Deviation 43.3 fL (36.4-46.3); Red Blood Count 3.83 M/uL (4.70-6.10); White Blood Count 5.64 K/ul (4.8-10.8)
[2024-12-02 07:19] LABS: Anion Gap 3.0 (3-11); Blood Urea Nitrogen 22.0 mg/dl (6-23); Calcium 8.4 mg/dl (8.6-10.3); Carbon Dioxide 27.0 mmol/L (21-32); Chloride 109.0 mmol/L (98-107); Creatinine Clr Calc Pharmacy 90.3 ml/min; Glucose 161.0 mg/dl (70-99(Fasting)); Potassium 4.3 mmol/L (3.5-5.1); Sodium 139.0 mmol/L (136-145)
--- NOTE | 2024-12-02 09:22 | Urology Progress Note ---
Date of Service December 02, 2024 Assessment & Plan (1) Calculus of proximal right ureter: Plan: Recovering appropriately s/p attempted ureteral stent placement on 12/01/2024. Due to heavily impacted stone, stent could not be placed. He is awaiting transfer for for percutaneous nephrostomy tube given gradually rising creatinine, recent positive urine culture and concern for underlying obstructive infection. No plan for additional urologic intervention at this point, however he will eventually need repeat ureteroscopy and stone removal. That will be coordinated as an outpatient. Continue with supportive measures. Agree with ongoing antibiotic treatment. Would recommend straining all urine in case of stone passage. Admission and Anticipated Discharge Date Admission Date: December 01, 2024 Subjective Feeling okay this morning, burning with urination is improving. Normal WBC (5.64). Creatinine 0.90. Most recent urine culture was from 11/24/2024, demonstrating Staph epidermidis. He remains on ceftriaxone and daptomycin. Denies any fevers or chills overnight. Has not passed the stone but feels like the pain may have shifted slightly lower. Physical Exam Physical Exam: Seated in bed, NAD Results & Data Vital Signs (Past 12 Hours) Vital Signs Temp Pulse Resp BP BP Pulse Ox O2 Del Method 12/02/24 08:04 36.7 C 56 L 17 149/82 H 95 Room Air 12/02/24 03:02 36.7 C 59 L 16 143/82 H 98 Room Air 12/01/24 23:29 36.8 C 58 L 16 108/64 96 Room Air PG Care Time/CCT Total # of Minutes Spent Total Time Spent with Patient: Total time spent is greater than 50% in coordination of care (as documented) at patient's floor/unit and/or counseling patient: Coding Level of Care Code 56193 SUB INP/OBS CARE 04/01MIN Diagnoses Calculus of proximal right ureter N20.1
[2024-12-02] MEDS: LOSARTAN POTASSIUM 25 MG TAB PO SCH (09:48)
[2024-12-02] MEDS: ASPIRIN 81 MG ECTAB PO SCH (09:48)
--- NOTE | 2024-12-02 11:01 | Hospitalist Progress Note ---
Date of Service December 02, 2024 Assessment & Plan (1) Calculus of proximal right ureter: Plan: Infected obstructive right ureterolithiasis CTA/P: 5 mm, 3 mm right proximal ureterolithiasis with mild hydro. Left nonobstructing nephrolithiasis, right nonobstructing nephrolithiasis Past UCx positive for Staph epidermidis. Patient was on doxycycline WINDLASSER. Placed on daptomycin on admission consultation Urology consulted. Unable to place a stent. Concern for turbid/purulent material on passing wire. Will need transfer for nephrostomy tubes Discussed with Davide. Patient is accepted for transfer to [facility] however currently bed will not be available until Wednesday. Anticipate transfer on Wednesday with procedural intervention likely that Wednesday. He has been accepted to medical service there with urology consultation. If he were to clinically deteriorate or become septic then call back to [facility] transfer center to reevaluate expedited transfer at that time Real nontoxic without SHARITA or leukocytosis Rocephin/daptomycin continued Continue multimodal pain control, Tylenol, Toradol, breakthrough morphine if additional as needed. If any rising creatinine/renal dysfunction hold Toradol Zofran every 4 hours for nausea Anticipate transfer 12/03 to [facility] Type II DM Continue basal bolus insulin while admitted Diet advanced no surgical intervention anticipated in the next 24 hours BSG adequate postoperatively Myotonic dystrophy Echo normal, no acute change in management Hypertension Continue losartan Remains slightly hypertensive but below 180 in the setting of discomfort, continue pain control above DVT prophylaxis: Lovenox Disposition: MSO Diet: Type II DM CODE STATUS: Full code (2) Myotonic dystrophy, type 2: (3) KARMEN (obstructive sleep apnea): (4) Obesity (BMI 30-39.9): (5) DM2 (diabetes mellitus, type 2): (6) Arthritis: Admission and Anticipated Discharge Date Admission Date: December 01, 2024 Subjective Seen at the bedside. Did have some transient nausea this which has resolved by time of provider evaluation. Continues to have some right flank discomfort intermittently. No fevers chills or sweats. No chest pain or chest pressure No lightheadedness or dizziness Likely hypertensive in the setting of pain/nausea Physical Exam Physical Exam: General: A&Ox3. NAD. Cooperative. Nontoxic. HEENT: Atraumatic, normocephalic. Patient and hearing grossly intact Pulm:Symmetrical chest rise. No increased work of breathing. No respiratory distress. Abdominal: Real tender in the right flank. No abdominal rigidity/rebound/guard Results & Data Results & Data Vital Signs (Past 12 Hours) Vital Signs Temp Pulse Resp BP BP Pulse Ox O2 Del Method 12/02/24 09:45 64 175/87 H 12/02/24 08:04 36.7 C 56 L 17 149/82 H 95 Room Air 12/02/24 03:02 36.7 C 59 L 16 143/82 H 98 Room Air 12/01/24 23:29 36.8 C 58 L 16 108/64 96 Room Air PG Care Time/CCT Total # of Minutes Spent Total Time Spent with Patient: Total time spent is greater than 50% in coordination of care (as documented) at patient's floor/unit and/or counseling patient: Coding Level of Care Code 85269 SUB INP/OBS CARE 3/50MIN Diagnoses Calculus of proximal right ureter N20.1 Myotonic dystrophy, type 2 G71.11 KARMEN (obstructive sleep apnea) G47.33 Obesity (BMI 30-39.9) E66.9 DM2 (diabetes mellitus, type 2) E11.9 Arthritis M19.90
[2024-12-02] MEDS: ONDANSETRON INJ 2 MG/ML 2 ML VIAL IV PRN (11:07)
[2024-12-02 14:37] LABS: Anion Gap 4.0 (3-11); Blood Urea Nitrogen 21.0 mg/dl (6-23); Calcium 8.7 mg/dl (8.6-10.3); Carbon Dioxide 26.0 mmol/L (21-32); Chloride 105.0 mmol/L (98-107); Creatinine Clr Calc Pharmacy 71.9 ml/min; Glucose 231.0 mg/dl (70-99(Fasting)); Potassium 4.4 mmol/L (3.5-5.1); Sodium 135.0 mmol/L (136-145)
[2024-12-02 15:32] VITALS: RESP 18
[2024-12-03 06:27] LABS: Hematocrit (blood only) 33.6 % (42.0-52.0); Hemoglobin 12.0 g/dl (14.0-18.0); Immature Granulocytes # (auto) 0.01 K/uL (0.01-0.20); Immature Granulocytes % (auto) 0.2 %; Mean Corpuscular Hemoglobin 32.3 pg (25.0-34.0); Mean Corpuscular Volume 90.6 fL (80.0-100.0); Platelet Count 183 K/uL (130-400); RDW Standard Deviation 42.5 fL (36.4-46.3); Red Blood Count 3.71 M/uL (4.70-6.10); White Blood Count 4.59 K/ul (4.8-10.8)
[2024-12-03 06:48] LABS: Anion Gap 5.0 (3-11); Blood Urea Nitrogen 20.0 mg/dl (6-23); Calcium 8.4 mg/dl (8.6-10.3); Carbon Dioxide 25.0 mmol/L (21-32); Chloride 109.0 mmol/L (98-107); Creatinine Clr Calc Pharmacy 102.9 ml/min; Glucose 171.0 mg/dl (70-99(Fasting)); Potassium 4.0 mmol/L (3.5-5.1); Sodium 139.0 mmol/L (136-145)
--- NOTE | 2024-12-03 08:02 | Discharge Summary ---
Discharge Summary Date of Service December 03, 2024 Principal Dx & Hospital Course #1 = Principal Diagnosis (1) Calculus of proximal right ureter: Infected obstructive right ureterolithiasis CTA/P: 5 mm, 3 mm right proximal ureterolithiasis with mild hydro. Left nonobstructing nephrolithiasis, right nonobstructing nephrolithiasis Past UCx positive for Staph epidermidis. 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 Placed on daptomycin on admission consultation Urology consulted. Unable to place a stent. Concern for turbid/purulent material on passing wire. Will need transfer for nephrostomy tubes. Discussed with [facility]. Patient is accepted for transfer to [facility] for ostomy tube Remains nontoxic without SHARITA or leukocytosis on reassessment. Did have continued R flank pain overnight 12/03 Rocephin/daptomycin continued Continue multimodal pain control, Tylenol, Toradol, breakthrough morphine if additional as needed Zofran every 4 hours for nausea He did continue to have dysuria burning right flank pain on reassessment morning of 12/03. He has not yet passed the stone into the strainer and with continued right flank pain KUB was deferred Accepted by Dr. Rosaline [facility]. Patient was initially set for S ambulance, he preferred to have his daughter drive him by private vehicle. He was not hemodynamically unstable, he was not septic, and he is not on IV drips. Confirmed with him and [facility] and [facility] transfer center, given his stability he may be transported by private vehicle to inpatient transfer. This was discussed with patient who is agreeable, notes he will not drive himself and his daughter will drive, and agrees to go straight from [facility] to [facility] without diversion. Last dose of ceftriaxone prior to transfer was 12/02/2024 at 1955 hrs., last dose of daptomycin was 12/02/2024 at 1200 hrs. he will be due for another dose of daptomycin likely near his time of arrival to [facility]Urine culture 11/24 positive for Staph epidermidis (also had prior UTI with this 11/01/2024). This was resistant to Bactrim otherwise sensitive. While Staph epi was sensitive to oxacillin deferred cephalosporin monotherapy for this due to potential for treatment failure with high bacterial loads which she is at risk for in a [facility] space. Type II DM Continue basal bolus insulin while admitted Diet advanced no surgical intervention anticipated in the next 24 hours. 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 In the last 48 hours he had had progressive worsening of his pain and presented to the ER for evaluation. CTA/P showed a right 5 mm calculi 5 mm and 3 mm in right proximal ureter with mild hydro, left kidney showed nonobstructing calculi 5/2 mm in lower calyx and right kidney with 2/3 mm in lower calyx. Did not have an SHARITA. He has an associated UTI with recent urine culture positive for Staph epidermidis for which she has been on doxycycline as an outpatient. He was seen by nephrology and was taken to the OR for attempted stent placement. Unfortunately due to tissue edema, irritation stent was not able to be placed. A wire was able to be placed with production of turbid material. Due to concern for Staph epidermidis with obstructed stone associated UTI, and additional hydro although no SHARITA not amenable to stent placement he was recommended for transfer to tertiary care where nephrostomy was available. Patient was seen initially in the morning at time of shift change as a consultation. On consultation he was recommended for urologic intervention and then reassessment for possible admission versus discharge home if stent was able to be placed without complication. Unfortunately due to above patient requires transfer to tertiary care and as such was initially called as an ER to ER transfer as he had not yet been accepted for admission. He is a is seen again on reevaluation in the PACU. He reports that he feels like he is leaking urine and that his urinary tract is very irritated. Denies fever chills or sweats. Continues to have right flank pain. No chest pain chest pressure or shortness of breath. Agreeable to transfer, prefers [place] Medical History: Reviewed Medications: Reviewed Surgical History: Reviewed Family history: Reviewed Allergies: Reviewed Social History: Reviewed Code Status: Full Discharge Exam General: A&Ox3. NAD. Cooperative. HEENT: Atraumatic, normocephalic. Patient hearing grossly intact Pulm: CTAB A&P. -wheezes, -rales, -rhonchi. Symmetrical chest rise. No increased work of breathing. No respiratory distress. Cardiac: RRR, -mrg. Radial pulses intact and symmetrical. Abdominal: Right CVA tenderness Discharge Plan Discharge Items Patient Disposition: Transfer Acute Care Hospital Reason For Visit: INFECTED URETEROLITHIASIS Discharge Diagnosis: Obstructive utero lithiasis, complicated UTI Condition on Discharge: Fair Activity: Resume your previous activity Non-emergency contact: Primary Care Provider, Hospitalist and Surgeon Call non-emergency contact if: you have any medication questions, your symptoms worsen and your pain is not controlled Follow-up/Referrals: Calli Dior MD [Primary Care Provider] - Diet: Carb Consistent or DM2 Addtl Attending Provider Instructions: You are seen in the hospital for pain and a UTI due to an obstructive kidney stone. Urology attempted to place a stent however the stone could not be bypassed and a stent was not able to be placed. During the procedure return of some turbid/purulent material was noted concerning for infection behind the stone and you have had recent urinary cultures positive for Staphylococcus. Due to concern for obstructive infection which could progress to worsening pyelonephri tis if not treated properly your case was discussed with [facility]. You have been accepted to [facility] for further care and nephrostomy tube placement to help relieve any pus/obstruction behind the stone. While at [facility] you were placed on ceftriaxone and daptomycin and remained hemodynamically stable. Your kidney function was normal. 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 See Rx Instructions .Route Qty: 1 0RF Rx Instructions: As directed (DME) OneTouch Verio test strips Strip See Rx Instructions .ROUTE .MEDSUPPLY Qty: 50 1RF Rx Instructions: monitor glucose 3 times daily and as needed - dx E11.9 metformin 1,000 mg tablet 1,000 mg PO BID Qty: 180 3RF Hold Instructions: hold until your creatinine (kidney function level) is rechecked on 06/05/23 atorvastatin 40 mg tablet 40 mg PO .COMPLEX 90 Days Qty: 36 3RF Rx Instructions: 40 mg PO 3 times a week; Wednesday,Wednesday,Wednesday (DME) Dexcom G7 Sensor Device See Rx Instructions .Route Qty: 3 5RF Rx Instructions: As directed E11.9, G71.11 pilocarpine HCl 5 mg tablet 5 mg PO BID Qty: 180 3RF pioglitazone [Actos] 15 mg tablet 15 mg PO DAILY Qty: 30 5RF azelastine 137 mcg (0.1 %) spray,non-aerosol See Rx Instructions intranasal BID Qty: 90 2RF Rx Instructions: 1-2 sprays INTNAS BID; administer into each nostril doxycycline hyclate 100 mg tablet 100 mg PO BID Qty: 14 0RF loratadine 10 mg tablet 10 mg PO DAILY PRN (Reason: Allergy Symptoms) multivitamin [Daily Multi-Vitamin] tablet 1 tab PO QAM (DME) lancets [OneTouch Delica Lancets] 33 gauge misc See Dose Instructions .ROUTE .MEDSUPPLY Qty: 100 Rx Instructions: As directed- THREE TIMES DAILY (DME) compress.stocking,knee,reg,med Misc See Rx Instructions .ROUTE .MEDSUPPLY Qty: 2 0RF Rx Instructions: As directed modafinil 100 mg tablet 100 mg PO DAILY aspirin 81 mg Tablet,Delayed Release (Dr/Ec) 81 mg PO QAM omega 5-bng-xhi-fish oil [Fish Oil] 1,000 mg (120 mg-180 mg) Capsule 1 cap PO BID ondansetron 4 mg tablet,disintegrating 4 mg PO Q6H PRN (Reason: nausea and vomiting) Qty: 10 0RF mexiletine 150 mg capsule 300 mg PO Q8H Qty: 1 0RF Rx Instructions: 6 tablets daily losartan 25 mg tablet 25 mg PO QAM Rx Instructions: TAKE 1 TABLET BY MOUTH EVERY DAY IN THE MORNING fluticasone propionate 50 mcg/actuation spray,suspension 2 spray intranasal DAILY PRN (Reason: Congestion) Rx Instructions: USE 2 SPRAY INTRANASALLY DAILY NEEDED FOR NASAL CONGESTION ADMINISTER INTO EACH NOSTRIL Discharge Orders: Discharge Order (Routine); Ordered 12/03/24 Ordered By: Loy Gerber Admission Data Admit Date/Time: 12/01/24 16:32 Attending Provider: Loy Gerber Admit Provider: Loy Gerber Primary Care Provider: Calli Dior Other Providers: Loy Gerber Hospital Stay Data Consultations 12/01/24 07:57 ED Decision to Admit Stat 12/01/24 15:31 Radiology Transfer Of Images Stat Procedures Performed Operation Date: 12/01/24 08:20 Actual Procedures p Cystoscopy, Retrograde Pyleogram, Ureteroscopy (Right) - Jono Mccallum MD Diagnostic Imagining Performed 12/01/24 FL retrograde includes kub Routine 12/01/24 05:28 CT abd pelvis IV con only Stat Discharge Instructions Given to Patient (Per Discharging Provider) You are seen in the hospital for pain and a UTI due to an obstructive kidney stone. Urology attempted to place a stent however the stone could not be bypassed and a stent was not able to be placed. During the procedure return of some turbid/purulent material was noted concerning for infection behind the stone and you have had recent urinary cultures positive for Staphylococcus. Due to concern for obstructive infection which could progress to worsening pyelonephritis if not treated properly [facility] for further care and nephrostomy tube placement to help relieve any pus/obstruction behind the stone. While at [facility] you were placed on ceftriaxone and daptomycin and remained hemodynamically stable. Your kidney function was normal. Total Time Total Time Spent Total Time Spent (In Minutes): Time spend day of discharge 35 minutes including direct patient care, documentation, review of labs and images, and coordination of care. Coding Level of Care Code 20079 INP/OBS DISCH >30 MIN Diagnoses Calculus of proximal right ureter N20.1 KARMEN (obstructive sleep apnea) G47.33 Obesity (BMI 30-39.9) E66.9 DM2 (diabetes mellitus, type 2) E11.9 Arthritis M19.90
[2024-12-03 08:09] VITALS: BP 163/88; PULSE 67; TEMP 97.9; O2SAT 97
== END 2024-12-03 10:24 | disposition short-term general hospital (02) | DRG 690 ==
LOC: ED 05:07 → OR 12:25 → 3N 12:30 → PACUINP 16:32 → 3N 18:38